=== PATIENT | male | born 1960 | race Caucasian/White ===

== ENCOUNTER 2019-08-02 20:45 | Emergency (ER) | payer MEDICARE, SELFPAY ==
[2019-08-02] VITALS (7 sets, daily range): BP systolic 127–133; BP diastolic 88–105; PULSE 128–147; RESP 20–40; O2SAT 94–99; BMI 21.1
--- NOTE | 2019-08-02 20:56 | ED_ITS ---
Entered by Daysi Ballard, acting as scribe for Sandeep Sanderson MD HPI - SOB/Dyspnea General: Chief Complaint: Shortness of Breath/Dyspnea Stated Complaint: SOB PFSH ED PFSH: Statuses (acute, chronic, etc) shown below reflect problem list status as previously entered and may not be historically accurate Medical History (Updated 07/15/19 @ 14:12 by Yaritza Pizarro DO) Cervical postlaminectomy syndrome (Acute) Chronic GERD (Acute) Colovesical fistula (Acute) COPD, moderate (Chronic) Coronary artery disease (Acute) Hyperlipidemia, unspecified (Acute) Hypertension (Acute) Indeterminate pulmonary nodules (Acute) Ischemic cardiomyopathy (Acute) Lumbar spondylosis (Acute) Major depressive disorder (Chronic) Other spondylosis, cervical region (Acute) Vesicocutaneous fistula (Acute) Surgical History (Updated 07/15/19 @ 14:11 by Yaritza Pizarro DO) H/O neck surgery (Acute) History of open heart surgery (Acute) S/P appendectomy (Acute) S/P colon resection (Acute) Social History Smoking and tobacco status: current every day smoker cigarettes Packs smoked per day: 0.5 Alcohol intake: never Course Vital Signs: Vital signs: Vital Signs Pulse Rate 147 H 08/02/19 20:46 Respiratory Rate 40 H 08/02/19 20:46 Blood Pressure 127/105 08/02/19 20:46 Pulse Oximetry 99 08/02/19 20:46 Discharge Plan Discharge Prescriptions: No Action paroxetine HCl [Paxil] 40 mg tablet 40 mg PO ONCE Qty: 30 RF: 2 albuterol sulfate 2.5 mg /3 mL (0.083 %) solution for nebulization 2.5 mg INHALATION Q4H PRN (Reason: shortness of breath or wheezing) Qty: 3 RF: 0 montelukast [Singulair] 10 mg tablet 10 mg PO ONCE RF: 0 omeprazole 20 mg capsule,delayed release(DR/EC) 20 mg PO ONCE RF: 0 lisinopril 5 mg tablet 5 mg PO ONCE RF: 0 metoprolol tartrate 25 mg tablet 25 mg PO BID RF: 0 simvastatin 40 mg tablet 40 mg PO ONCE RF: 0 nitroglycerin [Nitrostat] 0.4 mg tablet, sublingual 0.4 mg SUBLINGUAL Q5M PRNRF: 0 [id number] Tablet 1 tab PO ONCE RF: 0 gabapentin 100 mg capsule 100 mg PO TID Qty: 90 RF: 0 Zyrtec 10 mg capsule 10 mg PO ONCE Qty: 7 RF: 0 meloxicam 15 mg tablet 15 mg PO ONCE Qty: 30 RF: 0 metformin 500 mg tablet extended release 24hr 500 mg PO ONCE Qty: 30 RF: 0 Coding Level of Care Code ED Control Director for Sowmyag Nisha
--- NOTE | 2019-08-02 20:59 | ED_ITS ---
Entered by Daysi Ballard, acting as scribe for Sandeep Sanderson MD HPI - SOB/Dyspnea General: Chief Complaint: Shortness of Breath/Dyspnea Stated Complaint: SOB Time Seen by Provider: 08/02/19 20:57 Source: patient and RN notes reviewed Mode of arrival: ambulatory Limitations: no limitations History of Present Illness: HPI Narrative: 59 yo male presents to ED with complaints of shortness of breath. The patient states he can't walk 5 feet nor take a shower without feeling like he is going to pass out. The patient states he was diagnosed last week with diabetes. The patient states his shortness of breath scares him. MD elicited complaint: shortness of breath and anxiety Pertinent past history: COPD and diabetes Onset (ago): day(s) (today) Context: anxiety Timing: constant Severity: severe Exacerbating factors: exertion, movement and smoke Relieving factors: oxygen and rest Known history of: COPD Associated symptoms: Reports no associated symptoms; Deny abdominal pain, chest pain, fever(s), nausea, polyuria or vomiting Treatment prior to arrival: none Review of Systems Const: Denies: fever or chills Eyes: Denies: change in vision ENMT: Denies: throat pain or mouth pain Card: Denies: chest pain GI: Denies: abdominal pain, nausea, vomiting or diarrhea Musc: Denies: back pain or joint pain Skin/Breast: Denies: rash Neuro: Denies: headache or behavioral changes Psych: Denies: depression Endo: Denies: excessive urination Chase/Lymph: Denies: easy bruising All/Imm: Denies: hives PFSH ED PFSH: Statuses (acute, chronic, etc) shown below reflect problem list status as previously entered and may not be historically accurate Medical History (Updated 08/02/19 @ 22:07 by Sandeep Sanderson MD) Cervical postlaminectomy syndrome (Acute) Chronic GERD (Acute) Colovesical fistula (Acute) COPD, moderate (Chronic) Coronary artery disease (Acute) Hyperlipidemia, unspecified (Acute) Hypertension (Acute) Indeterminate pulmonary nodules (Acute) Ischemic cardiomyopathy (Acute) Lumbar spondylosis (Acute) Major depressive disorder (Chronic) Other spondylosis, cervical region (Acute) Vesicocutaneous fistula (Acute) Surgical History (Updated 07/15/19 @ 14:11 by Yaritza Pizarro DO) H/O neck surgery (Acute) History of open heart surgery (Acute) S/P appendectomy (Acute) S/P colon resection (Acute) Social History Smoking and tobacco status: current every day smoker cigarettes Packs smoked per day: 0.5 Alcohol intake: never Physical Exam Const: COMMON NORMALS: no apparent distress, average body habitus and oriented x3 HENMT: COMMON NORMALS: normocephalic and head/scalp atraumatic HEAD & SCALP: normocephalic and atraumatic Eye: COMMON NORMALS: PERRL and conjunctivae normal CONJUNCTIVA: Yes conjunctivae normal PUPIL: Yes PERRL Neck/C-Spine: COMMON NORMALS: full ROM and no lymphadenopathy Chest: COMMONS NORMALS: inspection of chest normal and palpation of chest normal Resp: EFFORT & INSPECTION: Yes respiratory distress and Yes audible wheezes Cardio: COMMON NORMALS: regular rate and regular rhythm RATE: regular rate RHYTHM: regular rhythm GI: COMMON NORMALS: normal to inspection, nondistended, normoactive bowel sounds and soft to palpation PALPATION: Yes soft Neuro: COMMON NORMALS: oriented x3 Psych: COMMON NORMALS: mental status grossly normal Skin: COMMON NORMALS: no rashes or lesions noted GENERAL SKIN EXAM: no rashes or lesions noted Course Vital Signs: Vital signs: Vital Signs Pulse Rate 140 H 08/02/19 22:29 Respiratory Rate 24 H 08/02/19 22:29 Blood Pressure 133/88 08/02/19 22:29 Pulse Oximetry 94 08/02/19 22:29 MDM - SOB/Dyspnea MDM Narrative: Medical decision making narrative: Patient presents here with cough congestion and likely COPD exacerbation. Patient has no signs of cardiac cause or pulmonary embolism. Patient feels improved here after breathing treatment. I offered him admission but he refused. We will give him 1 more treatment and then prescribe Keflex and prednisone for home. Patient is to return if worsening is to follow-up with primary care doctor in 3 to 5 days. Lab Data: Labs: Lab Results 08/02/19 08/02/19 Range/Units 21:08 21:08 WBC 13.1 H (4.0-10.0) 10^3/ uL RBC 4.93 (4.1-5.3) 10^6/u L Hgb 15.0 (11.7-16.6) g/dL Hct 46.1 (42.0-52.0) % MCV 93.5 (80-94) fL MCH 30.4 (28.0-34.0) pg MCHC 32.5 (30.0-36.0) g/dL RDW 12.7 (12.1-15.1) % Plt Count 353 (130-400) 10^3/c mm MPV 10.7 H (7.4-10.4) fL Neut % (Auto) 80.8 % Lymph % (Auto) 10.7 % [place] % (Auto) 6.7 % Eos % (Auto) 1.0 % Baso % (Auto) 0.5 % Neut # (Auto) 10.5 H (1.8-7.7) 10^3/u L Lymph # (Auto) 1.4 (0.8-4.8) 10^3/u L [place] # (Auto) 0.9 (0.2-0.9) 10^3/u L Eos # (Auto) 0.1 (0.0-0.8) 10^3/u L Baso # (Auto) 0.1 (0.0-0.1) 10^3/u L Nucleated RBC % (a uto) 0 % Nucleated RBCs # 0.0 /100WBC Sodium 136 (136-145) mmol/L Potassium 3.9 (3.5-5.1) mmol/L Chloride 97 L (98-107) mmol/L Carbon Dioxide 23 (22-29) mmol/L Anion Gap 19.9 H (5-19) BUN 11 (6-20) mg/dL Creatinine 1.1 (0.7-1.2) mg/dL GFR Calculation 68.5 L (90-130) mL/min Glucose 321 H (74-109) mg/dL Calcium 10.1 (8.5-10.5) mg/dL Total Bilirubin 0.3 (0.15-1.2) mg/dL AST 59 H (0-40) U/L ALT 125 H (0-41) U/L Alkaline Phosphata se 206 H (40-130) IU/L Total Protein 7.6 (6.6-8.7) g/dL Albumin 3.7 (3.5-5.2) g/dL Globulin 3.9 (1.3-4.6) g/dL Imaging Data^: CXR: Attestation: I personally reviewed and interpreted this imaging study as follows: My impression: no acute abnormality Discharge Plan Discharge Patient Disposition: Home, Self-Care Clinical Impression: COPD, moderate Condition: Stable Prescriptions: New Keflex 500 mg capsule 500 mg PO Q6H 7 Days Qty: 28 RF: 0 prednisone 50 mg tablet 50 mg PO DAILY Qty: 5 RF: 0 No Action paroxetine HCl [Paxil] 40 mg tablet 40 mg PO ONCE Qty: 30 RF: 2 albuterol sulfate 2.5 mg /3 mL (0.083 %) solution for nebulization 2.5 mg INHALATION Q4H PRN (Reason: shortness of breath or wheezing) Qty: 3 RF: 0 montelukast [Singulair] 10 mg tablet 10 mg PO ONCE RF: 0 omeprazole 20 mg capsule,delayed release(DR/EC) 20 mg PO ONCE RF: 0 lisinopril 5 mg tablet 5 mg PO ONCE RF: 0 metoprolol tartrate 25 mg tablet 25 mg PO BID RF: 0 simvastatin 40 mg tablet 40 mg PO ONCE RF: 0 nitroglycerin [Nitrostat] 0.4 mg tablet, sublingual 0.4 mg SUBLINGUAL Q5M PRNRF: 0 [id number] Tablet 1 tab PO ONCE RF: 0 gabapentin 100 mg capsule 100 mg PO TID Qty: 90 RF: 0 Zyrtec 10 mg capsule 10 mg PO ONCE Qty: 7 RF: 0 meloxicam 15 mg tablet 15 mg PO ONCE Qty: 30 RF: 0 metformin 500 mg tablet extended release 24hr 500 mg PO ONCE Qty: 30 RF: 0 Discharge Orders: Discharge Order (Routine); Ordered 08/02/19 Ordered By: Sandeep Sanderson Referrals: Mora Mortensen FNP [Primary Care Provider] - 4-7 days Discharge Diet: Advance as tolerated Discharge Activity: Resume usual activity Patient Instructions: Chronic Obstructive Pulmonary Disease (ED) Discharge Date/Time: 08/02/19 22:13 Coding Level of Care Code ED Cad Programmer for Chg Fwd Exam Problem Focused The documentation recorded by the Nellie deleon Valerie R, accurately reflects the service I personally performed and the decisions made by me, Sandeep Sanderson MD Aug 02, 2019 20:45
--- NOTE | 2019-08-02 21:00 | XR_ITS ---
WS: [id number] CHEST XRAY TECHNIQUE: Portable chest. CLINICAL INFORMATION: sob COMPARISON: None. FINDINGS: Sternotomy. Heart: Normal cardiac silhouette. Lungs: Chronic emphysematous changes. No acute pulmonary infiltrates. No focal pneumonia. Bones: Postoperative changes lower cervical spine. IMPRESSION: 1. Chronic emphysematous changes. No acute pulmonary infiltrates. 2. No acute chest findings.
[2019-08-02 21:11] LABS: Basophils # 0.1 10^3/uL (0.0-0.1); Basophils % 0.5 %; Eosinophils # 0.1 10^3/uL (0.0-0.8); Hematocrit 46.1 % (42.0-52.0); Lymphocytes # 1.4 10^3/uL (0.8-4.8); Lymphocytes % 10.7 %; Mean Corpuscular HGB Conc 32.5 g/dL (30.0-36.0); Mean Corpuscular Hemoglobin 30.4 pg (28.0-34.0); Mean Corpuscular Volume 93.5 fL (80-94); Mean Platelet Volume 10.7 fL (7.4-10.4); Monocytes # 0.9 10^3/uL (0.2-0.9); Monocytes % 6.7 %; Neutrophils # 10.5 10^3/uL (1.8-7.7); Neutrophils % 80.8 %; Nucleated Red Blood Cells % 0 %; Platelet Count 353 10^3/cmm (130-400); Red Blood Count 4.93 10^6/uL (4.1-5.3); Red Cell Distribution Width 12.7 % (12.1-15.1); White Blood Count 13.1 10^3/uL (4.0-10.0)
[2019-08-02] MEDS: ipratropium-albuterol 3 mL Neb INHALATION (21:19)
[2019-08-02 21:25] LABS: Alanine Aminotransferase 125 U/L (0-41); Albumin Level 3.7 g/dL (3.5-5.2); Alkaline Phosphatase 206 IU/L (40-130); Anion Gap 19.9 (5-19); Aspartate Amino Transferase 59 U/L (0-40); Blood Urea Nitrogen 11 mg/dL (6-20); Calcium 10.1 mg/dL (8.5-10.5); Carbon Dioxide 23 mmol/L (22-29); Chloride 97 mmol/L (98-107); Globulin 3.9 g/dL (1.3-4.6); Glomerular Filtration Rate 68.5 mL/min (90-130); Glucose 321 mg/dL (74-109); Potassium 3.9 mmol/L (3.5-5.1); Sodium 136 mmol/L (136-145); Total Bilirubin 0.3 mg/dL (0.15-1.2); Total Protein 7.6 g/dL (6.6-8.7)
[2019-08-02] MEDS: LORazepam 2 mg/mL INJ 1 mL 1 MG IVP (21:32)
[2019-08-02] MEDS: sodium chloride 0.9% 1,000 ML 999 ML IV (21:36)
== END 2019-08-02 22:13 | disposition home or self-care (01) ==
PROVIDERS: Emergency Provider Emergency Medicine; Family Provider Nurse Practitioner; PCP Nurse Practitioner
DX: J44.9 Chronic obstructive pulmonary disease, unspecified (principal); Z79.84 Long term (current) use of oral hypoglycemic drugs; I25.10 Atherosclerotic heart disease of native coronary artery without angina pectoris; E78.5 Hyperlipidemia, unspecified; I10 Essential (primary) hypertension; F17.210 Nicotine dependence, cigarettes, uncomplicated; K21.9 Gastro-esophageal reflux disease without esophagitis
CPT/HCPCS: 36415; 71045; 80053; 85025; 94640; 96374; 96375; 99281; 99284; J2060; J2930; J7030; J7611

== ENCOUNTER 2019-08-03 01:20 | Emergency (ER) | payer MEDICARE, SELFPAY ==
[2019-08-03 01:31] VITALS: BP 149/100; PULSE 132; RESP 24; TEMP 36.5; O2SAT 96; BMI 21.1
[2019-08-03 01:41] VITALS: BP 149/100; PULSE 127; RESP 30; O2SAT 96
--- NOTE | 2019-08-03 01:47 | W.ED.GENADLT ---
HPI - General Adult General: Chief complaint: Shortness of Breath/Dyspnea Stated complaint: SOB Time Seen by Provider: 08/03/19 01:30 History of Present Illness: HPI narrative: Patient states he left here feeling pretty good and the breathing treatments here made a difference for him and now once he got home he started have some breathing problems again. Says he feels short of breath feels anxious. Patient states he had recent medication changes he continues to smoke. Patient received breathing treatments Ativan Solu-Medrol at 2100 last night. Denies any chest pain or other problems besides his chronic pain. MD complaint: sob Onset (ago): day(s) Associated symptoms: Reports dyspnea; Deny chest pain, headache(s), nausea, rash or vomiting Review of Systems Const: Denies: fever, chills or body aches Eyes: Denies: change in vision or blurry vision ENMT: Denies: throat pain or nasal congestion Card: Denies: chest pain or shortness of breath on exertion Resp: Reports: shortness of breath and productive cough; Denies: non-productive cough GI: Denies: abdominal pain, nausea or vomiting : Denies: difficulty urinating Musc: Reports: extremity pain (Chronic back neck joint pain) Skin/Breast: Denies: rash Neuro: Denies: headache Psych: Reports: anxiety; Denies: depression Chase/Lymph: Denies: easy bruising PFSH ED PFSH: Statuses (acute, chronic, etc) shown below reflect problem list status as previously entered and may not be historically accurate Medical History (Updated 08/03/19 @ 02:21 by TREMAINE Morrow) Cervical postlaminectomy syndrome (Acute) Chronic GERD (Acute) Colovesical fistula (Acute) COPD, moderate (Chronic) Coronary artery disease (Acute) Hyperlipidemia, unspecified (Acute) Hypertension (Acute) Indeterminate pulmonary nodules (Acute) Ischemic cardiomyopathy (Acute) Lumbar spondylosis (Acute) Major depressive disorder (Chronic) Other spondylosis, cervical region (Acute) Vesicocutaneous fistula (Acute) Surgical History (Updated 07/15/19 @ 14:11 by Yaritza Pizarro DO) H/O neck surgery (Acute) History of open heart surgery (Acute) S/P appendectomy (Acute) S/P colon resection (Acute) Social History (Reviewed 07/16/19 @ 07:37 by BYRON Jordan Smoking and tobacco status: current every day smoker cigarettes Packs smoked per day: 0.5 Alcohol intake: never Physical Exam Const: COMMON NORMALS: no apparent distress, average body habitus and oriented x3 HENMT: COMMON NORMALS: normocephalic HEAD & SCALP: normal to inspection and normocephalic FACE & SINUS: normal facial exam Eye: COMMON NORMALS: conjunctivae normal GENERAL EYE: normal appearance of both eyes CONJUNCTIVA: Yes conjunctivae normal Neck/C-Spine: COMMON NORMALS: no JVD Chest: COMMONS NORMALS: inspection of chest normal Resp: EFFORT & INSPECTION: Yes able to speak in complete sentences and Yes tachypneic AUSCULTATION: diminished lung sounds Cardio: COMMON NORMALS: no JVD, regular rate and regular rhythm RATE: regular rate RHYTHM: regular rhythm GI: COMMON NORMALS: normal to inspection, nondistended, normoactive bowel sounds Extremity: COMMON NORMALS: normal to inspection and full ROM Neuro: COMMON NORMALS: oriented x3 Course Vital Signs: Vital signs: Vital Signs Temperature 97.7 F 08/03/19 01:31 Pulse Rate 122 H 08/03/19 02:02 Respiratory Rate 32 H 08/03/19 01:58 Blood Pressure 149/100 08/03/19 01:41 Pulse Oximetry 93 08/03/19 01:58 MDM - General Adult MDM Narrative: Medical decision making narrative: Patient talking full sentences when he wants to patient is asking for pain medicine asking for muscle relaxers because of his chronic pain. Patient many times did not seem like he short of breath at all the other times he does. I ask him to slow his breathing down and he does. Discharge Plan Discharge Patient Disposition: Home, Self-Care Clinical Impression: Acute exacerbation of chronic obstructive airways disease Condition: Stable Prescriptions: New prednisone 5 mg tablet 5 mg PO DAILY Qty: 20 RF: 0 No Action paroxetine HCl [Paxil] 40 mg tablet 40 mg PO ONCE Qty: 30 RF: 2 albuterol sulfate 2.5 mg /3 mL (0.083 %) solution for nebulization 2.5 mg INHALATION Q4H PRN (Reason: shortness of breath or wheezing) Qty: 3 RF: 0 montelukast [Singulair] 10 mg tablet 10 mg PO ONCE RF: 0 omeprazole 20 mg capsule,delayed release(DR/EC) 20 mg PO ONCE RF: 0 lisinopril 5 mg tablet 5 mg PO ONCE RF: 0 metoprolol tartrate 25 mg tablet 25 mg PO BID RF: 0 simvastatin 40 mg tablet 40 mg PO ONCE RF: 0 nitroglycerin [Nitrostat] 0.4 mg tablet, sublingual 0.4 mg SUBLINGUAL Q5M PRNRF: 0 [id number] Tablet 1 tab PO ONCE RF: 0 gabapentin 100 mg capsule 100 mg PO TID Qty: 90 RF: 0 Zyrtec 10 mg capsule 10 mg PO ONCE Qty: 7 RF: 0 meloxicam 15 mg tablet 15 mg PO ONCE Qty: 30 RF: 0 metformin 500 mg tablet extended release 24hr 500 mg PO ONCE Qty: 30 RF: 0 Keflex 500 mg capsule 500 mg PO Q6H 7 Days Qty: 28 RF: 0 prednisone 50 mg tablet 50 mg PO DAILY Qty: 5 RF: 0 Discharge Orders: Discharge Order (Routine); Ordered 08/03/19 Ordered By: Tarun Butler Referrals: Mora Mortensen FNP [Primary Care Provider] - Discharge Diet: Usual diet Discharge Activity: Increase activity as tolerated Patient Instructions: Chronic Obstructive Pulmonary Disease (ED) Activity Restrictions/Additional Instructions: Follow-up with medical provider as directed. Take medications as prescribed. Return to the ER or your medical provider if condition worsens. Please read and understand discharge instructions. If any questions ask please. Finish your [address] Sanderson gave in the ER last night Coding Level of Care Code ED Technical Training Manager for Cony Fwcathy Exam Problem Focused
[2019-08-03] MEDS: LORazepam 0.5 mg Tablet PO (01:48)
[2019-08-03] MEDS: ipratropium-albuterol 3 mL Neb INHALATION (01:57)
[2019-08-03 01:58] VITALS: PULSE 120; RESP 32; O2SAT 93
[2019-08-03 02:02] VITALS: PULSE 122
[2019-08-03 02:41] VITALS: BP 118/83; PULSE 126; RESP 20; O2SAT 94
== END 2019-08-03 02:43 | disposition home or self-care (01) ==
PROVIDERS: Emergency Provider Nurse Practitioner Family; Family Provider Nurse Practitioner; PCP Nurse Practitioner
DX: J44.1 Chronic obstructive pulmonary disease with (acute) exacerbation (principal); F17.210 Nicotine dependence, cigarettes, uncomplicated; J44.9 Chronic obstructive pulmonary disease, unspecified; I25.10 Atherosclerotic heart disease of native coronary artery without angina pectoris; E78.5 Hyperlipidemia, unspecified; I10 Essential (primary) hypertension; K21.9 Gastro-esophageal reflux disease without esophagitis
CPT/HCPCS: 94640; 99281

== ENCOUNTER 2019-09-19 14:38 | Inpatient (IN) | payer MEDICARE, SELFPAY ==
[2019-09-19] VITALS (12 sets, daily range): BP systolic 101–120; BP diastolic 49–73; PULSE 47–115; RESP 18–35; TEMP 37–37.6; O2SAT 88–99; BMI 19.8
--- NOTE | 2019-09-19 14:58 | ED_ITS ---
Entered by Lani Reed, acting as scribe for Homer Nguyen DO HPI - SOB/Dyspnea General: Chief Complaint: Shortness of Breath/Dyspnea Stated Complaint: sob Time Seen by Provider: 09/19/19 14:57 PFS ED PFSH: Medical History (Updated 08/16/19 @ 14:44 by Yaritza Pizarro DO) Allergic rhinitis Cervical postlaminectomy syndrome Chronic GERD Colovesical fistula COPD, moderate Coronary artery disease Hyperlipidemia, unspecified Hypertension Indeterminate pulmonary nodules Ischemic cardiomyopathy Lumbar spondylosis Major depressive disorder Other spondylosis, cervical region Vesicocutaneous fistula Surgical History H/O neck surgery History of open heart surgery S/P appendectomy S/P colon resection Social History Smoking and tobacco status: current every day smoker cigarettes Packs smoked per day: 0.5 Alcohol intake: never Course Vital Signs: Vital signs: Vital Signs Temperature 98.6 F 09/19/19 14:44 Pulse Rate 47 L 09/19/19 14:44 Respiratory Rate 24 H 09/19/19 14:44 Blood Pressure 118/68 09/19/19 14:44 Pulse Oximetry 90 09/19/19 14:44 Discharge Plan Discharge Condition: Stable Prescriptions: No Action omeprazole 20 mg capsule,delayed release(DR/EC) 20 mg PO ONCE Qty: 30 RF: 3 meloxicam 15 mg tablet 15 mg PO DAILY Qty: 30 RF: 3 montelukast [Singulair] 10 mg tablet 10 mg PO ONCE Qty: 30 RF: 2 gabapentin 100 mg capsule 100 mg PO TID Qty: 90 RF: 3 paroxetine HCl [Paxil] 40 mg tablet 40 mg PO ONCE Qty: 30 RF: 2 albuterol sulfate 2.5 mg /3 mL (0.083 %) solution for nebulization 2.5 mg INHALATION Q4H PRN (Reason: shortness of breath or wheezing) Qty: 3 RF: 0 metoprolol tartrate 25 mg tablet 25 mg PO BID RF: 0 nitroglycerin [Nitrostat] 0.4 mg tablet, sublingual 0.4 mg SUBLINGUAL Q5M PRNRF: 0 [id number] Tablet 1 tab PO ONCE RF: 0 Zyrtec 10 mg capsule 10 mg PO ONCE Qty: 7 RF: 0 metformin 500 mg tablet extended release 24hr 500 mg PO ONCE Qty: 30 RF: 0 simvastatin 40 mg tablet 40 mg PO ONCE Qty: 90 RF: 0 lisinopril 5 mg tablet 5 mg PO ONCE Qty: 90 RF: 0 albuterol sulfate [Ventolin HFA] 90 mcg/actuation HFA aerosol inhaler 2 puff INHALATION Q6H PRN (Reason: shortness of breath or wheezing) Qty: 18 RF: 0 prednisone 5 mg tablet 5 mg PO DAILY Qty: 20 RF: 0 Atrovent HFA 17 mcg/actuation HFA aerosol inhaler 2 inh INHALATION Q8H PRN (Reason: shortness of breath or wheezing) Qty: 12.9 RF: 0 prednisone 50 mg tablet 50 mg PO DAILY Qty: 5 RF: 0 Coding Level of Care Code ED Milk Receiver Tank Truck for Cony Cameron
--- NOTE | 2019-09-19 14:59 | ED_ITS ---
Entered by Lani Reed, acting as scribe for HPI - Abdominal Pain General: Chief Complaint: Abdominal Pain Stated Complaint: sob Time Seen by Provider: 09/19/19 14:57 Source: patient Mode of arrival: ambulatory Limitations: no limitations History of Present Illness: HPI narrative: 59 yo Male presents to ED with complaint of right upper quadrant abdominal pain and shortness of breath. Pt states that he has had pains for a couple of days. Pt states that he has COPD and has a history of diverticulitis which ruptured. Pt states that he has had to have surgery on his abdomen to put a mesh in when he had the rupture. Pt states that his pain is making him short of breath. Pt states that if he is holding his abdomen in, his pain is better, but if he relaxes the pain becomes much worse. Pt states that he coughs all the time because of his COPD. MD elicited complaint: abdominal pain Pertinent past history: diverticulitis Onset (ago): day(s) Pain Consistency: constant Location: RUQ and R flank Pain scale (0-10): 9 Quality: aching and dull Radiation: R flank Migration to: no migration Exacerbating factors: other (deep breaths/relaxing abdomen muscles) Relieving factors: other (holding abdomen muscles in) Associated Symptoms: Reports other (shortness of breath) Review of Systems General: Reports: 10 or more systems reviewed and unremarkable except in HPI and below Resp: Reports: shortness of breath and pain on inspiration GI: Reports: abdominal pain and other (shortness of breath) : Reports: flank pain [facility] ED PFSH: Medical History Allergic rhinitis Cervical postlaminectomy syndrome Chronic GERD Colovesical fistula COPD, moderate Coronary artery disease Hyperlipidemia, unspecified Hypertension Indeterminate pulmonary nodules Ischemic cardiomyopathy Lumbar spondylosis Major depressive disorder Other spondylosis, cervical region Vesicocutaneous fistula Surgical History H/O neck surgery History of open heart surgery S/P appendectomy S/P colon resection Family History Other CAD (coronary artery disease) Cancer Diabetes Social History Smoking and tobacco status: current every day smoker cigarettes Packs smoked per day: 0.5 Alcohol intake: never Physical Exam Const: COMMON NORMALS: no apparent distress, average body habitus, oriented x3, no limitations, healthy appearing, alert and well nourished HENMT: COMMON NORMALS: normocephalic, head/scalp atraumatic, hearing grossly normal bilaterally, external ears normal, EAC's normal, TM's normal bilaterally, external nose normal, nasal mucous membranes and turbinates normal, moist oral mucous membranes, oropharynx normal, dentition normal and gingiva normal HEAD & SCALP: normocephalic and atraumatic NOSE: external nose normal and nasal mucous membranes and turbinates normal EXTERNAL EAR: Yes external ears normal EXTERNAL AUDITORY CANAL: EAC's normal TYMPANIC MEMBRANE: TM's normal bilaterally Eye: COMMON NORMALS: PERRL, EOMs intact bilaterally, conjunctivae normal, no scleral icterus, no papilledema, normal visual romano by confrontation and fundi normal bilaterally CONJUNCTIVA: Yes conjunctivae normal PUPIL: Yes PERRL DIRECT OPHTHALMOSCOPY: Yes no papilledema and Yes fundi normal bilaterally Neck/C-Spine: COMMON NORMALS: full ROM, no lymphadenopathy, supple, no meningeal signs, no JVD, thyroid normal and no carotid bruits THYROID: thyroid normal Chest: COMMONS NORMALS: inspection of chest normal and palpation of chest normal CHEST: Yes tenderness rib right Resp: COMMON NORMALS: normal respiratory effort, no retractions, no use of accessory muscles, clear to auscultation bilaterally and percussion normal AUSCULTATION: clear to auscultation bilaterally PERCUSSION: percussion normal Cardio: COMMON NORMALS: no JVD, regular rate, regular rhythm, S1 normal heart sound, S2 normal heart sound, no gallops, no clicks, no murmurs, no rub and peripheral pulses 2+ throughout RATE: regular rate RHYTHM: regular rhythm HEART SOUNDS: S1 normal and S2 normal PERIPHERAL PULSES: pulses 2+ throughout GI: COMMON NORMALS: normal to inspection, nondistended, normoactive bowel sounds, soft to palpation, non-tender, no hepatosplenomegaly, no masses and no bruits PALPATION: Yes soft and Yes no hepatosplenomegaly : COMMON NORMALS: Yes no CVA tenderness BLADDER/KIDNEY EXAM: Yes no CVA tenderness Back/Pelvis: COMMON NORMALS: no CVA tenderness, thoracic and lumbar spine normal to inspection, no thoracic nor lumbar tenderness, thoraco-lumbar ROM normal and straight leg raise negative bilaterally Extremity: COMMON NORMALS: normal to inspection, full ROM, normal capillary refill, no joint enlargement, no clubbing, cyanosis or edema, no calf tenderness and no pedal edema Neuro: COMMON NORMALS: oriented x3 SENSORIUM/ORIENTATION: Yes alert MENINGEAL SIGNS: Yes no meningeal signs Skin: COMMON NORMALS: no rashes or lesions noted, no wounds, skin turgor normal, no jaundice, no petechiae and no mottling GENERAL SKIN EXAM: no rashes or lesions noted and turgor normal Course Vital Signs: Vital signs: Vital Signs Temperature 98.6 F 09/19/19 14:44 Pulse Rate 108 H 09/19/19 16:10 Respiratory Rate 28 H 09/19/19 16:10 Blood Pressure 120/71 09/19/19 16:10 Pulse Oximetry 90 09/19/19 16:10 MDM - Abdominal Pain Lab Data: Labs: Lab Results 09/19/19 09/19/19 09/19/19 Range/Units 15:18 15:20 15:58 WBC 17.8 H (4.0-10.0) 10^3/ uL RBC 5.12 (4.1-5.3) 10^6/u L Hgb 15.8 (11.7-16.6) g/dL Hct 50.1 (42.0-52.0) % MCV 97.9 H (80-94) fL MCH 30.9 (28.0-34.0) pg MCHC 31.5 (30.0-36.0) g/dL RDW 12.4 (12.1-15.1) % Plt Count 261 (130-400) 10^3/c mm MPV 11.0 H (7.4-10.4) fL Neut % (Auto) 86.6 % Lymph % (Auto) 6.1 % [place] % (Auto) 6.2 % Eos % (Auto) 0.1 % Baso % (Auto) 0.4 % Neut # (Auto) 15.4 H (1.8-7.7) 10^3/u L Lymph # (Auto) 1.1 (0.8-4.8) 10^3/u L [place] # (Auto) 1.1 H (0.2-0.9) 10^3/u L Eos # (Auto) 0.0 (0.0-0.8) 10^3/u L Baso # (Auto) 0.1 (0.0-0.1) 10^3/u L Nucleated RBC % (a uto) 0 % Nucleated RBCs # 0.0 /100WBC Sodium 128 L (136-145) mmol/L Potassium 6.1 H (3.5-5.1) mmol/L Chloride 89 L (98-107) mmol/L Carbon Dioxide 27 (22-29) mmol/L Anion Gap 18.1 (5-19) BUN 16 (6-20) mg/dL Creatinine 1.0 (0.7-1.2) mg/dL GFR Calculation 76.5 L (90-130) mL/min Glucose 191 H (65-115) mg/dL Calculated Osmolal ity 267 L (285-295) mOsm/k g Calcium 9.1 (8.5-10.5) mg/dL Total Bilirubin 0.4 (0.15-1.2) mg/dL ALT 124 H (0-41) U/L Alkaline Phosphata se 207 H (40-130) IU/L Total Protein 6.8 (6.6-8.7) g/dL Albumin 3.4 L (3.5-5.2) g/dL Globulin 3.4 (1.3-4.6) g/dL Influenza Type A A g Negative (Negative) POC Influenza B Ag Negative (Negative) Imaging Data ^: XR Ribs: Radiologist's impression: [address] [address] XRay Report Signed Patient: Albert Hernandez #: [id number] : 1960Acct#:[id number] Age/Sex: 59 / MADM Date: 09/19/19 Loc: ERRoom/Bed: Attending Dr: Ordering Provider/Ordering MD: Homer Nguyen DO Date of Service: 09/19/19 Procedure(s): XR ribs RT mn 3V w CXR1V [id number] Accession Number(s): [id number] Report Number: [id number] PROCEDURE INFORMATION: Exam: XR Right Ribs with PA Chest, 3 Views Exam date and time: 09/19/2019 3:04 PM Age: 59 years old Clinical indication: Other: Lateral RT rib pain; Prior surgery; Surgery date: 6+ months; Surgery type: Cabg; Patient HX: No known injury TECHNIQUE: Imaging protocol: XR Right ribs 3 views with PA chest. COMPARISON: CR XR chest 1V portable [id number] 08/02/2019 9:16 PM FINDINGS: Lungs: There is a new left pleural base opacity with a small air-fluid level concerning for pneumonic infiltrate with small cavitation new since the recent prior exam. The right lung is clear. Pleural space: No right pleural effusion or pneumothorax. No left pleural effusion or left pneumothorax. Heart/Mediastinum: Sternotomy wires and mediastinal surgical clips are present, consistent with previous coronary arterial bypass grafting. The heart size is normal. Bones/joints: Postoperative changes are noted in the cervical spine. No acute or healing rib fracture. XR/XR ribs RT mn 3V w CXR1V [id number] IMPRESSION: 1. There is a new left pleural base opacity with a small air-fluid level concerning for left pleural base pneumonic infiltrate with small cavitation new since the recent prior exam. 2. The right lung is clear. No acute rib fracture. Dictated By:Antoinette No Signed By:Angel No Date/Time:09/19/19 1559 DD/ 1557 CT Abd/Pel: Radiologist's impression: [address] [address] [address] Scan Report Signed Patient: Albert Hernandez #: [id number] : 1960Acct#:[id number] Age/Sex: 59 / MADM Date: 09/19/19 Loc: ERRoom/Bed: Attending Dr: Ordering Provider/Ordering MD: Homer Nguyen DO Date of Service: 09/19/19 Procedure(s): CT abdomen pelvis w con* [id number] Accession Number(s): [id number] Report Number: [id number] PROCEDURE INFORMATION: Exam: CT Abdomen And Pelvis With Contrast Exam date and time: 09/19/2019 3:15 PM Age: 59 years old Clinical indication: Abdominal pain; Localized; Right; Additional info: Flank pain TECHNIQUE: Imaging protocol: Computed tomography of the abdomen and pelvis with intravenous contrast. Total DLP: 480.07 mGy-cm Radiation optimization: All CT scans at this facility use at least one of these dose optimization techniques: automated exposure control; mA and/or kV adjustment per patient size (includes targeted exams where dose is matched to clinical indication); or iterative reconstruction. Contrast material: OMNIPAQUE; Contrast volume: 95 ml; Contrast route: IV; COMPARISON: CT abdomen pelvis w con* [id number] 03/06/2019 9:33 PM FINDINGS: Lungs: There is subpleural atelectasis of the dependent portions of the lungs. Mediastinum: Postoperative changes at the gastroesophageal junction are noted. The distal esophageal wall appears slightly thickened but this may reflect lack of distention, postoperative change or mild esophagitis. Liver: Unremarkable.No mass. Gallbladder and bile ducts: Normal. No calcified stones. No ductal dilation. Pancreas: Normal. No ductal dilation. Spleen: Normal. No splenomegaly. Adrenals: Normal. No mass. Kidneys and ureters: There is no evidence of hydronephrosis. There is no evidence of renal calcifications. There are multiple renal hypodensities that cannot be further characterized on the current examination. Stomach and bowel: Postoperative changes within anastomotic suture line is noted in the distal colon. There is a small bowel feces sign with some fluid mildly distending distal loops of small bowel. This is greatest in the right lower quadrant compatible with mild small bowel enteritis. There is also fluid density stool in the colon especially the right colon which may reflect diarrhea. No definite wall thickening or colitis. Appendix: A normal appendix is identified. Intraperitoneal space: Unremarkable. No free air. No significant fluid collection. Vasculature: Unremarkable.No abdominal aortic aneurysm. Lymph nodes: Unremarkable.No enlarged lymph nodes. Bladder: There is nonspecific bladder wall thickening. This may be related to incomplete distention. Reproductive: Unremarkable as visualized. Bones/joints: There is mild disc space narrowing in the lower lumbar spine. There are small disc bulges at L4-L5 and L5-S1. No acute bony abnormality. Soft tissues: Postoperative changes in the lower abdominal wall are noted. Other findings: There are moderate to severe emphysematous changes. No ileus or obstruction. CT/CT abdomen pelvis w con* [id number] IMPRESSION: 1. Mild distal small bowel enteritis. This is most prominent in the right lower quadrant. 2. No obstructing calculi or hydronephrosis. Radiation Dose CTDIVOL = (mGy): DLP = 480.07 (mGy-cm) Dictated By:Antoinette No Signed By:Parisa Noigned Date/Time:09/19/19 160 DD/ 01 Discharge Plan Discharge Patient Disposition: Admitted As Inpatient Clinical Impression: Acute hyponatremia, Acute hyperkalemia, Pleuritic chest pain, Acute hyperglycemia Condition: Fair Referrals: Mora Mortensen FNP [Primary Care Provider] - Coding Level of Care Code ED Heel Sewer for Chg Fwd Exam Comprehensive The documentation recorded by the Derek deleon Carmen, accurately reflects the service I personally performed and the decisions made by Patrick boroks Donald P, Sep 19, 2019 14:38
--- NOTE | 2019-09-19 15:02 | CTR_ITS ---
PROCEDURE INFORMATION: Exam: CT Abdomen And Pelvis With Contrast Exam date and time: 09/19/2019 3:15 PM Age: 59 years old Clinical indication: Abdominal pain; Localized; Right; Additional info: Flank pain TECHNIQUE: Imaging protocol: Computed tomography of the abdomen and pelvis with intravenous contrast. Total DLP: 480.07 mGy-cm Radiation optimization: All CT scans at this facility use at least one of these dose optimization techniques: automated exposure control; mA and/or kV adjustment per patient size (includes targeted exams where dose is matched to clinical indication); or iterative reconstruction. Contrast material: OMNIPAQUE; Contrast volume: 95 ml; Contrast route: IV; COMPARISON: CT abdomen pelvis w con* [id number] 03/06/2019 9:33 PM FINDINGS: Lungs: There is subpleural atelectasis of the dependent portions of the lungs. Mediastinum: Postoperative changes at the gastroesophageal junction are noted. The distal esophageal wall appears slightly thickened but this may reflect lack of distention, postoperative change or mild esophagitis. Liver: Unremarkable.No mass. Gallbladder and bile ducts: Normal. No calcified stones. No ductal dilation. Pancreas: Normal. No ductal dilation. Spleen: Normal. No splenomegaly. Adrenals: Normal. No mass. Kidneys and ureters: There is no evidence of hydronephrosis. There is no evidence of renal calcifications. There are multiple renal hypodensities that cannot be further characterized on the current examination. Stomach and bowel: Postoperative changes within anastomotic suture line is noted in the distal colon. There is a small bowel feces sign with some fluid mildly distending distal loops of small bowel. This is greatest in the right lower quadrant compatible with mild small bowel enteritis. There is also fluid density stool in the colon especially the right colon which may reflect diarrhea. No definite wall thickening or colitis. Appendix: A normal appendix is identified. Intraperitoneal space: Unremarkable. No free air. No significant fluid collection. Vasculature: Unremarkable.No abdominal aortic aneurysm. Lymph nodes: Unremarkable.No enlarged lymph nodes. Bladder: There is nonspecific bladder wall thickening. This may be related to incomplete distention. Reproductive: Unremarkable as visualized. Bones/joints: There is mild disc space narrowing in the lower lumbar spine. There are small disc bulges at L4-L5 and L5-S1. No acute bony abnormality. Soft tissues: Postoperative changes in the lower abdominal wall are noted. Other findings: There are moderate to severe emphysematous changes. No ileus or obstruction. CT/CT abdomen pelvis w con* [id number] IMPRESSION: 1. Mild distal small bowel enteritis. This is most prominent in the right lower quadrant. 2. No obstructing calculi or hydronephrosis. Radiation Dose CTDIVOL = (mGy): DLP = 480.07 (mGy-cm)
--- NOTE | 2019-09-19 15:03 | XRR_ITS ---
PROCEDURE INFORMATION: Exam: XR Right Ribs with PA Chest, 3 Views Exam date and time: 09/19/2019 3:04 PM Age: 59 years old Clinical indication: Other: Lateral RT rib pain; Prior surgery; Surgery date: 6+ months; Surgery type: Cabg; Patient HX: No known injury TECHNIQUE: Imaging protocol: XR Right ribs 3 views with PA chest. COMPARISON: CR XR chest 1V portable [id number] 08/02/2019 9:16 PM FINDINGS: Lungs: There is a new left pleural base opacity with a small air-fluid level concerning for pneumonic infiltrate with small cavitation new since the recent prior exam. The right lung is clear. Pleural space: No right pleural effusion or pneumothorax. No left pleural effusion or left pneumothorax. Heart/Mediastinum: Sternotomy wires and mediastinal surgical clips are present, consistent with previous coronary arterial bypass grafting. The heart size is normal. Bones/joints: Postoperative changes are noted in the cervical spine. No acute or healing rib fracture. XR/XR ribs RT mn 3V w CXR1V [id number] IMPRESSION: 1. There is a new left pleural base opacity with a small air-fluid level concerning for left pleural base pneumonic infiltrate with small cavitation new since the recent prior exam. 2. The right lung is clear. No acute rib fracture.
--- NOTE | 2019-09-19 15:20 | PC.NURSE ---
pt transported to CT/radiology with tech by stretcher
[2019-09-19 15:25] LABS: Basophils # 0.1 10^3/uL (0.0-0.1); Basophils % 0.4 %; Eosinophils % 0.1 %; Hematocrit 50.1 % (42.0-52.0); Hemoglobin 15.8 g/dL (11.7-16.6); Lymphocytes # 1.1 10^3/uL (0.8-4.8); Lymphocytes % 6.1 %; Mean Corpuscular HGB Conc 31.5 g/dL (30.0-36.0); Mean Corpuscular Hemoglobin 30.9 pg (28.0-34.0); Mean Corpuscular Volume 97.9 fL (80-94); Monocytes # 1.1 10^3/uL (0.2-0.9); Monocytes % 6.2 %; Neutrophils # 15.4 10^3/uL (1.8-7.7); Neutrophils % 86.6 %; Nucleated Red Blood Cells % 0 %; Platelet Count 261 10^3/cmm (130-400); Red Blood Count 5.12 10^6/uL (4.1-5.3); Red Cell Distribution Width 12.4 % (12.1-15.1); White Blood Count 17.8 10^3/uL (4.0-10.0)
[2019-09-19] MEDS: iohexol 300 mg/mL 100 mL Btl IV (15:38)
[2019-09-19] MEDS: sodium chloride 0.9% 500 ML 999 ML IV (15:51)
[2019-09-19] MEDS: ondansetron 2 mg/ML SDV 2 mL 4 MG IVP ×2 (15:51→19:45)
[2019-09-19] MEDS: fentaNYL 50 mcg/mL INJ 2mL IVP ×2 (15:51→17:27)
[2019-09-19] MEDS: ipratropium-albuterol 3 mL Neb INHALATION ×2 (16:01→21:17)
[2019-09-19 16:24] LABS: Influenza A by IFA Negative (Negative); Influenza B by IFA Negative (Negative)
[2019-09-19 16:25] LABS: Alanine Aminotransferase 124 U/L (0-41); Albumin Level 3.4 g/dL (3.5-5.2); Alkaline Phosphatase 207 IU/L (40-130); Anion Gap 18.1 (5-19); Blood Urea Nitrogen 16 mg/dL (6-20); Calcium 9.1 mg/dL (8.5-10.5); Carbon Dioxide 27 mmol/L (22-29); Chloride 89 mmol/L (98-107); Globulin 3.4 g/dL (1.3-4.6); Glomerular Filtration Rate 76.5 mL/min (90-130); Glucose 191 mg/dL (65-115); Osmolality Calculated 267 mOsm/kg (285-295); Potassium 6.1 mmol/L (3.5-5.1); Sodium 128 mmol/L (136-145); Total Bilirubin 0.4 mg/dL (0.15-1.2); Total Protein 6.8 g/dL (6.6-8.7)
--- NOTE | 2019-09-19 16:41 | PC.PHAR ---
PT STATES THIS IS ALL THE MEDICATIONS HE TAKES-[facility] IS NOT OPEN TO VERIFY MEDS
[2019-09-19 16:59] LABS: Aspartate Amino Transferase 78 U/L (0-40)
[2019-09-19] MEDS: sodium chloride 0.9% 1,000 ML 100 ML IV (17:28)
--- NOTE | 2019-09-19 18:49 | P.HP_ITS ---
Providers/Chief Complaint Admitting Physician: Khoi Grace MD Primary Care Provider: TREMAINE Costa Chief Complaint: sob History of Present Illness Albert Hernandez is a 59 year old male with past medical history of COPD not on home oxygen, CAD status post CABG to LAD, diverticulitis leading to complex pelvic abscess related to colovesical fistula requiring sigmoid colon resection followed by colorectal anastomosis and bladder repair in 2017 presented to the ER today complaining of acute pain in the right lower chest, right upper and middle quadrant which is cramping type intermittent 8/10 getting aggravated by slight movement that started yesterday in the afternoon and has been getting worse progressively. Patient denies of having any trauma, fall does not rememb er if the pain started after an aggressive bout of cough. He states pain started all of a sudden and has been getting worse. He complains of having subjective feel a fever but has not checked though in the ER patient was afebrile. He states he has been having cough with expectoration which is chr onic for him given his COPD and has not changed in character. He denies of having any constipation, diarrhea, burning or painful micturition, hematuria, nausea, vomiting. He states his shortness of breath is at his baseline. He denies of lifting any heavy weights. He denies of any changes in his medications. He denies of having sick contacts, recent travels. Patient does give history of kidney stones in the past around 10 to 15 years ago which had passed on its own. He denies of having any chest pain, flu, upper respiratory symptoms. In the ER blood work showed that he was hyponatremic with sodium down to 129 and potassium up to 6.1 so hospital service was asked for admission. Review of Systems Const: Reports: fever; Denies: chills, body aches, change in appetite, malaise, night sweats, diaphoresis, change in sleep pattern, daytime sleepiness or snoring Eyes: Denies: change in vision, blurry vision, photophobia, eye discomfort or eye discharge ENMT: Denies: throat pain, enlarged tonsils, hoarseness, mouth pain, oral sores/lesions, dry mouth, tinnitus, nasal congestion or post nasal drip Card: Denies: chest pain, palpitations, irregular heart rhythm, edema, swelling of feet/ankles, lightheadedness, syncope, pre-syncope, shortness of breath on exertion, shortness of breath when lying down, leg pain with exertion or bluish discoloration of hands/feet Resp: Reports: shortness of breath, productive cough and wheezing; Denies: non-productive cough, stridor, pain on inspiration, change in phlegm color, coughing up blood or chest congestion GI: Reports: abdominal pain; Denies: nausea, vomiting, vomiting blood, coffee grounds in vomit, difficulty swallowing, heartburn/indigestion, diarrhea, constipation, bloating, cramping, change in bowel habits, painful bowel movements, blood in stool or black tarry stool : Reports: flank pain; Denies: difficulty urinating, painful urination, urinary frequency, urinary urgency, urinary hesitancy, urinary dribbling, difficulty starting urination, change in urine stream, nighttime urination or blood in urine Musc: Denies: neck pain, back pain, extremity pain, joint pain, joint swelling, redness, joint stiffness or limited range of motion Neuro: Denies: headache, numbness in extremities, weakness in extremities, changes in sensation, lack of coordination, difficulty walking, frequent falls, dizziness, vertigo, confusion, slurred speech, difficulty communicating thoughts or seizure-like activity Psych: Denies: anxiety, depression, mood swings, panic attacks, hopelessness or irritability Endo: Denies: excessive urination, excessive thirst, tired all the time, cold intolerance, excessive sweating, flushing or heat intolerance Chase/Lymph: Denies: easy bruising or easy bleeding All/Imm: Denies: tongue swelling, facial swelling or acute wheezing Medications/Allergies Home Medications Medication Instructions Recorded Confirmed Last Taken Type Paxil 40 mg PO DAILY 09/19/19 09/19/19 Unknown History Singulair 10 mg PO DAILY 09/19/19 09/19/19 Unknown History aspirin [Aspir-81] 81 mg PO DAILY 09/19/19 09/19/19 Unknown History cetirizine [Zyrtec] 10 mg PO DAILY PRN 09/19/19 09/19/19 Unknown History lisinopril 5 mg PO DAILY 09/19/19 09/19/19 Unknown History metformin 500 mg PO DAILY 09/19/19 09/19/19 Unknown History omeprazole 20 mg PO DAILY 09/19/19 09/19/19 Unknown History simvastatin 40 mg PO DAILY 09/19/19 09/19/19 Unknown History Allergies Allergy/AdvReac Type Severity Reaction Status Date / Time Penicillins Allergy Unknown Verified 09/19/19 14:51 PFSH Acute PFSH: Medical History Allergic rhinitis Cervical postlaminectomy syndrome Chronic GERD Colovesical fistula COPD, moderate Coronary artery disease Hyperlipidemia, unspecified Hypertension Indeterminate pulmonary nodules Ischemic cardiomyopathy Lumbar spondylosis Major depressive disorder Other spondylosis, cervical region Vesicocutaneous fistula Surgical History H/O neck surgery History of open heart surgery S/P appendectomy S/P colon resection Family History Other CAD (coronary artery disease) Cancer Diabetes Social History Smoking and tobacco status: current every day smoker cigarettes Packs smoked per day: 0.5 Alcohol intake: never Vitals/I&O/Wt Last Vital Signs Temp 98.6 F 09/19/19 14:44 Pulse 115 H 09/19/19 18:06 Resp 35 H 09/19/19 18:06 BP 101/49 09/19/19 18:06 Pulse Ox 90 09/19/19 18:06 09/19/19 09/19/19 09/19/19 06:59 14:59 22:59 Intake Total 500 / 500 Balance 500 / 500 Weight last 48 hrs Weight 58.967 kg Physical Exam Narrative: EXAM NARRATIVE: General: Acute distress because of pain, AO x3 HEENT: PERRLA, pupils bilaterally equal and reactive Chest: Bilateral bronchial breath sounds, good air entry, decreased breath sounds in right lower zone. CVS: S1-S2 regular, no murmurs, tachycardia, no gallops, no rubs Abdomen: Guarding present, no rebound tenderness, tenderness in right upper and middle quadrant, renal angle tenderness present. Neuro: No focal deficits, no facial deformity, AO x3, power 5/5 in all limbs Data : 09/19/19 15:18 09/19/19 15:58 Micro: Microbiology 09/19/19 15:18 Blood Culture - Preliminary Blood SPECIMEN COLLECTED A&P Assessment and plan (1) Abdominal pain, acute: Status: Acute Code(s): R10.9 - Unspecified abdominal pain (2) Acute hyponatremia: Status: Acute Code(s): E87.1 - Hypo-osmolality and hyponatremia (3) Acute hyperkalemia: Status: Acute Code(s): E87.5 - Hyperkalemia (4) COPD, moderate: Status: Chronic Code(s): J44.9 - Chronic obstructive pulmonary disease, unspecified (5) Coronary artery disease: Status: Acute Code(s): I25.10 - Atherosclerotic heart disease of [place] coronary artery without angina pectoris Additional A&P Information Abdominal pain: More concerning right upper and middle quadrant with renal angle tenderness. Differential diagnosis is pretty broad at this point. We will also start urinalysis, urine culture, procalcitonin, CT chest abdomen pelvis without contrast, proBNP, lactate with reflex. Will have to rule out pyelonephritis given the renal angle tenderness along with extensive history of multiple abdominal surgeries in the past along with abscesses will have to rule out abdominal abscess as well. Will get liver ultrasound start to rule out gallbladder pathology as liver functions deranged though looking at historical results they are always been mildly deranged. CT abdomen done in the ER suggestive of multiple renal hypodensities which could not rule out pyelonephritis. We will start patient on ceftriaxone and vancomycin as per the culture history which showed blood culture positive for micrococcus in late 2019 and a urine cu lture in the past which was positive for ceftriaxone sensitive E. coli. Patient has a history of penicillin allergy but is not really sure what kind of allergy he has. We will continue to monitor. We will de-escalate or change antibiotics as per the culture results. Hyponatremia/hyperkalemia: Most likely secondary to dehydration. No treatment in the ER has been given except IV fluids. Give start D50 along with insulin 10 units and repeat BMP at 9 PM. We will ask for urine studies including urine lites, urine osmolality. Calculated plasma osmolality is 270. Normal saline at 75 cc/h. COPD: Seems to be at baseline. Oxygen supplementation keeping saturation 88-90% Budesonide twice daily, DuoNebs every 6 hours. CAD: History of single-vessel CABG: Continue with home dose of aspirin, statin. Type 2 diabetes mellitus: Insulin sliding scale at moderate dose before meals and at bedtime. Continue other chronic medications. We will change medications as per the results. 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
[2019-09-19 18:54] LABS: D Dimer 2.41 ug/mIFEU (0-0.59)
[2019-09-19 18:56] LABS: Lipase 26 U/L (13-60)
--- NOTE | 2019-09-19 19:10 | CTR_ITS ---
PROCEDURE INFORMATION: Exam: CT Chest Without Contrast Exam date and time: 09/19/2019 7:21 PM Age: 59 years old Clinical indication: Abdominal pain; Flank; Right; Other: Copd; Prior surgery; Surgery date: 6+ months; Surgery type: Cabg, hernia; Patient HX: Pneumonia, R pleural effusion, renal hypodensities; Additional info: R/O pyelonephritis, new right effusion TECHNIQUE: Imaging protocol: Computed tomography of the chest without contrast. Total DLP: 1009.34 mGy-cm Radiation optimization: All CT scans at this facility use at least one of these dose optimization techniques: automated exposure control; mA and/or kV adjustment per patient size (includes targeted exams where dose is matched to clinical indication); or iterative reconstruction. COMPARISON: CT chest wo con [id number] 09/12/2015 3:34 PM FINDINGS: Lungs: There is severe emphysematous changes. There is a cavitary pleural base masslike opacity in the left lung that measures 5.0 by 2.6 by 4.5 cm in size. There is a 5 mm subpleural nodule left lung image 27. There is some ground-glass pneumonitis and volume loss in the lower lobes right greater than left. There is mild peribronchial thickening and mild mucous plugging in the lower lobes. There is some branching mucus plugging in the left lung apex. Pleural space: Trace right pleural effusion versus pleural thickening is noted. Heart: Unremarkable. No cardiomegaly. No pericardial effusion. Aorta: Unremarkable. No aortic aneurysm. Lymph nodes: Unremarkable. No enlarged lymph nodes. Bones/joints: Unremarkable. No acute fracture. Soft tissues: Unremarkable. Other findings: There is adjacent pneumonitis. IMPRESSION: 1. There is a 5 mm subpleural nodule left lung image 27. For patients at low risk (minimal or absent history of smoking and of other known risk factors), no routine follow-up is indicated. For patients at high risk (history of smoking or of other known risk factors), consider optional CT at 12 months. (shorty Casarez al., Fleischner Society, 2017) 2. There is some ground-glass pneumonitis and volume loss in the lower lobes right greater than left. 3. Left pleural base masslike opacity with central cavitation concerning for cavitary pneumonia or less likely cavitary neoplasm given its rapid development compared to the prior chest x-ray of August 02, 2019. PROCEDURE INFORMATION: Exam: CT Abdomen And Pelvis Without Contrast Exam date and time: 09/19/2019 7:21 PM Age: 59 years old Clinical indication: Abdominal pain; Flank; Right; Other: Copd; Prior surgery; Surgery date: 6+ months; Surgery type: Cabg, hernia; Patient HX: Pneumonia, R pleural effusion, renal hypodensities; Additional info: R/O pyelonephritis, new right effusion TECHNIQUE: Imaging protocol: Computed tomography of the abdomen and pelvis without contrast. Total DLP: 1009.34 mGy-cm Radiation optimization: All CT scans at this facility use at least one of these dose optimization techniques: automated exposure control; mA and/or kV adjustment per patient size (includes targeted exams where dose is matched to clinical indication); or iterative reconstruction. COMPARISON: CT chest wo con [id number] 09/12/2015 3:34 PM FINDINGS: Liver: Unremarkable.No mass. Gallbladder and bile ducts: Normal. No calcified stones. No ductal dilation. Pancreas: Normal. No ductal dilation. Spleen: Normal. No splenomegaly. Adrenals: Normal. No mass. Kidneys and ureters: There is a small amount of contrast in the kidneys ureters and bladder. This is from the CT scan earlier today. No hydronephrosis. The bladder is partially collapsed but unremarkable. Stomach and bowel: The findings of mild enteritis of the distal small bowel are again identified but are less prominent on this noncontrast study. No new bowel thickening or inflammatory changes. Postoperative changes in the distal colon are noted. No definite colitis. No ileus or obstruction. Appendix: No evidence of appendicitis. Intraperitoneal space: Unremarkable. No free air. No significant fluid collection. Vasculature: Unremarkable.No abdominal aortic aneurysm. Lymph nodes: Unremarkable.No enlarged lymph nodes. Bladder: See Kidneys And Ureters Finding. Reproductive: Unremarkable as visualized. Bones/joints: Unremarkable. No acute fracture. Soft tissues: Postoperative changes in the lower anterior abdominal wall are noted. CT/CT chest abd pel wo con IMPRESSION: 1. No hydronephrosis. The nearly collapsed bladder is unremarkable. 2. Mild distal small bowel enteritis is less prominent on this noncontrast study but overall unchanged. Radiation Dose CTDIVOL = (mGy): DLP = 1009.34~1009.34 (mGy-cm)
[2019-09-19 19:22] LABS: NT Pro B Type Natriuretic Pept 231 pg/mL (0-125)
[2019-09-19 19:32] LABS: Lactic Sepsis W/Reflex 2.4 mmol/L (0.5-2.2)
[2019-09-19] MEDS: morphine 4 mg/mL SDV 1 mL 2 MG IVP (19:45)
[2019-09-19] MEDS: insulin regular-human 10 UNIT in SYRINGE 1 EACH IVP (19:46)
[2019-09-19] MEDS: cefTRIAXone 1,000 MG in sodium chloride 0.9% (plus) 50 ML 100 MG IV (19:46)
[2019-09-19] MEDS: dextrose 50% syringe 50 mL IVP (19:47)
[2019-09-19 20:17] LABS: Glucose Point of Care 165 mg/dL (70-110)
[2019-09-19] MEDS: HYDROcodone-acetaminophen 5-325 mg Tablet 1 TAB PO (20:26)
[2019-09-19] MEDS: metroNIDAZOLE 500 MG Tablet PO (20:54)
[2019-09-19] MEDS: vancomycin 1,000 MG in sodium chloride 0.9% 250 ML 250 MG IV (20:54)
[2019-09-19 21:02] LABS: Reflex Lactate Order REFLEX LACTIC ORDERD
[2019-09-19] MEDS: gabapentin 100 mg Capsule PO (21:21)
[2019-09-19] MEDS: enoxaparin 40 mg/0.4 mL Syringe SUBCUT (21:21)
[2019-09-19 21:23] LABS: Anion Gap 14.3 (5-19); Blood Urea Nitrogen 15 mg/dL (6-20); Calcium 8.9 mg/dL (8.5-10.5); Carbon Dioxide 27 mmol/L (22-29); Chloride 91 mmol/L (98-107); Glomerular Filtration Rate 76.5 mL/min (90-130); Glucose 287 mg/dL (65-115); Osmolality Calculated 273 mOsm/kg (285-295); Potassium 4.3 mmol/L (3.5-5.1); Sodium 128 mmol/L (136-145)
[2019-09-19 21:36] LABS: Lactic Acid level (Lactate) 1.8 mmol/L (0.5-2.2)
[2019-09-19 21:44] LABS: Glucose Point of Care 250 mg/dL (70-110)
[2019-09-20] VITALS (23 sets, daily range): BP systolic 95–137; BP diastolic 54–77; PULSE 71–105; RESP 18–32; TEMP 36.3–37.4; O2SAT 86–99
[2019-09-20] MEDS: morphine 4 mg/mL SDV 1 mL 2 MG IVP (00:52)
[2019-09-20] MEDS: HYDROcodone-acetaminophen 5-325 mg Tablet 1 TAB PO ×2 (00:52→10:15)
[2019-09-20] MEDS: lidocaine 5% Patch 1 PATCH TOPICAL ×3 (02:44→20:22)
[2019-09-20 03:29] LABS: Blood Urine Neg (Negative); Glucose Urine UA 2+ (Normal); Ketones Urine Negative (Negative); Nitrate Urine Negative (Negative); Protein Urine Neg (Negative); Urine Appearance Clear (CLEAR); Urine Color Yellow (Yellow); pH Urine 6 (5-7)
[2019-09-20] MEDS: ketorolac 30 mg/mL INJ IVP (03:29)
[2019-09-20] MEDS: lactated ringers 1,000 ML 999 ML IV (03:29)
[2019-09-20 03:30] LABS: Bacteria Urine TRACE; Bilirubin Urine 1+ (NEGATIVE); Leukocyte Esterase Urine Negative (Negative); RBC Urine 0-4 /hpf (0-2); Squamous Epithelial Cell Urine RARE (0-5); Urobilinogen Urine Norm (Negative); WBC Urine 0-4 /hpf (0-5)
[2019-09-20 03:39] LABS: Potassium, Radom Urine 70 mmol/L; Urine Random Chloride 33 mmol/L; Urine Random Sodium 20 mmol/L
[2019-09-20] MEDS: aztreonam 1,000 MG in sodium chloride 0.9% (plus) 50 ML 100 MG IV ×2 (04:08→16:56)
[2019-09-20] MEDS: sodium chloride 0.9% 1,000 ML 100 ML IV (04:39)
[2019-09-20] MEDS: HYDROmorphone 1 mg/mL INJ 1 mL IVP ×2 (04:46→08:05)
--- NOTE | 2019-09-20 05:57 | PC.NURSE ---
Pt woke for CXray - HR increased from 110's to 140's, still Afib - physician notified.
[2019-09-20 08:04] LABS: Alanine Aminotransferase 92 U/L (0-41); Albumin Level 2.5 g/dL (3.5-5.2); Alkaline Phosphatase 188 IU/L (40-130); Anion Gap 10.7 (5-19); Aspartate Amino Transferase 56 U/L (0-40); Blood Urea Nitrogen 15 mg/dL (6-20); Calcium 8.5 mg/dL (8.5-10.5); Carbon Dioxide 31 mmol/L (22-29); Chloride 99 mmol/L (98-107); Glomerular Filtration Rate 76.5 mL/min (90-130); Glucose 189 mg/dL (65-115); Osmolality Calculated 283 mOsm/kg (285-295); Potassium 4.7 mmol/L (3.5-5.1); Sodium 136 mmol/L (136-145); Total Bilirubin 0.3 mg/dL (0.15-1.2); Total Protein 6.5 g/dL (6.6-8.7)
[2019-09-20 08:31] LABS: Glucose Point of Care 175 mg/dL (70-110)
[2019-09-20] MEDS: budesonide 0.5 mg/2 mL Neb INHALATION ×2 (08:36→20:41)
[2019-09-20] MEDS: ipratropium-albuterol 3 mL Neb INHALATION ×3 (08:36→20:41)
[2019-09-20] MEDS: PARoxetine 20 mg Tablet 40 MG PO (10:13)
[2019-09-20] MEDS: atorvastatin 40 mg Tablet 20 MG PO (10:14)
[2019-09-20] MEDS: gabapentin 100 mg Capsule PO ×3 (10:14→20:22)
[2019-09-20] MEDS: montelukast sodium 10 mg Tablet PO (10:15)
[2019-09-20] MEDS: aspirin 81 mg EC Tablet PO (10:16)
[2019-09-20 10:52] LABS: Basophils # 0.1 10^3/uL (0.0-0.1); Basophils % 0.4 %; Eosinophils % 0.2 %; Hematocrit 42.1 % (42.0-52.0); Hemoglobin 12.9 g/dL (11.7-16.6); Lymphocytes # 0.7 10^3/uL (0.8-4.8); Lymphocytes % 5.2 %; Mean Corpuscular HGB Conc 30.6 g/dL (30.0-36.0); Mean Corpuscular Hemoglobin 30.2 pg (28.0-34.0); Mean Corpuscular Volume 98.6 fL (80-94); Monocytes # 0.8 10^3/uL (0.2-0.9); Monocytes % 6.6 %; Neutrophils # 10.9 10^3/uL (1.8-7.7); Neutrophils % 87.2 %; Nucleated Red Blood Cells % 0 %; Platelet Count 184 10^3/cmm (130-400); Red Blood Count 4.27 10^6/uL (4.1-5.3); Red Cell Distribution Width 12.7 % (12.1-15.1); White Blood Count 12.5 10^3/uL (4.0-10.0)
[2019-09-20 11:31] LABS: Amphetamines Screen Urine Negative (Negative); Barbiturates Screen Urine Negative (Negative); Benzodiazepines Screen Urine Negative (Negative); Cocaine Screen Urine Negative (Negative); Opiate Screen Urine Positive (Negative); PCP Screen Urine Negative (Negative); THC Screen Urine Negative (Negative)
--- NOTE | 2019-09-20 12:01 | P.PN_ITS ---
Subjective Subjective: Interval history: Patient has been complaining of increased pain since admission. So was transferred to ICU in fear of possible respiratory fatigue as patient has been receiving high doses of medications. Though he has remained hemodynamically stable, saturating more than 94% since admission. Labs noted. Patient has a urine study from February 2019 with urine positive for methadone. On further interviewing the patient patient states he does take Suboxone at home 0.25 every 8 hours which as per him is prescribed from [facility] last prescription in the system is from May of last year. As per patient he stopped taking his Suboxone for last 5 days. On further review of patient's chart he follows up with Dr. Pizarro and as per her note patient has been taking Suboxone on and off and going to her office with heightened pain which has been thought because of Suboxone withdrawal. Vitals/I&O/Wt Last Vital Signs Temp 99 F 09/20/19 08:00 Pulse 95 09/20/19 10:00 Resp 25 H 09/20/19 10:00 BP 108/66 09/20/19 10:00 Pulse Ox 98 09/20/19 10:00 09/19/19 09/20/19 09/20/19 22:59 06:59 14:59 Intake Total 550 / 550 1300 / 1850 300 / 300 Output Total 200 / 200 Balance 550 / 550 1100 / 1650 300 / 300 Weight last 48 hrs Weight 58.241 kg Weight 58.967 kg Physical Exam Narrative: EXAM NARRATIVE: General: Acute distress because of pain, AO x3 HEENT: PERRLA, pupils bilaterally equal and reactive Chest: Bilateral bronchial breath sounds, good air entry, decreased breath sounds in right lower zone. CVS: S1-S2 regular, no murmurs, tachycardia, no gallops, no rubs Abdomen: Guarding present, no rebound tenderness, tenderness in right upper and middle quadrant, renal angle tenderness present. Neuro: No focal deficits, no facial deformity, AO x3, power 5/5 in all limbs Data : 09/20/19 07:23 09/20/19 07:23 Micro: Microbiology 09/19/19 21:37 MRSA Culture - Final Nose 09/19/19 15:18 Blood Culture - Preliminary Blood SPECIMEN COLLECTED A&P Assessment and plan (1) Abdominal pain, acute: Status: Acute Code(s): R10.9 - Unspecified abdominal pain (2) Acute hyponatremia: Status: Acute Code(s): E87.1 - Hypo-osmolality and hyponatremia (3) Acute hyperkalemia: Status: Acute Code(s): E87.5 - Hyperkalemia (4) COPD, moderate: Status: Chronic Code(s): J44.9 - Chronic obstructive pulmonary disease, unspecified (5) Coronary artery disease: Status: Acute Code(s): I25.10 - Atherosclerotic heart disease of [place] coronary artery without angina pectoris (6) History of drug dependence/abuse: Status: Acute Code(s): F19.21 - Other psychoactive substance dependence, in remission Additional A&P Information Abdominal pain: Concerning and right upper, middle quadrant and possible renal angle tenderness. From admission procalcitonin negative, urinalysis normal, proBNP normal, lactate was elevated on admission which resolved with IV fluids, CT abdomen done negative for any kind of abscess, pyelonephritis but suggestive of mild enteritis, CT chest negative for any kind of empyema but does have a small cavitary lesion in subpleural space on the left side which is not where the pain is concentrated. Overnight antibiotics were broadened from ceftriaxone to aztreonam. For now we will continue vancomycin and aztreonam as per the culture history of micrococcus and blood and E. coli in urine culture on past admissions. If patient continues to remain afebrile and blood culture and urine culture continues to remain negative in next 24 hours we will plan to stop the antibiotics. As discussed above patient's pain is heightened most likely because of withdrawal from Suboxone which he stopped taking on his own 5 days ago. Patient has had multiple episodes similar to this as per the note from his PCP earlier this year as well. Continue with Dilaudid as needed for pain along with ketorolac will add tramadol and Tylenol as well. Hyponatremia/hyperkalemia: Resolved. Most likely secondary to dehydration. As patient is tolerating diet well will hold off on fluids for now. COPD: Seems to be at baseline. Oxygen supplementation keeping saturation 88-90% Budesonide twice daily, DuoNebs every 6 hours. Home O2 evaluation on discharge. CAD: History of single-vessel CABG: Continue with home dose of aspirin, statin. Type 2 diabetes mellitus: Insulin sliding scale at moderate dose before meals and at bedtime. Continue other chronic medications. We will change medications as per the results. Full code: Lovenox 40 mg subcu daily Cardiac diet Can transfer patient out of the ICU to regular floor. Attestations Medical Necessity Statement*: Abdominal pain under evaluation Time Spent in Patient Care: Greater than 35 minutes Coding Level of Care Code Acute Metallurgical Specialist for Cony Cameron Diagnoses Abdominal pain, acute R10.9 Acute hyponatremia E87.1 Acute hyperkalemia E87.5 COPD, moderate J44.9 Coronary artery disease I25.10 History of drug dependence/abuse F19.21
[2019-09-20 12:18] LABS: Glucose Point of Care 312 mg/dL (70-110)
[2019-09-20] MEDS: acetaminophen 325 mg Tablet 650 MG PO ×3 (12:21→20:21)
--- NOTE | 2019-09-20 14:47 | PC.NURSE ---
Home med clarification: Spoke to pt about Subutex, home med pt told Dr Baker he was on. Pt stated he had stopped on his own, but couldn't stop so I bought it on the street When asked about [facility] [employer] , attempting to verify it was [employer] he had mentioned to physician, pt refused to say whom may have prescribed it before: Ma'am, I'd rather not get into that. This discussion is over. He did say he has not had it for more than 5 days.
[2019-09-20] MEDS: vancomycin 1,000 MG in sodium chloride 0.9% 250 ML 250 MG IV (15:24)
[2019-09-20 17:56] LABS: Glucose Point of Care 362 mg/dL (70-110)
--- NOTE | 2019-09-20 18:39 | USR_ITS ---
PROCEDURE INFORMATION: Exam: US Abdomen Limited, Right Upper Quadrant Exam date and time: 09/20/2019 7:39 AM Age: 59 years old Clinical indication: Abdominal pain; Additional info: Sharma sign positive TECHNIQUE: Imaging protocol: Real-time ultrasound of the abdomen with image documentation. Examination was focused on the right upper quadrant. COMPARISON: CT September 19, 2019. US gall bladder [id number] 06/09/2016 8:56 PM FINDINGS: Liver: Liver is normal in size and homogeneous in echotexture. No visualized lesions. Gallbladder: Gallbladder is partially filled with no visualized stones or sludge. Gallbladder wall measures 2 mm in thickness which is within normal limits. No pericholecystic fluid. Common bile duct: The visualized extrahepatic bile duct measures a maximum of 3 mm in caliber which is normal. Distal common bile duct obscured by bowel gas. Pancreas: Visualized pancreas unremarkable. Tail obscured by bowel gas. Right kidney: The right kidney measures 11.4 x 5.2 x 5.1 cm with normal cortical thickness. Cortical echogenicity is slightly increased, similar to liver. No hydronephrosis or shadowing stones. Subcentimeter hypoechoic upper/mid pole cyst. No evidence solid renal mass. Grossly normal Doppler of the renal hilum. Aorta: Proximal abdominal aorta measures a maximum of 2.1 cm in caliber. Distal aorta obscured by bowel gas. Inferior vena cava: Visualized IVC normal caliber. Intraperitoneal space: No free fluid. US/US liver [id number] IMPRESSION: 1. Essentially normal right upper quadrant ultrasound with no evidence of biliary disease. 2. Incidental subcentimeter right renal cyst which requires no follow-up. Apparent mildly increased right renal cortical echogenicity, consider medical renal disease.
[2019-09-20] MEDS: ketorolac 30 mg/mL INJ 15 MG IVP (18:53)
[2019-09-20] MEDS: HYDROmorphone 1 mg/mL INJ 1 mL 0.5 MG IVP (19:57)
[2019-09-20] MEDS: enoxaparin 40 mg/0.4 mL Syringe SUBCUT (19:58)
--- NOTE | 2019-09-20 20:15 | PC.NURSE ---
pt co pain 02/14 pt medicated c 0.5 mg dilaudid prior to transfer. vss per cm. pt transported to room 277-1. jasper petty.
[2019-09-20 20:30] LABS: Glucose Point of Care 193 mg/dL (70-110)
[2019-09-21] VITALS (13 sets, daily range): BP systolic 119–161; BP diastolic 65–89; PULSE 76–105; RESP 18–22; TEMP 36.3–37.1; O2SAT 94–100
[2019-09-21] MEDS: HYDROmorphone 1 mg/mL INJ 1 mL 0.5 MG IVP ×2 (02:25→23:57)
[2019-09-21] MEDS: aztreonam 1,000 MG in sodium chloride 0.9% (plus) 50 ML 100 MG IV ×2 (04:29→15:24)
[2019-09-21] MEDS: acetaminophen 325 mg Tablet 650 MG PO ×3 (04:29→19:26)
[2019-09-21 05:31] LABS: Basophils % 0.4 %; Eosinophils # 0.2 10^3/uL (0.0-0.8); Eosinophils % 2.3 %; Hematocrit 37.5 % (42.0-52.0); Lymphocytes # 0.7 10^3/uL (0.8-4.8); Lymphocytes % 8.9 %; Mean Corpuscular Hemoglobin 31.3 pg (28.0-34.0); Mean Corpuscular Volume 97.7 fL (80-94); Mean Platelet Volume 10.6 fL (7.4-10.4); Monocytes # 0.8 10^3/uL (0.2-0.9); Monocytes % 9.9 %; Neutrophils # 6.3 10^3/uL (1.8-7.7); Neutrophils % 78.1 %; Nucleated Red Blood Cells % 0 %; Platelet Count 185 10^3/cmm (130-400); Red Blood Count 3.84 10^6/uL (4.1-5.3); Red Cell Distribution Width 12.4 % (12.1-15.1)
[2019-09-21 06:00] LABS: Alanine Aminotransferase 80 U/L (0-41); Albumin Level 2.2 g/dL (3.5-5.2); Alkaline Phosphatase 181 IU/L (40-130); Anion Gap 6.5 (5-19); Aspartate Amino Transferase 57 U/L (0-40); Blood Urea Nitrogen 13 mg/dL (6-20); Calcium 8.7 mg/dL (8.5-10.5); Carbon Dioxide 33 mmol/L (22-29); Chloride 105 mmol/L (98-107); Globulin 3.6 g/dL (1.3-4.6); Glomerular Filtration Rate 115.4 mL/min (90-130); Glucose 139 mg/dL (65-115); Osmolality Calculated 288 mOsm/kg (285-295); Potassium 4.5 mmol/L (3.5-5.1); Sodium 140 mmol/L (136-145); Total Bilirubin 0.3 mg/dL (0.15-1.2); Total Protein 5.8 g/dL (6.6-8.7)
[2019-09-21 06:41] LABS: Glucose Point of Care 195 mg/dL (70-110)
[2019-09-21] MEDS: budesonide 0.5 mg/2 mL Neb INHALATION ×2 (08:06→20:51)
[2019-09-21] MEDS: ipratropium-albuterol 3 mL Neb INHALATION ×3 (08:06→20:51)
[2019-09-21 08:27] LABS: Vancomycin Trough 7.6 ug/mL (10-15)
[2019-09-21] MEDS: HYDROcodone-acetaminophen 5-325 mg Tablet 1 TAB PO ×2 (09:12→19:27)
[2019-09-21] MEDS: montelukast sodium 10 mg Tablet PO (09:13)
[2019-09-21] MEDS: aspirin 81 mg EC Tablet PO (09:13)
[2019-09-21] MEDS: PARoxetine 20 mg Tablet 40 MG PO (09:13)
[2019-09-21] MEDS: gabapentin 100 mg Capsule PO ×3 (09:13→21:18)
[2019-09-21] MEDS: lidocaine 5% Patch 1 PATCH TOPICAL (09:13)
[2019-09-21] MEDS: atorvastatin 40 mg Tablet 20 MG PO (09:13)
[2019-09-21 11:04] LABS: Glucose Point of Care 241 mg/dL (70-110)
[2019-09-21] MEDS: vancomycin 1,000 MG in sodium chloride 0.9% 250 ML 250 MG IV (14:13)
[2019-09-21] MEDS: TRAMadol 50 mg Tablet PO ×2 (14:14→21:18)
[2019-09-21 16:56] LABS: Glucose Point of Care 187 mg/dL (70-110)
--- NOTE | 2019-09-21 17:43 | PM.PN ---
Subjective Subjective: Interval history: No acute events overnight. Patient states pain is mildly better than before and the frequency have decreased as well. He denies of having any shortness of breath, cough, diarrhea, nausea, vomiting, dysuria at present. This morning his blood cultures from admission came back positive for staph aureus. Patient remains hemodynamically stable and afebrile. Vitals/I&O/Wt Last Vital Signs Temp 98.4 F 09/21/19 15:11 Pulse 93 09/21/19 15:11 Resp 18 09/21/19 15:11 BP 150/89 09/21/19 15:11 Pulse Ox 97 09/21/19 15:11 09/21/19 09/21/19 09/21/19 06:59 14:59 22:59 Intake Total 50 / 1000 695 / 695 300 / 995 Output Total 150 / 150 220 / 370 Balance 50 / 275 545 / 545 80 / 625 Weight last 48 hrs Weight 59.931 kg Weight 58.241 kg Physical Exam Narrative: EXAM NARRATIVE: General: Acute distress because of pain, AO x3 HEENT: PERRLA, pupils bilaterally equal and reactive Chest: Bilateral bronchial breath sounds, good air entry, decreased breath sounds in right lower zone. CVS: S1-S2 regular, no murmurs, tachycardia, no gallops, no rubs Abdomen: Bowel sounds present, tenderness in right upper and middle quadrant, no organomegaly. Neuro: No focal deficits, no facial deformity, AO x3, power 5/5 in all limbs Data : 09/21/19 05:05 09/21/19 05:05 Micro: Microbiology 09/21/19 14:41 Blood Culture - Preliminary Blood SPECIMEN COLLECTED 09/21/19 14:36 Blood Culture - Preliminary Blood SPECIMEN COLLECTED 09/19/19 15:18 Blood Culture - Preliminary Blood Staphylococcus aureus A&P Assessment and plan (1) Staphylococcus aureus bacteremia without sepsis: Status: Acute Code(s): R78.81 - Bacteremia (2) Abdominal pain, acute: Status: Acute Code(s): R10.9 - Unspecified abdominal pain (3) Acute hyponatremia: Status: Acute Code(s): E87.1 - Hypo-osmolality and hyponatremia (4) Acute hyperkalemia: Status: Acute Code(s): E87.5 - Hyperkalemia (5) COPD, moderate: Status: Chronic Code(s): J44.9 - Chronic obstructive pulmonary disease, unspecified (6) Coronary artery disease: Status: Acute Code(s): I25.10 - Atherosclerotic heart disease of [place] coronary artery without angina pectoris (7) History of drug dependence/abuse: Status: Acute Code(s): F19.21 - Other psychoactive substance dependence, in remission Additional A&P Information GPC bacteremia: Unknown source: Is difficult to say that abscess at the left lung base is either be primary versus a possible septic emboli. Start blood culture repeat. Continue vancomycin at current dose keeping Vanco trough between 15-20. Echocardiogram to rule out infective endocarditis. As blood cultures only growing gram-positive and urine cultures were clear along with a normal urine will discontinue aztreonam. Abdominal pain: Any infectious cause of abdominal pain has been ruled out with a normal ultrasound of liver, CT abdomen negative for any abscess, hydronephrosis, obstructive uropathy, kidney stones, pyelonephritis along with CT chest being negative for any infective source in right pleural space. As discussed above patient's pain is heightened most likely because of withdrawal from Suboxone which he stopped taking on his own 5 days ago. Patient has had multiple episodes similar to this as per the note from his PCP earlier this year as well. Continue with Dilaudid as needed for pain along with ketorolac will add tramadol and Tylenol as well. Patient does have drug-seeking behavior. Hyponatremia/hyperkalemia: Resolved. Most likely secondary to dehydration. As patient is tolerating diet well will hold off on fluids for now. COPD: Seems to be at baseline. Oxygen supplementation keeping saturation 88-90% Budesonide twice daily, DuoNebs every 6 hours. Home O2 evaluation on discharge. CAD: History of single-vessel CABG: Continue with home dose of aspirin, statin. Type 2 diabetes mellitus: Insulin sliding scale at moderate dose before meals and at bedtime. Continue other chronic medications. We will change medications as per the results. 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
--- NOTE | 2019-09-21 18:05 | USCV_ITS ---
Albert Hernandez Age: 59 Gender: M : 1960 Exam Date: 09/21/2019 18:38 Ordering Phys: Khoi Grace MD Technologist: Ioana Mansfield Exam Location: [facility] [place] Indication: IE BP: / HR: 89 Rhythm: Sinus Technical Quality: Adequate MEASUREMENTS (Male / Female) Normal Values 2D ECHO LV Diastolic Diameter PLAX 4.0 cm 4.2 - 5.9 / 3.9 - 5.3 cm LV Systolic Diameter PLAX 3.6 cm LV Chamber Size 2.4 cm IVS Diastolic Thickness 1.1 cm 0.6 - 1.0 / 0.6 - 0.9 cm IVS Systolic Thickness 1.1 cm LVPW Diastolic Thickness 1.6 cm 0.6 - 1.0 / 0.6 - 0.9 cm LVPW Systolic Thickness 2.0 cm RV Chamber Size 2.9 cm LVOT Diameter 2.1 cm LV Ejection Fraction 2D Teich 23.9 % LV Ejection Fraction MOD 2C 51.7 % LV Ejection Fraction 2C AL 49.4 % LA Diameter 3.4 cm LA Width 2.5 cm LA Height 4.1 cm RA Width 3.8 cm RA Height 4.7 cm Aorta at Sinotubular Diameter 2.8 cm M-MODE LV Diastolic Diameter MM 5.9 cm 4.2 - 5.9 / 3.9 - 5.3 cm LV Systolic Diameter MM 4.6 cm LV Ejection Fraction MM Teich 43.3 % IVS Diastolic Thickness MM 0.7 cm 0.6 - 1.0 / 0.6 - 0.9 cm IVS Systolic Thickness MM 0.9 cm LVPW Diastolic Thickness MM 0.8 cm 0.6 - 1.0 / 0.6 - 0.9 cm LVPW Systolic Thickness MM 1.0 cm Aortic Annulus Diameter 2.9 cm LA Ao Ratio MM 1.1 MV E Point Septal Separation 0.9 cm DOPPLER AV Peak Velocity 141.0 cm/s LVOT Peak Velocity 102.0 cm/s AV Area Cont Eq vti 2.0 cm squared AV Area Cont Eq pk 2.5 cm squared MV Area PHT 5.6 cm squared Mitral E to A Ratio 0.9 MV E' Velocity 13.0 cm/s Mitral E to MV E' Ratio 5.0 Mitral E to LV E' Lateral Ratio 5.0 Mitral E to LV E' Septal Ratio 5.2 TR Peak Velocity 177.0 cm/s TR Peak Gradient 12.5 mmHg TV Peak E Velocity 45.0 cm/s Right Atrial Pressure 3.0 mmHg Pulmonary Artery Systolic Pressu 15.5 mmHg PV Peak Velocity 53.0 cm/s RV Acceleration Time 0.1 s RV Ejection Time 0.3 s RV AcT/ET 0.4 FINDINGS Left Ventricle Normal left ventricular cavity size and normal left ventricular wall thickness. Normal left ventricular systolic function. Left ventricular ejection fraction is estimated at 55 %. No regional wall motion abnormalities. Abnormal septal motion consistent with postoperative state. Normal diastolic function. Right Ventricle Right ventricle not well visualized. Probably normal right ventricular size and systolic function. Right ventricular systolic pressure 15.5 mmHg. Right ventricular systolic pressure 15.5 mmHg. Right Atrium Normal right atrial size. Right atrial pressure estimated at 3 mmHg. Left Atrium Upper normal left atrial size. Mitral Valve Structurally normal mitral valve. No mitral valve stenosis. No significant mitral valve regurgitation. Aortic Valve Aortic valve not well visualized. No aortic valve stenosis. No aortic valve stenosis. No aortic valve regurgitation. Tricuspid Valve Structurally normal tricuspid valve. Trace to mild tricuspid valve regurgitation. Pulmonic Valve Pulmonic valve not well visualized. Pericardium No pericardial effusion. Aorta CONCLUSIONS 1. Normal left ventricular cavity size, left ventricular wall thickness and left ventricular systolic function. Left ventricular ejection fraction is estimated at 55 %. No regional wall motion abnormalities. Normal diastolic function. 2. Probably normal right ventricular size and systolic function. 3. No significant valvular abnormality. 4. Normal pulmonary artery pressure. 5. No prior similar studies to compare. Roxana Allen MD (Electronically Signed) Final Date: 22 September 2019 12:58 S
[2019-09-21] MEDS: enoxaparin 40 mg/0.4 mL Syringe SUBCUT (19:28)
[2019-09-21 21:02] LABS: Glucose Point of Care 179 mg/dL (70-110)
[2019-09-22] VITALS (13 sets, daily range): BP systolic 122–159; BP diastolic 73–94; PULSE 75–98; RESP 18–22; TEMP 36.4–36.8; O2SAT 94–99
[2019-09-22] MEDS: ketorolac 30 mg/mL INJ 15 MG IVP ×2 (01:51→21:03)
[2019-09-22] MEDS: HYDROcodone-acetaminophen 5-325 mg Tablet 1 TAB PO (03:55)
[2019-09-22] MEDS: acetaminophen 325 mg Tablet 650 MG PO ×4 (03:56→21:01)
[2019-09-22] MEDS: vancomycin 1,000 MG in sodium chloride 0.9% 250 ML 250 MG IV ×2 (03:56→15:32)
[2019-09-22 05:57] LABS: Basophils % 0.4 %; Eosinophils # 0.1 10^3/uL (0.0-0.8); Eosinophils % 1.4 %; Hematocrit 42.1 % (42.0-52.0); Hemoglobin 13.5 g/dL (11.7-16.6); Lymphocytes # 1.1 10^3/uL (0.8-4.8); Lymphocytes % 10.3 %; Mean Corpuscular HGB Conc 32.1 g/dL (30.0-36.0); Mean Corpuscular Hemoglobin 30.9 pg (28.0-34.0); Mean Corpuscular Volume 96.3 fL (80-94); Mean Platelet Volume 10.5 fL (7.4-10.4); Monocytes # 0.8 10^3/uL (0.2-0.9); Monocytes % 7.4 %; Neutrophils # 8.3 10^3/uL (1.8-7.7); Neutrophils % 80.1 %; Nucleated Red Blood Cells % 0 %; Platelet Count 268 10^3/cmm (130-400); Red Blood Count 4.37 10^6/uL (4.1-5.3); Red Cell Distribution Width 12.2 % (12.1-15.1); White Blood Count 10.3 10^3/uL (4.0-10.0)
[2019-09-22 06:04] LABS: Alanine Aminotransferase 87 U/L (0-41); Albumin Level 2.7 g/dL (3.5-5.2); Alkaline Phosphatase 272 IU/L (40-130); Anion Gap 12.1 (5-19); Aspartate Amino Transferase 66 U/L (0-40); Blood Urea Nitrogen 9 mg/dL (6-20); Calcium 9.1 mg/dL (8.5-10.5); Carbon Dioxide 30 mmol/L (22-29); Chloride 98 mmol/L (98-107); Globulin 3.6 g/dL (1.3-4.6); Glomerular Filtration Rate 115.4 mL/min (90-130); Glucose 108 mg/dL (65-115); Osmolality Calculated 279 mOsm/kg (285-295); Potassium 4.1 mmol/L (3.5-5.1); Sodium 136 mmol/L (136-145); Total Bilirubin 0.5 mg/dL (0.15-1.2); Total Protein 6.3 g/dL (6.6-8.7)
[2019-09-22 06:56] LABS: Glucose Point of Care 106 mg/dL (70-110)
[2019-09-22] MEDS: HYDROmorphone 1 mg/mL INJ 1 mL 0.5 MG IVP ×2 (08:16→14:42)
[2019-09-22] MEDS: montelukast sodium 10 mg Tablet PO (10:11)
[2019-09-22] MEDS: aspirin 81 mg EC Tablet PO (10:11)
[2019-09-22] MEDS: gabapentin 100 mg Capsule PO ×3 (10:11→21:01)
[2019-09-22] MEDS: atorvastatin 40 mg Tablet 20 MG PO (10:11)
[2019-09-22] MEDS: lidocaine 5% Patch 1 PATCH TOPICAL (10:12)
[2019-09-22] MEDS: PARoxetine 20 mg Tablet 40 MG PO (10:12)
[2019-09-22 11:24] LABS: Glucose Point of Care 200 mg/dL (70-110)
--- NOTE | 2019-09-22 12:12 | P.PN_ITS ---
Subjective Subjective: Interval history: No acute events overnight. Patient states he is feeling a bit better now and states his pain has improved quite a lot right now. He denies of having any shortness of breath, dysuria, headache, nausea vomiting, dizziness, palpitations. Remains hemodynamically stable and afebrile. Vitals/I&O/Wt Last Vital Signs Temp 98.1 F 09/22/19 11:46 Pulse 82 09/22/19 11:46 Resp 19 H 09/22/19 11:46 BP 159/73 09/22/19 11:46 Pulse Ox 95 09/22/19 11:46 09/21/19 09/22/19 09/22/19 22:59 06:59 14:59 Intake Total 595 / 1290 125 / 125 Output Total 220 / 370 Balance 375 / 920 125 / 125 Weight last 48 hrs Weight 59.562 kg Weight 59.931 kg Physical Exam Narrative: EXAM NARRATIVE: General: Acute distress because of pain, AO x3 HEENT: PERRLA, pupils bilaterally equal and reactive Chest: Bilateral bronchial breath sounds, good air entry, decreased breath sounds in right lower zone. CVS: S1-S2 regular, no murmurs, tachycardia, no gallops, no rubs Abdomen: Bowel sounds present, tenderness in right upper and middle quadrant, no organomegaly. Neuro: No focal deficits, no facial deformity, AO x3, power 5/5 in all limbs Data : 09/22/19 04:59 09/22/19 04:59 Micro: Microbiology 09/19/19 15:18 Blood Culture - Preliminary Blood Staphylococcus aureus 09/21/19 14:41 Blood Culture - Preliminary Blood SPECIMEN COLLECTED 09/21/19 14:36 Blood Culture - Preliminary Blood SPECIMEN COLLECTED A&P Assessment and plan (1) Staphylococcus aureus bacteremia without sepsis: Status: Acute Code(s): R78.81 - Bacteremia (2) Abdominal pain, acute: Status: Acute Code(s): R10.9 - Unspecified abdominal pain (3) Acute hyponatremia: Status: Acute Code(s): E87.1 - Hypo-osmolality and hyponatremia (4) Acute hyperkalemia: Status: Acute Code(s): E87.5 - Hyperkalemia (5) COPD, moderate: Status: Chronic Code(s): J44.9 - Chronic obstructive pulmonary disease, unspecified (6) Coronary artery disease: Status: Acute Code(s): I25.10 - Atherosclerotic heart disease of [place] coronary artery without angina pectoris (7) History of drug dependence/abuse: Status: Acute Code(s): F19.21 - Other psychoactive substance dependence, in remission Additional A&P Information GPC bacteremia: Unknown source: Is difficult to say that abscess at the left lung base is either be primary versus a possible septic emboli. Start blood culture repeat. Continue vancomycin at current dose keeping Vanco trough between 15-20. Echocardiogram results appreciated. Repeat blood cultures have been negative till now. If they continue to remain negative can plan to change IV antibiotics to oral to finish a whole 14 days. If they barrel turner to be positive will have to go for a ALISSA to rule out infective endocarditis. Abdominal pain: History of extensive abdominal surgery with sigmoid colon resection, colorectal anastomosis, bladder reconstruction. Any infectious cause of abdominal pain has been ruled out with a normal ultraso und of liver, CT abdomen negative for any abscess, hydronephrosis, obstructive uropathy, kidney stones, pyelonephritis along with CT chest being negative for any infective source in right pleural space, benign UA. As discussed above patient's pain is heightened most likely because of withdrawal from Suboxone which he stopped taking on his own 5 days ago. Patient has had multiple episodes similar to this as per the note from his PCP earlier this year as well. Continue with Dilaudid as needed for pain along with ketorolac will add tramadol and Tylenol as well. Patient does have drug-seeking behavior. Hyponatremia/hyperkalemia: Resolved. Most likely secondary to dehydration. As patient is tolerating diet well will hold off on fluids for now. COPD: Seems to be at baseline. Oxygen supplementation keeping saturation 88-90% Budesonide twice daily, DuoNebs every 6 hours. Home O2 evaluation on discharge. CAD: History of single-vessel CABG: Continue with home dose of aspirin, statin. Type 2 diabetes mellitus: Insulin sliding scale at moderate dose before meals and at bedtime. Continue other chronic medications. We will change medications as per the results. Full code. Lovenox 40 mg subcu daily Cardiac diet Given the history of drug-seeking behavior in the past and patient needs IV antibiotics it would be difficult to discharge him with a PICC line. Depending on the culture results with sensitivities from the repeat blood culture will discuss the patient about SNF versus oral antibiotics. 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
[2019-09-22] MEDS: ipratropium-albuterol 3 mL Neb INHALATION ×2 (14:49→20:56)
[2019-09-22] MEDS: TRAMadol 50 mg Tablet PO ×2 (15:47→21:01)
[2019-09-22 17:02] LABS: Glucose Point of Care 148 mg/dL (70-110)
[2019-09-22 20:55] LABS: Glucose Point of Care 182 mg/dL (70-110)
[2019-09-22] MEDS: budesonide 0.5 mg/2 mL Neb INHALATION (20:57)
[2019-09-22] MEDS: enoxaparin 40 mg/0.4 mL Syringe SUBCUT (21:01)
[2019-09-23] VITALS (10 sets, daily range): BP systolic 131–156; BP diastolic 77–92; PULSE 82–107; RESP 16–20; TEMP 36.5–36.9; O2SAT 95–99
[2019-09-23] MEDS: HYDROcodone-acetaminophen 5-325 mg Tablet 1 TAB PO ×3 (00:35→15:20)
[2019-09-23] MEDS: vancomycin 1,000 MG in sodium chloride 0.9% 250 ML 250 MG IV ×2 (03:43→15:21)
[2019-09-23] MEDS: acetaminophen 325 mg Tablet 650 MG PO ×3 (03:43→17:42)
[2019-09-23] MEDS: ketorolac 30 mg/mL INJ 15 MG IVP ×3 (04:56→17:41)
[2019-09-23] MEDS: TRAMadol 50 mg Tablet PO ×2 (06:34→14:32)
[2019-09-23 06:46] LABS: Glucose Point of Care 130 mg/dL (70-110)
[2019-09-23 06:53] LABS: Basophils # 0.1 10^3/uL (0.0-0.1); Basophils % 0.6 %; Eosinophils # 0.1 10^3/uL (0.0-0.8); Eosinophils % 1.8 %; Hematocrit 41.4 % (42.0-52.0); Lymphocytes # 0.9 10^3/uL (0.8-4.8); Lymphocytes % 11.9 %; Mean Corpuscular HGB Conc 31.4 g/dL (30.0-36.0); Mean Corpuscular Hemoglobin 30.4 pg (28.0-34.0); Mean Corpuscular Volume 96.7 fL (80-94); Mean Platelet Volume 10.4 fL (7.4-10.4); Monocytes # 0.8 10^3/uL (0.2-0.9); Monocytes % 9.7 %; Neutrophils # 5.8 10^3/uL (1.8-7.7); Neutrophils % 75.5 %; Nucleated Red Blood Cells % 0 %; Platelet Count 236 10^3/cmm (130-400); Red Blood Count 4.28 10^6/uL (4.1-5.3); Red Cell Distribution Width 12.1 % (12.1-15.1); White Blood Count 7.7 10^3/uL (4.0-10.0)
[2019-09-23] MEDS: ipratropium-albuterol 3 mL Neb INHALATION ×2 (08:10→15:41)
[2019-09-23] MEDS: budesonide 0.5 mg/2 mL Neb INHALATION (08:10)
--- NOTE | 2019-09-23 09:28 | DCPLANNER ---
Pg 2 of IM updated and reviewed with pt. No questions, copy provided.
[2019-09-23] MEDS: lidocaine 5% Patch 1 PATCH TOPICAL (09:42)
[2019-09-23] MEDS: montelukast sodium 10 mg Tablet PO (09:43)
[2019-09-23] MEDS: PARoxetine 20 mg Tablet 40 MG PO (09:43)
[2019-09-23] MEDS: aspirin 81 mg EC Tablet PO (09:44)
[2019-09-23] MEDS: gabapentin 100 mg Capsule PO ×2 (09:44→14:31)
[2019-09-23] MEDS: atorvastatin 40 mg Tablet 20 MG PO (09:44)
[2019-09-23 12:05] LABS: Glucose Point of Care 199 mg/dL (70-110)
--- NOTE | 2019-09-23 12:23 | P.DS_ITS ---
Discharge Providers Date of Admission: 09/19/19 16:39 Date of Discharge: September 23, 2019 Attending Provider at Admission: Imelda Cr MD Attending Provider at Discharge: Khoi Grace MD Primary Care Provider: Yaritza Pizarro MD Diagnoses at Discharge Discharge Diagnosis (1) Staphylococcus aureus bacteremia without sepsis: Status: Acute (2) Abdominal pain, acute: Status: Acute (3) Acute hyponatremia: Status: Acute (4) Acute hyperkalemia: Status: Acute (5) COPD, moderate: Status: Chronic (6) Coronary artery disease: Status: Acute (7) History of drug dependence/abuse: Status: Acute Reason for Visit Reason for Visit: Reason For Visit: sob Hospital Course Discharge Summary: Albert Hernandez is a 59 year old male with past medical history of COPD not on home oxygen, CAD status post CABG to LAD, diverticulitis leading to 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 Patient denies of having any trauma, fall does not remember if the pain started after an aggressive bout of cough. He states pain started all of a sudden and has been getting worse. He complains of having subjective feel a fever but has not checked though in the ER patient was afebrile. He states he has been having cough with expectoration which is chronic for him given his COPD and has not changed in character. He denies of having any constipation, diarrhea, burning or painful micturition, hematuria, nausea, vomiting. He states his shortness of breath is at his baseline. He denies of lifting any heavy weights. He denies of any changes in his medications. He denies of having sick contacts, recent travels. Patient does give history of kidney stones in the past around 10 to 15 years ago which had passed on its own. He denies of having any chest pain, flu, upper respiratory symptoms. In the ER blood work showed that he was hyponatremic with sodium down to 129 and potassium up to 6.1 so hospital service was asked for admission. Due to patient's extensive history of multiple surgeries in the past his symptoms are concerning for underlying infection for which CT chest abdomen pelvis was done which showed some groundglass pneumonitis in the left and right lower lobes along with left pleural-based masslike opacity with central cavitation concerning for a cavitary pneumonia versus cavitating neoplasm ultrasound liver was done which was benign. Given his patient history patient was started on broad-spectrum antibiotics with vancomycin and ceftriaxone on the basis of his past culture history of blood growing micrococcus and urine growing pansensitive E. coli. CT abdomen pelvis was negative for any kind of abscess, collection, pyelonephritis, kidney stones, cystitis along with a benign urinalysis. Patient's blood culture came back positive for staph aureus for which possible sources most likely be cavitary [place] pneumonia on the left lung base. Given the history of patient's drug abuse and drug-seeking behavior infective endocarditis is ruled out with TTE along with past clearing blood cultures while being on vancomycin. Even thoughPatient's pathology seem to be on the left side of his chest he continued to have excruciating pain on the right side for which no pathological lesion could be found. Pain was treated by narcotic. Patient required more and more pain medications which is attributed to his drug-seeking behavior. On review of his chart it was seen patient had been on Suboxone through very recently as per his PCPs note which patient stated he stopped on his own 1 week ago though the story could not be confirmed. Patient stated he gets Suboxone from street. Given the drug-seeking behavior patient was in a not a good candidate of discharge with a PICC line for prolonged IV antibiotic course. Patient was given an option of discharge to SNF to finish IV antibiotic course which he refused. Given all patient was finally discharged home on oral linezolid to finish a course of 4-week of antibiotic course for a possible cavitary pneumonia on the left pleural-based. Patient is asked to follow-up with Dr. Paz as an outpatient in 6 weeks after finishing IV antibiotic course to evaluation decapitated pneumonia. An appointment is also been made for patient to [facility]up with [facility] Patient is been discharged in hemodynamically stable condition.Given the fact that patient will be on linezolid now his Paxil dose was decreased to avoid serotonergic syndrome. Physical Exam Narrative: EXAM NARRATIVE: General: Acute distress because of pain, AO x3 HEENT: PERRLA, pupils bilaterally equal and reactive Chest: Bilateral bronchial breath sounds, good air entry, decreased breath sounds in right lower zone. CVS: S1-S2 regular, no murmurs, tachycardia, no gallops, no rubs Abdomen: Bowel sounds present, tenderness in right upper and middle quadrant, no organomegaly. Neuro: No focal deficits, no facial deformity, AO x3, power 5/5 in all limbs Discharge Data Data Completed and Pending: Completed Studies During Hospitalization Category Date Time Status CT abdomen pelvis w con* [id number] Urge nt Cat Scan 09/19/19 15:[address] chest abd pel wo con Routine Cat Scan 09/19/19 19:10 Completed XR ribs RT mn 3V w CXR1V [id number] Stat Exams 09/19/19 15:03 Completed CV echo complete* [id number] Routine Ultrasound 09/21/19 18:05 [place] [id number] [place] at Ultrasound 09/20/19 18:39 Completed Pending at discharge Category Date Time Status Arterial Blood Ga s W/O Coox Routine Lab 09/20/19 04:31 Ordered Blood Culture Sta t Lab 09/19/19 14:58 Results Blood Culture Sta t Lab 09/21/19 14:41 Results Complete Blood Co unt w/Auto AM LABS Lab 09/24/19 04:00 Ordered Osmolality Urine Stat Lab 09/20/19 02:45 Received Vancomycin Trough Timed Lab 09/23/19 14:00 Ordered Labs from last 24 hours 09/23/19 09/23/19 09/23/19 11:36 06:30 06:12 WBC 7.7 RBC 4.28 Hgb 13.0 Hct 41.4 L MCV 96.7 H MCH 30.4 MCHC 31.4 RDW 12.1 Plt Count 236 MPV 10.4 Neut % (Auto) 75.5 Lymph % (Auto) 11.9 [place] % (Auto) 9.7 Eos % (Auto) 1.8 Baso % (Auto) 0.6 Neut # (Auto) 5.8 Lymph # (Auto) 0.9 [place] # (Auto) 0.8 Eos # (Auto) 0.1 Baso # (Auto) 0.1 Nucleated RBC % (a uto) 0 Nucleated RBCs # 0.0 POC Glucose 199 130 09/22/19 09/22/19 20:45 16:55 WBC RBC Hgb Hct MCV MCH MCHC RDW Plt Count MPV Neut % (Auto) Lymph % (Auto) [place] % (Auto) Eos % (Auto) Baso % (Auto) Neut # (Auto) Lymph # (Auto) [place] # (Auto) Eos # (Auto) Baso # (Auto) Nucleated RBC % (a uto) Nucleated RBCs # POC Glucose 182 148 Vitals: Last Vital Signs Temp 98.4 F 09/23/19 11:42 Pulse 84 09/23/19 11:42 Resp 18 09/23/19 11:42 BP 131/77 09/23/19 11:42 Pulse Ox 95 09/23/19 11:42 Discharge Plan Discharge Patient Disposition: Home, Self-Care Condition: Fair Prescriptions: New tramadol 50 mg Tablet 50 mg PO Q4H PRN (Reason: Moderate Pain) Qty: 10 RF: 0 linezolid 600 mg tablet 600 mg PO BID 28 Days Qty: 56 RF: 0 Continued meloxicam 15 mg tablet 15 mg PO DAILY Qty: 30 RF: 3 gabapentin 100 mg capsule 100 mg PO TID Qty: 90 RF: 3 albuterol sulfate 2.5 mg /3 mL (0.083 %) solution for nebulization 2.5 mg INHALATION Q4H PRN (Reason: shortness of breath or wheezing) Qty: 3 RF: 0 nitroglycerin [Nitrostat] 0.4 mg tablet, sublingual 0.4 mg SUBLINGUAL Q5M PRN (Reason: Chest Pain) RF: 0 [id number]-cezuizft-lvishn Tablet 1 tab PO DAILY RF: 0 albuterol sulfate [Ventolin HFA] 90 mcg/actuation HFA aerosol inhaler 2 puff INHALATION Q6H PRN (Reason: shortness of breath or wheezing) Qty: 18 RF: 0 Aspir-81 81 mg Tablet,Delayed Release (Dr/Ec) 81 mg PO DAILY RF: 0 simvastatin 40 mg tablet 40 mg PO DAILY RF: 0 omeprazole 20 mg capsule,delayed release(DR/EC) 20 mg PO DAILY RF: 0 Singulair 10 mg tablet 10 mg PO DAILY RF: 0 lisinopril 5 mg tablet 5 mg PO DAILY RF: 0 metformin 500 mg tablet extended release 24hr 500 mg PO DAILY RF: 0 Zyrtec 10 mg capsule 10 mg PO DAILY PRN (Reason: UNKNOWN) RF: 0 Changed Paxil 40 mg tablet 20 mg PO DAILY Qty: 30 RF: 0 Other Ambulatory Orders: Complete Blood Count w/Auto (Routine) Timeframe: 2 Weeks Location: Determined by Patient Ordered By: Khoi Grace Referrals: Mora Mortensen FNP [Primary Care Provider] - Yaritza Pizarro DO [Physician] - 2 weeks Jaquan Kinney MD [Physician] - 7-10 days Ashleigh Paz MD [Physician] - 6 Weeks Discharge Diet: Cardiac Discharge Activity: Resume usual activity Activity Restrictions/Additional Instructions: Please take your antibiotics twice a day for next 4 weeks. Please check CBC in 2 weeks as you will be on antibiotics. Please avoid any recreational drug abuse. Follow-up with primary care physician and pain management and set appointments. Follow-up with Dr. Paz in 6 weeks for possible abscess in the left pleural space. Discharge Attestations Time Spent in Discharge Care*: greater than 30 min Specific Discharge Activities: Specific discharge activities: educating patient, discussing with manager of case/social workers/dc planners, documenting/other paperwork and evaluating patient/reviewing data Status at Discharge: Cognitive status at discharge: cognitively intact , Behavioral status at discharge: cooperative , Functional status at discharge: independent ambulation Overall status at discharge: patient is back to baseline Quality Metrics Clinical Quality Measures During this hospital stay, did patient experience: None Coding Level 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
[2019-09-23 14:46] LABS: Vancomycin Trough 12.3 ug/mL (10-15)
[2019-09-23 16:37] LABS: Glucose Point of Care 147 mg/dL (70-110)
--- NOTE | 2019-09-23 18:14 | PC.NURSE ---
discharge patient given discharge instructions, meds to bed, iv removed. Patient ambulated to ED doors accompanied by me to POV.
== END 2019-09-23 18:15 | disposition home or self-care (01) | DRG 194 ==
LOC: ER 16:33 → MEDSURG 09-20 06:55 → ICU 09-20 06:55 → MEDSURG 09-20 20:04
PROVIDERS: Internal Medicine; Admitting Provider Student in an Organized Health Care Education/Training Program; Emergency Provider Family Medicine; Family Provider Nurse Practitioner; PCP Nurse Practitioner; Visit Provider Student in an Organized Health Care Education/Training Program
DX: J18.9 Pneumonia, unspecified organism (principal); E87.1 Hypo-osmolality and hyponatremia; J44.9 Chronic obstructive pulmonary disease, unspecified; B95.61 Methicillin susceptible Staphylococcus aureus infection as the cause of diseases classified elsewhere; E87.5 Hyperkalemia; I25.10 Atherosclerotic heart disease of native coronary artery without angina pectoris; F19.21 Other psychoactive substance dependence, in remission; E86.0 Dehydration; E11.9 Type 2 diabetes mellitus without complications; F17.210 Nicotine dependence, cigarettes, uncomplicated; Z79.811 Long term (current) use of aromatase inhibitors; Z95.1 Presence of aortocoronary bypass graft; Z79.82 Long term (current) use of aspirin; Z79.52 Long term (current) use of systemic steroids; Z79.84 Long term (current) use of oral hypoglycemic drugs; Z79.899 Other long term (current) drug therapy; Z99.81 Dependence on supplemental oxygen
CPT/HCPCS: 12345; 36415; 36416; 71101; 71250; 74176; 74177; 76705; 80048; 80053; 80202; 80306; 81001; 82436; 82962; 83605; 83690; 83880; 83935; 84133; 84145; 84300; 84443; 85025; 85378; 87040; 87077; 87186; 87205; 87641; 87804; 93306; 94640; 96372; 96375; 99283; A9270; J0696; J1170; J1650; J1815; J1885; J2270; J2405; J3010; J3370; J3490; J7030; J7040; J7050; J7626; Q9967

== ENCOUNTER → 2019-10-14 11:06 | Outpatient (BNVA) | payer MEDICARE, SELFPAY | PROVIDERS: Family Provider Nurse Practitioner; PCP Nurse Practitioner; Visit Provider Family Medicine | DX: R78.81 Bacteremia (principal) | CPT/HCPCS: 85025 ==

== ENCOUNTER 2019-10-20 07:38 | Inpatient (IN) | payer MEDICARE, SELFPAY ==
[2019-10-20] VITALS (51 sets, daily range): BP systolic 85–163; BP diastolic 54–96; PULSE 78–122; RESP 0–21; TEMP 36.1–36.8; O2SAT 94–100; BMI 20.3
[2019-10-20] MEDS: succinylcholine 20 mg/mL SDV 10mL 200 MG IVP (07:45)
[2019-10-20] MEDS: naloxone 0.4 mg/ml SDV IVP (07:50)
[2019-10-20] MEDS: propofol 1,000 MG/100 ML INJ 2.1 MG (07:55)
--- NOTE | 2019-10-20 07:58 | PC.NURSE ---
Pt intubated. 23 @ the lip
--- NOTE | 2019-10-20 08:00 | XR_ITS ---
WS: [id number] PORTABLE CHEST HISTORY: ams COMPARISON: None available. Prior CABG. Endotracheal tube ends at the clavicular head level and should be advanced another 2-3 ce ntimeters. Nasogastric tube is present. The distal extent is below the diaphragm. Soft tissue nodule central LEFT lung. Slightly spiculated nodule measures 3.0 x 4.3 cm. The lateral f ourth rib is incompletely visualized. No pleural effusion or pneumothorax. Cardiac size: Normal. Mediastinum/Aorta: Mild atherosclerosis aorta. Prior cervical fusion. XR/XR chest 1V portable [id number] IMPRESSION: 1. Endotracheal tube has been placed. Recommend advancing 2-3 cm for more opti mal positioning. 2. Nasogastric tube extends below the diaphragm. 3. Pleural-based nodule measures 4.3 x 3.0 cm in the LEFT thorax. Possible und erlying rib destruction. Recommend chest CT with contrast evaluation as patient 's condition improves. 4. Prior CABG.
--- NOTE | 2019-10-20 08:00 | CT_ITS ---
WS: [id number] CT HEAD NONCONTRAST HISTORY: ams TECHNIQUE: Contiguous axial imaging performed through the brain in 2.5 mm imaging. Bone and soft tiss ue windows. Sagittal and coronal reformats reviewed. All CT scans at [facility] use at ast one of these dose optimization techniques: automated exposure control; mA and/or kV adjustment pe r patient size (includes targeted exams where dose is matched to clinical indication); or iterative r econstruction. DLP: 672.64 mGy.cm COMPARISON: None available. No acute intracranial hemorrhage, midline shift or mass effect. Mild atrophy and minimal chronic microvascular ischemic disease. Perivascular spaces versus prior lac unar infarct RIGHT basal ganglia. Posterior fossa is negative. Ventricles: Normal size with no hydrocephalus. Paranasal sinuses: Mucoperiosteal thickening in the ethmoid and RIGHT sphenoid sinus. Mastoid air cells: Well pneumatized. Calvarium and scalp: Skull is intact with no soft tissue edema or swelling. Atherosclerosis intracranial carotid arteries. Notified Homer Nguyen DO at 10/20/2019 8:[address]/CT head wo con* [id number] IMPRESSION: 1. No acute intracranial hemorrhage or edema. 2. Mild atrophy and mild chronic microvascular ischemic disease.
--- NOTE | 2019-10-20 08:03 | W.ED.OVERDOS ---
HPI - Overdose General: Chief Complaint: Shortness of Breath/Dyspnea Stated Complaint: OVERDOSE, RESP ARREST Time Seen by Provider: 10/20/19 08:00 History of Present Illness: HPI Narrative: Patient was reportedly found down, unresponsive and apneic. EMS also reports they were told the patient has been popping pain pills . Patient has numerous track brito on both arms indicative of drug abuse. Upon arrival in the emergency room the patient remains apneic. There is no evidence of significant trauma. The patient's pupils are pinpoint and nonreactive. MD complaint: accidental overdose Onset (ago): unknown Review of Systems General: Reports: ROS unobtainable due to endotracheal tube, ROS unobtainable due to medical condition and ROS unobtainable due to mental status PFSH ED PFSH: Social History Smoking and tobacco status: unknown if ever smoked Physical Exam Narrative: EXAM NARRATIVE: On arrival patient has a Amado airway in place. He is apneic. He does have pulses. HENMT: COMMON NORMALS: normocephalic and head/scalp atraumatic HEAD & SCALP: normocephalic and atraumatic Neck/C-Spine: COMMON NORMALS: no lymphadenopathy and no meningeal signs Chest: COMMONS NORMALS: inspection of chest normal Resp: EFFORT & INSPECTION: Yes decreased respiratory effort (essentially apneic) AUSCULTATION: rhonchi and wheezes Cardio: COMMON NORMALS: regular rhythm RATE: tachycardic RHYTHM: regular rhythm GI: COMMON NORMALS: normal to inspection, nondistended, normoactive bowel sounds Extremity: COMMON NORMALS: normal to inspection Neuro: MATT COMA SCALE: document GCS findings [place] coma scale eye opening: None [place] coma scale verbal response: None [place] coma scale motor response: None [place] coma scale total score: 3 SENSORIUM/ORIENTATION: Yes other (unresponsive) MENINGEAL SIGNS: Yes no meningeal signs Skin: WOUNDS: Yes wounds noted (large number of needle track brito from iv drug abuse) Procedures Intubation Time out performed: No sedative: Etomidate Mg Given: 20 paralytic: Succinylcholine Mg Given: 200 Laryngoscope: Vivien ET Tube Size: 8 ET Tube Uncuffed: Yes Tube Secured Depth (cm): 23 Tube Secured Location: lips Tube Placement Confirmation: visualized tube passing through cords, equal breath sounds bilaterally, no breath sounds over epigastrium and confirmation by capnometry Patient Tolerated Procedure: no complications Intubation Complications: none Course Vital Signs: Vital signs: Vital Signs Temperature 97.6 F 10/20/19 09:00 Pulse Rate 101 H 10/20/19 09:20 Respiratory Rate 16 10/20/19 09:20 Blood Pressure 119/80 10/20/19 09:20 Pulse Oximetry 94 10/20/19 09:20 MDM - Overdose Lab Data: Labs: Lab Results 10/20/19 10/20/19 10/20/19 Range/Units 08:00 08:00 08:00 WBC 10.0 (4.0-10.0) 10^3/ uL RBC 3.91 L (4.1-5.3) 10^6/u L Hgb 12.1 (11.7-16.6) g/dL Hct 39.9 L (42.0-52.0) % MCV 102.0 H (80-94) fL MCH 30.9 (28.0-34.0) pg MCHC 30.3 (30.0-36.0) g/dL RDW 15.4 H (12.1-15.1) % Plt Count 245 (130-400) 10^3/c mm MPV 10.3 (7.4-10.4) fL Neut % (Auto) 55.3 % Lymph % (Auto) 25.0 % [place] % (Auto) 15.2 % Eos % (Auto) 3.2 % Baso % (Auto) 0.7 % Neut # (Auto) 5.5 (1.8-7.7) 10^3/u L Lymph # (Auto) 2.5 (0.8-4.8) 10^3/u L [place] # (Auto) 1.5 H (0.2-0.9) 10^3/u L Eos # (Auto) 0.3 (0.0-0.8) 10^3/u L Baso # (Auto) 0.1 (0.0-0.1) 10^3/u L Nucleated RBC % (a uto) 0.2 % Nucleated RBCs # 0.0 /100WBC Specimen Type Arterial Sample Site Radial, left ABG pH 7.18 L* (7.35-7.45) ABG pCO2 68.5 H* (35-45) mmHg ABG pO2 588.0 H* (80.0-100.0) mmH g ABG HCO3 25.6 (22-26) mmol/L ABG Base Excess -4.1 L (-2.0-2.0) mmol/ L Miguel Test Pos Hematocrit 40.3 L (42-52) % Respiration Rate 16.0 % O2 Delivery Device Vent FiO2 100.0 % Tidal Volume 0.45 PEEP 8.0 cmH20 Entertainment Agent ID broma Sodium 136 (136-145) mmol/L Potassium 4.2 (3.5-5.1) mmol/L Chloride 98 (98-107) mmol/L Carbon Dioxide 25 (22-29) mmol/L Anion Gap 17.2 (5-19) BUN 12 (6-20) mg/dL Creatinine 1.2 (0.7-1.2) mg/dL GFR Calculation 62.0 L (90-130) mL/min Glucose 334 H (65-115) mg/dL Calculated Osmolal ity 291 (285-295) mOsm/k g Lactate (0.5-2.2) mmol/L Calcium 9.3 (8.5-10.5) mg/dL Total Bilirubin 0.2 (0.15-1.2) mg/dL AST 85 H (0-40) U/L ALT 101 H (0-41) U/L Alkaline Phosphata se 173 H (40-130) IU/L NT-Pro-B Natriuret Pep 426 H (0-125) pg/mL Total Protein 7.6 (6.6-8.7) g/dL Albumin 3.8 (3.5-5.2) g/dL Globulin 3.8 (1.3-4.6) g/dL Lipase 24 (13-60) U/L TSH 3.91 (0.27-4.20) uIU/ mL Urine Color (Yellow) Urine Appearance (CLEAR) Urine pH (5-7) Ur Specific Gravit y (1.005-1.030) Urine Protein (Negative) Urine Glucose (UA) (Normal) Urine Ketones (Negative) Urine Blood (Negative) Urine Nitrate (Negative) Urine Bilirubin (NEGATIVE) Urine Urobilinogen (Negative) mg/dL Ur Leukocyte Jazmine ase (Negative) Urine RBC (0-2) /hpf Urine WBC (0-5) /hpf Ur Squamous Epith Cells (0-5) Urine Bacteria (NONE) Urine Mucus Urine Opiates Scre en (Negative) ng/mL Ur Barbiturates Sc reen (Negative) ng/mL Ur Phencyclidine S crn (Negative) ng/mL Ur Amphetamines Sc reen (Negative) ng/mL U Benzodiazepines Scrn (Negative) ng/mL Urine Cocaine Scre en (Negative) ng/mL U Marijuana (THC) Screen (Negative) ng/mL Ethyl Alcohol < 10 (0-10) mg/dL 10/20/19 10/20/19 10/20/19 Range/Units 08:00 08:49 08:49 WBC (4.0-10.0) 10^3/ uL RBC (4.1-5.3) 10^6/u L Hgb (11.7-16.6) g/dL Hct (42.0-52.0) % MCV (80-94) fL MCH (28.0-34.0) pg MCHC (30.0-36.0) g/dL RDW (12.1-15.1) % Plt Count (130-400) 10^3/c mm MPV (7.4-10.4) fL Neut % (Auto) % Lymph % (Auto) % [place] % (Auto) % Eos % (Auto) % Baso % (Auto) % Neut # (Auto) (1.8-7.7) 10^3/u L Lymph # (Auto) (0.8-4.8) 10^3/u L [place] # (Auto) (0.2-0.9) 10^3/u L Eos # (Auto) (0.0-0.8) 10^3/u L Baso # (Auto) (0.0-0.1) 10^3/u L Nucleated RBC % (a uto) % Nucleated RBCs # /100WBC Specimen Type Sample Site ABG pH (7.35-7.45) ABG pCO2 (35-45) mmHg ABG pO2 (80.0-100.0) mmH g ABG HCO3 (22-26) mmol/L ABG Base Excess (-2.0-2.0) mmol/ L Miguel Test Hematocrit (42-52) % Respiration Rate % O2 Delivery Device FiO2 % Tidal Volume PEEP cmH20 Entertainment Agent ID Sodium (136-145) mmol/L Potassium (3.5-5.1) mmol/L Chloride (98-107) mmol/L Carbon Dioxide (22-29) mmol/L Anion Gap (5-19) BUN (6-20) mg/dL Creatinine (0.7-1.2) mg/dL GFR Calculation (90-130) mL/min Glucose (65-115) mg/dL Calculated Osmolal ity (285-295) mOsm/k g Lactate 3.9 H (0.5-2.2) mmol/L Calcium (8.5-10.5) mg/dL Total Bilirubin (0.15-1.2) mg/dL AST (0-40) U/L ALT (0-41) U/L Alkaline Phosphata se (40-130) IU/L NT-Pro-B Natriuret Pep (0-125) pg/mL Total Protein (6.6-8.7) g/dL Albumin (3.5-5.2) g/dL Globulin (1.3-4.6) g/dL Lipase (13-60) U/L TSH (0.27-4.20) uIU/ mL Urine Color Yellow (Yellow) Urine Appearance Sl hazy (CLEAR) Urine pH 5.0 (5-7) Ur Specific Gravit y 1.020 (1.005-1.030) Urine Protein 2+ H (Negative) Urine Glucose (UA) Trace H (Normal) Urine Ketones Negative (Negative) Urine Blood 2+ H (Negative) Urine Nitrate Negative (Negative) Urine Bilirubin 1+ H (NEGATIVE) Urine Urobilinogen 1 H (Negative) mg/dL Ur Leukocyte Jazmine ase Negative (Negative) Urine RBC 25-40 H (0-2) /hpf Urine WBC 15-25 H (0-5) /hpf Ur Squamous Epith Cells 5-10 H (0-5) Urine Bacteria 2+ H (NONE) Urine Mucus 1+ Urine Opiates Scre en Positive H (Negative) ng/mL Ur Barbiturates Sc reen Negative (Negative) ng/mL Ur Phencyclidine S crn Negative (Negative) ng/mL Ur Amphetamines Sc reen Positive H (Negative) ng/mL U Benzodiazepines Scrn Negative (Negative) ng/mL Urine Cocaine Scre en Negative (Negative) ng/mL U Marijuana (THC) Screen Negative (Negative) ng/mL Ethyl Alcohol (0-10) mg/dL Discharge Plan Discharge Patient Disposition: Admitted As Inpatient Clinical Impression: Polysubstance abuse, Respiratory arrest, Tumor of lung Opiate overdose Qualifiers: Encounter type: initial encounter Injury intent: undetermined intent Qualified Code(s): T40.604A - Poisoning by unspecified narcotics, undetermined, initial encounter Condition: Fair Coding Level of Care Code ED Applications Programmer Analyst for Cony Fwd Exam Comprehensive
[2019-10-20] MEDS: sodium chloride 0.9% 1,000 ML 999 ML IV ×2 (08:10→10:34)
[2019-10-20 08:17] LABS: Arterial Blood Gas Hematocrit 40.3 % (42-52); Base Excess ABG -4.1 mmol/L (-2.0-2.0); Blood Gas Allen Test Pos; Blood Gas Sample Site Radial, left; Blood Gas Sample Type Arterial; Blood Gas Tidal Volume 0.45; HCO3 ABG 25.6 mmol/L (22-26); Oxygen Device VENT
[2019-10-20 08:26] LABS: Lactate (Lactic Acid level) 3.9 mmol/L (0.5-2.2)
[2019-10-20] MEDS: vecuronium 10 mg SDV IVP (08:30)
[2019-10-20] MEDS: LORazepam 2 mg/mL INJ 1 mL IVP (08:32)
[2019-10-20 08:36] LABS: Alanine Aminotransferase 101 U/L (0-41); Albumin Level 3.8 g/dL (3.5-5.2); Alkaline Phosphatase 173 IU/L (40-130); Anion Gap 17.2 (5-19); Aspartate Amino Transferase 85 U/L (0-40); Blood Urea Nitrogen 12 mg/dL (6-20); Calcium 9.3 mg/dL (8.5-10.5); Carbon Dioxide 25 mmol/L (22-29); Chloride 98 mmol/L (98-107); Creatinine Clr Calc Pharmacy 59.2939; Globulin 3.8 g/dL (1.3-4.6); Glucose 334 mg/dL (65-115); Lipase 24 U/L (13-60); NT Pro B Type Natriuretic Pept 426 pg/mL (0-125); Osmolality Calculated 291 mOsm/kg (285-295); Potassium 4.2 mmol/L (3.5-5.1); Sodium 136 mmol/L (136-145); Thyroid Stimulating Hormone 3.91 uIU/mL (0.27-4.20); Total Bilirubin 0.2 mg/dL (0.15-1.2); Total Protein 7.6 g/dL (6.6-8.7)
[2019-10-20 09:15] LABS: Alcohol Level < 10 mg/dL (0-10)
[2019-10-20 09:16] LABS: Basophils # 0.1 10^3/uL (0.0-0.1); Basophils % 0.7 %; Eosinophils # 0.3 10^3/uL (0.0-0.8); Eosinophils % 3.2 %; Hematocrit 39.9 % (42.0-52.0); Hemoglobin 12.1 g/dL (11.7-16.6); Lymphocytes # 2.5 10^3/uL (0.8-4.8); Mean Corpuscular HGB Conc 30.3 g/dL (30.0-36.0); Mean Corpuscular Hemoglobin 30.9 pg (28.0-34.0); Mean Platelet Volume 10.3 fL (7.4-10.4); Monocytes # 1.5 10^3/uL (0.2-0.9); Monocytes % 15.2 %; Neutrophils # 5.5 10^3/uL (1.8-7.7); Neutrophils % 55.3 %; Nucleated Red Blood Cells % 0.2 %; Platelet Count 245 10^3/cmm (130-400); Red Blood Count 3.91 10^6/uL (4.1-5.3); Red Cell Distribution Width 15.4 % (12.1-15.1)
[2019-10-20] MEDS: piperacillin-tazobactam 4.5 GM in sodium chloride 0.9% (plus) 50 ML IV (09:40)
[2019-10-20 09:51] LABS: Add Urine Microscopic? YES; Bilirubin Urine 1+ (NEGATIVE); Blood Urine 2+ (Negative); Glucose Urine UA Trace (Normal); Ketones Urine Negative (Negative); Leukocyte Esterase Urine Negative (Negative); Nitrate Urine Negative (Negative); Protein Urine 2+ (Negative); Urine Appearance SL Hazy (CLEAR); Urine Color Yellow (Yellow); Urobilinogen Urine 1 mg/dL (Negative)
[2019-10-20 10:00] LABS: Amphetamines Screen Urine Positive (Negative); Barbiturates Screen Urine Negative (Negative); Benzodiazepines Screen Urine Negative (Negative); Cocaine Screen Urine Negative (Negative); Opiate Screen Urine Positive (Negative); PCP Screen Urine Negative (Negative); THC Screen Urine Negative (Negative)
[2019-10-20 10:15] LABS: Add Urine Culture? Yes; Bacteria Urine 2+; Mucus Urine 1+; RBC Urine 25-40 /hpf (0-2); WBC Urine 15-25 /hpf (0-5)
--- NOTE | 2019-10-20 11:19 | PC.NURSE ---
Patient brought in by EMS for possible overdose. Patient in severe respiratory distress. Pupils are fixed at this time. Patient resp rate or 4-6 bpm unassisted. Unable to obtain much history at this time. Diminished bilat. lung sounds. Patient is afebrile upon arrival.
[2019-10-20 11:20] LABS: ABG PCO2 54.5 mmHg (35-45); ABG PH Result 7.31 (7.35-7.45); Arterial Blood Gas Hematocrit 33.2 % (42-52); Base Excess ABG 0.2 mmol/L (-2.0-2.0); Blood Gas Allen Test Pos; Blood Gas Sample Site Radial, right; Blood Gas Sample Type Arterial; Blood Gas Tidal Volume 0.45; HCO3 ABG 27.2 mmol/L (22-26); Oxygen Device VENT
[2019-10-20 11:21] LABS: ABG PCO2 68.5 mmHg (35-45); ABG PH Result 7.18 (7.35-7.45)
--- NOTE | 2019-10-20 12:02 | XR_ITS ---
WS: [id number] PORTABLE CHEST HISTORY: recheck tube placements COMPARISON: 10/20/2019 Nasogastric tube is within the stomach. Endotracheal tube is been advanced and now is just above the clementina. Prior CABG. Hyperexpanded lungs. No pneumonia. Again noted is a soft tissue nodule measuring 2.9 x 3.0 cm over th e LEFT upper lung. No pleural effusion or pneumothorax. Cardiac size: Normal. Mediastinum/Aorta: Mild atherosclerosis aorta. No osseous abnormality seen. XR/XR chest 1V portable [id number] IMPRESSION: 1. Endotracheal tube ends just above the clementina now. 2. Nasogastric tube in good position. 3. No pneumonia.
--- NOTE | 2019-10-20 13:21 | ECG_ITS ---
Measurements Intervals Bly Rate: 85 P: 93 MT: 136 QRS: 89 QRSD: 97 T: 82 QT: 387 QTc: [address] DEPRESSION [0.025+ mV ST DEPRESSION] No previous ECG available for comparison Electronically Signed On 10-20-2019 19:52:33 CDT by Roxana Allen M.D. [id number]
--- NOTE | 2019-10-20 13:22 | PM.HP ---
Providers/Chief Complaint Admitting Physician: Michele Ridley Chief Complaint: RESP ARREST, POLYSUBSTANCE ABUSE History of Present Illness CASS VELÁSQUEZ is a 59 year old male with past medical history of IV drug abuse who was brought by EMS to emergency room. The patient was found unresponsive and apneic. On initial evaluation in the emergency room he had pinpoint pupils. Overdose with opiates was suspected. According to EMS reports the patient was hoping pain pills all last night he was given Narcan which did not help with apnea. The patient was intubated in ER and started on mechanical ventilation. His ABGs showed hypercapnic respiratory failure with respiratory acidosis. There is no other information about patient's history. He has multiple track brito on his upper extremities. Urine was positive for amphetamine and opiates. Currently he is sedated with propofol. There is no evidence of acute respiratory distress. NG tube is placed. There is no evidence of blood. Review of Systems General: Reports: ROS unobtainable due to mental status Medications/Allergies Home Medications Medication Instructions Recorded Confirmed Last Taken Type Unable to Assess 10/20/19 10/20/19 Unknown History Allergies Allergy/AdvReac Type Severity Reaction Status Date / Time Unable to Assess Allergy Unverified 10/20/19 07:48 PFSH Acute PFSH: Social History Smoking and tobacco status: unknown if ever smoked Vitals/I&O/Wt Last Vital Signs Temp 97.6 F 10/20/19 09:00 Pulse 97 10/20/19 11:52 Resp 16 10/20/19 11:52 BP 99/67 10/20/19 11:52 Pulse Ox 100 10/20/19 11:52 10/19/19 10/20/19 10/20/19 22:59 06:59 14:59 Intake Total 1050.768 / 1050.768 Balance 1050.768 / 1050.768 Weight last 48 hrs Weight 58.967 kg Data : 10/20/19 08:00 10/20/19 08:00 Micro: Microbiology 10/20/19 08:00 Blood Culture - Preliminary Blood SPECIMEN COLLECTED CXR: Radiologist's impression: Pleural-based tumor is described. CT Head: Radiologist's impression: CT head showed no evidence of acute intracranial abnormalities. A&P Additional A&P Information Acute metabolic encephalopathy most likely secondary to opiate/amphetamine overdose and possible (less likely) hypoxic brain injury. It is very hard to assess his neurologic status at this time due to sedation. For now we will continue supportive therapy and do frequent neurologic checks. We will try to minimize the sedation if his condition allows. Acute hypercapnic respiratory failure secondary to apnea secondary to opiate and amphetamine overdose. Continue mechanical ventilation. I asked the nurses to advanced endotracheal tube by an inch according to the radiology reports. We will repeat x-ray to confirm the position. I discussed with the respiratory therapy patient's vent settings. We will do repeat ABGs now and in a.m. We will adjust the settings as needed. UTI with associated lactic acid level elevation. Possible severe sepsis. Initially patient's blood pressure was soft. However it improved with IV fluids in the emergency room. We will continue IV fluids. We will recheck lactic acid level. Will consider additional boluses. Blood cultures and urine cultures are taken. Zosyn for now. Hyperglycemia. Might have diabetes. I will order insulin sliding scale and Accu-Cheks every 6 hours. I will check A1c level. 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 We will inform the patient about this finding when he is responsive and stable. He might require CT chest either inpatient or outpatient. Will need a referral to see a moisture conditioner operator prior to discharge. DVT prophylaxis. Lovenox. GI prophylaxis. PPI. Elevated LFTs. Will monitor this. Will consider additional testing. Definitely he is high risk for viral hepatitis. Attestations Medical Necessity Statement*: The patient is admitted in critical condition to ICU due to above listed problems. He will require greater than 2 midnights in the hospital. Critical care time spent on this encounter is 60 minutes Coding Level of Care Code Acute Government Sales Manager for [employer]y Cameron
[2019-10-20 13:30] LABS: ABG PCO2 57.3 mmHg (35-45); ABG PH Result 7.29 (7.35-7.45); Base Excess ABG 0.2 mmol/L (-2.0-2.0); Blood Gas Sample Site Brachial, right; Blood Gas Sample Type Arterial; HCO3 ABG 27.6 mmol/L (22-26); Oxygen Device VENT; PO2 ABG 77.9 mmHg (80.0-100.0)
[2019-10-20] MEDS: piperacillin-tazobactam 3.375 GM in sodium chloride 0.9% (plus) 50 ML IV ×2 (14:20→22:49)
[2019-10-20] MEDS: lactated ringers 1,000 ML 125 ML IV ×2 (14:21→22:47)
[2019-10-20] MEDS: enoxaparin 40 mg/0.4 mL Syringe SUBCUT (14:21)
[2019-10-20 14:56] LABS: Glucose Point of Care 161 mg/dL (70-110)
[2019-10-20 16:59] LABS: Lactate (Lactic Acid level) 1.7 mmol/L (0.5-2.2)
[2019-10-20 18:11] LABS: Glucose Point of Care 96 mg/dL (70-110)
[2019-10-20] MEDS: propofol 1,000 MG/100 ML INJ 7.1 MG IV (18:22)
[2019-10-20 19:53] LABS: Anion Gap 14.8 (5-19); Blood Urea Nitrogen 12 mg/dL (6-20); Calcium 8.4 mg/dL (8.5-10.5); Carbon Dioxide 24 mmol/L (22-29); Chloride 104 mmol/L (98-107); Glomerular Filtration Rate 76.5 mL/min (90-130); Glucose 102 mg/dL (65-115); Osmolality Calculated 284 mOsm/kg (285-295); Potassium 3.8 mmol/L (3.5-5.1); Sodium 139 mmol/L (136-145)
[2019-10-20] MEDS: sodium chloride 0.9% 1,000 ML 100 ML IV (20:01)
[2019-10-20] MEDS: LORazepam 2 mg/mL INJ 1 mL 1 MG IVP (20:06)
[2019-10-20] MEDS: morphine 4 mg/mL SDV 1 mL 2 MG IVP (20:07)
[2019-10-20] MEDS: ondansetron 2 mg/ML SDV 2 mL 4 MG IVP (20:08)
[2019-10-20 23:07] LABS: Glucose Point of Care 126 mg/dL (70-110)
[2019-10-21] VITALS (17 sets, daily range): BP systolic 112–171; BP diastolic 64–89; PULSE 79–107; RESP 7–18; TEMP 36.6–38; O2SAT 94–100
--- NOTE | 2019-10-21 | XR_ITS ---
WS: [id number] CHEST, 1 view. HISTORY: ETT COMPARISON: 10/20/2019 Endotracheal tube ends several centimeters above the clementina in good position. Nasogastric tube remain s in good position. Prior CABG. Lungs are well aerated with unchanged soft tissue nodule in the central LEFT lung. No pleural effusio n or pneumothorax. Cardiac size: Normal. Mediastinum/Aorta: Mild atherosclerosis aorta. No osseous abnormality seen. XR/XR chest 1V [id number] IMPRESSION: 1. Endotracheal nasogastric tubes in good position. 2. Pleural-based soft tissue mass in the mid LEFT thorax. This mass was previo usly described on chest CT of 09/19/2019 and decreased in size. May be a cavitar y pneumonia or neoplasm. Anticipate follow-up as previously recommended.
[2019-10-21] MEDS: morphine 4 mg/mL SDV 1 mL 2 MG IVP (01:05)
[2019-10-21 04:33] LABS: Basophils % 0.6 %; Eosinophils # 0.3 10^3/uL (0.0-0.8); Eosinophils % 4.2 %; Hematocrit 32.9 % (42.0-52.0); Hemoglobin 10.2 g/dL (11.7-16.6); Lymphocytes # 1.1 10^3/uL (0.8-4.8); Lymphocytes % 15.4 %; Mean Corpuscular Hemoglobin 30.5 pg (28.0-34.0); Mean Corpuscular Volume 98.5 fL (80-94); Mean Platelet Volume 9.7 fL (7.4-10.4); Monocytes # 0.7 10^3/uL (0.2-0.9); Monocytes % 10.3 %; Neutrophils # 4.9 10^3/uL (1.8-7.7); Neutrophils % 69.2 %; Nucleated Red Blood Cells % 0 %; Platelet Count 165 10^3/cmm (130-400); Red Blood Count 3.34 10^6/uL (4.1-5.3); Red Cell Distribution Width 15.7 % (12.1-15.1); White Blood Count 7.1 10^3/uL (4.0-10.0)
[2019-10-21 04:55] LABS: Anion Gap 13.9 (5-19); Blood Urea Nitrogen 11 mg/dL (6-20); Calcium 8.8 mg/dL (8.5-10.5); Carbon Dioxide 26 mmol/L (22-29); Chloride 105 mmol/L (98-107); Glomerular Filtration Rate 68.5 mL/min (90-130); Glucose 129 mg/dL (65-115); Magnesium 1.9 mg/dL (1.7-2.3); Osmolality Calculated 290 mOsm/kg (285-295); Potassium 3.9 mmol/L (3.5-5.1); Sodium 141 mmol/L (136-145)
[2019-10-21] MEDS: lactated ringers 1,000 ML 125 ML IV (05:11)
[2019-10-21] MEDS: piperacillin-tazobactam 3.375 GM in sodium chloride 0.9% (plus) 50 ML IV (05:12)
[2019-10-21] MEDS: propofol 1,000 MG/100 ML INJ 5.7 MG IV (05:22)
[2019-10-21 05:30] LABS: Glucose Point of Care 131 mg/dL (70-110)
[2019-10-21 06:19] LABS: ABG PCO2 36.9 mmHg (35-45); ABG PH Result 7.48 (7.35-7.45); Arterial Blood Gas Hematocrit 34.3 % (42-52); Base Excess ABG 3.6 mmol/L (-2.0-2.0); Blood Gas Allen Test Pos; Blood Gas Sample Site Radial, right; Blood Gas Sample Type Arterial; HCO3 ABG 27.3 mmol/L (22-26); Oxygen Device VENT; PO2 ABG 99.8 mmHg (80.0-100.0)
[2019-10-21] MEDS: pantoprazole 40 mg SDV IVP (08:50)
[2019-10-21 09:01] LABS: Estmated Average Glucose 203; Hemoglobin A1C 8.7 % (4.0-6.0)
[2019-10-21 11:36] LABS: ABG PCO2 40.7 mmHg (35-45); ABG PH Result 7.45 (7.35-7.45); Arterial Blood Gas Hematocrit 35.6 % (42-52); Base Excess ABG 3.8 mmol/L (-2.0-2.0); Blood Gas Sample Site Brachial, right; Blood Gas Sample Type Arterial; HCO3 ABG 28.1 mmol/L (22-26); Oxygen Device VENT; PO2 ABG 89.3 mmHg (80.0-100.0)
--- NOTE | 2019-10-21 11:57 | PC.RESP ---
PT EXTUBATED TO ROOMAIR. SAT 94%. HR 104 RR 18
[2019-10-21 12:31] LABS: Glucose Point of Care 147 mg/dL (70-110)
--- NOTE | 2019-10-21 12:40 | PC.NURSE ---
EXTUBATION 1050 PT EXTUBATED BY RT. ON ROOM AIR, TOLERATED WELL
--- NOTE | 2019-10-21 13:09 | PC.NURSE ---
Addendum entered by Lilli Siegel, JOAQUIN 10/21/19 13:25: PT REFUSED TO WAIT FOR D/C PAPERWORK. WHEELED TO ER WAITING ROOM. STAFF NOTIFIED THAT PT WAITING FOR RIDE. WISHED WELL. ENCOURAGED TO FOLLOW UP WITH DR WELLINGTON Original Note: [id number] PULLED ALL LINES OFF/OUT. STATES THAT HE IS GOING HOME. DR DAWKINS NOTIFIED & TO PT BEDSIDE. PT ALLOWED TO SIGN OUT AMA. ENCOURAGED TO FOLLOW UP WITH DR WELLINGTON D/T TUMOR IN LEFT LUNG. BELONGINGS, HOME MEDS, FALSE TEETH RETURNED TO PT.
--- NOTE | 2019-10-21 13:39 | P.DS_ITS ---
Discharge Providers Date of Admission: 10/20/19 10:33 Date of Discharge: October 21, 2019 Attending Provider at Admission: Michele Ridley Attending Provider at Discharge: Michele Ridley Reason for Visit Reason for Visit: Reason For Visit: Resp Arrest, Polysubstance Abuse Hospital Course Discharge Summary: The patient was extubated today. Stable after extubation. No problems with breathing. ABGs prior to extubation very very reassuring. Unfortunately the patient decided to leave AMA immediately after extubation. I had a very long discussion with him and try to convince him to stay. However he was adamant to leave. He understands all the risks of leaving without completion of treatments. He admits that he uses drugs and probably is going to continue using them. However he is going to try to quit in the future. I had a very long discussion with him regarding x-ray report all of thoracic mass. It is very concerning of possible tumor. I printed a copy of the report for him and gave it to him. He will need outpatient evaluation of the finding. He verbalized understanding and agreement. I asked the nurse to give him Dr. Paz's information for outpatient follow-up. Additional testing will be necessary. Acute metabolic encephalopathy most likely secondary to opiate/amphetamine overdose. Resolved. The patient does not have any neurologic deficits. Does not have any weakness. Acute hypercapnic respiratory failure secondary to apnea secondary to opiate and amphetamine overdose. Resolved. Breathing on his own without difficulties. Vital signs are stable. Oxygenation is adequate without oxygen. UTI with associated lactic acid level elevation. Culture of the urine is negative. I told him that I cannot make any decision about antibiotics. He wi ll need to see his doctor. He was also instructed to come back to emergency room if he develops any new problems. He verbalized understanding and agreement. Hyperglycemia. Resolved. 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 As above. DVT prophylaxis. Received Lovenox. GI prophylaxis. Received PPI. Elevated LFTs. Will need outpatient follow-up and testing. Physical Exam Narrative: EXAM NARRATIVE: The patient is awake alert and oriented after extubation and discontinuation of sedation. Responses are adequate. Mood and affect are appropriate. Skin is warm and dry. Moist mucous membranes. Eyes PERRLA, extraocular muscle intact. Lungs clear. No respiratory distress. Heart S1, S2, regular Abdomen soft, nontender, bowel sounds are present extremities bilateral edema present. No peripheral cyanosis. No calf tenderness bilaterally. No focal neurologic deficits. Urinary Catheter Management^: Thompson: Cath Placed During This Visit: yes Reason for Continuing Indwelling Catheter: Accurate Measurement of Urinary Output in Critically Ill Patients Urinary Catheter Date of Insertion: 10/20/19 Discharge Data Data Completed and Pending: Completed Studies During Hospitalization Category Date Time Status CT head wo con* [id number] Urgent Cat Scan 10/20/19 08:00 Completed XR chest 1V [id number] Routine Exams 10/21/19 Completed XR chest 1V [place] ble [id number] Routine Exams 10/20/19 12:02 Completed XR chest 1V [place] ble [id number] Urgent Exams 10/20/19 08:00 Completed Pending at discharge Category Date Time Status ABG ONLY [Arteria l Blood Gas W/O Co ox] Routine Lab 10/20/19 15:55 Received Blood Culture Rou kitty Lab 10/20/19 16:23 Results Blood Culture Sta t Lab 10/20/19 08:01 Results Urine Culture Sta t Lab 10/20/19 08:49 Results Labs from last 24 hours 10/21/19 10/21/19 10/21/19 12:20 11:22 06:05 WBC RBC Hgb Hct MCV MCH MCHC RDW Plt Count MPV Neut % (Auto) Lymph % (Auto) [place] % (Auto) Eos % (Auto) Baso % (Auto) Neut # (Auto) Lymph # (Auto) [place] # (Auto) Eos # (Auto) Baso # (Auto) Nucleated RBC % (a uto) Nucleated RBCs # Specimen Type Arterial Arterial Sample Site Brachial, right Radial, right ABG pH 7.45 7.48 H ABG pCO2 40.7 36.9 ABG pO2 89.3 99.8 ABG HCO3 28.1 H 27.3 H ABG Base Excess 3.8 H 3.6 H Miguel Test N/a Pos Hematocrit 35.6 L 34.3 L Respiration Rate 18.0 O2 Delivery Device Vent Vent Mechanical Rate 18.0 FiO2 30.0 30.0 PEEP 5.0 8.0 Pressure Support 10.0 Employee Adviser ID gd vossa Sodium Potassium Chloride Carbon Dioxide Anion Gap BUN Creatinine GFR Calculation Glucose POC Glucose 147 Estimat Average Gl ucose Hemoglobin A1c Calculated Osmolal ity Lactate Calcium Magnesium 10/21/19 10/21/19 10/21/19 05:08 04:20 04:20 WBC RBC Hgb Hct MCV MCH MCHC RDW Plt Count MPV Neut % (Auto) Lymph % (Auto) [place] % (Auto) Eos % (Auto) Baso % (Auto) Neut # (Auto) Lymph # (Auto) [place] # (Auto) Eos # (Auto) Baso # (Auto) Nucleated RBC % (a uto) Nucleated RBCs # Specimen Type Sample Site ABG pH ABG pCO2 ABG pO2 ABG HCO3 ABG Base Excess Miguel Test Hematocrit Respiration Rate O2 Delivery Device Mechanical Rate FiO2 PEEP Pressure Support Employee Adviser ID Sodium 141 Potassium 3.9 Chloride 105 Carbon Dioxide 26 Anion Gap 13.9 BUN 11 Creatinine 1.1 GFR Calculation 68.5 L Glucose 129 H POC Glucose 131 Estimat Average Gl ucose 203 Hemoglobin A1c 8.7 H Calculated Osmolal ity 290 Lactate Calcium 8.8 Magnesium 1.9 10/21/19 10/20/19 10/20/19 04:20 22:58 18:08 WBC 7.1 RBC 3.34 L Hgb 10.2 L Hct 32.9 L MCV 98.5 H MCH 30.5 MCHC 31.0 RDW 15.7 H Plt Count 165 MPV 9.7 Neut % (Auto) 69.2 Lymph % (Auto) 15.4 [place] % (Auto) 10.3 Eos % (Auto) 4.2 Baso % (Auto) 0.6 Neut # (Auto) 4.9 Lymph # (Auto) 1.1 [place] # (Auto) 0.7 Eos # (Auto) 0.3 Baso # (Auto) 0.0 Nucleated RBC % (a uto) 0 Nucleated RBCs # 0.0 Specimen Type Sample Site ABG pH ABG pCO2 ABG pO2 ABG HCO3 ABG Base Excess Miguel Test Hematocrit Respiration Rate O2 Delivery Device Mechanical Rate FiO2 PEEP Pressure Support Employee Adviser ID Sodium Potassium Chloride Carbon Dioxide Anion Gap BUN Creatinine GFR Calculation Glucose POC Glucose 126 96 Estimat Average Gl ucose Hemoglobin A1c Calculated Osmolal ity Lactate Calcium Magnesium 10/20/19 10/20/19 10/20/19 16:23 16:23 14:24 WBC RBC Hgb Hct MCV MCH MCHC RDW Plt Count MPV Neut % (Auto) Lymph % (Auto) [place] % (Auto) Eos % (Auto) Baso % (Auto) Neut # (Auto) Lymph # (Auto) [place] # (Auto) Eos # (Auto) Baso # (Auto) Nucleated RBC % (a uto) Nucleated RBCs # Specimen Type Sample Site ABG pH ABG pCO2 ABG pO2 ABG HCO3 ABG Base Excess Miguel Test Hematocrit Respiration Rate O2 Delivery Device Mechanical Rate FiO2 PEEP Pressure Support Employee Adviser ID Sodium 139 Potassium 3.8 Chloride 104 Carbon Dioxide 24 Anion Gap 14.8 BUN 12 Creatinine 1.0 GFR Calculation 76.5 L Glucose 102 POC Glucose 161 Estimat Average Gl ucose Hemoglobin A1c Calculated Osmolal ity 284 L Lactate 1.7 Calcium 8.4 L Magnesium Vitals: Last Vital Signs Temp 100.4 F H 10/21/19 08:00 Pulse 107 H 10/21/19 13:34 Resp 14 10/21/19 11:07 BP 171/89 10/21/19 13:34 Pulse Ox 94 10/21/19 13:34 Discharge Plan Discharge Patient Disposition: Left Against Medical Advice Condition: Fair Prescriptions: No Action Unable to Assess RF: 0 Referrals: Ashleigh Paz MD [Physician] - 7-10 days Charlene Cortes RN [Emergency Nurse] - 4-7 days Discharge Date/Time: 10/21/19 13:00 Discharge Attestations Time Spent in Discharge Care*: critical care time Quality Metrics Clinical Quality Measures During this hospital stay, did patient experience: None Coding Level of Care Code Acute Manufacturing Engineer Chief for Cony Cameron
[2019-10-25 15:43] LABS: ABG PCO2 41.4 mmHg (35-45); ABG PH Result 7.41 (7.35-7.45); Arterial Blood Gas Hematocrit 32.3 % (42-52); Base Excess ABG 1.7 mmol/L (-2.0-2.0); Blood Gas Sample Site Brachial, right; Blood Gas Sample Type Arterial; Blood Gas Tidal Volume 0.5; HCO3 ABG 26.5 mmol/L (22-26); Oxygen Device VENT
== END 2019-10-21 13:00 | disposition left against medical advice (07) | DRG 917 ==
LOC: ER 11:05 → ICU 11:07
PROVIDERS: Admitting Provider Internal Medicine; Emergency Provider Family Medicine; Visit Provider Internal Medicine
DX: T40.601A Poisoning by unspecified narcotics, accidental (unintentional), initial encounter (principal); J96.02 Acute respiratory failure with hypercapnia; G93.41 Metabolic encephalopathy; E87.2 Acidosis; N39.0 Urinary tract infection, site not specified; T43.621A Poisoning by amphetamines, accidental (unintentional), initial encounter; F19.10 Other psychoactive substance abuse, uncomplicated; Z53.29 Procedure and treatment not carried out because of patient's decision for other reasons; R73.9 Hyperglycemia, unspecified; R91.8 Other nonspecific abnormal finding of lung field
CPT/HCPCS: 12345; 31500; 36415; 36416; 36600; 70450; 71045; 80048; 80053; 80306; 80307; 81001; 82803; 82962; 83036; 83605; 83690; 83735; 83880; 84443; 85025; 87040; 87086; 93005; 94002; 94003; 94640; 94799; 96372; 96375; 99284; C9113; J0330; J1650; J1815; J2060; J2270; J2310; J2405; J2543; J2704; J3490; J7030; J7611

== ENCOUNTER → 2020-01-25 10:48 | Outpatient (BNVA) | payer MEDICARE, SELFPAY | PROVIDERS: Family Provider Nurse Practitioner; PCP Family Medicine; Visit Provider Family Medicine | DX: I10 Essential (primary) hypertension (principal); Z13.6 Encounter for screening for cardiovascular disorders; E11.9 Type 2 diabetes mellitus without complications; F33.2 Major depressive disorder, recurrent severe without psychotic features | CPT/HCPCS: 80053; 80061 ==

== ENCOUNTER 2020-02-06 18:05 | Emergency (ER) | payer MEDICARE, SELFPAY ==
[2020-02-06 18:17] LABS: ABG PCO2 47.7 mmHg (35-45); ABG PH Result 7.29 (7.35-7.45); Arterial Blood Gas Hematocrit 42.6 % (42-52); Base Excess ABG -3.8 mmol/L (-2.0-2.0); Blood Gas Allen Test Pos; Blood Gas Operator Identificat MONRO; Blood Gas Sample Site Radial, left; Blood Gas Sample Type Arterial; Carboxyhemoglobin 4.5 %THgb (0.4-20.1); HCO3 ABG 23.1 mmol/L (22-26); HGB O2 Sat 94.9 % (95-100); Ionized Calcium Level - ABG 1.2 mmol/L (1.1-1.4); Methemoglobin 0.8 % (0.4-1.5); Oxygen Device VENT; Oxygen Saturation ABG > 100.0; Potassium Level - ABG 3.7 mmol/L (3.5-5.0); Total Hemoglobin 13.9 g/dL (14-18)
== END 2020-02-06 18:06 | disposition left against medical advice (07) ==
LOC: ER 18:26
PROVIDERS: Emergency Medicine; Emergency Provider Emergency Medicine; PCP Family Medicine
DX: Z53.21 Procedure and treatment not carried out due to patient leaving prior to being seen by health care provider (principal)
CPT/HCPCS: 36600; 80051; 82810; 83986

== ENCOUNTER 2020-02-06 18:06 | Emergency (ER) | payer MEDICARE, SELFPAY ==
[2020-02-06] VITALS (8 sets, daily range): BP systolic 105–193; BP diastolic 80–113; PULSE 104–121; RESP 16–18; TEMP 36.6; O2SAT 93–100; BMI 20.5
--- NOTE | 2020-02-06 18:21 | XRR_ITS ---
PROCEDURE INFORMATION: Exam: XR Chest, 1 View Exam date and time: 02/06/2020 6:22 PM Age: 60 years old Clinical indication: Device placement; Ett placement (vent status); Additional info: Intubated TECHNIQUE: Imaging protocol: XR of the chest Views: 1 view. COMPARISON: CR XR chest 1V [id number] 10/21/2019 5:07 AM FINDINGS: Tubes, catheters and devices: Intubation with tip approximately 5.5 cm above the clementina. NG tube tip in the mid stomach. Pacemaker pads in place. Lungs: Emphysema. Mild atelectasis or scarring in the right lung base. The left lung is clear. Pleural space: Unremarkable. No pleural effusion. No pneumothorax. Heart/Mediastinum: Unremarkable. No cardiomegaly. Bones/joints: Median sternotomy changes. XR/XR chest 1V portable [id number] IMPRESSION: No acute findings, post intubation.
--- NOTE | 2020-02-06 18:21 | ECG_ITS ---
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 Measurements Intervals [place] Rate: 126 P: 88 RI: 134 QRS: 83 QRSD: 109 T: 72 QT: 329 QTc: 477 Interpretive Statements SINUS TACHYCARDIA LEFT VENTRICULAR HYPERTROPHY AND ST-T CHANGE [VOLTAGE CRITERIA PLUS ST/T ABNORMALITY] Compared to ECG 05/31/2019 16:04:50 ST (T wave) deviation now present Myocardial infarct finding no longer present Electronically Signed On 02-06-2020 20:44:08 CDT by Tavo Martin M.D. [email or web address]
[2020-02-06 18:32] LABS: Basophils # 0.1 10^3/uL (0.0-0.1); Basophils % 1.1 %; Eosinophils # 0.1 10^3/uL (0.0-0.8); Eosinophils % 1.6 %; Hematocrit 41.8 % (42.0-52.0); Hemoglobin 12.9 g/dL (11.7-16.6); Lymphocytes # 1.7 10^3/uL (0.8-4.8); Lymphocytes % 30.3 %; Mean Corpuscular HGB Conc 30.9 g/dL (30.0-36.0); Mean Corpuscular Hemoglobin 28.1 pg (28.0-34.0); Mean Corpuscular Volume 91.1 fL (80-94); Mean Platelet Volume 10.7 fL (7.4-10.4); Monocytes # 0.7 10^3/uL (0.2-0.9); Monocytes % 12.5 %; Neutrophils # 2.97 10^3/uL (1.8-7.7); Neutrophils % 53.8 %; Nucleated Red Blood Cells % 0 %; Platelet Count 265 10^3/cmm (130-400); Red Blood Count 4.59 10^6/uL (4.1-5.3); Red Cell Distribution Width 13.3 % (12.1-15.1); White Blood Count 5.5 10^3/uL (4.0-10.0)
--- NOTE | 2020-02-06 18:37 | PC.NURSE ---
OG tube placed. 16french NG tube used. positive placement confirmed with auscultation and return of gastric contents
[2020-02-06 18:51] LABS: Alanine Aminotransferase 31 U/L (0-41); Albumin Level 3.6 g/dL (3.5-5.2); Alkaline Phosphatase 137 IU/L (40-130); Anion Gap 14.8 (5-19); Aspartate Amino Transferase 32 U/L (0-40); Blood Urea Nitrogen 18 mg/dL (8-23); Carbon Dioxide 26 mmol/L (22-29); Chloride 100 mmol/L (98-107); Creatine Phosphokinase 44 U/L (39-308); Globulin 3.2 g/dL (1.3-4.6); Glomerular Filtration Rate 56.3 mL/min (90-130); Glucose 227 mg/dL (65-115); Osmolality Calculated 288 mOsm/kg (285-295); Potassium 3.8 mmol/L (3.5-5.1); Sodium 137 mmol/L (136-145); Total Bilirubin 0.2 mg/dL (0.15-1.2); Total Protein 6.8 g/dL (6.6-8.7)
[2020-02-06 18:52] LABS: Lactate (Lactic Acid level) 2.9 mmol/L (0.5-2.2)
[2020-02-06 18:53] LABS: Troponin(5th) Baseline 22 ng/L (0-15)
[2020-02-06 18:55] LABS: Alcohol Level < 10 mg/dL (0-10)
[2020-02-06 19:03] LABS: ABG PCO2 44.7 mmHg (35-45); ABG PH Result 7.29 (7.35-7.45); Base Excess ABG -3.8 mmol/L (-2.0-2.0); HCO3 ABG 23.1 mmol/L (22-26)
--- NOTE | 2020-02-06 19:03 | CTR_ITS ---
PROCEDURE INFORMATION: Exam: CT Head Without Contrast Exam date and time: 02/06/2020 7:09 PM Age: 60 years old Clinical indication: Alteration of consciousness; Patient HX: PT was found unresponsive; Additional info: AMS, hypertensive TECHNIQUE: Imaging protocol: Computed tomography of the head without contrast. Radiation optimization: All CT scans at this facility use at least one of these dose optimization techniques: automated exposure control; mA and/or kV adjustment per patient size (includes targeted exams where dose is matched to clinical indication); or iterative reconstruction. COMPARISON: CT head wo con* [id number] 10/20/2019 8:35 AM RADIATION DOSE METRICS: Total DLP (mGy-cm): 737.12 FINDINGS: Brain: Mild cortical volume loss. Mild hypodensities in supratentorial periventricular and subcortical white matter. Ventricles: Normal. No ventriculomegaly. Bones/joints: Unremarkable. No acute fracture. Sinuses: Inflammatory changes in the ethmoid and sphenoid sinuses. Mastoid air cells: Visualized mastoid air cells are well aerated. Nasal cavity: Fluid in the nasal cavity and nasopharynx, consistent with intubation. Soft tissues: Unremarkable. CT/CT head wo con* [id number] IMPRESSION: 1. No acute intracranial abnormality. 2. Mild microangiopathy. Radiation Dose CTDIVOL = (mGy): DLP = 737.12 (mGy-cm)
[2020-02-06 19:04] LABS: Blood Gas Operator Identificat MONRO; Oxygen Device VENT
[2020-02-06 19:07] LABS: Bilirubin Urine Neg (NEGATIVE); Blood Urine 3+ (Negative); Glucose Urine UA 2+ (Normal); Ketones Urine Negative (Negative); Nitrate Urine Negative (Negative); Protein Urine 1+ (Negative); Specific Gravity, Urine 1.015 (1.005-1.030); Urine Appearance Hazy (CLEAR); Urine Color Amber (Yellow); Urobilinogen Urine Norm (Negative); pH Urine 6 (5-7)
[2020-02-06 19:08] LABS: Add Urine Microscopic? YES; Leukocyte Esterase Urine Negative (Negative)
[2020-02-06 19:14] LABS: Bacteria Urine TRACE; Mucus Urine 1+; RBC Urine 25-40 /hpf (0-2); Squamous Epithelial Cell Urine RARE (0-5); WBC Urine RARE /hpf (0-5)
[2020-02-06 19:15] LABS: Add Urine Culture? Yes
[2020-02-06 19:16] LABS: Amphetamines Screen Urine Positive (Negative); Barbiturates Screen Urine Negative (Negative); Benzodiazepines Screen Urine Negative (Negative); Cocaine Screen Urine Negative (Negative); Opiate Screen Urine Positive (Negative); PCP Screen Urine Negative (Negative); THC Screen Urine Positive (Negative)
--- NOTE | 2020-02-06 19:31 | W.ED.AMS ---
HPI - Altered Mental Status General: Chief Complaint: Altered Mental Status Stated Complaint: Unresponsive Time Seen by Provider: 02/06/20 18:21 History of Present Illness: HPI narrative: This patient is a 60-year-old male presenting today by EMS. They were called for unresponsive and arrived at a house where there was the patient and 2 other adult males. They were unable to obtain any history as the other people in the house were yelling and arguing with the fire crews that were on the scene. They noted the patient to be agonal with sats in the 60s. They performed RSI in the ambulance and brought him to the ED. Sats on arrival were in the 90s on the ventilator. The patient does have clear track brito on his arms. He also has a scar down the middle of his chest consistent with sternotomy. He has a abdominal vertical incision as well which is well-healed and remote. MD complaint: altered mental status Onset (ago): unknown Context: drug abuse (Based on track brito) Review of Systems General: Reports: ROS unobtainable due to mental status [facility] ED PFSH: Medical History Allergic rhinitis Cervical postlaminectomy syndrome Chronic GERD Colovesical fistula COPD, moderate Coronary artery disease History of drug dependence/abuse Hyperlipidemia, unspecified Hypertension Indeterminate pulmonary nodules Ischemic cardiomyopathy Lumbar spondylosis Major depressive disorder Other spondylosis, cervical region Vesicocutaneous fistula Surgical History H/O neck surgery History of open heart surgery S/P appendectomy S/P colon resection Family History Other CAD (coronary artery disease) Cancer Diabetes Social History Smoking and tobacco status: current every day smoker cigarettes Packs smoked per day: 0.25 Years cigarettes smoked: 25 Alcohol intake: never Lives independently: Yes Household members: friend(s) Current occupational status: disabled History of recent travel: No Current gender identity: Male Physical Exam Const: GENERAL APPEARANCE: patient mechanically ventilated NUTRITIONAL APPEARANCE: thin ORIENTATION/CONSCIOUSNESS: Yes patient obtunded OTHER: No sedation HENMT: HEAD & SCALP: normal to inspection FACE & SINUS: normal facial exam Eye: GENERAL EYE: appearance normal, both eyes and all related structures PUPIL: Yes pupil size - right Right pupil size (mm): 3 and Yes pupil size - left Left pupil size (mm): 3 Neck/C-Spine: COMMON NORMALS: supple, no meningeal signs and no JVD Chest: COMMONS NORMALS: normal inspection of the chest Resp: AUSCULTATION: diminished lung sounds (Diffuse) OTHER: Intubated, no spontaneous respiratory effort Cardio: COMMON NORMALS: no JVD, regular rhythm and No murmurs present (Cardio) RATE: tachycardic RHYTHM: regular rhythm GI: COMMON NORMALS: Normal to inspection, nondistended, normoactive bowel sounds present, Soft to palpation and non-tender INSPECTION: Yes normal to inspection AUSCULTATION: Yes normoactive bowel sounds PALPATION: Yes Soft to palpation Back/Pelvis: COMMON NORMALS: thoracic and lumbar spine normal to inspection Extremity: COMMON NORMALS: normal to inspection Neuro: BATOOL COMA SCALE: document GCS findings [place] coma scale eye opening: None [place] coma scale verbal response: None [place] coma scale motor response: None [place] coma scale total score: 3 MENINGEAL SIGNS: Yes no meningeal signs Skin: COMMON NORMALS: no rashes or lesions noted and turgor normal GENERAL SKIN EXAM: no rashes or lesions noted and turgor normal Urinary Catheter Management^: Thompson: Cath Placed During This Visit: yes Reason for Continuing Indwelling Catheter: Accurate Measurement of Urinary Output in Critically Ill Patients Urinary Catheter Date of Insertion: 02/06/20 Urinary Catheter Time of Insertion: 18:20 Course ED course: Patient was intubated on arrival - no response to narcan. He gradually became more alert, but tolerated the ETT without sedation. he was able to answer questions with nodding and shaking his head and thumbs up signs - and we decided to extubate. he tolerated extubation well. He was put on 4 liter NC and says that he uses 2 L at home (or actually is supposed to but doesn't). he admits to drug use, but no intention to harm himself. He wants to go home to his dog. Vital Signs: Vital signs: Vital Signs Temperature 97.9 F 02/06/20 18:06 Pulse Rate 116 H 02/06/20 21:41 Respiratory Rate 18 02/06/20 20:09 Blood Pressure 137/83 02/06/20 21:41 Pulse Oximetry 93 02/06/20 21:41 MDM - Altered Mental Status MDM Narrative: Medical decision making narrative: Altered mental status, no fever here. No further history obtainable. Track brito, opiate overdose is high on the differential however he did not respond at all to Narcan. He has received no sedation since arrival. Blood pressure is elevated in the 170s over 110s. CT head is pending to rule out stroke or hemorrhage. Medical Records: Attestation: I reviewed the patient's medical records. Medical records narrative: Patient's medical records review history of hypertension, history of IV drug use confirmed through his PCPs note indicating opiates several times a week. Also history of a cavitary lung lesion felt to be related to septic emboli in the past. Lab Data: Labs: Lab Results 02/06/20 02/06/20 02/06/20 Range/Units 18:21 18:21 18:21 WBC 5.5 (4.0-10.0) 10^3/ uL RBC 4.59 (4.1-5.3) 10^6/u L Hgb 12.9 (11.7-16.6) g/dL Hct 41.8 L (42.0-52.0) % MCV 91.1 (80-94) fL MCH 28.1 (28.0-34.0) pg MCHC 30.9 (30.0-36.0) g/dL RDW 13.3 (12.1-15.1) % Plt Count 265 (130-400) 10^3/c mm MPV 10.7 H (7.4-10.4) fL Neut % (Auto) 53.8 % Lymph % (Auto) 30.3 % [place] % (Auto) 12.5 % Eos % (Auto) 1.6 % Baso % (Auto) 1.1 % Neut # (Auto) 2.97 (1.8-7.7) 10^3/u L Lymph # (Auto) 1.7 (0.8-4.8) 10^3/u L [place] # (Auto) 0.7 (0.2-0.9) 10^3/u L Eos # (Auto) 0.1 (0.0-0.8) 10^3/u L Baso # (Auto) 0.1 (0.0-0.1) 10^3/u L Nucleated RBC % (a uto) 0 % Nucleated RBCs # 0.0 /100WBC ABG pH 7.29 L (7.35-7.45) ABG pCO2 44.7 (35-45) mmHg ABG pO2 482.0 H (80.0-100.0) mmH g ABG HCO3 23.1 (22-26) mmol/L ABG Base Excess -3.8 L (-2.0-2.0) mmol/ L Miguel Test Na O2 Delivery Device Vent FiO2 100.0 % Stripper And Taper ID [place] Sodium 137 (136-145) mmol/L Potassium 3.8 (3.5-5.1) mmol/L Chloride 100 (98-107) mmol/L Carbon Dioxide 26 (22-29) mmol/L Anion Gap 14.8 (5-19) BUN 18 (8-23) mg/dL Creatinine 1.3 H (0.7-1.2) mg/dL GFR Calculation 56.3 L (90-130) mL/min Glucose 227 H (65-115) mg/dL Calculated Osmolal ity 288 (285-295) mOsm/k g Lactate (0.5-2.2) mmol/L Calcium 9.0 (8.5-10.5) mg/dL Total Bilirubin 0.2 (0.15-1.2) mg/dL AST 32 (0-40) U/L ALT 31 (0-41) U/L Alkaline Phosphata se 137 H (40-130) IU/L Creatine Kinase 44 (39-308) U/L Troponin T Baselin e (0-15) ng/L Troponin T 120 Min [place] (0-15) ng/L Delta Troponin T (0-10) ABS# Total Protein 6.8 (6.6-8.7) g/dL Albumin 3.6 (3.5-5.2) g/dL Globulin 3.2 (1.3-4.6) g/dL Urine Color (Yellow) Urine Appearance (CLEAR) Urine pH (5-7) Ur Specific Gravit y (1.005-1.030) Urine Protein (Negative) Urine Glucose (UA) (Normal) Urine Ketones (Negative) Urine Blood (Negative) Urine Nitrate (Negative) Urine Bilirubin (NEGATIVE) Urine Urobilinogen (Negative) mg/dL Ur Leukocyte Jazmine ase (Negative) Urine RBC (0-2) /hpf Urine WBC (0-5) /hpf Ur Squamous Epith Cells (0-5) Amorphous Sediment Urine Bacteria (NONE) Urine Mucus Urine Opiates Scre en (Negative) ng/mL Ur Barbiturates Sc reen (Negative) ng/mL Ur Phencyclidine S crn (Negative) ng/mL Ur Amphetamines Sc reen (Negative) ng/mL U Benzodiazepines Scrn (Negative) ng/mL Urine Cocaine Scre en (Negative) ng/mL U Marijuana (THC) Screen (Negative) ng/mL Ethyl Alcohol < 10 (0-10) mg/dL 02/06/20 02/06/20 02/06/20 Range/Units 18:21 18:21 18:42 WBC (4.0-10.0) 10^3/ uL RBC (4.1-5.3) 10^6/u L Hgb (11.7-16.6) g/dL Hct (42.0-52.0) % MCV (80-94) fL MCH (28.0-34.0) pg MCHC (30.0-36.0) g/dL RDW (12.1-15.1) % Plt Count (130-400) 10^3/c mm MPV (7.4-10.4) fL Neut % (Auto) % Lymph % (Auto) % [place] % (Auto) % Eos % (Auto) % Baso % (Auto) % Neut # (Auto) (1.8-7.7) 10^3/u L Lymph # (Auto) (0.8-4.8) 10^3/u L [place] # (Auto) (0.2-0.9) 10^3/u L Eos # (Auto) (0.0-0.8) 10^3/u L Baso # (Auto) (0.0-0.1) 10^3/u L Nucleated RBC % (a uto) % Nucleated RBCs # /100WBC ABG pH (7.35-7.45) ABG pCO2 (35-45) mmHg ABG pO2 (80.0-100.0) mmH g ABG HCO3 (22-26) mmol/L ABG Base Excess (-2.0-2.0) mmol/ L Miguel Test O2 Delivery Device FiO2 % Stripper And Taper ID Sodium (136-145) mmol/L Potassium (3.5-5.1) mmol/L Chloride (98-107) mmol/L Carbon Dioxide (22-29) mmol/L Anion Gap (5-19) BUN (8-23) mg/dL Creatinine (0.7-1.2) mg/dL GFR Calculation (90-130) mL/min Glucose (65-115) mg/dL Calculated Osmolal ity (285-295) mOsm/k g Lactate 2.9 H (0.5-2.2) mmol/L Calcium (8.5-10.5) mg/dL Total Bilirubin (0.15-1.2) mg/dL AST (0-40) U/L ALT (0-41) U/L Alkaline Phosphata se (40-130) IU/L Creatine Kinase (39-308) U/L Troponin T Baselin e 22 H (0-15) ng/L Troponin T 120 Min [place] (0-15) ng/L Delta Troponin T (0-10) ABS# Total Protein (6.6-8.7) g/dL Albumin (3.5-5.2) g/dL Globulin (1.3-4.6) g/dL Urine Color Juanis (Yellow) Urine Appearance Hazy A (CLEAR) Urine pH 6 (5-7) Ur Specific Gravit y 1.015 (1.005-1.030) Urine Protein 1+ H (Negative) Urine Glucose (UA) 2+ (Normal) Urine Ketones Negative (Negative) Urine Blood 3+ H (Negative) Urine Nitrate Negative (Negative) Urine Bilirubin Neg (NEGATIVE) Urine Urobilinogen Norm (Negative) mg/dL Ur Leukocyte Jazmine ase Negative (Negative) Urine RBC 25-40 H (0-2) /hpf Urine WBC Rare (0-5) /hpf Ur Squamous Epith Cells Rare (0-5) Amorphous Sediment Not Reportable Urine Bacteria Trace (NONE) Urine Mucus 1+ Urine Opiates Scre en (Negative) ng/mL Ur Barbiturates Sc reen (Negative) ng/mL Ur Phencyclidine S crn (Negative) ng/mL Ur Amphetamines Sc reen (Negative) ng/mL U Benzodiazepines Scrn (Negative) ng/mL Urine Cocaine Scre en (Negative) ng/mL U Marijuana (THC) Screen (Negative) ng/mL Ethyl Alcohol (0-10) mg/dL 02/06/20 02/06/20 Range/Units 18:42 20:35 WBC (4.0-10.0) 10^3/ uL RBC (4.1-5.3) 10^6/u L Hgb (11.7-16.6) g/dL Hct (42.0-52.0) % MCV (80-94) fL MCH (28.0-34.0) pg MCHC (30.0-36.0) g/dL RDW (12.1-15.1) % Plt Count (130-400) 10^3/c mm MPV (7.4-10.4) fL Neut % (Auto) % Lymph % (Auto) % [place] % (Auto) % Eos % (Auto) % Baso % (Auto) % Neut # (Auto) (1.8-7.7) 10^3/u L Lymph # (Auto) (0.8-4.8) 10^3/u L [place] # (Auto) (0.2-0.9) 10^3/u L Eos # (Auto) (0.0-0.8) 10^3/u L Baso # (Auto) (0.0-0.1) 10^3/u L Nucleated RBC % (a uto) % Nucleated RBCs # /100WBC ABG pH (7.35-7.45) ABG pCO2 (35-45) mmHg ABG pO2 (80.0-100.0) mmH g ABG HCO3 (22-26) mmol/L ABG Base Excess (-2.0-2.0) mmol/ L Miguel Test O2 Delivery Device FiO2 % Stripper And Taper ID Sodium (136-145) mmol/L Potassium (3.5-5.1) mmol/L Chloride (98-107) mmol/L Carbon Dioxide (22-29) mmol/L Anion Gap (5-19) BUN (8-23) mg/dL Creatinine (0.7-1.2) mg/dL GFR Calculation (90-130) mL/min Glucose (65-115) mg/dL Calculated Osmolal ity (285-295) mOsm/k g Lactate (0.5-2.2) mmol/L Calcium (8.5-10.5) mg/dL Total Bilirubin (0.15-1.2) mg/dL AST (0-40) U/L ALT (0-41) U/L Alkaline Phosphata se (40-130) IU/L Creatine Kinase (39-308) U/L Troponin T Baselin e (0-15) ng/L Troponin T 120 Min [place] 22.46 H (0-15) ng/L Delta Troponin T 0.46 (0-10) ABS# Total Protein (6.6-8.7) g/dL Albumin (3.5-5.2) g/dL Globulin (1.3-4.6) g/dL Urine Color (Yellow) Urine Appearance (CLEAR) Urine pH (5-7) Ur Specific Gravit y (1.005-1.030) Urine Protein (Negative) Urine Glucose (UA) (Normal) Urine Ketones (Negative) Urine Blood (Negative) Urine Nitrate (Negative) Urine Bilirubin (NEGATIVE) Urine Urobilinogen (Negative) mg/dL Ur Leukocyte Jazmine ase (Negative) Urine RBC (0-2) /hpf Urine WBC (0-5) /hpf Ur Squamous Epith Cells (0-5) Amorphous Sediment Urine Bacteria (NONE) Urine Mucus Urine Opiates Scre en Positive H (Negative) ng/mL Ur Barbiturates Sc reen Negative (Negative) ng/mL Ur Phencyclidine S crn Negative (Negative) ng/mL Ur Amphetamines Sc reen Positive H (Negative) ng/mL U Benzodiazepines Scrn Negative (Negative) ng/mL Urine Cocaine Scre en Negative (Negative) ng/mL U Marijuana (THC) Screen Positive H (Negative) ng/mL Ethyl Alcohol (0-10) mg/dL EKG Data^: EKG 1: EKG interpretation date: 02/06/20 EKG interpretation time: 18:12 Interpretation: Sinus tachycardia with a rate of 126. LVH with ST-T wave changes likely rate related. EKG 2: EKG interpretation time: 20:08 Interpretation: Sinus tachycardia with a rate of 101. LVH with nonspecific ST changes. Discharge Plan Discharge Patient Disposition: Home Clinical Impression: Respiratory arrest, Polysubstance abuse Opiate overdose Qualifiers: Encounter type: initial encounter Injury intent: accidental or unintentional Qualified Code(s): T40.601A - Poisoning by unspecified narcotics, accidental (unintentional), initial encounter Condition: Stable Prescriptions: No Action metformin 500 mg tablet extended release 24 hr 500 mg PO DAILY Qty: 30 RF: 0 Paxil 20 mg tablet 20 mg PO DAILY Qty: 30 RF: 2 nitroglycerin [Nitrostat] 0.4 mg tablet, sublingual 0.4 mg SUBLINGUAL Q5M PRN (Reason: Chest Pain) RF: 0 rurriljrpqxx-xlducdzc-ladxzh Tablet 1 tab PO DAILY RF: 0 Singulair 10 mg tablet 10 mg PO DAILY Qty: 30 RF: 2 gabapentin 100 mg capsule 200 mg PO TID Qty: 180 RF: 0 aspirin 325 mg tablet 325 mg PO DAILY RF: 0 omeprazole 20 mg capsule,delayed release(DR/EC) 20 mg PO DAILY Qty: 30 RF: 1 lisinopril 5 mg tablet 5 mg PO DAILY Qty: 30 RF: 1 meloxicam 15 mg tablet 15 mg PO DAILY Qty: 30 RF: 1 albuterol sulfate 2.5 mg /3 mL (0.083 %) solution for nebulization 2.5 mg INHALATION Q4H PRN (Reason: shortness of breath or wheezing) Qty: 3 RF: 0 albuterol sulfate [ProAir HFA] 90 mcg/actuation HFA aerosol inhaler 1 inh INHALATION QID PRN (Reason: shortness of breath or wheezing) Qty: 18 RF: 3 Anoro Ellipta 62.5-25 mcg/actuation blister with device 1 inh INHALATION DAILY Qty: 60 RF: 3 Discharge Orders: Discharge Order (Routine); Ordered 02/06/20 Ordered By: Madison Villanueva Referrals: Yaritza Pizarro DO [Physician] - Discharge Diet: Usual diet Discharge Activity: Resume usual activity Patient Instructions: Narcotic Abuse (ED), Hypertension (ED) Activity Restrictions/Additional Instructions: Stop using drugs, especially IV drugs. Take your blood pressure medications as directed. Return to the ED if trouble breathing, fever or any other new or concerning symptoms. Discharge Date/Time: 02/06/20 23:32 Coding Level of Care Code ED Scale Attendant for g Fwd Exam Comprehensive
[2020-02-06] MEDS: nicardipine 20 MG/200 ML PREMIX 50 MG IV (20:05)
--- NOTE | 2020-02-06 20:07 | PC.NURSE ---
EKG done at 2006 and shown to ER doctor
--- NOTE | 2020-02-06 20:21 | ECG_ITS ---
[facility] Test Date: 2020-02-06 Pat Name: Albert Hernandez Department: Room: Gender: Male Deaf Teacher: : 1960 Requested By: Madison Quintero Order Number: [id number] Nahun MD: Tavo Martin M.D. Measurements Intervals [place] Rate: 101 P: 86 CT: 148 QRS: 82 QRSD: 108 T: 74 QT: 336 QTc: 436 Interpretive Statements SINUS TACHYCARDIA POSSIBLE RIGHT ATRIAL ENLARGEMENT [0.25mV P WAVE] LEFT ATRIAL ENLARGEMENT [-0.15mV P WAVE IN V1/V2] POSSIBLE LEFT VENTRICULAR HYPERTROPHY [VOLTAGE CRITERIA PLUS LAE OR QRS WIDENING] NONSPECIFIC ST & T-WAVE ABNORMALITY Compared to ECG 02/06/2020 18:12:59 Atrial abnormality now present T-wave abnormality now present ST (T wave) deviation no longer present Electronically Signed On 02-06-2020 20:48:45 CDT by Tavo Martin M.D. [id number]
[2020-02-06 21:18] LABS: Troponin 5 2HR 22.46 ng/L (0-15); Troponin 5 2HR Delta 0.46 ABS# (0-10)
[2020-02-06] MEDS: sodium chloride 0.9% 1,000 ML 999 ML IV (22:07)
[2020-02-06] MEDS: artificial tears Op Oint 3.5 gm 1 APPLIC EYE-BOTH (22:56)
--- NOTE | 2020-02-06 23:18 | PC.NURSE ---
pt c/o eye discomfort. administered eye lubricant with no relief. pt was demanding to speak to the doctor. stating there had to be something else to be done. he couldnt be expected to leave in this condition. explained to pt that it was just going to take a couple days for his eyes to regain hydration. gave d/c instructions to roommateGt. encouraged to schedule an appt with eye doctor for FU. and continue to apply ointment and rest eye
== END 2020-02-06 23:32 | disposition home or self-care (01) ==
PROVIDERS: Emergency Provider Emergency Medicine
DX: T40.601A Poisoning by unspecified narcotics, accidental (unintentional), initial encounter (principal); R09.2 Respiratory arrest; F19.10 Other psychoactive substance abuse, uncomplicated; Z79.82 Long term (current) use of aspirin; J44.9 Chronic obstructive pulmonary disease, unspecified; I25.10 Atherosclerotic heart disease of native coronary artery without angina pectoris; E78.5 Hyperlipidemia, unspecified; I10 Essential (primary) hypertension; F17.210 Nicotine dependence, cigarettes, uncomplicated
CPT/HCPCS: 12345; 51702; 70450; 71045; 80053; 80306; 80307; 81001; 81003; 82550; 82803; 83605; 84484; 85025; 87070; 87086; 87205; 93005; 94002; 94799; 96365; 99284; 99285; J7030

== ENCOUNTER 2020-02-24 08:58 | Outpatient (CLI) | payer MEDICARE, SELFPAY | END 2020-02-24 08:59 | disposition home or self-care (01) | LOC: RT 09:01 | PROVIDERS: PCP Family Medicine; Visit Provider Internal Medicine Critical Care Medicine | DX: J44.9 Chronic obstructive pulmonary disease, unspecified (principal) | CPT/HCPCS: 94060; 94726; 94729; J7611 ==

== ENCOUNTER 2020-03-08 18:45 | Inpatient (IN) | payer MEDICARE, SELFPAY ==
[2020-03-08] VITALS (13 sets, daily range): BP systolic 105–128; BP diastolic 68–84; PULSE 80–118; RESP 20–40; TEMP 36.5; O2SAT 94–99; BMI 19.8
--- NOTE | 2020-03-08 18:47 | ECG_ITS ---
[facility] Test Date: 2020-03-08 Pat Name: Albert Hernandez Department: Room: Gender: Male [employer] Technician: : 1960 Requested By: Sandeep Sanderson Order Number: [id number] Nahun MD: Roxana Allen M.D. Measurements Intervals [place] Rate: 113 P: 89 WA: 131 QRS: 84 QRSD: 105 T: 221 QT: 323 QTc: 444 Interpretive Statements SINUS TACHYCARDIA RIGHT ATRIAL ENLARGEMENT [0.3mV P WAVE] LEFT ATRIAL ENLARGEMENT [-0.15mV P WAVE IN V1/V2] LEFT VENTRICULAR HYPERTROPHY AND ST-T CHANGE [VOLTAGE CRITERIA PLUS ST/T ABNORMALITY] Compared to ECG 02/06/2020 20:06:19 ST (T wave) deviation now present T-wave abnormality no longer present Electronically Signed On 03-08-2020 20:29:22 CDT by Roxana Allen M.D. [id number]
--- NOTE | 2020-03-08 18:47 | XRR_ITS ---
PROCEDURE INFORMATION: Exam: XR Chest, 1 View Exam date and time: 03/08/2020 7:08 PM Age: 60 years old Clinical indication: Shortness of breath; Prior surgery; Surgery date: 6+ months; Surgery type: Cabg; Patient HX: Very short of breath; Wheezing and productive cough; Additional info: SOB TECHNIQUE: Imaging protocol: XR of the chest Views: 1 view. COMPARISON: CR (CHEST, ) 02/06/2020 6:41 PM FINDINGS: Lungs: Hyperinflation. Mild accentuation of main central pulmonary vasculature suggesting pulmonary arterial hypertension. Minimal focal scarring lateral left upper lobe. Pleural space: Unremarkable. No pleural effusion. No pneumothorax. Heart/Mediastinum: Stable heart size. Bones/joints: Postoperative sternotomy. Plate fixation lower cervical spine. XR/XR chest 1V portable [id number] IMPRESSION: 1. Hyperinflation. No consolidation. 2. Possibly scarring lateral left upper lobe with parenchymal opacity overall diminished in conspicuity compared to previous. Compared to prior CT chest this most likely reflects minor residual parenchymal changes from previously demonstrated and treated cavitary lesion.
--- NOTE | 2020-03-08 19:05 | ED_ITS ---
HPI - General Adult General: Chief complaint: General Medical Stated complaint: sob/urgent care ref Time Seen by Provider: 03/08/20 19:01 Source: patient Mode of arrival: ambulatory Limitations: no limitations History of Present Illness: HPI narrative: 60-year-old male who has a long history of COPD states he has been short of breath for weeks and has had wheezing and along with a productive cough. States he gets like this when he gets bronchitis or pneumonia. He denies any fevers. He denies any sick exposure. He denies any worsening improving factors. He denies any chest pain. Associated symptoms: Reports dyspnea; Deny chest pain, headache(s), nausea, rash or vomiting Review of Systems Const: Denies: fever(s), chills, body aches or change in appetite Eyes: Denies: blurry vision or eye discomfort ENMT: Denies: throat pain or dental pain Card: Denies: chest pain Resp: Reports: dyspnea, productive cough and wheezing GI: Denies: abdominal pain, nausea, vomiting or diarrhea : Denies: dysuria Musc: Denies: neck pain or back pain Skin/Breast: Denies: rash Neuro: Denies: headache(s) Psych: Denies: depression Chase/Lymph: Denies: easy bruising All/Imm: Denies: urticaria PFSH ED PFSH: Medical History Allergic rhinitis Cervical postlaminectomy syndrome Chronic GERD Colovesical fistula COPD, moderate Coronary artery disease History of drug dependence/abuse Hyperlipidemia, unspecified Hypertension Indeterminate pulmonary nodules Ischemic cardiomyopathy Lumbar spondylosis Major depressive disorder Other spondylosis, cervical region Vesicocutaneous fistula Surgical History H/O neck surgery History of open heart surgery S/P appendectomy S/P colon resection Family History Other CAD (coronary artery disease) Cancer Diabetes Social History Smoking and tobacco status: current every day smoker cigarettes Packs smoked per day: 0.25 Years cigarettes smoked: 25 Alcohol intake: never Substance/Drug Use: current Substance/Drug use frequency: few times a week Substance/Drug use type: Marijuana and Opiates Lives independently: Yes Household members: friend(s) Current occupational status: disabled History of recent travel: No Current gender identity: Male Physical Exam Const: COMMON NORMALS: no acute distress, patient oriented x3 and healthy appearing HENMT: COMMON NORMALS: normocephalic and atraumatic HEAD & SCALP: normocephalic and atraumatic Eye: COMMON NORMALS: Equal, round and reactive pupils present and EOMs intact bilaterally PUPIL: Yes Equal, round and reactive pupils present Neck/C-Spine: COMMON NORMALS: full ROM and supple Chest: COMMONS NORMALS: normal inspection of the chest and normal palpation of entire chest wall Resp: COMMON NORMALS: normal respiratory effort, No retractions and No use of accessory muscles AUSCULTATION: wheezes Cardio: COMMON NORMALS: regular rate, regular rhythm and No murmurs present (Cardio) RATE: regular rate RHYTHM: regular rhythm GI: COMMON NORMALS: Normal to inspection, nondistended, normoactive bowel sounds present, Soft to palpation, non-tender and no masses PALPATION: Yes Soft to palpation Extremity: COMMON NORMALS: normal to inspection and full ROM Neuro: COMMON NORMALS: patient oriented x3, moves all extremities and no focal motor deficits Psych: COMMON NORMALS: mental status grossly normal, Normal thought process present and cooperative THOUGHT PROCESS: Normal thought process present Skin: COMMON NORMALS: no rashes or lesions noted and no wounds GENERAL SKIN EXAM: no rashes or lesions noted Course Vital Signs: Vital signs: Vital Signs Temperature 97.7 F 03/08/20 18:54 Pulse Rate 117 H 03/08/20 22:08 Respiratory Rate 28 H 03/08/20 22:08 Blood Pressure 117/76 03/08/20 22:08 Pulse Oximetry 96 03/08/20 22:08 MDM - General Adult MDM Narrative: Medical decision making narrative: Patient presents here with shortness of breath likely from COPD exacerbation. Patient is also acidotic here with acute kidney injury. He has a history of drug abuse. Patient given IV fluids here and was given multiple breathing treatments. Patient's oxygenation saturations here are normal and he has no signs of pneumonia. Spoke to Dr. Fernando who is seen patient in the ER and will admit to the ICU for his acute kidney injury along with COPD. Lab Data: Labs: Lab Results 03/08/20 03/08/20 03/08/20 Range/Units 19:35 19:35 19:35 WBC 15.7 H (4.0-10.0) 10^3/ uL RBC 5.83 H (4.1-5.3) 10^6/u L Hgb 16.5 (11.7-16.6) g/dL Hct 52.4 H (42.0-52.0) % MCV 89.9 (80-94) fL MCH 28.3 (28.0-34.0) pg MCHC 31.5 (30.0-36.0) g/dL RDW 15.4 H (12.1-15.1) % Plt Count 289 (130-400) 10^3/c mm MPV 11.6 H (7.4-10.4) fL Neut % (Auto) 78.4 % Lymph % (Auto) 10.2 % [place] % (Auto) 8.2 % Eos % (Auto) 2.2 % Baso % (Auto) 0.6 % Neut # (Auto) 12.33 H (1.8-7.7) 10^3/u L Lymph # (Auto) 1.6 (0.8-4.8) 10^3/u L [place] # (Auto) 1.3 H (0.2-0.9) 10^3/u L Eos # (Auto) 0.3 (0.0-0.8) 10^3/u L Baso # (Auto) 0.1 (0.0-0.1) 10^3/u L Nucleated RBC % (a uto) 0 % Nucleated RBCs # 0.0 /100WBC PT 12.60 (12.1-14.9) SECO NDS INR 0.92 (0.8-1.2) Specimen Type Sample Site ABG pH (7.35-7.45) ABG pCO2 (35-45) mmHg ABG pO2 (80.0-100.0) mmH g ABG HCO3 (22-26) mmol/L ABG Base Excess (-2.0-2.0) mmol/ L Miguel Test Hematocrit (42-52) % O2 Delivery Device Imaging Center Manager ID Sodium Cancelled Potassium Cancelled Chloride Cancelled Carbon Dioxide Cancelled Anion Gap Cancelled BUN Cancelled Creatinine Cancelled GFR Calculation Cancelled Glucose Cancelled Calculated Osmolal ity Cancelled Calcium Cancelled Total Bilirubin Cancelled AST Cancelled ALT Cancelled Alkaline Phosphata se Cancelled NT-Pro-B Natriuret Pep Cancelled Total Protein Cancelled Albumin Cancelled Globulin Cancelled 03/08/20 03/08/20 Range/Units 20:15 20:23 WBC (4.0-10.0) 10^3/ uL RBC (4.1-5.3) 10^6/u L Hgb (11.7-16.6) g/dL Hct (42.0-52.0) % MCV (80-94) fL MCH (28.0-34.0) pg MCHC (30.0-36.0) g/dL RDW (12.1-15.1) % Plt Count (130-400) 10^3/c mm MPV (7.4-10.4) fL Neut % (Auto) % Lymph % (Auto) % [place] % (Auto) % Eos % (Auto) % Baso % (Auto) % Neut # (Auto) (1.8-7.7) 10^3/u L Lymph # (Auto) (0.8-4.8) 10^3/u L [place] # (Auto) (0.2-0.9) 10^3/u L Eos # (Auto) (0.0-0.8) 10^3/u L Baso # (Auto) (0.0-0.1) 10^3/u L Nucleated RBC % (a uto) % Nucleated RBCs # /100WBC PT (12.1-14.9) SECO NDS INR (0.8-1.2) Specimen Type Arterial Sample Site Brachial, right ABG pH 7.29 L (7.35-7.45) ABG pCO2 38.9 (35-45) mmHg ABG pO2 73.6 L (80.0-100.0) mmH g ABG HCO3 18.8 L (22-26) mmol/L ABG Base Excess -7.2 L (-2.0-2.0) mmol/ L Miguel Test N/a Hematocrit 48.5 (42-52) % O2 Delivery Device Room air Imaging Center Manager ID Harkr Sodium 129 L Potassium 4.4 Chloride 94 L Carbon Dioxide 19 L Anion Gap 20.4 H BUN 43 H Creatinine 5.1 H GFR Calculation 11.6 L Glucose 192 H Calculated Osmolal ity 271 L Calcium 9.0 Total Bilirubin 0.2 AST 115 H ALT 166 H Alkaline Phosphata se 176 H NT-Pro-B Natriuret Pep 781 H Total Protein 7.7 Albumin 3.3 L Globulin 4.4 Imaging Data^: CXR: Attestation: I personally reviewed and interpreted this imaging study as follows: My impression: No acute abnormality EKG Data^: EKG 1: Attestation: I personally reviewed and interpreted this EKG as follows: EKG interpretation date: 03/08/20 EKG interpretation time: 19:30 Interpretation: sinus tach hr [address] elevation lvh qrs 105 qtc 390 Critical Care Time Critical Care Time: Critical Care Time: Yes Total Critical Care Time: 36 Attestation: This case had a high probability of a clinically significant, sudden, or life threatening deterioration of this patient's condition which required my full and direct attention, intervention and personal management. Discharge Plan Discharge Patient Disposition: Admitted As Inpatient Clinical Impression: Acute kidney injury COPD (chronic obstructive pulmonary disease) Qualifiers: COPD type: COPD with acute exacerbation Qualified Code(s): J44.1 - Chronic obstructive pulmonary disease with (acute) exacerbation Condition: Stable Referrals: Yaritza Pizarro DO [Primary Care Provider] - Coding Level of Care Code ED Smoke Control Supervisor for Chg Fwd Exam Comprehensive
[2020-03-08 19:41] LABS: Basophils # 0.1 10^3/uL (0.0-0.1); Basophils % 0.6 %; Eosinophils # 0.3 10^3/uL (0.0-0.8); Eosinophils % 2.2 %; Hematocrit 52.4 % (42.0-52.0); Hemoglobin 16.5 g/dL (11.7-16.6); Lymphocytes # 1.6 10^3/uL (0.8-4.8); Lymphocytes % 10.2 %; Mean Corpuscular HGB Conc 31.5 g/dL (30.0-36.0); Mean Corpuscular Hemoglobin 28.3 pg (28.0-34.0); Mean Corpuscular Volume 89.9 fL (80-94); Mean Platelet Volume 11.6 fL (7.4-10.4); Monocytes # 1.3 10^3/uL (0.2-0.9); Monocytes % 8.2 %; Neutrophils # 12.33 10^3/uL (1.8-7.7); Neutrophils % 78.4 %; Nucleated Red Blood Cells % 0 %; Platelet Count 289 10^3/cmm (130-400); Red Blood Count 5.83 10^6/uL (4.1-5.3); Red Cell Distribution Width 15.4 % (12.1-15.1); White Blood Count 15.7 10^3/uL (4.0-10.0)
[2020-03-08 20:00] LABS: INR 0.92 (0.8-1.2)
[2020-03-08] MEDS: LORazepam 2 mg/mL INJ 1 mL 0.5 MG IVP (20:04)
[2020-03-08] MEDS: ipratropium-albuterol 3 mL Neb INHALATION (20:10)
[2020-03-08 20:34] LABS: ABG PCO2 38.9 mmHg (35-45); ABG PH Result 7.29 (7.35-7.45); Arterial Blood Gas Hematocrit 48.5 % (42-52); Base Excess ABG -7.2 mmol/L (-2.0-2.0); Blood Gas Operator Identificat HARKR; Blood Gas Sample Site Brachial, right; Blood Gas Sample Type Arterial; HCO3 ABG 18.8 mmol/L (22-26); Oxygen Device ROOM AIR; PO2 ABG 73.6 mmHg (80.0-100.0)
[2020-03-08 21:01] LABS: Alanine Aminotransferase 166 U/L (0-41); Albumin Level 3.3 g/dL (3.5-5.2); Alkaline Phosphatase 176 IU/L (40-130); Anion Gap 20.4 (5-19); Aspartate Amino Transferase 115 U/L (0-40); Blood Urea Nitrogen 43 mg/dL (8-23); Carbon Dioxide 19 mmol/L (22-29); Chloride 94 mmol/L (98-107); Creatinine Clr Calc Pharmacy 14.0799; Globulin 4.4 g/dL (1.3-4.6); Glomerular Filtration Rate 11.6 mL/min (90-130); Glucose 192 mg/dL (65-115); NT Pro B Type Natriuretic Pept 781 pg/mL (0-125); Osmolality Calculated 271 mOsm/kg (285-295); Potassium 4.4 mmol/L (3.5-5.1); Sodium 129 mmol/L (136-145); Total Bilirubin 0.2 mg/dL (0.15-1.2); Total Protein 7.7 g/dL (6.6-8.7)
[2020-03-08] MEDS: sodium chloride 0.9% 1,000 ML 999 ML IV (21:27)
--- NOTE | 2020-03-08 23:33 | PM.HP ---
Providers/Chief Complaint Primary Care Provider: Yaritza Pizarro DO Chief Complaint: sob/urgent care ref History of Present Illness Albert Hernandez is a 60 year old male who presented to the emergency department with history of diarrhea for the last several days, with some small amounts of blood in it. He reports he has been dizzy, and weak. He denies any significant cough. He reports no history of COVID, or COVID exposure. He reports when he feels dizzy and weak he sits down and feels a little bit better. He has been short of breath. He has had no vomiting. However, he has had decreased p.o. intake in the last several days. He was recently in the ER on February 05 with an overdose. He reports he injects narcotic when he can with his last use being about 5 days ago. He does have a visit with the nurse practitioner documented earlier today, where he did admit to cough and some shortness of breath. Review of Systems General: Reports: 10 or more systems reviewed and unremarkable except in HPI and below Const: Reports: fatigue and malaise; Denies: fever(s) or chills Eyes: Denies: change in vision ENMT: Denies: throat pain Card: Reports: lightheadedness; Denies: chest pain Resp: Reports: dyspnea; Denies: productive cough GI: Reports: diarrhea; Denies: abdominal pain : Denies: flank pain Musc: Denies: neck pain Skin/Breast: Denies: rash Neuro: Denies: headache(s) Psych: Reports: anxiety Endo: Denies: polyuria Chase/Lymph: Denies: easy bruising All/Imm: Denies: urticaria Medications/Allergies Home Medications Medication Instructions Recorded Confirmed Last Taken Type rgehyehlwwzs-[id number]-yxtuak 1 tab PO DAILY 07/15/19 03/08/20 Unknown History nitroglycerin 0.4 mg sublingual 0.4 mg SUBLINGUAL Q5M PRN 07/15/19 03/08/20 Unknown History tablet aspirin 325 mg tablet 325 mg PO DAILY 10/07/19 03/08/20 03/07/20 History meloxicam 15 mg tablet 15 mg PO DAILY #30 tab 10/07/19 03/08/20 03/08/20 Rx albuterol sulfate 2.5 mg INHALATION Q4H PRN #3 ml 05/02/2403/08/20 03/07/20 Rx montelukast 10 mg tablet 10 mg PO DAILY #30 tab 12/10/19 03/08/20 03/08/20 Rx umeclidinium 62.5 mcg-vilanterol 1 inh INHALATION DAILY #60 each 12/29/19 03/08/20 03/08/20 Rx 25 mcg/actuation powdr for inhalation metformin 500 mg tablet,extended 500 mg PO DAILY #30 tab 01/25/20 03/08/20 03/08/20 Rx release 24 hr albuterol sulfate 90 mcg/actuation 1 inh INHALATION QID PRN #18 gm 02/17/20 03/08/20 03/08/20 Rx aerosol inhaler gabapentin 100 mg capsule 200 mg PO TID #126 cap 02/17/20 03/08/20 03/08/20 Rx lisinopril 5 mg tablet 5 mg PO DAILY #14 tab 02/17/20 03/08/20 03/08/20 Rx omeprazole 20 mg capsule,delayed 20 mg PO DAILY #14 cap 02/17/20 03/08/20 03/08/20 Rx release paroxetine HCl 20 mg tablet 20 mg PO DAILY #14 tab 02/17/20 03/08/20 03/08/20 Rx Allergies Allergy/AdvReac Type Severity Reaction Status Date / Time Penicillins Allergy Unknown Verified 03/08/20 19:56 PFSH Acute PFSH: Medical History Allergic rhinitis Cervical postlaminectomy syndrome Chronic GERD Colovesical fistula COPD, moderate Coronary artery disease History of drug dependence/abuse Hyperlipidemia, unspecified Hypertension Indeterminate pulmonary nodules Ischemic cardiomyopathy Lumbar spondylosis Major depressive disorder Other spondylosis, cervical region Vesicocutaneous fistula Surgical History H/O neck surgery History of open heart surgery S/P appendectomy S/P colon resection Family History Other CAD (coronary artery disease) Cancer Diabetes Social History Smoking and tobacco status: current every day smoker cigarettes Packs smoked per day: 0.25 Years cigarettes smoked: 25 Alcohol intake: never Substance/Drug Use: current Substance/Drug use frequency: few times a week Substance/Drug use type: Marijuana and Opiates Lives independently: Yes Household members: friend(s) Current occupational status: disabled History of recent travel: No Current gender identity: Male Vitals/I&O/Wt Last Vital Signs Temp 97.7 F 03/08/20 18:54 Pulse 113 H 03/08/20 23:00 Resp 30 H 03/08/20 23:00 BP 114/76 03/08/20 23:00 Pulse Ox 96 03/08/20 22:08 Weight last 48 hrs Weight 58.967 kg Physical Exam Narrative: EXAM NARRATIVE: General exam is a thin appearing white male, with obvious tachypnea HEENT: Pupils equally round. Oropharynx with dry mucous membranes Neck is supple no lymphadenopathy or thyromegaly Cardiovascular tachycardic, no murmur Lungs clear but with diminished breath sounds bilaterally Abdomen is soft nontender with positive bowel sounds. No obvious organomegaly was deferred Extremities no cyanosis clubbing or edema. Track brito are noted over his upper extremities. Cap refill brisk. Skin no rash Neuro no focal deficits Urinary Catheter Management^: Thompson: Cath Placed During This Visit: yes Reason for Continuing Indwelling Catheter: Other Urinary Catheter Date of Insertion: 03/08/20 Data : 03/08/20 19:35 03/08/20 20:15 Micro: Microbiology 03/08/20 22:37 Blood Culture - Preliminary Blood SPECIMEN COLLECTED 03/08/20 19:35 Blood Culture - Preliminary Blood SPECIMEN COLLECTED Other data: Urinalysis demonstrates rare whites and rare reds. COVID test negative, rapid AST, ALT and alk phos all slightly elevated. BNP 781 Lactic acid not obtained pH 7.29, PCO2 39, PO2 74 Chest x-ray per my read demonstrates previous cardiac surgery, COPD EKG demonstrates sinus tachycardia, normal axis, nonspecific ST-T wave changes with flattening and/or flipped T's laterally A&P Assessment and plan (1) Acute kidney injury: Etiology uncertain Check CK to rule out rhabdomyolysis Cannot rule out obstruction. CT abdomen and pelvis without contrast will show anatomy and any evidence of hydronephrosis or bladder distention Thompson to check I's and O's Cannot rule out stimulant-induced/injection drug-induced renal failure Hold NSAIDs metformin anti-inflammatories Status: Acute (2) Hyponatremia: In part secondary to hyperglycemia Recheck daily Status: Acute (3) Metabolic acidosis: Doubt secondary to DKA Appears to be secondary to renal failure Hydration Close follow-up Status: Acute (4) Polysubstance abuse: Encouraged abstinence Ativan if needed for withdrawal Secondary to polysubstance abuse cannot rule out bacteremia at this time. Also check blood culture, lactic acid. As sepsis is a possibility in this active IV drug user initiate vancomycin, and ceftriaxone until culture results are known. Status: Acute (5) Transaminitis: Check hepatitis panel Check HIV Status: Acute (6) Diarrhea: Check C. difficile, fecal occult, culture CT abdomen and pelvis noncontrast Status: Acute Additional A&P Information Tobacco dependency. Counseled 3 to 5 minutes type 2 diabetes. Sliding scale insulin history of coronary artery disease Hypertension. Hold meds currently History of hyperlipidemia GERD. Protonix COPD DuoNeb as needed SCDs for DVT prophylaxis secondary to history of blood in stool Full code Attestations Medical Necessity Statement*: Will need greater than 2 midnight stay for treatment of acute renal failure Time Spent in Patient Care: Greater than 35 minutes Critical Care Time: 46 minutes spent in critical care time at bedside evaluating patient with renal failure, possible sepsis, drug use with possible withdrawal and multiple organ abnormalities including transaminitis with high risk for decompensation and/or . Coding Level of Care Code Acute Equipment Maintenance Superintendent for Cony Cameron Diagnoses Acute kidney injury N17.9 Hyponatremia E87.1 Metabolic acidosis E87.2 Polysubstance abuse F19.10 Transaminitis R74.0 Diarrhea R19.7
[2020-03-08 23:43] LABS: SARS Covid-2 Antigen Negative (Negative)
[2020-03-08 23:50] LABS: Amorphous Sediment Urine 2+; Bacteria Urine 1+; Bilirubin Urine Neg (NEGATIVE); Blood Urine 3+ (Negative); Glucose Urine UA Norm (Normal); Ketones Urine Negative (Negative); Leukocyte Esterase Urine Negative (Negative); Nitrate Urine Negative (Negative); Protein Urine 1+ (Negative); RBC Urine RARE /hpf (0-2); Specific Gravity, Urine 1.025 (1.005-1.030); Squamous Epithelial Cell Urine RARE (0-5); Urine Appearance Cloudy (CLEAR); Urine Color Yellow (Yellow); Urobilinogen Urine Norm (Negative); WBC Urine RARE /hpf (0-5); pH Urine 5 (5-7)
[2020-03-09] VITALS (92 sets, daily range): BP systolic 113–180; BP diastolic 64–106; PULSE 92–126; RESP 12–41; TEMP 36.5–37.3; O2SAT 86–100
--- NOTE | 2020-03-09 01:18 | CTR_ITS ---
PROCEDURE INFORMATION: Exam: CT Abdomen And Pelvis Without Contrast Exam date and time: 03/09/2020 2:01 AM Age: 60 years old Clinical indication: Abdominal pain; Generalized; Prior surgery; Surgery type: Hernia, cabg; Additional info: Abdominal pain , diarrhea TECHNIQUE: Imaging protocol: Computed tomography of the abdomen and pelvis without contrast. Radiation optimization: All CT scans at this facility use at least one of these dose optimization techniques: automated exposure control; mA and/or kV adjustment per patient size (includes targeted exams where dose is matched to clinical indication); or iterative reconstruction. COMPARISON: CT abdomen pelvis w con* [id number] 09/19/2019 3:36 PM RADIATION DOSE METRICS: Total DLP (mGy-cm): 215.01 FINDINGS: Lungs: The lungs are hyperinflated with areas of pleuroparenchymal scarring. Liver: Normal. No mass. Gallbladder and bile ducts: Increased density differential within the gallbladder posteriorly suggestive of sludge. Pancreas: Normal. No ductal dilation. Spleen: Normal. No splenomegaly. Adrenals: Normal. No mass. Kidneys and ureters: Normal. No hydronephrosis. Stomach and bowel: Accentuation of the wall of the stomach which could be on the basis of edema or inflammation versus secondary to nondistention. Surgical anastomotic material or is related to bowel in the left pelvis. Partial fluid-filled colon and questionable wall thickening of the left colon versus incomplete distention. Few punctate collections of air near the margin of bowel in the right abdomen near the lower margin of the liver probably reside within the lumen of bowel difficult confirmation and a single punctate collection of gas within the bowel wall series 2, image 44 not entirely excluded. Appendix: The appendix is not visualized. Intraperitoneal space: Unremarkable. No free air. No significant fluid collection. Vasculature: Trace calcification abdominal aorta. Lymph nodes: Fluid-filled small bowel diffusely confluent. Bladder: Thompson catheter positioned urinary bladder. Reproductive: Unremarkable as visualized. Bones/joints: Unremarkable. No acute fracture. Soft tissues: Surgical change of the pelvic abdominal wall with radiopaque densities. Other findings: Limited exam secondary to the lack of contrast media. CT/CT abdomen pelvis wo con [id number] IMPRESSION: 1. Few punctate collections of gas in the right abdomen near the lower margin of liver probably resides within the bowel lumen. Further follow-up CT with oral and IV contrast media if patient's condition allows may all a higher level of diagnostic sensitivity. 2. Rather diffuse fluid-filled small bowel and partial fluid-filled colon with questionable wall thickening of portions of the left colon which may reflect underlying condition of enteritis/colitis. 3. Accentuation of the gastric wall which could be due to inflammation edema or incomplete distension. 4. Hyperinflation of the lungs with areas of pleuroparenchymal scarring. Radiation Dose CTDIVOL = (mGy): DLP = 215.01 (mGy-cm)
[2020-03-09] MEDS: sodium chloride 0.9% 1,000 ML 150 ML IV ×2 (01:29→10:55)
[2020-03-09] MEDS: cefTRIAXone 1,000 MG in sodium chloride 0.9% (plus) 50 ML 100 MG IV (01:31)
[2020-03-09] MEDS: acetaminophen 325 mg Tablet 650 MG PO ×3 (01:44→22:13)
[2020-03-09] MEDS: vancomycin 1,000 MG in sodium chloride 0.9% 250 ML 250 MG IV (01:45)
[2020-03-09 02:04] LABS: Basophils # 0.1 10^3/uL (0.0-0.1); Basophils % 0.5 %; Eosinophils # 0.1 10^3/uL (0.0-0.8); Eosinophils % 0.8 %; Hematocrit 46.1 % (42.0-52.0); Hemoglobin 14.5 g/dL (11.7-16.6); Lymphocytes # 0.6 10^3/uL (0.8-4.8); Lymphocytes % 4.5 %; Mean Corpuscular HGB Conc 31.5 g/dL (30.0-36.0); Mean Corpuscular Hemoglobin 27.9 pg (28.0-34.0); Mean Corpuscular Volume 88.7 fL (80-94); Mean Platelet Volume 11.3 fL (7.4-10.4); Monocytes # 0.1 10^3/uL (0.2-0.9); Monocytes % 0.8 %; Neutrophils # 12.41 10^3/uL (1.8-7.7); Neutrophils % 93.1 %; Nucleated Red Blood Cells % 0 %; Platelet Count 219 10^3/cmm (130-400); Red Cell Distribution Width 15.1 % (12.1-15.1); White Blood Count 13.3 10^3/uL (4.0-10.0)
[2020-03-09] MEDS: ipratropium-albuterol 3 mL Neb INHALATION ×4 (02:24→21:31)
[2020-03-09 02:26] LABS: Alanine Aminotransferase 178 U/L (0-41); Albumin Level 3.3 g/dL (3.5-5.2); Alkaline Phosphatase 160 IU/L (40-130); Anion Gap 24.9 (5-19); Aspartate Amino Transferase 102 U/L (0-40); Blood Urea Nitrogen 52 mg/dL (8-23); Calcium 8.3 mg/dL (8.5-10.5); Carbon Dioxide 16 mmol/L (22-29); Chloride 96 mmol/L (98-107); Creatine Phosphokinase 315 U/L (39-308); Globulin 4.4 g/dL (1.3-4.6); Glucose 310 mg/dL (65-115); Osmolality Calculated 284 mOsm/kg (285-295); Potassium 4.9 mmol/L (3.5-5.1); Sodium 132 mmol/L (136-145); Total Bilirubin 0.2 mg/dL (0.15-1.2); Total Protein 7.7 g/dL (6.6-8.7)
[2020-03-09 02:27] LABS: Lactate (Lactic Acid level) 1.7 mmol/L (0.5-2.2)
[2020-03-09 02:29] LABS: Troponin T (5th) Once 37 ng/L (0-15)
[2020-03-09 02:53] LABS: Glucose Point of Care 291 mg/dL (70-110)
[2020-03-09] MEDS: LORazepam 2 mg/mL INJ 1 mL 1 MG IVP (03:03)
[2020-03-09 03:12] LABS: HIV 1 & 2 Antigen Non-Reactive (Non-Reactiv)
[2020-03-09 03:13] LABS: HIV 1 & 2 Antibody Non-Reactive (Non-Reactiv)
[2020-03-09 03:21] LABS: Hepatitis A Antibody IgM Non-Reactive (Nonreactive)
[2020-03-09] MEDS: metroNIDAZOLE IV 500 MG/100 ML PREMIX 100 MG IV ×4 (05:58→22:14)
[2020-03-09 07:11] LABS: Glucose Point of Care 318 mg/dL (70-110)
[2020-03-09] MEDS: thiamine 100 mg Tablet PO (08:28)
[2020-03-09] MEDS: pantoprazole DR 40 mg Tablet PO (08:28)
[2020-03-09] MEDS: PARoxetine 20 mg Tablet PO (08:28)
[2020-03-09 08:29] LABS: Hepatitis B Core IgM Reactive (Nonreactive); Hepatitis C Virus Antibody Reactive (Nonreactive)
--- NOTE | 2020-03-09 08:40 | P.PN_ITS ---
Subjective Subjective: Interval history: Chart reviewed, noted to be tachycardic, tachypneic, afebrile, normotensive. Decreasing leukocytosis, stable Hg, improving renal function, elevated LFTs. Had 500 mL urine output overnight. Has spent much of the day sleeping off and on. Noted to be short of breath in the late afternoon, will hold IVF, give dose of IV steroids and a nebulizer treatment. Medications: Reviewed: Yes Medication Review Details: Active Medications Generic Name Dose Route Start Last Admin Trade Name Freq PRN Reason Stop Dose Admin Acetaminophen 650 mg 03/09/20 01:18 03/09/20 01:44 Tylenol PO 650 mg Q6H PRN Administration Mild/Mod Pain Or Temp >/= 101 Albuterol/Ipratrop ium 3 ml 03/08/20 23:32 03/09/20 08:07 Duoneb INHALATION 3 ml Q6H.RESPIRATORY P RN Administration SHORTNESS OF JAXON TH Dextrose 25 ml 03/09/20 01:18 D50w IVP ONCE PRN hypoglycemia prot ocol Protocol Dextrose 50 ml 03/09/20 01:18 D50w IVP PRN PRN hypoglycemia prot ocol Protocol Glucagon 1 mg 03/09/20 01:18 Glucagen IM ONCE PRN Adult Acute Hypog lycemia Prot. Protocol Vancomycin HCl 1,0 00 mg/ 250 mls @ 250 mls /hr 03/09/20 02:00 03/09/20 02:48 Sodium Chloride IV Infused Q48H [facility] Infusion Protocol As Directed Ceftriaxone Sodium 1,000 mg/ 50 mls @ 100 mls/ hr 03/09/20 02:00 03/09/20 02:01 Sodium Chloride IV Infused Q24H [facility] Infusion Protocol Dextrose 500 mls @ 100 mls /hr 03/09/20 01:18 D5w IV ONCE PRN Adult Acute Hypog lycemia Prot Protocol Sodium Chloride 1,000 mls @ 150 m ls/hr 03/09/20 01:18 03/09/20 01:29 Sodium Chloride 0.9% IV 150 mls/hr .Q6H40M [facility] Administration Metronidazole 500 mg in 100 mls @ 100 mls/hr 03/09/20 05:00 03/09/20 05:58 Flagyl Iv IV 100 mls/hr Q6H [facility] Administration Protocol Insulin Aspart 0 unit 03/09/20 08:00 03/09/20 07:16 Novolog SUBCUT 12 unit WM&BEDTIME [facility] Administration Protocol Lorazepam 1 mg 03/09/20 01:18 03/09/20 03:03 Ativan IVP 1 mg Q4H PRN Administration ANXIETY Non-Formulary Medi cation 1 inh 03/09/20 09:00 Umeclidinium-Berry anterol [Anoro Ell ipta] INHALATION DAILY [facility] Ondansetron HCl 4 mg 03/09/20 01:18 Zofran IVP Q6H PRN vomiting, or N/V if npo Pantoprazole Sodiu m 40 mg 03/09/20 09:00 03/09/20 08:28 Protonix PO 40 mg DAILY [facility] Administration Paroxetine HCl 20 mg 03/09/20 09:00 03/09/20 08:28 Paxil PO 20 mg DAILY [facility] Administration Thiamine Mononitra te 100 mg 03/09/20 09:00 03/09/20 08:28 Vitamin B-1 PO 100 mg DAILY [facility] Administration Penicillins Allergy (Verified 03/08/20 19:56) Unknown Vitals/I&O/Wt Last Vital Signs Temp 98.3 F 03/09/20 04:00 Pulse 112 H 03/09/20 08:07 Resp 30 H 03/09/20 08:07 BP 116/71 03/09/20 06:55 Pulse Ox 94 03/09/20 08:07 03/08/20 03/09/20 03/09/20 22:59 06:59 14:59 Intake Total 300 / 300 Output Total 500 / 500 Balance -200 / -200 Weight last 48 hrs Weight 58.967 kg Physical Exam Const: COMMON NORMALS: no acute distress and patient oriented x3 GENERAL APPEARANCE: cooperative and comfortable NUTRITIONAL APPEARANCE: thin ORIENTATION/CONSCIOUSNESS: Yes awake HENMT: COMMON NORMALS: normocephalic, atraumatic, hearing grossly normal bilaterally and moist oral mucous membranes HEAD & SCALP: normocephalic and atraumatic Eye: COMMON NORMALS: Equal, round and reactive pupils present, EOMs intact bilaterally and conjunctivae normal CONJUNCTIVA: Yes conjunctivae normal PUPIL: Yes Equal, round and reactive pupils present Neck/C-Spine: COMMON NORMALS: full ROM GENERAL: Yes normal visual inspection and Yes trachea midline Resp: COMMON NORMALS: normal respiratory effort, No retractions and No use of accessory muscles EFFORT & INSPECTION: Yes able to speak in complete sentences, Yes symmetric chest movement and Yes tachypneic AUSCULTATION: rhonchi and diminished lung sounds diffuse Cardio: COMMON NORMALS: regular rate, regular rhythm, S1 normal heart sound present, S2 normal heart sound present and No murmurs present (Cardio) RATE: regular rate RHYTHM: regular rhythm HEART SOUNDS: S1 normal heart sound present and S2 normal heart sound present OTHER: -hypertensive GI: COMMON NORMALS: Normal to inspection, nondistended, normoactive bowel sounds present, Soft to palpation and non-tender PALPATION: Yes Soft to palpation : BLADDER/KIDNEY EXAM: Yes catheter in place Catheter type (Male): urethral Extremity: COMMON NORMALS: normal to inspection, full ROM and no clubbing, cyanosis or edema; negative for no pedal edema Neuro: COMMON NORMALS: patient oriented x3, moves all extremities, no focal mo tor deficits and no sensory deficits noted Psych: COMMON NORMALS: mental status grossly normal, Normal thought process present, cooperative, normal affect and speech normal SPEECH: Yes normal spe ech THOUGHT PROCESS: Normal thought process present Skin: COMMON NORMALS: no rashes or lesions noted, no jaundice, no petechiae and no mottling GENERAL SKIN EXAM: no rashes or lesions noted Urinary Catheter Management^: Thompson: Cath Placed During This Visit: yes Reason for Continuing Indwelling Catheter: Other Urinary Catheter Date of Insertion: 03/08/20 Data : 03/09/20 01:50 03/09/20 01:50 Micro: Microbiology 03/08/20 22:37 Blood Culture - Preliminary Blood SPECIMEN COLLECTED 03/08/20 19:35 Blood Culture - Preliminary Blood SPECIMEN COLLECTED A&P Assessment and plan (1) Acute kidney injury: -likely multifactorial given dehydration with recent diarrhea and decreased oral intake, noted medications (NSAIDs, ACEi, metformin), substance abuse hx, mild rhabdomyolysis -Has underlying CKD stage 2 with a baseline creatinine < 1 -Renal function improving with hydration, continue to monitor -Continue to hold BARTOLO inhibitor, metformin, NSAIDs, avoid nephrotoxins; renally dose meds -Imaging reviewed -Has Thompson catheter in place for accurate ins and outs, continue to monitor urine output -Continue IV fluid hydration -Urinalysis was noted bacteria, blood, protein Status: Acute (2) Diarrhea: -Noted evidence of enteritis/colitis on CT of the abdomen and pelvis. With current renal function unable to further evaluate noted gas collections in the right abdomen with contrast study -C.difficile negative, enteric bacterial panel pending. FOBT positive -On IV fluid hydration -Continue antibiotic treatment with vancomycin, ceftriaxone, Flagyl -Follow-up blood cx -rapid COVID-19 negative Status: Acute Qualifiers: Diarrhea type: unspecified type Qualified Code(s): R19.7 - Diarrhea, unspecified (3) Transaminitis: -Noted prior intermittent transaminitis; continue to trend LFTs -Noted hepatitis panel, positive for hepatitis C antibody, check viral load. HIV negative Status: Acute (4) Metabolic acidosis: -Noted elevated anion gap metabolic acidosis likely secondary to acute kidney injury Status: Acute (5) Hyponatremia: -Likely secondary to dehydration -Improving with IV fluid hydration, continue to trend Status: Acute (6) Type 2 diabetes mellitus, without long-term current use of insulin: -A1c-8.7 (10/2019) -Noted hyperglycemia, continue Accu-Cheks, ISS, hypoglycemia precautions -Consistent carb diet as tolerated Status: Chronic Qualifiers: Chronic kidney disease stage: stage 2 (mild) Diabetes mellitus co mplication detail: with chronic kidney disease Diabetes mellitus complication status: with kidney complications Qualified Code(s): E11.22 - Type 2 diabetes mellitus with diabetic chronic kidney disease; N18.2 - Chronic kidney disease, s tage 2 (mild) (7) Hypertension: -Normotensive currently, continue to monitor vital signs -BARTOLO inhibitor on hold due to renal impairment -hydralazine PRN Status: Chronic Qualifiers: Hypertension type: essential hypertension Qualified Code(s): I10 - Essential (primary) hypertension (8) COPD (chronic obstructive pulmonary disease): -No acute exacerbation currently -Follows up with Dr. Paz -Neb treatments as needed -Chest x-ray report pending, noted hyperinflation Status: Chronic Qualifiers: COPD type: emphysema Emphysema type: centrilobular Qualified Code(s): J43.2 - Centrilobular emphysema (9) Lung mass: -Known to have lung mass which was evaluated with PET scan in 11/2019 with noted pleural-based opacity at lateral left lower lobe that appears benign Status: Chronic (10) Polysubstance abuse: -Known history of methamphetamine, opiate, THC use -noted ED visit on 8/1 for opiate overdose -last use about 5 days ago Status: Chronic Additional A&P Information -Chronic smoker -mild rhabdomyolysis; continue to trend CPK, on IVF -hx of CAD; on ASA -GI ppx with PPI -DVT ppx with SCDs, no AC due to bleeding risk -Dispo: home -Code status: FULL code Attestations Medical Necessity Statement*: Patient requires hospitalization for continued IV fluid hydration due to noted acute kidney injury, IV antibiotic therapy due to colitis. Time Spent in Patient Care: Greater than 35 minutes (>than 50% of time spent in counselling and/or direct pt care on unit) . Coding Level of Care Code Acute Aircraft Magneto Mechanic for Chg Fwd Exam Comprehensive Diagnoses Acute kidney injury N17.9 Diarrhea R19.7 Diarrhea type: unspecified type Transaminitis R74.0 Metabolic acidosis E87.2 Hyponatremia E87.1 Type 2 diabetes mellitus, without long-term current use of insulin E11.22; N18.2 Chronic kidney disease stage: stage 2 (mild) Diabetes mellitus complication detail: with chronic kidney disease Diabetes mellitus complication status: with kidney complications Hypertension I10 Hypertension type: essential hypertension COPD (chronic obstructive pulmonary disease) J43.2 COPD type: emphysema Emphysema type: centrilobular Lung mass R91.8 Polysubstance abuse F19.10
[2020-03-09 11:07] LABS: Glucose Point of Care 212 mg/dL (70-110)
--- NOTE | 2020-03-09 13:05 | PC.RESP ---
SMOKING CESSATION AND PULMONARY REHAB INFORMATION SENT TO PATIENT.
[2020-03-09] MEDS: HYDROcodone-acetaminophen 5-325 mg Tablet 1 TAB PO (16:56)
[2020-03-09 17:18] LABS: Glucose Point of Care 163 mg/dL (70-110)
[2020-03-09 20:23] LABS: Glucose Point of Care 155 mg/dL (70-110)
[2020-03-09] MEDS: sodium chloride 0.9% 1,000 ML 100 ML IV (21:11)
--- NOTE | 2020-03-09 22:18 | PC.NURSE ---
Patient given APAP-PO, based on increased pain levels reported at a 7 after repositioning, distraction, and rest/inactivity unsuccessful. Education on meditation techniques, and importance of turn schedule given. Verbal understanding given by patient.
[2020-03-10] VITALS (26 sets, daily range): BP systolic 121–188; BP diastolic 69–105; PULSE 59–125; RESP 17–40; TEMP 36.2–36.9; O2SAT 92–99
[2020-03-10] MEDS: cefTRIAXone 1,000 MG in sodium chloride 0.9% (plus) 50 ML 100 MG IV (02:44)
[2020-03-10] MEDS: ipratropium-albuterol 3 mL Neb INHALATION ×4 (02:58→20:10)
[2020-03-10] MEDS: metroNIDAZOLE IV 500 MG/100 ML PREMIX 100 MG IV ×4 (04:09→22:38)
[2020-03-10] MEDS: LORazepam 2 mg/mL INJ 1 mL 1 MG IVP ×3 (04:09→19:00)
[2020-03-10 04:13] LABS: Basophils % 0.2 %; Hematocrit 43.3 % (42.0-52.0); Lymphocytes # 0.7 10^3/uL (0.8-4.8); Lymphocytes % 4.9 %; Mean Corpuscular Volume 93.1 fL (80-94); Mean Platelet Volume 10.6 fL (7.4-10.4); Monocytes # 0.4 10^3/uL (0.2-0.9); Monocytes % 3.3 %; Neutrophils # 12.12 10^3/uL (1.8-7.7); Neutrophils % 90.9 %; Nucleated Red Blood Cells % 0 %; Platelet Count 183 10^3/cmm (130-400); Red Blood Count 4.65 10^6/uL (4.1-5.3); Red Cell Distribution Width 15.6 % (12.1-15.1); White Blood Count 13.3 10^3/uL (4.0-10.0)
[2020-03-10 04:45] LABS: Alanine Aminotransferase 138 U/L (0-41); Alkaline Phosphatase 171 IU/L (40-130); Anion Gap 14.8 (5-19); Aspartate Amino Transferase 52 U/L (0-40); Blood Urea Nitrogen 48 mg/dL (8-23); Calcium 8.3 mg/dL (8.5-10.5); Carbon Dioxide 19 mmol/L (22-29); Chloride 103 mmol/L (98-107); Globulin 4.1 g/dL (1.3-4.6); Glomerular Filtration Rate 38.7 mL/min (90-130); Glucose 299 mg/dL (65-115); Osmolality Calculated 283 mOsm/kg (285-295); Potassium 4.8 mmol/L (3.5-5.1); Sodium 132 mmol/L (136-145); Total Bilirubin 0.2 mg/dL (0.15-1.2); Total Protein 7.1 g/dL (6.6-8.7)
--- NOTE | 2020-03-10 05:05 | PC.NURSE ---
Patient given 1mg IVP Ativan for generalized anxiety. RR increased as anxiety levels increased. After admin, patient calm and sleeping. Room visible from nurses station with vital signs being watched closely.
[2020-03-10 05:09] LABS: Creatine Phosphokinase 119 U/L (39-308)
--- NOTE | 2020-03-10 06:56 | PC.NURSE ---
Patient refused personal hygiene interventions, and linen change multiple times throughout shift. New gown placed on patient at shift shift change. Education division order technician light given and reinforced with patient needs, after a new IV started from being pulled accidentally.
[2020-03-10 07:43] LABS: Glucose Point of Care 352 mg/dL (70-110)
[2020-03-10] MEDS: PARoxetine 20 mg Tablet PO (08:57)
[2020-03-10] MEDS: thiamine 100 mg Tablet PO (08:57)
[2020-03-10] MEDS: pantoprazole DR 40 mg Tablet PO (08:57)
[2020-03-10] MEDS: sodium chloride 0.9% 1,000 ML 100 ML IV (08:59)
--- NOTE | 2020-03-10 09:09 | P.PN_ITS ---
Subjective Subjective: Interval history: Blood pressure improved this morning, afebrile, remains on room air, stable leukocytosis, significant improvement in creatinine. Improved LFTs as well. Had a bowel movement earlier today. Seems less short of breath today, appetite has been quite diminished with minimal oral intake. Encouraged to hydrate orally and try to eat if able to. He states that he is quite overwhelmed, stressed by multiple things going on in his personal life and would like to see a psychiatrist. Reports that he is chronically short of breath particularly with exertion, not oxygen dependent at baseline. Medications: Reviewed: Yes Medication Review Details: Active Medications Generic Name Dose Route Start Last Admin Trade Name Freq PRN Reason Stop Dose Admin Acetaminophen 650 mg 03/09/20 01:18 03/09/20 22:13 Tylenol PO 650 mg Q6H PRN Administration Mild/Mod Pain Or Temp >/= 101 Albuterol/Ipratrop ium 3 ml 03/08/20 23:32 03/10/20 08:35 Duoneb INHALATION 3 ml Q6H.RESPIRATORY P RN Administration SHORTNESS OF JAXON TH Dextrose 25 ml 03/09/20 01:18 D50w IVP ONCE PRN hypoglycemia prot ocol Protocol Dextrose 50 ml 03/09/20 01:18 D50w IVP PRN PRN hypoglycemia prot ocol Protocol Glucagon 1 mg 03/09/20 01:18 Glucagen IM ONCE PRN Adult Acute Hypog lycemia Prot. Protocol Hydralazine HCl 10 mg 03/09/20 19:18 Apresoline IVP Q4H PRN elevated blood pr essure Vancomycin HCl 1,0 00 mg/ 250 mls @ 250 mls /hr 03/09/20 02:00 03/09/20 02:48 Sodium Chloride IV Infused Q48H [facility] Infusion Protocol As Directed Ceftriaxone Sodium 1,000 mg/ 50 mls @ 100 mls/ hr 03/09/20 02:00 03/10/20 03:49 Sodium Chloride IV Infused Q24H [facility] Infusion Protocol Dextrose 500 mls @ 100 mls /hr 03/09/20 01:18 D5w IV ONCE PRN Adult Acute Hypog lycemia Prot Protocol Sodium Chloride 1,000 mls @ 100 m ls/hr 03/09/20 01:18 03/10/20 08:59 Sodium Chloride 0.9% IV 100 mls/hr .Q10H [facility] Administration Metronidazole 500 mg in 100 mls @ 100 mls/hr 03/09/20 05:00 03/10/20 05:20 Flagyl Iv IV Infused Q6H [facility] Infusion Protocol Insulin Aspart 0 unit 03/09/20 08:00 03/10/20 07:44 Novolog SUBCUT 14 unit WM&BEDTIME [facility] Administration Protocol Lorazepam 1 mg 03/09/20 01:18 03/10/20 04:09 Ativan IVP 1 mg Q4H PRN Administration ANXIETY Non-Formulary Medi cation 1 inh 03/09/20 09:00 03/10/20 09:04 Umeclidinium-Berry anterol [Anoro Ell ipta] INHALATION Not Given DAILY [facility] Ondansetron HCl 4 mg 03/09/20 01:18 Zofran IVP Q6H PRN vomiting, or N/V if npo Pantoprazole Sodiu m 40 mg 03/09/20 09:00 03/10/20 08:57 Protonix PO 40 mg DAILY [facility] Administration Paroxetine HCl 20 mg 03/09/20 09:00 03/10/20 08:57 Paxil PO 20 mg DAILY [facility] Administration Thiamine Mononitra te 100 mg 03/09/20 09:00 03/10/20 08:57 Vitamin B-1 PO 100 mg DAILY [facility] Administration Penicillins Allergy (Verified 03/08/20 19:56) Unknown Vitals/I&O/Wt Last Vital Signs Temp 98.5 F 03/10/20 07:58 Pulse 101 H 03/10/20 08:38 Resp 22 H 03/10/20 08:36 BP 147/90 03/10/20 07:58 Pulse Ox 95 03/10/20 08:36 03/09/20 03/10/20 03/10/20 22:59 06:59 14:59 Intake Total 2390 / 3730 470 / 4200 1000 / 1000 Output Total 400 / 1175 1450 / 2625 Balance 1989 / 2554 -980 / 1575 1000 / 1000 Weight last 48 hrs Weight 58.967 kg Physical Exam 2 Const: COMMON NORMALS: no acute distress and patient oriented x3 GENERAL APPEARANCE: cooperative, comfortable and anxious NUTRITIONAL APPEARANCE: thin ORIENTATION/CONSCIOUSNESS: Yes awake OTHER: -Gaunt appearance HENMT: COMMON NORMALS: normocephalic, atraumatic, hearing grossly normal bilaterally and moist oral mucous membranes HEAD & SCALP: normocephalic and atraumatic Eye: COMMON NORMALS: Equal, round and reactive pupils present, EOMs intact bilaterally and conjunctivae normal CONJUNCTIVA: Yes conjunctivae normal PUPIL: Yes Equal, round and reactive pupils present Neck/C-Spine: COMMON NORMALS: full ROM GENERAL: Yes normal visual inspection and Yes trachea midline Resp: COMMON NORMALS: No retractions EFFORT & INSPECTION: Yes able to speak in complete sentences, Yes symmetric chest movement and Yes tachypneic AUSCULTATION: rhonchi and diminished lung sounds diffuse OTHER: -On room air Cardio: COMMON NORMALS: regular rate, regular rhythm, S1 normal heart sound present, S2 normal heart sound present and No murmurs present (Cardio) RATE: regular rate RHYTHM: regular rhythm HEART SOUNDS: S1 normal heart sound present and S2 normal heart sound present OTHER: -BP improved GI: COMMON NORMALS: Normal to inspection, nondistended, normoactive bowel s ounds present and Soft to palpation PALPATION: Yes Soft to palpation, Yes Tenderness to palpation present (GI) (generalized), No Guarding due to palpation present (GI) and No Rigid due to palpation : BLADDER/KIDNEY EXAM: Yes catheter in place Extremity: COMMON NORMALS: normal to inspection, full ROM and no clubbing, cyanosis or edema; negative for no pedal edema Neuro: COMMON NORMALS: patient oriented x3, moves all extremities, no focal motor deficits and no sensory deficits noted Psych: COMMON NORMALS: mental status grossly normal, Normal thought process present, cooperative, normal affect and speech normal SPEECH: Yes normal speech THOUGHT PROCESS: Normal thought process present Skin: COMMON NORMALS: no rashes or lesions noted, no jaundice, no petechiae and no mottling GENERAL SKIN EXAM: no rashes or lesions noted Urinary Catheter Management^: Thompson: Cath Placed During This Visit: yes Reason for Continuing Indwelling Catheter: Accurate Measurement of Urinary Output in Critically Ill Patients Urinary Catheter Date of Insertion: 03/08/20 Data : 03/10/20 03:40 03/10/20 03:40 Micro: Microbiology 03/08/20 22:37 Blood Culture - Preliminary Blood NEGATIVE TO DATE 03/08/20 19:35 Blood Culture - Preliminary Blood NEGATIVE TO DATE 03/09/20 15:48 C.difficile Toxin B Gene (PCR) - Final Stool Routine Collection Occult Blood (FIT) - Final A&P Assessment and plan (1) Acute kidney injury: -likely multifactorial given dehydration with recent diarrhea and de creased oral intake, noted medications (NSAIDs, ACEi, metformin), substance abuse hx, mild rhabdomyolysis -Has underlying CKD stage 2 with a baseline creatinine < 1 -Renal function improving with hydration, continue to monitor -Continue to hold BARTOLO inhibitor, metformin, NSAIDs, avoid nephrotoxins; renally dose meds -Imaging reviewed -Has Thompson catheter in place for accurate ins and outs, continue to monitor urine output -Continue IV fluid hydration -Urinalysis was noted bacteria, blood, protein Status: Acute (2) Diarrhea: -Noted evidence of enteritis/colitis on CT of the abdomen and pelvis. With current renal function unable to further evaluate noted gas collections in the right abdomen with contrast study -C.difficile negative, enteric bacterial panel pending. FOBT positive -On IV fluid hydration -Continue antibiotic treatment with vancomycin, ceftriaxone, Flagyl -blood cx: prelim negative -rapid COVID-19 negative Status: Acute Qualifiers: Diarrhea type: unspecified type Qualified Code(s): R19.7 - Diarrhea, unspecified (3) Transaminitis: -Noted prior intermittent transaminitis; LFTs trending down -Noted hepatitis panel, positive for hepatitis C antibody, viral load pending. HIV negative Status: Acute (4) Metabolic acidosis: -Noted elevated anion gap metabolic acidosis likely secondary to acute kidney injury, now closed Status: Acute (5) Hyponatremia: -Likely secondary to dehydration -Improving with IV fluid hydration, continue to trend Status: Acute (6) Type 2 diabetes mellitus, without long-term current use of insulin: -A1c-8.7 (10/2019) -Noted hyperglycemia, continue Accu-Cheks, ISS, hypoglycemia precautions -Consistent carb diet as tolerated Status: Chronic Qualifiers: Chronic kidney disease stage: stage 2 (mild) Diabetes mellitus complication detail: with chronic kidney disease Diabetes mellitus complication status: with kidney complications Qualified Code(s): E11.22 - Type 2 diabetes mellitus with diabetic chronic kidney disease; N18.2 - Chronic kidney disease, stage 2 (mild) (7) Hypertension: -Normotensive currently, continue to monitor vital signs -BARTOLO inhibitor on hold due to renal impairment -hydralazine PRN Status: Chronic Qualifiers: Hypertension type: essential hypertension Qualified Code(s): I10 - Essential (primary) hypertension (8) COPD (chronic obstructive pulmonary disease): -No acute exacerbation currently -Follows up with Dr. Paz -Neb treatments as needed -Chest x-ray with noted hyperinflation Status: Chronic Qualifiers: COPD type: emphysema Emphysema type: centrilobular Qualified Code(s): J43.2 - Centrilobular emphysema (9) Lung mass: -Known to have lung mass which was evaluated with PET scan in 11/2019 with noted pleural-based opacity at lateral left lower lobe that appears benign Status: Chronic (10) Polysubstance abuse: -Known history of methamphetamine, opiate, THC use -noted ED visit on 02/05 for opiate overdose -last use about 5 days ago Status: Chronic Additional A&P Information -Chronic smoker -mild rhabdomyolysis; CPK normalized, on IVF -hx of CAD; on ASA -depression, stress; Psych evaluation requested; denies SI -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 Time Spent in Patient Care: 16 - 35 minutes (>than 50% of time spent in counselling and/or direct pt care on unit) . Coding Level of Care Code Acute Telecommunications Linesworker for Chg Fwd Exam Comprehensive Diagnoses Acute kidney injury N17.9 Diarrhea R19.7 Diarrhea type: unspecified type Transaminitis R74.0 Metabolic acidosis E87.2 Hyponatremia E87.1 Type 2 diabetes mellitus, without long-term current use of insulin E11.22; N18.2 Chronic kidney disease stage: stage 2 (mild) Diabetes mellitus complication detail: with chronic kidney disease Diabetes mellitus complication status: with kidney complications Hypertension I10 Hypertension type: essential hypertension COPD (chronic obstructive pulmonary disease) J43.2 COPD type: emphysema Emphysema type: centrilobular Lung mass R91.8 Polysubstance abuse F19.10
--- NOTE | 2020-03-10 11:24 | PC.NURSE ---
Daughter, Cierra, called and wanted update. Pt gives permission. Cierra given update. Number [phone]
[2020-03-10 11:39] LABS: Glucose Point of Care 148 mg/dL (70-110)
[2020-03-10] MEDS: vancomycin 1,000 MG in sodium chloride 0.9% 250 ML 250 MG IV (12:43)
[2020-03-10] MEDS: lisinopril 5 mg Tablet PO (13:06)
--- NOTE | 2020-03-10 13:27 | PC.NURSE ---
Dr. Jack in room
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
[2020-03-10] MEDS: hyDRALAzine 20 mg/mL INJ 1 mL 10 MG IVP (14:38)
--- NOTE | 2020-03-10 14:42 | PC.NURSE ---
Hydralazine 10 mg IVP given for BP 195/84
--- NOTE | 2020-03-10 16:39 | PC.NURSE ---
Report called to [facility], patient to room 256-2.
[2020-03-10] MEDS: acetaminophen 325 mg Tablet 650 MG PO (17:37)
[2020-03-10] MEDS: sodium chloride 0.9% 1,000 ML 75 ML IV (18:02)
--- NOTE | 2020-03-10 19:13 | PC.NURSE ---
ARRIVAL TO FLOOR , SOB, PANICED, SATS 94, CO PAIN AND WANTING HIS PUFFER, RT AWARE AND NOT ABLE TO GIVE AT THIS TIME TOO EARLY. PATIENT PUT HIMSELF ON BSC AND STOOLED ACROSS BED. THEN ASKED FOR DINNER AND ATE 15%. TELE AND CONTINUOUS PULSE OX PLACED . ATIVAN AND TYLENOL GIVEN. ICU NURSE SAID HE HAD EATEN HIS DINNER ALREADY SO I ASSUMED HE HAD BEEN TREATED FOR BLOOD SUGAR.
--- NOTE | 2020-03-10 20:34 | PM.EVENT ---
Event Note Event Note: Called with significant dyspnea. Respiratory rate elevated, bilateral expiratory wheezings. Diminished breath sounds bilaterally. No crackles. Patient denies any chest discomfort. Fluids discontinued for now. Solu-Medrol 60 mg IV every 6 hours for probable COPD exacerbation. Chest x-ray, ABG ordered. BiPAP initiated secondary to respiratory distress.
--- NOTE | 2020-03-10 20:43 | PC.NURSE ---
DURING SHIFT ASSESSMENT, THE PATIENT WAS FOUND TO BE STRUGGLING TO BREATH AND HAD NOTEABLE INTERCOSTAL RETRACTING. LUNG SOUNDS WERE CRACKLES BILATERAL THROUGHOUT. OXYGEN SATURATION ON ROOM AIR WAS 93%. RESPIRATORY RATE WAS 26 WHILE TALKING WITH THE PATIENT. WHEN SPEAKING THE PATIENT WOULD BREAK HIS WORDS TO TAKE BREATHS. RT CONSULTED AND THEY WENT TO PATIENT'S ROOM. WHILE IN ROOM RT CONSULTED DR. CONLEY. HE CAME TO THE FLOOR TO EXAMINE THE PATIENT. HE GAVE RT ORDERS FOR BI-PAP, ABG'S, AND CHEST X-RAYS. RT PLACED PATIENT ON BI-PAP.
[2020-03-10 20:57] LABS: ABG PCO2 40.7 mmHg (35-45); ABG PH Result 7.33 (7.35-7.45); Arterial Blood Gas Hematocrit 40.6 % (42-52); Base Excess ABG -4.2 mmol/L (-2.0-2.0); Blood Gas Allen Test Pos; Blood Gas Sample Site Radial, left; Blood Gas Sample Type Arterial; HCO3 ABG 21.5 mmol/L (22-26); Oxygen Device ROOM AIR; PO2 ABG 97.1 mmHg (80.0-100.0)
[2020-03-10 21:02] LABS: HEP C RNA Viral Load Quant <1.18 DETECTED Log IU/mL (NOT DETECTED); HEP C RNA Viral Load Quant <15 DETECTED IU/mL (NOT DETECTED)
--- NOTE | 2020-03-10 21:09 | XR_ITS ---
WS: [id number] Portable AP upright chest, 03/10/2020 Clinical Data: dyspnea Comparison: Portable chest, 03/08/2020. Findings: No nodules, masses or effusions are seen. The heart is normal. The pulmonary vascularity is not increased. No pneumonia or pneumothorax is seen. The diaphragms are flattened. Midline sternotom y sutures are present. Monitor leads are on the chest wall. There is an anterior cervical disc fusion . XR/XR chest 1V portable [id number] Impression: Atherosclerosis and hyperinflation.
[2020-03-10 21:39] LABS: Glucose Point of Care 158 mg/dL (70-110)
[2020-03-10 21:59] LABS: Glucose Point of Care 179 mg/dL (70-110)
[2020-03-10] MEDS: PARoxetine 20 mg Tablet 40 MG PO (22:38)
[2020-03-11] VITALS (19 sets, daily range): BP systolic 173–184; BP diastolic 86–102; PULSE 59–132; RESP 18–36; TEMP 36.3–36.9; O2SAT 93–99
[2020-03-11] MEDS: ipratropium-albuterol 3 mL Neb INHALATION ×6 (00:40→23:39)
--- NOTE | 2020-03-11 00:55 | PC.NURSE ---
Patient's blood pressure elevated 174/96. Patient's nurse been notified.
[2020-03-11] MEDS: cefTRIAXone 1,000 MG in sodium chloride 0.9% (plus) 50 ML 100 MG IV (02:17)
[2020-03-11] MEDS: metroNIDAZOLE IV 500 MG/100 ML PREMIX 100 MG IV ×3 (04:37→17:36)
[2020-03-11 06:08] LABS: Alanine Aminotransferase 95 U/L (0-41); Albumin Level 3.2 g/dL (3.5-5.2); Alkaline Phosphatase 157 IU/L (40-130); Blood Urea Nitrogen 36 mg/dL (8-23); Calcium 8.9 mg/dL (8.5-10.5); Carbon Dioxide 18 mmol/L (22-29); Chloride 106 mmol/L (98-107); Globulin 3.2 g/dL (1.3-4.6); Glomerular Filtration Rate 56.3 mL/min (90-130); Glucose 247 mg/dL (65-115); Osmolality Calculated 288 mOsm/kg (285-295); Sodium 136 mmol/L (136-145); Total Bilirubin 0.2 mg/dL (0.15-1.2); Total Protein 6.4 g/dL (6.6-8.7)
[2020-03-11 06:11] LABS: Creatinine Clr Calc Pharmacy 55.2366
[2020-03-11 06:13] LABS: Anion Gap 17.2 (5-19); Aspartate Amino Transferase 35 U/L (0-40); Potassium 5.2 mmol/L (3.5-5.1)
[2020-03-11 06:37] LABS: Glucose Point of Care 350 mg/dL (70-110)
[2020-03-11] MEDS: hyDRALAzine 20 mg/mL INJ 1 mL 10 MG IVP (09:27)
[2020-03-11 09:28] LABS: Basophils % 0.4 %; Hematocrit 44.1 % (42.0-52.0); Hemoglobin 13.6 g/dL (11.7-16.6); Lymphocytes # 0.6 10^3/uL (0.8-4.8); Lymphocytes % 7.1 %; Mean Corpuscular HGB Conc 30.8 g/dL (30.0-36.0); Mean Corpuscular Hemoglobin 28.2 pg (28.0-34.0); Mean Corpuscular Volume 91.3 fL (80-94); Mean Platelet Volume 10.3 fL (7.4-10.4); Monocytes # 0.1 10^3/uL (0.2-0.9); Monocytes % 0.7 %; Neutrophils # 7.56 10^3/uL (1.8-7.7); Nucleated Red Blood Cells % 0 %; Platelet Count 203 10^3/cmm (130-400); Red Blood Count 4.83 10^6/uL (4.1-5.3); Red Cell Distribution Width 15.4 % (12.1-15.1); White Blood Count 8.4 10^3/uL (4.0-10.0)
[2020-03-11] MEDS: pantoprazole DR 40 mg Tablet PO (09:57)
[2020-03-11] MEDS: lisinopril 5 mg Tablet PO (09:57)
[2020-03-11] MEDS: thiamine 100 mg Tablet PO (09:57)
[2020-03-11 10:17] LABS: Slide Review Slide Review Perform
[2020-03-11] MEDS: LORazepam 2 mg/mL INJ 1 mL 1 MG IVP ×3 (10:29→21:25)
--- NOTE | 2020-03-11 10:32 | PC.RESP ---
Nurse called respiratory about patient breathing. Therapist came to room and gave a breathing treatment and tried to talk patient into wearing bipap. Patient wanted something for nerves. Nurse went and got Ativan to give patient. After patient received med, therapist tried to talk patient into wearing the bipap. Patient refused and said he wants to eat first. sats are 96% RA and heart rate is 117.
--- NOTE | 2020-03-11 11:07 | PC.SOCIAL ---
IMM Update Pg. 2 of IMM updated and reviewed with patient who verbalized understanding. Copy provided.
--- NOTE | 2020-03-11 12:03 | PM.PN ---
Subjective Subjective: Interval history: Overnight developed significant dyspnea, required BiPAP use, IV fluid hydration discontinued, started on IV steroids. Noted resolved leukocytosis, stable hemoglobin, continued improvement in renal function. Had 1700 mL urine output overnight. Hypertensive, tachypneic and tachycardic. Currently on room air. Continued improvement in LFTs. Noted hyperinflation on chest x-ray done overnight. ABG appropriate. Quite anxious which makes him more short of breath. Will place him on supplemental oxygen support. Did not seem to tolerate BiPAP very well due to claustophobia. Medications: Reviewed: Yes Medication Review Details: Active Medications Generic Name Dose Route Start Last Admin Trade Name Freq PRN Reason Stop Dose Admin Acetaminophen 650 mg 03/09/20 01:18 03/10/20 17:37 Tylenol PO 650 mg Q6H PRN Administration Mild/Mod Pain Or Temp >/= 101 Albuterol/Ipratrop ium 3 ml 03/10/20 20:30 03/11/20 10:15 Duoneb INHALATION 3 ml Q4H.RESPIRATORY S CH Administration Dextrose 25 ml 03/09/20 01:18 D50w IVP ONCE PRN hypoglycemia prot ocol Protocol Dextrose 50 ml 03/09/20 01:18 D50w IVP PRN PRN hypoglycemia prot ocol Protocol Glucagon 1 mg 03/09/20 01:18 Glucagen IM ONCE PRN Adult Acute Hypog lycemia Prot. Protocol Hydralazine HCl 10 mg 03/09/20 19:18 03/11/20 09:27 Apresoline IVP 10 mg Q4H PRN Administration elevated blood pr essure Ceftriaxone Sodium 1,000 mg/ 50 mls @ 100 mls/ hr 03/09/20 02:00 03/11/20 02:17 Sodium Chloride IV 100 mls/hr Q24H CRISTIANA Administration Protocol Dextrose 500 mls @ 100 mls /hr 03/09/20 01:18 D5w IV ONCE PRN Adult Acute Hypog lycemia Prot Protocol Metronidazole 500 mg in 100 mls @ 100 mls/hr 03/09/20 05:00 03/11/20 04:37 Flagyl Iv IV 100 mls/hr Q6H CRISTIANA Administration Protocol Vancomycin HCl 1,0 00 mg/ 250 mls @ 250 mls /hr 03/10/20 12:00 03/10/20 18:01 Sodium Chloride IV Infused Q24H CRISTIANA Infusion Protocol As Directed Insulin Aspart 0 unit 03/09/20 08:00 03/11/20 09:29 Novolog SUBCUT 12 unit WM&BEDTIME CRISTIANA Administration Protocol Lisinopril 5 mg 03/10/20 12:00 03/11/20 09:57 Prinivil PO 5 mg DAILY CRISTIANA Administration Lorazepam 1 mg 03/09/20 01:18 03/11/20 10:29 Ativan IVP 1 mg Q4H PRN Administration ANXIETY Methylprednisolone Sodium Succinate 60 mg 03/10/20 20:45 03/11/20 10:00 Solu-Medrol IVP 60 mg Q6H CRISTIANA Administration Non-Formulary Medi cation 1 inh 03/09/20 09:00 03/10/20 09:04 Umeclidinium-Berry anterol [Anoro Ell ipta] INHALATION Not Given DAILY CRISTIANA Ondansetron HCl 4 mg 03/09/20 01:18 Zofran IVP Q6H PRN vomiting, or N/V if npo Pantoprazole Sodiu m 40 mg 03/09/20 09:00 03/11/20 09:57 Protonix PO 40 mg DAILY CRISTIANA Administration Paroxetine HCl 40 mg 03/10/20 21:00 03/10/20 22:38 Paxil PO 40 mg BEDTIME CRISTIANA Administration Thiamine Mononitra te 100 mg 03/09/20 09:00 03/11/20 09:57 Vitamin B-1 PO 100 mg DAILY CRISTIANA Administration Penicillins Allergy (Verified 03/08/20 19:56) Unknown Vitals/I&O/Wt Last Vital Signs Temp 97.9 F 03/11/20 10:22 Pulse 132 H 03/11/20 10:25 Resp 28 H 03/11/20 10:22 BP 181/99 03/11/20 10:22 Pulse Ox 95 03/11/20 10:22 03/10/20 03/11/20 03/11/20 22:59 06:59 14:59 Intake Total 1070 / 2595 160 / 2755 Output Total 1700 / 1700 Balance 1070 / 2595 -1540 / 1055 Physical Exam Const: COMMON NORMALS: patient oriented x3 GENERAL APPEARANCE: cooperative, comfortable and anxious NUTRITIONAL APPEARANCE: thin ORIENTATION/CONSCIOUSNESS: Yes awake OTHER: -Gaunt appearance HENMT: COMMON NORMALS: normocephalic, atraumatic, hearing grossly normal bilaterally and moist oral mucous membranes HEAD & SCALP: normocephalic and atraumatic Eye: COMMON NORMALS: Equal, round and reactive pupils present, EOMs intact bilaterally and conjunctivae normal CONJUNCTIVA: Yes conjunctivae normal PUPIL: Yes Equal, round and reactive pupils present Neck/C-Spine: COMMON NORMALS: full ROM GENERAL: Yes normal visual inspection and Yes trachea midline Resp: COMMON NORMALS: No retractions EFFORT & INSPECTION: Yes able to speak in complete sentences, Yes symmetric chest movement and Yes tachypneic AUSCULTATION: rhonchi, wheezes lower bilaterally and diminished lung sounds diffuse OTHER: -On room air Cardio: COMMON NORMALS: regular rate, regular rhythm, S1 normal heart sound present, S2 normal heart sound present and No murmurs present (Cardio) RATE: regular rate RHYTHM: regular rhythm HEART SOUNDS: S1 normal heart sound present and S2 normal heart sound present OTHER: -BP improved GI: COMMON NORMALS: Normal to inspection, nondistended, normoactive bowel sounds present and Soft to palpation PALPATION: Yes Soft to palpation, Yes Tenderness to palpation present (GI) (generalized), No Guarding due to palpation present (GI) and No Rigid due to palpation : BLADDER/KIDNEY EXAM: Yes catheter in place Extremity: COMMON NORMALS: normal to inspection, full ROM and no clubbing, cyanosis or edema; negative for no pedal edema Neuro: COMMON NORMALS: patient oriented x3, moves all extremities, no focal motor deficits and no sensory deficits noted Psych: COMMON NORMALS: mental status grossly normal, Normal thought process present, cooperative, normal affect and speech normal SPEECH: Yes normal speech THOUGHT PROCESS: Normal thought process present Skin: COMMON NORMALS: no rashes or lesions noted, no jaundice, no petechiae and no mottling GENERAL SKIN EXAM: no rashes or lesions noted Urinary Catheter Management^: Thompson: Cath Placed During This Visit: yes Reason for Continuing Indwelling Catheter: Acute Urinary Retention or Obstruction Urinary Catheter Date of Insertion: 03/08/20 Data : 03/11/20 09:12 03/11/20 05:14 Micro: Microbiology 03/08/20 02:26 Urine Culture - Final Urine Catheterized 03/09/20 15:48 Enteric Pathogens (PCR) - Final Stool Routine Collection C.difficile Toxin B Gene (PCR) - Final Occult Blood (FIT) - Final A&P Assessment and plan (1) COPD (chronic obstructive pulmonary disease): -Has developed acute exacerbation as indicated by increased dyspnea, increased work of breathing, need for BiPAP support overnight -Follows up with Dr. Paz as an outpatient -Neb treatments as needed; supplemental oxygen support as needed, continue IV steroids for now -Chest x-ray with noted hyperinflation Status: Acute Qualifiers: COPD type: COPD with acute exacerbation Qualified Code(s): J44.1 - Chronic obstructive pulmonary disease with (acute) exacerbation (2) Acute kidney injury: -likely multifactorial given dehydration with recent diarrhea and decreased oral intake, noted medications (NSAIDs, ACEi, metformin), substance abuse hx, mild rhabdomyolysis -Has underlying CKD stage 2 with a baseline creatinine < 1 -Renal function improved with hydration, continue to monitor -Continue to hold BARTOLO inhibitor, metformin, NSAIDs, avoid nephrotoxins; renally dose meds -Imaging reviewed -Has Thompson catheter in place for accurate ins and outs, continue to monitor urine output -off IVF; encourage oral hydration -Urinalysis was noted bacteria, blood, protein Status: Acute (3) Diarrhea: -Noted evidence of enteritis/colitis on CT of the abdomen and pelvis. With current renal function unable to further evaluate noted gas collections in the right abdomen with contrast study -C.difficile negative, enteric bacterial panel negative. FOBT positive -Off IVF -Continue antibiotic treatment with vancomycin, ceftriaxone, Flagyl -blood cx: prelim negative -rapid COVID-19 negative Status: Acute Qualifiers: Diarrhea type: unspecified type Qualified Code(s): R19.7 - Diarrhea, unspecified (4) Transaminitis: -Noted prior intermittent transaminitis; LFTs trending down -Noted hepatitis panel, positive for hepatitis C antibody, viral load low. HIV negative Status: Acute (5) Metabolic acidosis: -Noted elevated anion gap metabolic acidosis likely secondary to acute kidney injury, now closed Status: Resolved (6) Hyponatremia: -Likely secondary to dehydration -Improved with IV fluid hydration, Na normalized Status: Resolved (7) Type 2 diabetes mellitus, without long-term current use of insulin: -A1c-8.7 (10/2019) -Noted hyperglycemia, continue Accu-Cheks, ISS, hypoglycemia precautions -Consistent carb diet as tolerated Status: Chronic Qualifiers: Chronic kidney disease stage: stage 2 (mild) Diabetes mellitus complication detail: with chronic kidney disease Diabetes mellitus complication status: with kidney complications Qualified Code(s): E11.22 - Type 2 diabetes mellitus with diabetic chronic kidney disease; N18.2 - Chronic kidney disease, stage 2 (mild) (8) Hypertension: -hypertensive currently, continue to monitor vital signs -increase dose of BARTOLO inhibitor; initially on hold due to renal impairment -hydralazine PRN; add metoprolol due to noted tachycardia -Echo (09/2019): EF=55%, no RWMA, trace to mild TR Status: Chronic Qualifiers: Hypertension type: essential hypertension Qualified Code(s): I10 - Essential (primary) hypertension (9) Lung mass: -Known to have lung mass which was evaluated with PET scan in 11/2019 with noted pleural-based opacity at lateral left lower lobe that appears benign Status: Chronic (10) Polysubstance abuse: -Known history of methamphetamine, opiate, THC use -noted ED visit on 02/05 for opiate overdose -last use about 5 days ago Status: Chronic Additional A&P Information -Chronic smoker -mild rhabdomyolysis; CPK normalized, off IVF -hx of CAD; on ASA -depression, stress; Psych evaluation by Dr. 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 Time Spent in Patient Care: 16 - 35 minutes (>than 50% of time spent in counselling and/or direct pt care on unit). Coding Level of Care Code Acute Radiation Therapy Technologist for g Fwd Exam Comprehensive Diagnoses COPD (chronic obstructive pulmonary disease) J44.1 COPD type: COPD with acute exacerbation Acute kidney injury N17.9 Diarrhea R19.7 Diarrhea type: unspecified type Transaminitis R74.0 Metabolic acidosis E87.2 Hyponatremia E87.1 Type 2 diabetes mellitus, without long-term current use of insulin E11.22; N18.2 Chronic kidney disease stage: stage 2 (mild) Diabetes mellitus complication detail: with chronic kidney disease Diabetes mellitus complication status: with kidney complications Hypertension I10 Hypertension type: essential hypertension Lung mass R91.8 Polysubstance abuse F19.10
[2020-03-11 12:08] LABS: Glucose Point of Care 257 mg/dL (70-110)
[2020-03-11] MEDS: metoprolol tartrate 25 mg Tablet PO ×2 (12:32→17:37)
[2020-03-11] MEDS: lisinopril 10 mg Tablet PO (12:32)
[2020-03-11] MEDS: vancomycin 1,000 MG in sodium chloride 0.9% 250 ML 250 MG IV (14:38)
[2020-03-11 16:25] LABS: Glucose Point of Care 146 mg/dL (70-110)
--- NOTE | 2020-03-11 18:48 | PC.NURSE ---
Patient sating 95% on room air. Per Dr. Leon Alexander's verbal order place patient on oxygen. Patient placed on 2 liters of oxygen by DE. Patient sating 100% on 2 liters of oxygen.
--- NOTE | 2020-03-11 19:45 | PC.NURSE ---
Report given to Chiquita NUÑEZ.
[2020-03-11 21:14] LABS: Glucose Point of Care 240 mg/dL (70-110)
[2020-03-11] MEDS: PARoxetine 20 mg Tablet 40 MG PO (21:30)
[2020-03-12] VITALS (15 sets, daily range): BP systolic 134–174; BP diastolic 64–96; PULSE 57–100; RESP 16–28; TEMP 36.3–36.9; O2SAT 91–100
[2020-03-12] MEDS: metroNIDAZOLE IV 500 MG/100 ML PREMIX 100 MG IV ×5 (00:20→23:56)
[2020-03-12] MEDS: cefTRIAXone 1,000 MG in sodium chloride 0.9% (plus) 50 ML 100 MG IV (01:25)
[2020-03-12] MEDS: LORazepam 2 mg/mL INJ 1 mL 1 MG IVP ×3 (02:58→21:22)
[2020-03-12] MEDS: ipratropium-albuterol 3 mL Neb INHALATION ×4 (04:45→19:11)
[2020-03-12 05:38] LABS: Basophils % 0.1 %; Hematocrit 40.9 % (42.0-52.0); Hemoglobin 12.7 g/dL (11.7-16.6); Lymphocytes # 1.2 10^3/uL (0.8-4.8); Lymphocytes % 8.5 %; Mean Corpuscular HGB Conc 31.1 g/dL (30.0-36.0); Mean Corpuscular Hemoglobin 27.7 pg (28.0-34.0); Mean Corpuscular Volume 89.3 fL (80-94); Mean Platelet Volume 10.1 fL (7.4-10.4); Monocytes # 0.5 10^3/uL (0.2-0.9); Monocytes % 3.6 %; Neutrophils # 11.81 10^3/uL (1.8-7.7); Neutrophils % 86.2 %; Nucleated Red Blood Cells % 0 %; Platelet Count 249 10^3/cmm (130-400); Red Blood Count 4.58 10^6/uL (4.1-5.3); Red Cell Distribution Width 15.1 % (12.1-15.1); White Blood Count 13.7 10^3/uL (4.0-10.0)
[2020-03-12 05:58] LABS: Alanine Aminotransferase 65 U/L (0-41); Albumin Level 2.8 g/dL (3.5-5.2); Alkaline Phosphatase 116 IU/L (40-130); Anion Gap 14.3 (5-19); Aspartate Amino Transferase 17 U/L (0-40); Blood Urea Nitrogen 38 mg/dL (8-23); Calcium 8.3 mg/dL (8.5-10.5); Carbon Dioxide 23 mmol/L (22-29); Chloride 103 mmol/L (98-107); Globulin 3.3 g/dL (1.3-4.6); Glomerular Filtration Rate 76.2 mL/min (90-130); Glucose 298 mg/dL (65-115); Osmolality Calculated 291 mOsm/kg (285-295); Potassium 4.3 mmol/L (3.5-5.1); Sodium 136 mmol/L (136-145); Total Bilirubin 0.2 mg/dL (0.15-1.2); Total Protein 6.1 g/dL (6.6-8.7)
[2020-03-12 07:18] LABS: Glucose Point of Care 241 mg/dL (70-110)
[2020-03-12] MEDS: lisinopril 20 mg Tablet PO (10:23)
[2020-03-12] MEDS: thiamine 100 mg Tablet PO (10:24)
[2020-03-12] MEDS: NON-FORMULARY MEDICATION (Umeclidinium-Vilanterol [Anoro Ellipta] 1 inh) 1 EACH INHALATION (10:24)
[2020-03-12] MEDS: metoprolol tartrate 25 mg Tablet PO ×2 (10:24→17:51)
[2020-03-12] MEDS: pantoprazole DR 40 mg Tablet PO (10:24)
[2020-03-12 10:50] LABS: Glucose Point of Care 431 mg/dL (70-110)
[2020-03-12 12:42] LABS: Glucose Point of Care 168 mg/dL (70-110)
--- NOTE | 2020-03-12 14:35 | PC.CHAP ---
Pastoral Care Encounter/Spiritual Assessment Type of Contact [] Declined rail car repairman visit [] Patient/Family/Request visit [] Outpatient visit [] Follow-up visit [] Physician referral [] Code/Alert [] Routine visit [] Staff referral [] Actively dying [xx] Patient sleeping [] Family support [] [] Out of room [] Palliative care [] [] Receiving care in room [] Pre-surgical visit [] Trauma [] Long length of stay [] ICU visit [] Other: Relational/Emotional Strength [] Patient feels connected with others/family/visitors/staff [] Distress [] Loneliness/isolation [] Abandonment Spirituality of Patient [] Person of [place] [] Attends Jainism of their [place] [] Believes in Prayer [] Reads Bible or Presybeterian materials [] There are Spiritual issues to be addressed Scalp Specialist Interventions [] Prayer [] Active listening [] Non-anxious presence [] Spiritual/emotional support [] Crisis/trauma care [] Spiritual counseling [] Bereavement support [] Provided bereavement packet [] Provided Bible/devotional materials [] Provided toy/stuffed animal, coloring book to patient or family member [] Provided Communion [] Anointing/[place] [] Salvation [] Completed spiritual assessment [] Other: Impact on Illness or Injury [] Angry [] Fearful [] Anxious [] Often cries [] Exhaustion [] Unable to work [] Unable to attend methodist [] Unable to walk/stand [] Unable to read [] Unable to drive [] Unable to eat/drink [] Unable to sleep [] Unable to be with family [] Patient intubated [] Other: Summary Time spent with patient
[2020-03-12] MEDS: vancomycin 1,000 MG in sodium chloride 0.9% 250 ML 250 MG IV (15:28)
[2020-03-12 16:51] LABS: Glucose Point of Care 234 mg/dL (70-110)
--- NOTE | 2020-03-12 17:27 | P.PN_ITS ---
Subjective Subjective: Interval history: Hemodynamically stable, afebrile, on room air, noted leukocytosis which is likely steroid-induced, improved creatinine, stable hemoglobin, noted improvement in LFTs. Continues to be quite anxious which makes him even more short of breath. Placed on 2 L NC. Will discontinue Thompson catheter. Medications: Reviewed: Yes Medication Review Details: Active Medications Generic Name Dose Route Start Last Admin Trade Name Freq PRN Reason Stop Dose Admin Acetaminophen 650 mg 03/09/20 01:18 03/10/20 17:37 Tylenol PO 650 mg Q6H PRN Administration Mild/Mod Pain Or Temp >/= 101 Albuterol/Ipratrop ium 3 ml 03/10/20 20:30 03/12/20 13:29 Duoneb INHALATION 3 ml Q4H.RESPIRATORY S CH Administration Dextrose 25 ml 03/09/20 01:18 D50w IVP ONCE PRN hypoglycemia prot ocol Protocol Dextrose 50 ml 03/09/20 01:18 D50w IVP PRN PRN hypoglycemia prot ocol Protocol Glucagon 1 mg 03/09/20 01:18 Glucagen IM ONCE PRN Adult Acute Hypog lycemia Prot. Protocol Hydralazine HCl 10 mg 03/09/20 19:18 03/11/20 09:27 Apresoline IVP 10 mg Q4H PRN Administration elevated blood pr essure Ceftriaxone Sodium 1,000 mg/ 50 mls @ 100 mls/ hr 03/09/20 02:00 03/12/20 02:00 Sodium Chloride IV Infused Q24H CRISTIANA Infusion Protocol Dextrose 500 mls @ 100 mls /hr 03/09/20 01:18 D5w IV ONCE PRN Adult Acute Hypog lycemia Prot Protocol Metronidazole 500 mg in 100 mls @ 100 mls/hr 03/09/20 05:00 03/12/20 12:42 Flagyl Iv IV 100 mls/hr Q6H CRISTIANA Administration Protocol Vancomycin HCl 1,0 00 mg/ 250 mls @ 250 mls /hr 03/10/20 12:00 03/12/20 15:28 Sodium Chloride IV 250 mls/hr Q24H CRISTIANA Administration Protocol As Directed Insulin Aspart 0 unit 03/09/20 08:00 03/12/20 12:42 Novolog SUBCUT 4 unit WM&BEDTIME CRISTIANA Administration Protocol Lisinopril 20 mg 03/12/20 09:00 03/12/20 10:23 Prinivil PO 20 mg DAILY CRISTINAA Administration Lorazepam 1 mg 03/09/20 01:18 03/12/20 13:22 Ativan IVP 1 mg Q4H PRN Administration ANXIETY Methylprednisolone Sodium Succinate 60 mg 03/10/20 20:45 03/12/20 10:22 Solu-Medrol IVP 60 mg Q6H CRISTIANA Administration Metoprolol Tartrat e 25 mg 03/11/20 12:10 03/12/20 10:24 Lopressor PO 25 mg BID CRISTIANA Administration Non-Formulary Medi cation 1 inh 03/09/20 09:00 03/12/20 10:24 Umeclidinium-Berry anterol [Anoro Ell ipta] INHALATION 1 inh DAILY CRISTIANA Administration Ondansetron HCl 4 mg 03/09/20 01:18 Zofran IVP Q6H PRN vomiting, or N/V if npo Pantoprazole Sodiu m 40 mg 03/09/20 09:00 03/12/20 10:24 Protonix PO 40 mg DAILY CRISTIANA Administration Paroxetine HCl 40 mg 03/10/20 21:00 03/11/20 21:30 Paxil PO 40 mg BEDTIME CRISTIANA Administration Thiamine Mononitra te 100 mg 03/09/20 09:00 03/12/20 10:24 Vitamin B-1 PO 100 mg DAILY CRISTIANA Administration Penicillins Allergy (Verified 03/08/20 19:56) Unknown Vitals/I&O/Wt Last Vital Signs Temp 97.9 F 03/12/20 15:00 Pulse 68 03/12/20 15:00 Resp 22 H 03/12/20 15:00 BP 134/66 03/12/20 15:00 Pulse Ox 94 03/12/20 15:00 03/12/20 03/12/20 03/12/20 06:59 14:59 22:59 Intake Total 870 / 2200 580 / 580 100 / 680 Output Total 1200 / 2800 1050 / 1050 Balance -330 / -600 580 / 580 -950 / -370 Physical Exam Const: COMMON NORMALS: patient oriented x3 GENERAL APPEARANCE: cooperative, comfortable and anxious NUTRITIONAL APPEARANCE: thin ORIENTATION/CONSCIOUSNESS: Yes awake OTHER: -Gaunt appearance HENMT: COMMON NORMALS: normocephalic, atraumatic, hearing grossly normal bilaterally and moist oral mucous membranes HEAD & SCALP: normocephalic and atraumatic Eye: COMMON NORMALS: Equal, round and reactive pupils present, EOMs intact bilaterally and conjunctivae normal CONJUNCTIVA: Yes conjunctivae normal PUPIL: Yes Equal, round and reactive pupils present Neck/C-Spine: COMMON NORMALS: full ROM GENERAL: Yes normal visual inspection and Yes trachea midline Resp: COMMON NORMALS: No retractions EFFORT & INSPECTION: Yes able to speak in complete sentences, Yes symmetric chest movement and Yes tachypneic AUSCULTATION: rhonchi, wheezes lower bilaterally and diminished lung sounds diffuse OTHER: -On room air Cardio: COMMON NORMALS: regular rate, regular rhythm, S1 normal heart sound present, S2 normal heart sound present and No murmurs present (Cardio) RATE: regular rate RHYTHM: regular rhythm HEART SOUNDS: S1 normal heart sound present and S2 normal heart sound present OTHER: -BP improved GI: COMMON NORMALS: Normal to inspection, nondistended, normoactive bowel sounds present and Soft to palpation PALPATION: Yes Soft to palpation, Yes Tenderness to palpation present (GI) (generalized), No Guarding due to palpation present (GI) and No Rigid due to palpation : BLADDER/KIDNEY EXAM: Yes catheter in place Extremity: COMMON NORMALS: normal to inspection, full ROM and no clubbing, cyanosis or edema; negative for no pedal edema Neuro: COMMON NORMALS: patient oriented x3, moves all extremities, no focal motor deficits and no sensory deficits noted Psych: COMMON NORMALS: mental status grossly normal, Normal thought process present, cooperative, normal affect and speech normal SPEECH: Yes normal speech THOUGHT PROCESS: Normal thought process present Skin: COMMON NORMALS: no rashes or lesions noted, no jaundice, no petechiae and no mottling GENERAL SKIN EXAM: no rashes or lesions noted Urinary Catheter Management^: Thompson: Cath Placed During This Visit: yes Reason for Continuing Indwelling Catheter: Acute Urinary Retention or Obstruction Urinary Catheter Date of Insertion: 03/08/20 Data : 03/12/20 05:07 03/12/20 05:07 A&P Assessment and plan (1) COPD (chronic obstructive pulmonary disease): -Has developed acute exacerbation as indicated by increased dyspnea, increased work of breathing, need for BiPAP support overnight -Follows up with Dr. Paz as an outpatient -Neb treatments as needed; supplemental oxygen support as needed, continue IV steroids for now -Chest x-ray with noted hyperinflation -anxiety drives increased work of breathing Status: Acute Qualifiers: COPD type: COPD with acute exacerbation Qualified Code(s): J44.1 - Chronic obstructive pulmonary disease with (acute) exacerbation (2) Acute kidney injury: -likely multifactorial given dehydration with recent diarrhea and decreased oral intake, noted medications (NSAIDs, ACEi, metformin), substance abuse hx, mild rhabdomyolysis -Has underlying CKD stage 2 with a baseline creatinine < 1 -Renal function improved with hydration, continue to monitor -Continue to hold BARTOLO inhibitor, metformin, NSAIDs, avoid nephrotoxins; renally dose meds -Imaging reviewed -Has Thompson catheter in place for accurate ins and outs, continue to monitor urine output -off IVF; encourage oral hydration -Urinalysis was noted bacteria, blood, protein Status: Acute (3) Diarrhea: -Noted evidence of enteritis/colitis on CT of the abdomen and pelvis. With current renal function unable to further evaluate noted gas collections in the right abdomen with contrast study -C.difficile negative, enteric bacterial panel negative. FOBT positive -Off IVF -Continue antibiotic treatment with vancomycin, ceftriaxone, Flagyl -blood cx: prelim negative -rapid COVID-19 negative Status: Acute Qualifiers: Diarrhea type: unspecified type Qualified Code(s): R19.7 - Diarrhea, unspecified (4) Transaminitis: -Noted prior intermittent transaminitis; LFTs trending down -Noted hepatitis panel, positive for hepatitis C antibody, viral load low. HIV negative Status: Acute (5) Metabolic acidosis: -Noted elevated anion gap metabolic acidosis likely secondary to acute kidney injury, now closed Status: Resolved (6) Hyponatremia: -Likely secondary to dehydration -Improved with IV fluid hydration, Na normalized Status: Resolved (7) Type 2 diabetes mellitus, without long-term current use of insulin: -A1c-8.7 (10/2019) -Noted hyperglycemia, continue Accu-Cheks, ISS, hypoglycemia precautions -Consistent carb diet as tolerated Status: Chronic Qualifiers: Chronic kidney disease stage: stage 2 (mild) Diabetes mellitus complication detail: with chronic kidney disease Diabetes mellitus complication status: with kidney complications Qualified Code(s): E11.22 - Type 2 diabetes mellitus with diabetic chronic kidney disease; N18.2 - Chronic kidney disease, stage 2 (mild) (8) Hypertension: -hypertensive currently, continue to monitor vital signs -increase dose of BARTOLO inhibitor; initially on hold due to renal impairment -hydralazine PRN; add metoprolol due to noted tachycardia -Echo (09/2019): EF=55%, no RWMA, trace to mild TR Status: Chronic Qualifiers: Hypertension type: essential hypertension Qualified Code(s): I10 - Essential (primary) hypertension (9) Lung mass: -Known to have lung mass which was evaluated with PET scan in 11/2019 with noted pleural-based opacity at lateral left lower lobe that appears benign Status: Chronic (10) Polysubstance abuse: -Known history of methamphetamine, opiate, THC use -noted ED visit on 02/05 for opiate overdose -last use about 5 days ago Status: Chronic Additional A&P Information -Chronic smoker -mild rhabdomyolysis; CPK normalized, off IVF -hx of CAD; on ASA -depression, stress; Psych evaluation by Dr. Jack appreciateed; denies SI -hx of diverticulitis with colovesicular fistula s/p sigmoid colon resection, followed by colorectal anastomosis and bladder repair (2016) -GI ppx with PPI -DVT ppx with SCDs, no AC due to bleeding risk -Dispo: home -Code status: FULL code Attestations Medical Necessity Statement*: Patient requires hospitalization for continued treatment of acute COPD exacerbation, needs continued close monitoring of his respiratory status, continue treatment of colitis on IV antibiotics. Time Spent in Patient Care: 16 - 35 minutes (>than 50% of time spent in counselling and/or direct pt care on unit) . Coding Level of Care Code Acute [employer] Science Healer for [facility] Fwd Exam Comprehensive Diagnoses COPD (chronic obstructive pulmonary disease) J44.1 COPD type: COPD with acute exacerbation Acute kidney injury N17.9 Diarrhea R19.7 Diarrhea type: unspecified type Transaminitis R74.0 Metabolic acidosis E87.2 Hyponatremia E87.1 Type 2 diabetes mellitus, without long-term current use of insulin E11.22; N18.2 Chronic kidney disease stage: stage 2 (mild) Diabetes mellitus complication detail: with chronic kidney disease Diabetes mellitus complication status: with kidney complications Hypertension I10 Hypertension type: essential hypertension Lung mass R91.8 Polysubstance abuse F19.10
--- NOTE | 2020-03-12 18:14 | PC.NURSE ---
Pt gave permission to visit with his son via phone and give him any information that was asked.
[2020-03-12] MEDS: acetaminophen 325 mg Tablet 650 MG PO (19:54)
--- NOTE | 2020-03-12 20:30 | PC.NURSE ---
Patient's blood pressure is elevated 174/96. Patient states want something for pain . Nurse been notified.
[2020-03-12] MEDS: PARoxetine 20 mg Tablet 40 MG PO (21:10)
[2020-03-12 21:39] LABS: Glucose Point of Care 249 mg/dL (70-110)
[2020-03-13] VITALS (13 sets, daily range): BP systolic 110–168; BP diastolic 64–99; PULSE 64–92; RESP 18–24; TEMP 36.5–36.9; O2SAT 93–100
[2020-03-13] MEDS: cefTRIAXone 1,000 MG in sodium chloride 0.9% (plus) 50 ML 100 MG IV (00:50)
[2020-03-13] MEDS: LORazepam 2 mg/mL INJ 1 mL 1 MG IVP ×5 (01:38→21:41)
--- NOTE | 2020-03-13 06:04 | PC.NURSE ---
SHIFT SUMMARY Has rested for intervals. Quite easily SOB and then pt becomes very anxious. Tells me he has panic attacks Has received IV Ativan for this and does help. Received Tylenol for headache X1. Thompson was removed in evening and pt has urinated several times. Says hard for him to use urinal and insists on just going to the bathroom. Not compliant with measuring urine output. Had snacks and sandwich tonight. Says steroids make him hungry. IV accidentally came out and required several attempts to regain access. Veins are very difficult to get in and thread IV catheter.
[2020-03-13] MEDS: metroNIDAZOLE IV 500 MG/100 ML PREMIX 100 MG IV ×2 (06:16→11:04)
[2020-03-13 06:17] LABS: Basophils % 0.2 %; Hematocrit 45.4 % (42.0-52.0); Hemoglobin 13.8 g/dL (11.7-16.6); Lymphocytes # 0.9 10^3/uL (0.8-4.8); Lymphocytes % 7.4 %; Mean Corpuscular HGB Conc 30.4 g/dL (30.0-36.0); Mean Corpuscular Hemoglobin 27.7 pg (28.0-34.0); Mean Corpuscular Volume 91.2 fL (80-94); Mean Platelet Volume 10.3 fL (7.4-10.4); Monocytes # 0.4 10^3/uL (0.2-0.9); Monocytes % 2.9 %; Neutrophils # 10.66 10^3/uL (1.8-7.7); Neutrophils % 87.4 %; Nucleated Red Blood Cells % 0 %; Platelet Count 270 10^3/cmm (130-400); Red Blood Count 4.98 10^6/uL (4.1-5.3); White Blood Count 12.2 10^3/uL (4.0-10.0)
[2020-03-13] MEDS: ipratropium-albuterol 3 mL Neb INHALATION ×6 (06:19→23:59)
[2020-03-13 07:07] LABS: Glucose Point of Care 325 mg/dL (70-110)
[2020-03-13] MEDS: pantoprazole DR 40 mg Tablet PO (09:25)
[2020-03-13] MEDS: metoprolol tartrate 25 mg Tablet PO ×2 (09:25→17:44)
[2020-03-13] MEDS: lisinopril 20 mg Tablet PO ×2 (09:25→17:44)
[2020-03-13] MEDS: thiamine 100 mg Tablet PO (09:25)
[2020-03-13 10:39] LABS: Glucose Point of Care 282 mg/dL (70-110)
--- NOTE | 2020-03-13 11:08 | PC.CHAP ---
Pastoral Care Encounter/Spiritual Assessment Type of Contact [xx] Declined pipe stem aligner visit [] Patient/Family/Request visit [] Outpatient visit [] Follow-up visit [] Physician referral [] Code/Alert xx[] Routine visit [] Staff referral [] Actively dying [] Patient sleeping [] Family support [] [] Out of room [] Palliative care [] [] Receiving care in room [] Pre-surgical visit [] Trauma [] Long length of stay [] ICU visit [] Other: Relational/Emotional Strength [] Patient feels connected with others/family/visitors/staff [] Distress [] Loneliness/isolation [] Abandonment Spirituality of Patient [] Person of [place] [] Attends [place]ism of their [place] [] Believes in Prayer [] Reads Bible or Latter Day materials [] There are Spiritual issues to be addressed Professor Of Criminal Justice Interventions [] Prayer [] Active listening [] Non-anxious presence [] Spiritual/emotional support [] Crisis/trauma care [] Spiritual counseling [] Bereavement support [] Provided bereavement packet [] Provided Bible/devotional materials [] Provided toy/stuffed animal, coloring book to patient or family member [] Provided Communion [] Anointing/[place] [] Salvation [] Completed spiritual assessment [] Other: Impact on Illness or Injury [] Angry [] Fearful [] Anxious [] Often cries [] Exhaustion [] Unable to work [] Unable to attend denominational [] Unable to walk/stand [] Unable to read [] Unable to drive [] Unable to eat/drink [] Unable to sleep [] Unable to be with family [] Patient intubated [] Other: Summary: Pt had rec'd his lunch food tray and wanted to eat rather than visit. He states that he is open to a pipe stem aligner visit. Time spent with patient
--- NOTE | 2020-03-13 13:35 | P.PN_ITS ---
Subjective Subjective: Interval history: Continues to be quite short of breath with anxiety, able to void following Thompson catheter removal, on room air while at rest, hemodynamically stable, decreased leukocytosis, normalized creatinine. Seen during visit with son, had extensive discussion about patient's clinical status, my continued concern that anxiety is driving a lot of patient's shortnes s of breath which son agrees with, trying to work out to disposition, patient repeatedly asking for anxiolytics. Medications: Reviewed: Yes Medication Review Details: Active Medications Generic Name Dose Route Start Last Admin Trade Name Freq PRN Reason Stop Dose Admin Acetaminophen 650 mg 03/09/20 01:18 03/12/20 19:54 Tylenol PO 650 mg Q6H PRN Administration Mild/Mod Pain Or Temp >/= 101 Albuterol/Ipratrop ium 3 ml 03/10/20 20:30 03/13/20 11:35 Duoneb INHALATION 3 ml Q4H.RESPIRATORY S CH Administration Dextrose 25 ml 03/09/20 01:18 D50w IVP ONCE PRN hypoglycemia prot ocol Protocol Dextrose 50 ml 03/09/20 01:18 D50w IVP PRN PRN hypoglycemia prot ocol Protocol Glucagon 1 mg 03/09/20 01:18 Glucagen IM ONCE PRN Adult Acute Hypog lycemia Prot. Protocol Hydralazine HCl 10 mg 03/09/20 19:18 03/11/20 09:27 Apresoline IVP 10 mg Q4H PRN Administration elevated blood pr essure Ceftriaxone Sodium 1,000 mg/ 50 mls @ 100 mls/ hr 03/09/20 02:00 03/13/20 01:33 Sodium Chloride IV Infused Q24H CRISTIANA Infusion Protocol Dextrose 500 mls @ 100 mls /hr 03/09/20 01:18 D5w IV ONCE PRN Adult Acute Hypog lycemia Prot Protocol Metronidazole 500 mg in 100 mls @ 100 mls/hr 03/09/20 05:00 03/13/20 11:04 Flagyl Iv IV 100 mls/hr Q6H CRISTIANA Administration Protocol Vancomycin HCl 1,0 00 mg/ 250 mls @ 250 mls /hr 03/10/20 12:00 03/12/20 15:28 Sodium Chloride IV 250 mls/hr Q24H CRISTIANA Administration Protocol As Directed Insulin Aspart 0 unit 03/09/20 08:00 03/13/20 11:04 Novolog SUBCUT 10 unit WM&BEDTIME CRISTIANA Administration Protocol Lisinopril 20 mg 03/12/20 09:00 03/13/20 09:25 Prinivil PO 20 mg DAILY CRISTIANA Administration Lorazepam 1 mg 03/13/20 01:29 03/13/20 11:16 Ativan IVP 1 mg Q4H PRN Administration ANXIETY Methylprednisolone Sodium Succinate 60 mg 03/10/20 20:45 03/13/20 11:11 Solu-Medrol IVP 60 mg Q6H CRISTIANA Administration Metoprolol Tartrat e 25 mg 03/11/20 12:10 03/13/20 09:25 Lopressor PO 25 mg BID CRISTIANA Administration Non-Formulary Medi cation 1 inh 03/09/20 09:00 03/13/20 09:52 Umeclidinium-Berry anterol [Anoro Ell ipta] INHALATION Not Given DAILY CRISTIANA Ondansetron HCl 4 mg 03/09/20 01:18 Zofran IVP Q6H PRN vomiting, or N/V if npo Pantoprazole Sodiu m 40 mg 03/09/20 09:00 03/13/20 09:25 Protonix PO 40 mg DAILY CRISTIANA Administration Paroxetine HCl 40 mg 03/10/20 21:00 03/12/20 21:10 Paxil PO 40 mg BEDTIME CRISTIANA Administration Thiamine Mononitra te 100 mg 03/09/20 09:00 03/13/20 09:25 Vitamin B-1 PO 100 mg DAILY CRISTIANA Administration Penicillins Allergy (Verified 03/08/20 19:56) Unknown Vitals/I&O/Wt Last Vital Signs Temp 98.2 F 03/13/20 11:32 Pulse 86 03/13/20 11:36 Resp 20 H 03/13/20 11:36 BP 110/64 03/13/20 11:32 Pulse Ox 94 03/13/20 11:36 03/12/20 03/13/20 03/13/20 22:59 06:59 14:59 Intake Total 800 / 1480 390 / 1870 220 / 220 Output Total 1650 / 1650 300 / 1950 200 / 200 Balance -850 / -170 90 / -80 20 / 20 Physical Exam Const: COMMON NORMALS: patient oriented x3 GENERAL APPEARANCE: cooperative, comfortable and anxious NUTRITIONAL APPEARANCE: thin ORIENTATION/CONSCIOUSNESS: Yes awake OTHER: -Gaunt appearance HENMT: COMMON NORMALS: normocephalic, atraumatic, hearing grossly normal bilaterally and moist oral mucous membranes HEAD & SCALP: normocephalic and atraumatic Eye: COMMON NORMALS: Equal, round and reactive pupils present, EOMs intact bilaterally and conjunctivae normal CONJUNCTIVA: Yes conjunctivae normal PUPIL: Yes Equal, round and reactive pupils present Neck/C-Spine: COMMON NORMALS: full ROM GENERAL: Yes normal visual inspection and Yes trachea midline Chest: CHEST: Yes abnormal inspection of the chest barrel chest Resp: COMMON NORMALS: No retractions EFFORT & INSPECTION: Yes able to speak in complete sentences, Yes symmetric chest movement and Yes tachypneic AUSCULTATION: rhonchi, wheezes lower bilaterally and diminished lung sounds diffuse OTHER: -On room air Cardio: COMMON NORMALS: regular rate, regular rhythm, S1 normal heart sound present, S2 normal heart sound present and No murmurs present (Cardio) RATE: regular rate RHYTHM: regular rhythm HEART SOUNDS: S1 normal heart sound present and S2 normal heart sound present OTHER: -BP improved GI: COMMON NORMALS: Normal to inspection, nondistended, normoactive bowel soun ds present and Soft to palpation PALPATION: Yes Soft to palpation, Yes Tenderness to palpation present (GI) (generalized), No Guarding due to palpation present (GI) and No Rigid due to palpation Extremity: COMMON NORMALS: normal to inspection, full ROM and no clubbing, cyanosis or edema; negative for no pedal edema Neuro: COMMON NORMALS: patient oriented x3, moves all extremities, no focal motor deficits and no sensory deficits noted Psych: COMMON NORMALS: mental status grossly normal, Normal thought process present, cooperative, normal affect and speech normal SPEECH: Yes normal speech THOUGHT PROCESS: Normal thought process present Skin: COMMON NORMALS: no rashes or lesions noted, no jaundice, no petechiae and no mottling GENERAL SKIN EXAM: no rashes or lesions noted Urinary Catheter Management^: Thompson: Cath Placed During This Visit: yes, but has since been removed by the nurse Reason for Continuing Indwelling Catheter: Not indwelling catheter Urinary Catheter Date of Insertion: 03/08/20 Date Urinary Catheter Removed: 03/12/20 Time Urinary Catheter Discontinued: 21:20 Data : 03/13/20 05:05 03/12/20 05:07 A&P Assessment and plan (1) COPD (chronic obstructive pulmonary disease): -Has developed acute exacerbation as indicated by increased dyspnea, increased work of breathing, need for BiPAP support overnight -Follows up with Dr. Paz as an outpatient -Neb treatments as needed; supplemental oxygen support as needed, continue IV steroids for now, will wean with improvement -Chest x-ray with noted hyperinflation -anxiety drives increased work of breathing; has a very low threshold for anxiety but responds well to anxiolytics Status: Acute Qualifiers: COPD type: COPD with acute exacerbation Qualified Code(s): J44.1 - Chronic obstructive pulmonary disease with (acute) exacerbation (2) Acute kidney injury: -likely multifactorial given dehydration with recent diarrhea and decreased oral intake, noted medications (NSAIDs, ACEi, metformin), substance abuse hx, mild rhabdomyolysis -Has underlying CKD stage 2 with a baseline creatinine < 1 -Renal function improved with hydration, continue to monitor -Continue to hold BARTOLO inhibitor, metformin, NSAIDs, avoid nephrotoxins; renally dose meds -Imaging reviewed -Thompson catheter discontinued and able to void without difficulty -off IVF; encourage oral hydration -Urinalysis was noted bacteria, blood, protein Status: Resolved (3) Diarrhea: -Noted evidence of enteritis/colitis on CT of the abdomen and pelvis. With current renal function unable to further evaluate noted gas collections in the right abdomen with contrast study -C.difficile negative, enteric bacterial panel negative. FOBT positive -Off IVF -Switch to oral Flagyl and Levaquin; d/c vancomycin, ceftriaxone -blood cx: prelim negative -rapid COVID-19 negative Status: Resolved Qualifiers: Diarrhea type: unspecified type Qualified Code(s): R19.7 - Diarrhea, unspecified (4) Transaminitis: -Noted prior intermittent transaminitis; LFTs trending down -Noted hepatitis panel, positive for hepatitis C antibody, viral load low. HIV negative Status: Resolved (5) Metabolic acidosis: -Noted elevated anion gap metabolic acidosis likely secondary to acute kidney injury, now closed Status: Resolved (6) Hyponatremia: -Likely secondary to dehydration -Improved with IV fluid hydration, Na normalized Status: Resolved (7) Type 2 diabetes mellitus, without long-term current use of insulin: -A1c-8.7 (10/2019) -Noted hyperglycemia, continue Accu-Cheks, ISS, hypoglycemia precautions -Consistent carb diet as tolerated Status: Chronic Qualifiers: Chronic kidney disease stage: stage 2 (mild) Diabetes mellitus complication detail: with chronic kidney disease Diabetes mellitus complication status: with kidney complications Qualified Code(s): E11.22 - Type 2 diabetes mellitus with diabetic chronic kidney disease; N18.2 - Chronic kidney disease, stage 2 (mild) (8) Hypertension: -BP improved though not quite at goal; continue to monitor vital signs -increase dose of BARTOLO inhibitor; initially on hold due to renal impairment -hydralazine PRN; add metoprolol due to noted tachycardia -Echo (09/2019): EF=55%, no RWMA, trace to mild TR Status: Chronic Qualifiers: Hypertension type: essential hypertension Qualified Code(s): I10 - Essential (primary) hypertension (9) Lung mass: -Known to have lung mass which was evaluated with PET scan in 11/2019 with noted pleural-based opacity at lateral left lower lobe that appears benign Status: Chronic (10) Polysubstance abuse: -Known history of methamphetamine, opiate, THC use -noted ED visit on 02/05 for opiate overdose -last use about 5 days prior to admission Status: Chronic Additional A&P Information -Chronic smoker -mild rhabdomyolysis; CPK normalized, off IVF -hx of CAD; on ASA -depression, stress; Psych evaluation by Dr. 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 Time Spent in Patient Care: 16 - 35 minutes (>than 50% of time spent in co unselling and/or direct pt care on unit) . Coding Level of Care Code Acute Supervisor [employer] [facility] Fwd Exam Comprehensive Diagnoses COPD (chronic obstructive pulmonary disease) J44.1 COPD type: COPD with acute exacerbation Acute kidney injury N17.9 Diarrhea R19.7 Diarrhea type: unspecified type Transaminitis R74.0 Metabolic acidosis E87.2 Hyponatremia E87.1 Type 2 diabetes mellitus, without long-term current use of insulin E11.22; N18.2 Chronic kidney disease stage: stage 2 (mild) Diabetes mellitus complication detail: with chronic kidney disease Diabetes mellitus complication status: with kidney complications Hypertension I10 Hypertension type: essential hypertension Lung mass R91.8 Polysubstance abuse F19.10
[2020-03-13 14:29] LABS: Vancomycin Trough 8.5 ug/mL (10-15)
[2020-03-13] MEDS: metroNIDAZOLE 500 MG Tablet PO ×2 (14:32→20:57)
[2020-03-13] MEDS: levoFLOXacin 750 mg Tablet PO (14:32)
--- NOTE | 2020-03-13 16:31 | DCPLANNER ---
Pg 2 of IM updated and reviewed with pt. No questions, copy provided.
[2020-03-13 16:46] LABS: Glucose Point of Care 95 mg/dL (70-110)
[2020-03-13] MEDS: acetaminophen 325 mg Tablet 650 MG PO (19:39)
[2020-03-13 20:31] LABS: Glucose Point of Care 395 mg/dL (70-110)
[2020-03-13] MEDS: PARoxetine 20 mg Tablet 40 MG PO (20:57)
[2020-03-14] VITALS (10 sets, daily range): BP systolic 144–185; BP diastolic 82–110; PULSE 70–89; RESP 15–24; TEMP 36.5–37.5; O2SAT 92–98
[2020-03-14] MEDS: LORazepam 2 mg/mL INJ 1 mL 1 MG IVP ×5 (01:36→21:16)
--- NOTE | 2020-03-14 05:33 | PC.NURSE ---
SHIFT SUMMARY Tells me he feels some better tonight but remains very easily SOB and easily anxious. Requests his Ativan pretty much right at the 4 hour prn freq or a little early. Had some Tylenol X1 for back pain. Has a cough that he says is mostly dry now. Says still hungry with the steroids he is getting and asks for snacks. BS readings remain elevated and receives insulin sliding scale. Used urinal more tonight so better compliance with I&O
[2020-03-14 06:41] LABS: Glucose Point of Care 227 mg/dL (70-110)
[2020-03-14] MEDS: hyDRALAzine 20 mg/mL INJ 1 mL 10 MG IVP (07:48)
--- NOTE | 2020-03-14 07:52 | PC.RESP ---
Patient states he only wants an emergency inhaler, he does not want breathing treatment at this time. No inhaler ordered currently. Explained to patient that it may be a bit before a physician orders inhaler. Patient voiced understanding, refused breathing treatment, wants to wait for inhaler.
[2020-03-14] MEDS: lisinopril 20 mg Tablet PO ×2 (08:54→17:21)
[2020-03-14] MEDS: metroNIDAZOLE 500 MG Tablet PO ×3 (08:54→21:16)
[2020-03-14] MEDS: metoprolol tartrate 25 mg Tablet PO ×2 (08:54→17:21)
[2020-03-14] MEDS: levoFLOXacin 750 mg Tablet PO (08:55)
[2020-03-14] MEDS: pantoprazole DR 40 mg Tablet PO (08:55)
[2020-03-14] MEDS: thiamine 100 mg Tablet PO (08:55)
[2020-03-14 10:46] LABS: Glucose Point of Care 268 mg/dL (70-110)
[2020-03-14] MEDS: ipratropium-albuterol 3 mL Neb INHALATION (16:28)
[2020-03-14 16:56] LABS: Glucose Point of Care 278 mg/dL (70-110)
--- NOTE | 2020-03-14 18:10 | PM.PN ---
Subjective Subjective: Interval history: Continues to be quite short of breath with anxiety, able to void following Thompson catheter removal, on room air while at rest, hemodynamically stable, decreased leukocytosis, normalized creatinine. Medications: Reviewed: Yes Vitals/I&O/Wt Last Vital Signs Temp 99.5 F 03/14/20 15:00 Pulse 80 03/14/20 16:03 Resp 15 03/14/20 16:03 BP 177/106 03/14/20 15:00 Pulse Ox 95 03/14/20 16:03 03/14/20 03/14/20 03/14/20 06:59 14:59 22:59 Intake Total 240 / 1060 840 / 840 Output Total 450 / 825 Balance -210 / 235 840 / 840 Physical Exam Const: COMMON NORMALS: patient oriented x3 HENMT: COMMON NORMALS: normocephalic, atraumatic, hearing grossly normal bilaterally and external ears normal HEAD & SCALP: normocephalic and atraumatic EXTERNAL EAR: Yes external ears normal Eye: COMMON NORMALS: no scleral icterus GENERAL EYE: appearance normal, both eyes and all related structures Chest: COMMONS NORMALS: normal inspection of the chest and normal palpation of entire chest wall CHEST: Yes Symmetrical chest wall rise Resp: COMMON NORMALS: normal respiratory effort, No retractions, No use of accessory muscles and clear to auscultation bilaterally EFFORT & INSPECTION: Yes symmetric chest movement AUSCULTATION: clear to auscultation bilaterally Cardio: COMMON NORMALS: regular rate, regular rhythm, S1 normal heart sound present, S2 normal heart sound present, No gallops present (Cardio), No murmurs present (Cardio), No rub (Cardio) and Peripheral pulses 2+ throughout RATE: regular rate RHYTHM: regular rhythm HEART SOUNDS: S1 normal heart sound present and S2 normal heart sound present PERIPHERAL PULSES: Peripheral pulses 2+ throughout GI: COMMON NORMALS: Normal to inspection, nondistended, normoactive bowel sounds present, Soft to palpation, non-tender, No hepatosplenomegaly present and no masses AUSCULTATION: Yes normoactive bowel sounds PALPATION: Yes Soft to palpation and Yes No hepatosplenomegaly present RECTAL EXAM: Yes deferred : COMMON NORMALS: Yes no CVA tenderness BLADDER/KIDNEY EXAM: Yes no CVA tenderness Back/Pelvis: COMMON NORMALS: no CVA tenderness Extremity: COMMON NORMALS: no clubbing, cyanosis or edema and no pedal edema Neuro: COMMON NORMALS: patient oriented x3 Urinary Catheter Management^: Thompson: Cath Placed During This Visit: yes, but has since been removed by the nurse Reason for Continuing Indwelling Catheter: Not indwelling catheter Urinary Catheter Date of Insertion: 03/08/20 Date Urinary Catheter Removed: 03/12/20 Time Urinary Catheter Discontinued: 21:20 Data : 03/13/20 05:05 03/12/20 05:07 Micro: Microbiology 03/08/20 22:37 Blood Culture - Final Blood NO GROWTH AFTER 5 DAYS 03/08/20 19:35 Blood Culture - Final Blood NO GROWTH AFTER 5 DAYS A&P Assessment and plan (1) COPD (chronic obstructive pulmonary disease): Has developed acute exacerbation as indicated by increased dyspnea, increased work of breathing, need for BiPAP support overnight -Follows up with Dr. Paz as an outpatient -Neb treatments as needed; supplemental oxygen support as needed, continue IV steroids for now, will wean with improvement -Chest x-ray with noted hyperinflation -anxiety drives increased work of breathing; has a very low threshold for anxiety but responds well to anxiolytics Status: Acute Qualifiers: COPD type: COPD with acute exacerbation Qualified Code(s): J44.1 - Chronic obstructive pulmonary disease with (acute) exacerbation (2) Acute kidney injury: Acute kidney injury: -likely multifactorial given dehydration with recent diarrhea and decreased oral intake, noted medications (NSAIDs, ACEi, metformin), substance abuse hx, mild rhabdomyolysis -Has underlying CKD stage 2 with a baseline creatinine < 1 -Renal function improved with hydration, continue to monitor -Continue to hold BARTOLO inhibitor, metformin, NSAIDs, avoid nephrotoxins; renally dose meds -Imaging reviewed -Thompson catheter discontinued and able to void without difficulty -off IVF; encourage oral hydration -Urinalysis was noted bacteria, blood, protein Status: Resolved (3) Diarrhea: Diarrhea: -Noted evidence of enteritis/colitis on CT of the abdomen and pelvis. With current renal function unable to further evaluate noted gas collections in the right abdomen with contrast study -C.difficile negative, enteric bacterial panel negative. FOBT positive -Off IVF -Switch to oral Flagyl and Levaquin; d/c vancomycin, ceftriaxone -blood cx: prelim negative -rapid COVID-19 negative Status: Resolved Qualifiers: Diarrhea type: unspecified type Qualified Code(s): R19.7 - Diarrhea, unspecified (4) Transaminitis: Transaminitis: -Noted prior intermittent transaminitis; LFTs trending down -Noted hepatitis panel, positive for hepatitis C antibody, viral load low. HIV negative Status: Resolved Additional A&P Information Type 2 diabetes mellitus, without long-term current use of insulin: -A1c-8.7 (10/2019) -Noted hyperglycemia, continue Accu-Cheks, ISS, hypoglycemia precautions -Consistent carb diet as tolerated Hypertension: -BP improved though not quite at goal; continue to monitor vital signs -increase dose of BARTOLO inhibitor; initially on hold due to renal impairment -hydralazine PRN; add metoprolol due to noted tachycardia -Echo (09/2019): EF=55%, no RWMA, trace to mild TR Lung mass: -Known to have lung mass which was evaluated with PET scan in 11/2019 with noted pleural-based opacity at lateral left lower lobe that appears benign Polysubstance abuse: -Known history of methamphetamine, opiate, THC use -noted ED visit on 02/05 for opiate overdose -last use about 5 days prior to admission Attestations Medical Necessity Statement*: Need further management of COPD Exacerbation. Coding Level of Care Code Acute Cable Str[employer] for [facility] Diagnoses COPD (chronic obstructive pulmonary disease) J44.1 COPD type: COPD with acute exacerbation Acute kidney injury N17.9 Diarrhea R19.7 Diarrhea type: unspecified type Transaminitis R74.0
[2020-03-14] MEDS: PARoxetine 20 mg Tablet 40 MG PO (21:16)
[2020-03-14 21:18] LABS: Glucose Point of Care 305 mg/dL (70-110)
[2020-03-15] VITALS (14 sets, daily range): BP systolic 111–169; BP diastolic 68–89; PULSE 70–94; RESP 16–22; TEMP 36.6–37.1; O2SAT 94–99
[2020-03-15] MEDS: LORazepam 2 mg/mL INJ 1 mL 1 MG IVP ×5 (02:18→22:32)
[2020-03-15] MEDS: ipratropium-albuterol 3 mL Neb INHALATION ×2 (04:26→15:19)
[2020-03-15 06:36] LABS: Glucose Point of Care 478 mg/dL (70-110)
[2020-03-15] MEDS: pantoprazole DR 40 mg Tablet PO (08:09)
[2020-03-15] MEDS: lisinopril 20 mg Tablet PO ×2 (08:09→17:56)
[2020-03-15] MEDS: thiamine 100 mg Tablet PO (08:09)
[2020-03-15] MEDS: metoprolol tartrate 25 mg Tablet PO ×2 (08:09→17:56)
[2020-03-15] MEDS: levoFLOXacin 750 mg Tablet PO (08:10)
[2020-03-15] MEDS: metroNIDAZOLE 500 MG Tablet PO ×3 (08:10→21:17)
--- NOTE | 2020-03-15 09:20 | PC.SOCIAL ---
IMM Update Pg. 2 of IMM updated. Copy provided to patient.
--- NOTE | 2020-03-15 11:05 | P.PN_ITS ---
Subjective Subjective: Interval history: patient is currently not in acute distress,he is saturating well on room air, hemodynamically stable, decreased leukocytosis, normalized creatinine. Today in the evening when I talked to the patient.He expressed his readiness to go.We have decraesed his solumedrol to 40 mg q12 h daily from q6h. Medications: Reviewed: Yes Medication Review Details: Active Medications Generic Name Dose Route Start Last Admin Trade Name Freq PRN Reason Stop Dose Admin Acetaminophen 650 mg 03/09/20 01:18 03/12/20 19:54 Tylenol PO 650 mg Q6H PRN Administration Mild/Mod Pain Or Temp >/= 101 Albuterol/Ipratrop ium 3 ml 03/10/20 20:30 03/13/20 11:35 Duoneb INHALATION 3 ml Q4H.RESPIRATORY S CH Administration Dextrose 25 ml 03/09/20 01:18 D50w IVP ONCE PRN hypoglycemia prot ocol Protocol Dextrose 50 ml 03/09/20 01:18 D50w IVP PRN PRN hypoglycemia prot ocol Protocol Glucagon 1 mg 03/09/20 01:18 Glucagen IM ONCE PRN Adult Acute Hypog lycemia Prot. Protocol Hydralazine HCl 10 mg 03/09/20 19:18 03/11/20 09:27 Apresoline IVP 10 mg Q4H PRN Administration elevated blood pr essure Ceftriaxone Sodium 1,000 mg/ 50 mls @ 100 mls/ hr 03/09/20 02:00 03/13/20 01:33 Sodium Chloride IV Infused Q24H CRISTIANA Infusion Protocol Dextrose 500 mls @ 100 mls /hr 03/09/20 01:18 D5w IV ONCE PRN Adult Acute Hypog lycemia Prot Protocol Metronidazole 500 mg in 100 mls @ 100 mls/hr 03/09/20 05:00 03/13/20 11:04 Flagyl Iv IV 100 mls/hr Q6H CRISTIANA Administration Protocol Vancomycin HCl 1,0 00 mg/ 250 mls @ 250 mls /hr 03/10/20 12:00 03/12/20 15:28 Sodium Chloride IV 250 mls/hr Q24H CRISTIANA Administration Protocol As Directed Insulin Aspart 0 unit 03/09/20 08:00 03/13/20 11:04 Novolog SUBCUT 10 unit WM&BEDTIME CRISTIANA Administration Protocol Lisinopril 20 mg 03/12/20 09:00 03/13/20 09:25 Prinivil PO 20 mg DAILY CRISTIANA Administration Lorazepam 1 mg 03/13/20 01:29 03/13/20 11:16 Ativan IVP 1 mg Q4H PRN Administration ANXIETY Methylprednisolone Sodium Succinate 60 mg 03/10/20 20:45 03/13/20 11:11 Solu-Medrol IVP 60 mg Q6H CRISTIANA Administration Metoprolol Tartrat e 25 mg 03/11/20 12:10 03/13/20 09:25 Lopressor PO 25 mg BID CRISTIANA Administration Non-Formulary Medi cation 1 inh 03/09/20 09:00 03/13/20 09:52 Umeclidinium-Berry anterol [Anoro Ell ipta] INHALATION Not Given DAILY CRISTIANA Ondansetron HCl 4 mg 03/09/20 01:18 Zofran IVP Q6H PRN vomiting, or N/V if npo Pantoprazole Sodiu m 40 mg 03/09/20 09:00 03/13/20 09:25 Protonix PO 40 mg DAILY CRISTIANA Administration Paroxetine HCl 40 mg 03/10/20 21:00 03/12/20 21:10 Paxil PO 40 mg BEDTIME CRISTIANA Administration Thiamine Mononitra te 100 mg 03/09/20 09:00 03/13/20 09:25 Vitamin B-1 PO 100 mg DAILY CRISTIANA Administration Penicillins Allergy (Verified 03/08/20 19:56) Unknown Vitals/I&O/Wt Last Vital Signs Temp 98.2 F 03/15/20 07:00 Pulse 70 03/15/20 08:41 Resp 16 03/15/20 08:41 BP 169/77 03/15/20 07:00 Pulse Ox 94 03/15/20 08:41 03/14/20 03/15/20 03/15/20 22:59 06:59 14:59 Intake Total 450 / 1290 Output Total 125 / 125 Balance 450 / 1290 -125 / 1165 Physical Exam Const: COMMON NORMALS: patient oriented x3 HENMT: COMMON NORMALS: normocephalic, atraumatic, hearing grossly normal bilaterally and external ears normal HEAD & SCALP: normocephalic and atraumatic EXTERNAL EAR: Yes external ears normal Eye: COMMON NORMALS: no scleral icterus GENERAL EYE: appearance normal, both eyes and all related structures Chest: COMMONS NORMALS: normal inspection of the chest and normal palpation of entire chest wall CHEST: Yes Symmetrical chest wall rise Resp: COMMON NORMALS: normal respiratory effort, No retractions, No use of accessory muscles and clear to auscultation bilaterally EFFORT & INSPECTION: Yes symmetric chest movement AUSCULTATION: clear to auscultation bilaterally Cardio: COMMON NORMALS: regular rate, regular rhythm, S1 normal heart sound present, S2 normal heart sound present, No gallops present (Cardio), No murmurs present (Cardio), No rub (Cardio) and Peripheral pulses 2+ throughout RATE: regular rate RHYTHM: regular rhythm HEART SOUNDS: S1 normal heart sound present and S2 normal heart sound present PERIPHERAL PULSES: Peripheral pulses 2+ throughout GI: COMMON NORMALS: Normal to inspection, nondistended, normoactive bowel sounds present, Soft to palpation, non-tender, No hepatosplenomegaly present and no masses AUSCULTATION: Yes normoactive bowel sounds PALPATION: Yes Soft to palpation and Yes No hepatosplenomegaly present RECTAL EXAM: Yes deferred : COMMON NORMALS: Yes no CVA tenderness BLADDER/KIDNEY EXAM: Yes no CVA tenderness Back/Pelvis: COMMON NORMALS: no CVA tenderness Extremity: COMMON NORMALS: no clubbing, cyanosis or edema and no pedal edema Neuro: COMMON NORMALS: patient oriented x3 Urinary Catheter Management^: Thompson: Cath Placed During This Visit: yes, but has since been removed by the nurse Reason for Continuing Indwelling Catheter: Not indwelling catheter Urinary Catheter Date of Insertion: 03/08/20 Date Urinary Catheter Removed: 03/12/20 Time Urinary Catheter Discontinued: 21:20 Data : 03/13/20 05:05 03/12/20 05:07 A&P Assessment and plan (1) COPD (chronic obstructive pulmonary disease): Has developed acute exacerbation as indicated by increased dyspnea, increased work of breathing, need for BiPAP support overnight -Follows up with Dr. Paz as an outpatient -Neb treatments as needed; supplemental oxygen support as needed, continue IV steroids for now, will wean with improvement -Chest x-ray with noted hyperinflation -anxiety drives increased work of breathing; has a very low threshold for anxiety but responds well to anxiolytics Status: Acute Qualifiers: COPD type: COPD with acute exacerbation Qualified Code(s): J44.1 - Chronic obstructive pulmonary disease with (acute) exacerbation (2) Acute kidney injury: Acute kidney injury: -likely multifactorial given dehydration with recent diarrhea and decreased oral intake, noted medications (NSAIDs, ACEi, metformin), substance abuse hx, mild rhabdomyolysis -Has underlying CKD stage 2 with a baseline creatinine < 1 -Renal function improved with hydration, continue to monitor -Continue to hold BARTOLO inhibitor, metformin, NSAIDs, avoid nephrotoxins; renally dose meds -Imaging reviewed -Thompson catheter discontinued and able to void without difficulty -off IVF; encourage oral hydration -Urinalysis was noted bacteria, blood, protein Status: Resolved (3) Diarrhea: Diarrhea: -Noted evidence of enteritis/colitis on CT of the abdomen and pelvis. With current renal function unable to further evaluate noted gas collections in the right abdomen with contrast study -C.difficile negative, enteric bacterial panel negative. FOBT positive -Off IVF -Switch to oral Flagyl and Levaquin; d/c vancomycin, ceftriaxone -blood cx: prelim negative -rapid COVID-19 negative Status: Resolved Qualifiers: Diarrhea type: unspecified type Qualified Code(s): R19.7 - Diarrhea, unspecified (4) Transaminitis: Transaminitis: -Noted prior intermittent transaminitis; LFTs trending down -Noted hepatitis panel, positive for hepatitis C antibody, viral load low. HIV negative Status: Resolved Additional A&P Information Type 2 diabetes mellitus, without long-term current use of insulin: -A1c-8.7 (10/2019) -Noted hyperglycemia, continue Accu-Cheks, ISS, hypoglycemia precautions -Consistent carb diet as tolerated Hypertension: -BP improved though not quite at goal; continue to monitor vital signs -increase dose of BARTOLO inhibitor; initially on hold due to renal impairment -hydralazine PRN; add metoprolol due to noted tachycardia -Echo (09/2019): EF=55%, no RWMA, trace to mild TR Lung mass: -Known to have lung mass which was evaluated with PET scan in 11/2019 with noted pleural-based opacity at lateral left lower lobe that appears benign Polysubstance abuse: -Known history of methamphetamine, opiate, THC use -noted ED visit on 02/05 for opiate overdose -last use about 5 days prior to admission Attestations Medical Necessity Statement*: Patient is receovering well from COPD Exacerbation and in on track to be discharged tommorow. Coding Level of Care Code Acute Contact Printer Dry Film for Chg Fwd Exam Comprehensive Diagnoses COPD (chronic obstructive pulmonary disease) J44.1 COPD type: COPD with acute exacerbation Acute kidney injury N17.9 Diarrhea R19.7 Diarrhea type: unspecified type Transaminitis R74.0
[2020-03-15 11:53] LABS: Glucose Point of Care 213 mg/dL (70-110)
[2020-03-15] MEDS: albuterol 8 gm MDI 2 PUFF INHALATION ×2 (12:39→20:13)
[2020-03-15] MEDS: hyDRALAzine 25 mg Tablet PO ×2 (12:41→21:15)
[2020-03-15 16:43] LABS: Glucose Point of Care 238 mg/dL (70-110)
[2020-03-15] MEDS: PARoxetine 20 mg Tablet 40 MG PO (21:17)
[2020-03-15 21:28] LABS: Glucose Point of Care 372 mg/dL (70-110)
[2020-03-16] VITALS (8 sets, daily range): BP systolic 129–143; BP diastolic 83–90; PULSE 89–109; RESP 16–19; TEMP 35.5–36.6; O2SAT 80–99
[2020-03-16] MEDS: albuterol 8 gm MDI 2 PUFF INHALATION ×2 (02:53→08:53)
[2020-03-16] MEDS: hyDRALAzine 25 mg Tablet PO ×2 (03:49→12:16)
[2020-03-16] MEDS: LORazepam 2 mg/mL INJ 1 mL 1 MG IVP ×2 (03:50→10:12)
[2020-03-16 05:57] LABS: Basophils % 0.1 %; Hematocrit 45.3 % (42.0-52.0); Hemoglobin 14.2 g/dL (11.7-16.6); Lymphocytes # 1.3 10^3/uL (0.8-4.8); Lymphocytes % 8.3 %; Mean Corpuscular HGB Conc 31.3 g/dL (30.0-36.0); Mean Corpuscular Volume 89.2 fL (80-94); Mean Platelet Volume 10.4 fL (7.4-10.4); Monocytes # 0.9 10^3/uL (0.2-0.9); Monocytes % 5.9 %; Neutrophils # 13.02 10^3/uL (1.8-7.7); Neutrophils % 84.1 %; Nucleated Red Blood Cells % 0 %; Platelet Count 270 10^3/cmm (130-400); Red Blood Count 5.08 10^6/uL (4.1-5.3); Red Cell Distribution Width 14.6 % (12.1-15.1); White Blood Count 15.5 10^3/uL (4.0-10.0)
[2020-03-16 06:13] LABS: Glucose Point of Care 214 mg/dL (70-110)
[2020-03-16 06:31] LABS: Anion Gap 11.1 (5-19); Blood Urea Nitrogen 37 mg/dL (8-23); Calcium 8.7 mg/dL (8.5-10.5); Carbon Dioxide 28 mmol/L (22-29); Chloride 101 mmol/L (98-107); Glomerular Filtration Rate 76.2 mL/min (90-130); Glucose 254 mg/dL (65-115); Osmolality Calculated 286 mOsm/kg (285-295); Potassium 5.1 mmol/L (3.5-5.1); Sodium 135 mmol/L (136-145)
[2020-03-16] MEDS: metroNIDAZOLE 500 MG Tablet PO ×2 (09:28→13:46)
[2020-03-16] MEDS: levoFLOXacin 750 mg Tablet PO (09:28)
[2020-03-16] MEDS: lisinopril 20 mg Tablet PO (09:28)
[2020-03-16] MEDS: pantoprazole DR 40 mg Tablet PO (09:28)
[2020-03-16] MEDS: metoprolol tartrate 25 mg Tablet PO (09:28)
[2020-03-16] MEDS: thiamine 100 mg Tablet PO (09:28)
[2020-03-16 11:38] LABS: Glucose Point of Care 287 mg/dL (70-110)
--- NOTE | 2020-03-16 11:42 | P.DS_ITS ---
Discharge Providers Date of Admission: 03/08/20 23:04 Date of Discharge: March 16, 2020 Attending Provider at Admission: Marco Antonio Fernando MD Attending Provider at Discharge: Marco Antonio Fernando MD Primary Care Provider: Yaritza Pizarro DO Diagnoses at Discharge Discharge Diagnosis (1) COPD (chronic obstructive pulmonary disease): Status: Acute Problem details: Exacerbation resolved. No steroid needed at discharge. Qualifiers: COPD type: COPD with acute exacerbation Qualified Code(s): J44.1 - Chronic obstructive pulmonary disease with (acute) exacerbation (2) Acute kidney injury: Status: Resolved Problem details: Resolved (3) Diarrhea: Status: Resolved Problem details: CT consistent with colitis. C. difficile negative. 7 days of Levaquin and Flagyl on discharge. Qualifiers: Diarrhea type: unspecified type Qualified Code(s): R19.7 - Diarrhea, unspecified (4) Transaminitis: Status: Resolved Reason for Visit Reason for Visit: sob/urgent care ref Hospital Course Hospital Course: Albert is a 60-year-old white male who presented to the hospital on March 08 with renal failure, polysubstance use. CT scan was obtained and colitis was of concern so antibiotics were added. While in the hospital he had worsening wheezing thought to be a COPD exacerbation and steroids were added. He also received psychiatry consult for depression. During the rest of his hospital stay he gradually improved. On March 16 it was thought he could be discharged home. Home oxygen evaluation prior to discharge. He will finish 7 more days of antibiotics. He was counseled not to use alcohol drugs or tobacco. Nystatin prescribed for thrush at discharge. He will also need psychiatry follow-up. He was written a prescription for limited number of Ativan on discharge as per psychiatry recommendations for anxiety. Physical Exam Narrative: EXAM NARRATIVE: General exam no apparent distress. Oropharynx demonstrates thrush Cardiovascular regular rate and rhythm without murmur Lungs clear. Diminished breath sounds are noted bilaterally. No wheezing or crackles Abdomen is soft with positive bowel sounds Extremities no sinus clubbing or edema Urinary Catheter Management^: Thompson: Cath Placed During This Visit: yes, but has since been removed by the nurse Reason for Continuing Indwelling Catheter: Not indwelling catheter Urinary Catheter Date of Insertion: 03/08/20 Date Urinary Catheter Removed: 03/12/20 Time Urinary Catheter Discontinued: 21:20 Discharge Data Data Completed and Pending: Completed Studies During Hospitalization Category Date Time Status CT abdomen pelvis wo con [id number] Urge nt Cat Scan 03/09/20 01:18 Completed XR chest 1V trixie ble [id number] Urgent Exams 03/08/20 18:47 Completed XR chest 1V trixie ble [id number] Urgent Exams 03/10/20 21:09 Completed Labs from last 24 hours 03/16/20 03/16/20 03/16/20 11:29 06:06 05:03 WBC RBC Hgb Hct MCV MCH MCHC RDW Plt Count MPV Neut % (Auto) Lymph % (Auto) [place] % (Auto) Eos % (Auto) Baso % (Auto) Neut # (Auto) Lymph # (Auto) [place] # (Auto) Eos # (Auto) Baso # (Auto) Nucleated RBC % (a uto) Nucleated RBCs # Sodium 135 L Potassium 5.1 Chloride 101 Carbon Dioxide 28 Anion Gap 11.1 BUN 37 H Creatinine 1.0 GFR Calculation 76.2 L Glucose 254 H POC Glucose 287 214 Calculated Osmolal ity 286 Calcium 8.7 Misc Test Referenc e 03/16/20 03/15/20 03/15/20 05:03 21:01 16:37 WBC 15.5 H RBC 5.08 Hgb 14.2 Hct 45.3 MCV 89.2 MCH 28.0 MCHC 31.3 RDW 14.6 Plt Count 270 MPV 10.4 Neut % (Auto) 84.1 Lymph % (Auto) 8.3 [place] % (Auto) 5.9 Eos % (Auto) 0.0 Baso % (Auto) 0.1 Neut # (Auto) 13.02 H Lymph # (Auto) 1.3 [place] # (Auto) 0.9 Eos # (Auto) 0.0 Baso # (Auto) 0.0 Nucleated RBC % (a uto) 0 Nucleated RBCs # 0.0 Sodium Potassium Chloride Carbon Dioxide Anion Gap BUN Creatinine GFR Calculation Glucose POC Glucose 372 238 Calculated Osmolal ity Calcium Misc Test Referenc e 03/15/20 03/09/20 11:22 01:50 WBC RBC Hgb Hct MCV MCH MCHC RDW Plt Count MPV Neut % (Auto) Lymph % (Auto) [place] % (Auto) Eos % (Auto) Baso % (Auto) Neut # (Auto) Lymph # (Auto) [place] # (Auto) Eos # (Auto) Baso # (Auto) Nucleated RBC % (a uto) Nucleated RBCs # Sodium Potassium Chloride Carbon Dioxide Anion Gap BUN Creatinine GFR Calculation Glucose POC Glucose 213 Calculated Osmolal ity Calcium Misc Test Referenc e See comment Vitals: Last Vital Signs Temp 97.5 F L 03/16/20 11:00 Pulse 94 03/16/20 11:00 Resp 18 03/16/20 11:00 BP 129/90 03/16/20 11:00 Pulse Ox 99 03/16/20 11:00 Discharge Plan Discharge Patient Disposition: Home Condition: Stable Prescriptions: New Ativan 1 mg tablet 1 mg PO DAILY PRN (Reason: anxiety) Qty: 10 RF: 0 thiamine mononitrate (vit B1) [Vitamin B-1 (mononitrate)] 100 mg Tablet 100 mg PO DAILY Qty: 30 RF: 0 levofloxacin 750 mg Tablet 750 mg PO DAILY Qty: 7 RF: 0 metronidazole 500 mg Tablet 500 mg PO TID Qty: 21 RF: 0 nystatin 100,000 unit/mL suspension 4 ml BUCCAL QID 14 Days Qty: 224 RF: 0 metoprolol tartrate 25 mg Tablet 25 mg PO BID Qty: 60 RF: 0 lisinopril 20 mg Tablet 20 mg PO BID Qty: 60 RF: 0 hydralazine 25 mg Tablet 25 mg PO Q8H Qty: 90 RF: 0 Continued metformin 500 mg tablet extended release 24 hr 500 mg PO DAILY Qty: 30 RF: 0 nitroglycerin [Nitrostat] 0.4 mg tablet, sublingual 0.4 mg SUBLINGUAL Q5M PRN (Reason: Chest Pain) RF: 0 [id number] Tablet 1 tab PO DAILY RF: 0 Singulair 10 mg tablet 10 mg PO DAILY Qty: 30 RF: 2 aspirin 325 mg tablet 325 mg PO DAILY RF: 0 albuterol sulfate 2.5 mg /3 mL (0.083 %) solution for nebulization 2.5 mg INHALATION Q4H PRN (Reason: shortness of breath or wheezing) Qty: 3 RF: 0 Anoro Ellipta 62.5-25 mcg/actuation blister with device 1 inh INHALATION DAILY Qty: 60 RF: 3 omeprazole 20 mg capsule,delayed release(DR/EC) 20 mg PO DAILY Qty: 14 RF: 0 paroxetine HCl 20 mg tablet 20 mg PO DAILY Qty: 14 RF: 0 gabapentin 100 mg capsule 200 mg PO TID Qty: 126 RF: 0 albuterol sulfate [ProAir HFA] 90 mcg/actuation HFA aerosol inhaler 1 inh INHALATION QID PRN (Reason: shortness of breath or wheezing) Qty: 18 RF: 0 Discontinued meloxicam 15 mg tablet 15 mg PO DAILY Qty: 30 RF: 1 lisinopril 5 mg tablet 5 mg PO DAILY Qty: 14 RF: 0 Discharge Orders: Discharge Order (Routine); Ordered 03/16/20 Ordered By: Marco Antonio Fernando Referrals: Yaritza Pizarro DO [Primary Care Provider] - 4-7 days Discharge Diet: Cardiac Discharge Activity: Increase activity as tolerated Activity Restrictions/Additional Instructions: Home oxygen evaluation prior to discharge. Avoid alcohol, drugs and tobacco. Please give rehabilitation information from discharge planning prior to disc harge. Follow-up 3 to 5 days. Please arrange for outpatient psychiatry follow- up within the next week for depression, refills of Ativan if appropriate. Discharge Attestations Time Spent in Discharge Care*: greater than 30 min Status at Discharge: Cognitive status at discharge: cognitively intact , Behavioral status at discharge: cooperative , Quality Metrics Clinical Quality Measures During this hospital stay, did patient experience: None Coding Level of Care Code Acute Plunger Machine Operator for Cony Cameron Diagnoses COPD (chronic obstructive pulmonary disease) J44.1 COPD type: COPD with acute exacerbation Acute kidney injury N17.9 Diarrhea R19.7 Diarrhea type: unspecified type Transaminitis R74.0
--- NOTE | 2020-03-16 15:03 | PC.NURSE ---
patient refused to wear oxygen pt stated he did not need it, patient does become anxious with sob episodes. patients daughter has arrived before HOME has brought over the oxygen a couple times already. patient and patients family upset that the oxygen has not been brought over yet. Photographic Processor informed them it was a process that took time. patient refused to wait for oxygens arrival and left after signing d/c papers. appeals writer called Mark (case management director) to inform him that pt said if he was going to get oxygen they would have to bring it out to his house because he is leaving without it.
== END 2020-03-16 14:30 | disposition home or self-care (01) | DRG 683 ==
LOC: ER 23:06 → ICU 23:34 → MEDSURG 03-10 16:48
PROVIDERS: Emergency Medicine; Family Medicine; Internal Medicine; Admitting Provider Internal Medicine; PCP Family Medicine; Visit Provider Internal Medicine
DX: N17.9 Acute kidney failure, unspecified (principal); J44.1 Chronic obstructive pulmonary disease with (acute) exacerbation; F32.1 Major depressive disorder, single episode, moderate; M62.82 Rhabdomyolysis; E87.2 Acidosis; E87.1 Hypo-osmolality and hyponatremia; K52.9 Noninfective gastroenteritis and colitis, unspecified; Z98.1 Arthrodesis status; K21.9 Gastro-esophageal reflux disease without esophagitis; I25.10 Atherosclerotic heart disease of native coronary artery without angina pectoris; E78.5 Hyperlipidemia, unspecified; E11.22 Type 2 diabetes mellitus with diabetic chronic kidney disease; E11.65 Type 2 diabetes mellitus with hyperglycemia; I12.9 Hypertensive chronic kidney disease with stage 1 through stage 4 chronic kidney disease, or unspecified chronic kidney disease; N18.2 Chronic kidney disease, stage 2 (mild); R91.8 Other nonspecific abnormal finding of lung field; I25.5 Ischemic cardiomyopathy; Z90.49 Acquired absence of other specified parts of digestive tract; F17.210 Nicotine dependence, cigarettes, uncomplicated; F12.10 Cannabis abuse, uncomplicated; F11.10 Opioid abuse, uncomplicated; Z79.51 Long term (current) use of inhaled steroids; Z79.84 Long term (current) use of oral hypoglycemic drugs; F40.240 Claustrophobia; E86.0 Dehydration
CPT/HCPCS: 12345; 36415; 36416; 36600; 51702; 71045; 74176; 80048; 80053; 80074; 80202; 81001; 82274; 82550; 82803; 82962; 83605; 83880; 84484; 85025; 85610; 87040; 87086; 87340; 87426; 87493; 87506; 87522; 87806; 93005; 94640; 94660; 94762; 96372; 96375; 99283; J0360; J0696; J1815; J2060; J2920; J2930; J3370; J3535; J7030; J7050; J7611; S0030

== ENCOUNTER 2020-06-24 15:07 | Outpatient (CLI) | payer MEDICARE, SELFPAY ==
--- NOTE | 2020-06-24 15:16 | XR_ITS ---
WS: [id number] XR chest 2V* [id number] REASON FOR EXAM: DYSPNEA/COPD/COUGH FINDINGS: The chest is unchanged compared to previous examination of 03/10/2020. Normal heart size. Calcified granulomatous disease both hemithoraces. Previous coronary artery bypass surgery. There is flattening of the hemidiaphragms and increased lucency in the lower lung romano compatible h yperexpansion indicating obstructive lung disease. On the lateral view of the chest there is a band o f density projected over the heart which likely represents a combination of chronic atelectasis in th e lingular and right middle lobe segments. No acute abnormality identified. XR/XR chest 2V* [id number] IMPRESSION: Findings compatible with chronic obstructive lung disease. Probable chronic partial atelectasis right middle lobe and lingular segment of the left upper lobe.
== END 2020-06-24 15:08 | disposition home or self-care (01) ==
PROVIDERS: PCP Nurse Practitioner Family; Visit Provider Nurse Practitioner Family
DX: R06.00 Dyspnea, unspecified (principal); J44.9 Chronic obstructive pulmonary disease, unspecified; R05 Cough
CPT/HCPCS: 71046

== ENCOUNTER 2020-07-19 08:00 | Outpatient (CLI) | payer MEDICARE, SELFPAY ==
--- NOTE | 2020-07-19 08:54 | ECG_ITS ---
[facility] Test Date: 2020-07-19 Pat Name: Albert Hernandez Department: Room: Gender: Male Master Welder: : 1960 Requested By: Francisco J Brady Order Number: [id number] Nahun MD: Tavo Martin M.D. Interpretive Statements NAME OF STUDY: LEXISCAN SESTAMIBI STRESS TEST INDICATION: Chest Pain; Dyspnea, PROCEDURE: At the baseline, the EKG revealed sinus tachycardia with a rate of 115 bpm. Poor R wave progression. Some features of LVH. Diffuse nonspecific ST-T changes. The baseline blood pressure was 151/100 mm Hg with a heart rate of 115 beats/min. Lexiscan was infused over a period of 20 seconds. A total of 0.4 milligrams of Lexiscan was infused. The stress phase was continued for a total of 5 minutes. Heart rate at the end of the stress phase was 128 with a blood pressure 163/102. The EKG at the peak infusion revealed no significant changes. Sestamibi was injected 20 seconds after the Lexiscan infusion. Blood pressure at the end of the recovery phase was 168/100 with a heart rate of 132 per minute. CONCLUSION: 1. No significant EKG changes with the LexiScan infusion 2. No LexiScan induced chest pain or cardiac arrhythmia 3. Normal blood pressure and heart rate response 4. Sestamibi/sestamibi perfusion scan pending; see separate report. Electronically Signed On 07-20-2020 10:17:15 QUILL CLEANING MACHINE OPERATOR by Tavo Martin M.D. [id number]
--- NOTE | 2020-07-19 08:55 | NMCV_ITS ---
NM segundo perf SPECT r/s* [id number] Albert Hernandez Age: 60 Gender: M : 1960 Exam Date: 07/19/2020 09:23 Ordering Phys: Francisco J Brady NP Technologist: KYM Henley Exam Location: [facility] Indications: COUGH, DYSPNEA, COPD STRESS TEST Please see separate stress test report in [facility] for full findings IMAGE PROTOCOL Rest/Stress 1 Lexiscan Day Radiopharmaceutical Dose (mCi) Administration Site Administered by Rest: Tc-99m 10.7 IV KYM Mesa Sestamibi Stress:Tc-99m 32.3 IV KYM Mesa Sestamibi Rest: 19-Jul-2020 60 Discovery 630 Stress: 19-Jul-2020 30 Discovery 630 0.4mg Lexiscan. Images obtained in supine and prone position. SPECT RESULTS Technical Quality: Excellent Raw Data Analysis: Normal Image Corrections: No attenuation or motion correction applied Summed Stress Score: 7 Summed Rest Score: 6 Summed Difference Score: 3 PERFUSION FINDINGS Small to moderate area of decreased tracer uptake in the mid anteroseptal and apical segments including the LV apex. Subtle area of reversibility was noted in the apical septal and apical anterior regions. FUNCTIONAL RESULTS (calculated via Gated SPECT) Stress Image LV EF (%): 51 Stress EDV (mL):85 TID: 0.98 Stress ESV (mL):42 FUNCTIONAL FINDINGS: Segmental wall motion analysis revealed a mild diffuse hypokinesia of the anterior wall and the LV apex. IMPRESSIONS 1. Myocardial perfusion may revealing a small to moderate area of persistent decreased uptake in the apical segments with a subtle area of reversibility in the apical anterior and apical lateral region, suggestive of myocardial scarring in the distribution of the distal left anterior descending and circumflex arteris the very subtle areas of chris-infarction ischemia. 2. Normal LV ejection fraction 51%. 3. Wall motion abnormalities as mentioned above. 4. Near normal LV volume. Compared to the previous study from 02/26/2019, the area of ischemia appears to be much less Dr Tavo Martin MD [facility] (Electronically Signed) Final Date: 20 July 2020 09:56 S
[2020-07-19 08:56] VITALS: BMI 28.2
[2020-07-19] MEDS: regadenoson 0.4 Mg/5 ml Syringe IVP (10:16)
[2020-07-19 10:37] VITALS: BP 168/100; PULSE 126
== END 2020-07-19 08:01 | disposition home or self-care (01) ==
LOC: CDL 08:06
PROVIDERS: PCP Nurse Practitioner Family; Visit Provider Nurse Practitioner Family
DX: R05 Cough (principal); R06.00 Dyspnea, unspecified; J44.9 Chronic obstructive pulmonary disease, unspecified
CPT/HCPCS: 78452; 93017; A9500; J2785

== ENCOUNTER 2020-09-06 10:55 | Outpatient (CLI) | payer MEDICARE, SELFPAY ==
--- NOTE | 2020-09-06 11:08 | CT_ITS ---
WS: [id number] LDCT LUNG CANCER SCREENING HISTORY: NICOTINE DEPENDENCE,CIGARETTES TECHNIQUE: Axial imaging performed from the apices to 1 cm below the costophrenic angles. Coronal and sagittal reformats are submitted with axial MIP series. All CT scans at [facility] use at least one of these dose optimization techniques: automated exposure control; mA and/or kV adjustment per patient size (includes targeted exams where dose is matched to clinical indication); or iterativ e reconstruction. DLP: 55.77 mGy.cm DIvol: 1.58 mGy COMPARISON: 09/19/2019, 09/12/2015 Diagnostic quality: Satisfactory Lung Nodules: There are several spiculated nodules in the LEFT upper lobe. Nodules are slightly spicu lated with the largest measuring 7 mm. These nodules have increased in size since 09/12/2015. The subpl eural cavitary lesion described on the most recent CT of 09/19/2019 and the superior LEFT lower lobe i s nearly resolved. There is a soft tissue nodule with adjacent pleural thickening and tethering measu ring 10 mm near the prior cavity location. There is an additional stable 5 mm nodule on image 87 of s eries 3 in the anterior LEFT upper lobe. Additional 5 mm nodule in the anterior RIGHT upper lobe, familia ge 102 of series 3. Linear 11 mm nodule in the RIGHT lower lobe, image 192 of series 3. Soft tissue t hickening along the posterior wall of the very proximal RIGHT mainstem bronchus, best seen on image 9 1 of series 3. Endobronchial lesion measures 7 mm. Lungs: Chronic emphysema. No bronchiectasis. Heart: Normal size. Prior median sternotomy. Other findings: Small hiatal hernia. CT/CT lung screening [id number] IMPRESSION: LUNG-RADS: 4A-Probably Suspicious FOLLOW UP: 3 Month LDCT OTHER FINDINGS (S MODIFIER): None.
== END 2020-09-06 10:56 | disposition home or self-care (01) ==
LOC: CT 10:56
PROVIDERS: PCP Nurse Practitioner Family; Visit Provider Family Medicine
DX: Z12.2 Encounter for screening for malignant neoplasm of respiratory organs (principal); F17.210 Nicotine dependence, cigarettes, uncomplicated; R91.8 Other nonspecific abnormal finding of lung field; K44.9 Diaphragmatic hernia without obstruction or gangrene; J43.9 Emphysema, unspecified
CPT/HCPCS: 71271

== ENCOUNTER 2020-09-24 18:46 | Emergency (ER) | payer MEDICARE, SELFPAY ==
--- NOTE | 2020-09-24 18:48 | XRR_ITS ---
PROCEDURE INFORMATION: Exam: XR Chest Exam date and time: 09/24/2020 6:49 PM Age: 60 years old Clinical indication: Chest pain; Prior surgery; Surgery date: 6+ months; Surgery type: Cabg; Additional info: Cp TECHNIQUE: Imaging protocol: XR of the chest Views: 1 view. COMPARISON: CR XR chest 2V* [id number] 06/24/2020 3:24 PM FINDINGS: Tubes, catheters and devices: Intact sternal wires. Lungs: The lungs are mildly hyperinflated. Trace scattered scarring. No focal consolidation or signs of pulmonary edema. Pleural spaces: Unremarkable. No pleural effusion. No pneumothorax. Heart/Mediastinum: The cardiac shadow is normal in size. Postsurgical changes of the anterior mediastinum. Bones/joints: No acute abnormality. XR/XR chest 1V portable [id number] IMPRESSION: No acute findings.
--- NOTE | 2020-09-24 18:49 | ECG_ITS ---
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 Measurements Intervals [place] Rate: 113 P: 91 LA: 132 QRS: 76 QRSD: 108 T: 58 QT: 330 QTc: 453 Interpretive Statements SINUS TACHYCARDIA POSSIBLE LEFT ATRIAL ENLARGEMENT [-0.1mV P WAVE IN V1/V2] NONSPECIFIC ST & T-WAVE ABNORMALITY Compared to ECG 03/08/2020 19:30:20 T-wave abnormality now present Left ventricular hypertrophy no longer present ST (T wave) deviation no longer present Electronically Signed On 09-25-2020 20:23:31 CDT by Roxana Allen M.D. [id number]
[2020-09-24 19:01] VITALS: BP 135/85; PULSE 123; RESP 14; TEMP 36.9; O2SAT 98
[2020-09-24] MEDS: HYDROcodone-acetaminophen 10-325 mg Tablet 1 TAB PO (19:16)
--- NOTE | 2020-09-24 19:18 | W.ED.CHESTPA ---
HPI - Chest Pain General: Chief Complaint: Chest Pain Stated Complaint: CP Time Seen by Provider: 09/24/20 19:03 Source: patient Mode of arrival: ambulatory Limitations: no limitations History of Present Illness: HPI narrative: 60-year-old male states been having left-sided chest pain over the last 3 days. He was seen by nurse practitioner 2 days ago and diagnosed with shingles. He does have large rash to the left side of his chest consistent with shingles. States it is a burning sharp pain that is been constant. He states that they placed him on antivirals but did not prescribe him any pain medicine. He states it is much worse with any touch. Denies any new shortness of breath. He does have a long history of COPD. Associated symptoms: Deny abdominal pain, dyspnea, fever(s), nausea or vomiting Review of Systems Const: Denies: fever(s), chills, body aches or change in appetite Eyes: Denies: blurry vision or eye discomfort ENMT: Denies: throat pain or dental pain Card: Reports: chest pain Resp: Denies: dyspnea GI: Denies: abdominal pain, nausea, vomiting or diarrhea : Denies: dysuria Musc: Denies: neck pain or back pain Skin/Breast: Reports: rash Neuro: Denies: headache(s) Psych: Denies: depression Chase/Lymph: Denies: easy bruising All/Imm: Denies: urticaria PFSH ED PFSH: Medical History (Updated 09/24/20 @ 19:14 by Sandeep Sanderson MD) Allergic rhinitis Cervical postlaminectomy syndrome Chronic GERD Colovesical fistula COPD, moderate Coronary artery disease History of drug dependence/abuse Hyperlipidemia, unspecified Hypertension Indeterminate pulmonary nodules Ischemic cardiomyopathy Lumbar spondylosis Major depressive disorder Other spondylosis, cervical region Vesicocutaneous fistula Surgical History H/O neck surgery History of open heart surgery S/P appendectomy S/P colon resection Family History Other CAD (coronary artery disease) Cancer Diabetes Social History Smoking and tobacco status: current every day smoker cigarettes Packs smoked per day: 0.5 Years cigarettes smoked: 25 Quit status (tobacco): has tried quititng Number of times tried to quit tobacco: 5 Second hand smoke exposure: No Smoking risk assessment/counseling performed?: Yes Alcohol intake: never Desire information about substance/drug rehabilitation?: No Counseling given: Yes Lives independently: Yes Household members: none Housing: House Marital status: Single service: No Current occupational status: disabled History of recent travel: No Current gender identity: Male Physical Exam Const: COMMON NORMALS: no acute distress, patient oriented x3 and healthy appearing HENMT: COMMON NORMALS: normocephalic and atraumatic HEAD & SCALP: normocephalic and atraumatic Eye: COMMON NORMALS: Equal, round and reactive pupils present and EOMs intact bilaterally PUPIL: Yes Equal, round and reactive pupils present Neck/C-Spine: COMMON NORMALS: full ROM and supple Chest: COMMONS NORMALS: normal inspection of the chest and normal palpation of entire chest wall Resp: COMMON NORMALS: normal respiratory effort, No retractions, No use of accessory muscles and clear to auscultation bilaterally AUSCULTATION: clear to auscultation bilaterally Cardio: COMMON NORMALS: regular rate, regular rhythm and No murmurs present (Cardio) RATE: regular rate RHYTHM: regular rhythm GI: COMMON NORMALS: Normal to inspection, nondistended, normoactive bowel sounds present, Soft to palpation, non-tender and no masses PALPATION: Yes Soft to palpation Extremity: COMMON NORMALS: normal to inspection and full ROM Neuro: COMMON NORMALS: patient oriented x3, moves all extremities and no focal motor deficits Psych: COMMON NORMALS: mental status grossly normal, Normal thought process present and cooperative THOUGHT PROCESS: Normal thought process present Skin: COMMON NORMALS: no wounds NARRATIVE SKIN EXAM: Shingles noted to the left chest wall. Course Vital Signs: Vital signs: Vital Signs Temperature 98.4 F 09/24/20 19:01 Pulse Rate 123 H 09/24/20 19:01 Respiratory Rate 14 09/24/20 19:01 Blood Pressure 135/85 09/24/20 19:01 Pulse Oximetry 98 09/24/20 19:01 MDM - Chest Pain MDM Narrative: Medical decision making narrative: Patient presents here with shingles to left chest. This is likely causing his chest pain. We will place him on Percocet and he is to continue his antivirals. He is stable for discharge. He has no signs of pneumonia or cardiac cause for his pain. Imaging Data^: CXR: Attestation: I personally reviewed and interpreted this imaging study as follows: My impression: No acute abnormality EKG Data^: EKG 1: Attestation: I personally reviewed and interpreted this EKG as follows: EKG interpretation date: 09/24/20 EKG interpretation time: 18:59 Interpretation: Sinus tachycardia heart rate [address] or T wave normalities QRS 108 QTc 397 Discharge Plan Discharge Patient Disposition: Home Clinical Impression: Shingles Qualifiers: Herpes zoster complications: without complications Qualified Code(s): B02.9 - Zoster without complications Condition: Stable Prescriptions: New Percocet 7.5-325 mg tablet 1 tab PO Q6H PRN (Reason: pain) Qty: 20 RF: 0 No Action fluticasone propion-salmeterol [Advair Diskus] 250-50 mcg/dose blister with device 1 inh INHALATION BID Qty: 60 RF: 3 metformin 500 mg tablet extended release 24 hr 500 mg PO DAILY Qty: 30 RF: 0 nitroglycerin [Nitrostat] 0.4 mg tablet, sublingual 0.4 mg SUBLINGUAL Q5M PRN (Reason: Chest Pain) RF: 0 [id number]-[id number] Tablet 1 tab PO DAILY RF: 0 Singulair 10 mg tablet 10 mg PO DAILY Qty: 30 RF: 2 aspirin 325 mg tablet 325 mg PO DAILY RF: 0 Spiriva Respimat 2.5 mcg/actuation mist 2 puff inhalation QAM 30 Days Qty: 4 RF: 4 albuterol sulfate 2.5 mg /3 mL (0.083 %) solution for nebulization 2.5 mg INHALATION Q4H PRN (Reason: shortness of breath or wheezing) Qty: 3 RF: 0 omeprazole 20 mg capsule,delayed release(DR/EC) 20 mg PO DAILY Qty: 14 RF: 0 paroxetine HCl 20 mg tablet 20 mg PO DAILY Qty: 14 RF: 0 gabapentin 100 mg capsule 200 mg PO TID Qty: 126 RF: 0 albuterol sulfate [ProAir HFA] 90 mcg/actuation HFA aerosol inhaler 1 inh INHALATION QID PRN (Reason: shortness of breath or wheezing) Qty: 18 RF: 0 lisinopril 20 mg Tablet 20 mg PO BID Qty: 60 RF: 0 hydralazine 25 mg Tablet 25 mg PO Q8H Qty: 90 RF: 0 metoprolol tartrate 25 mg Tablet 25 mg PO BID Qty: 60 RF: 0 Vitamin B-1 (mononitrate) 100 mg Tablet 100 mg PO DAILY Qty: 30 RF: 0 Ativan 1 mg tablet 1 mg PO DAILY PRN (Reason: anxiety) Qty: 10 RF: 0 Discharge Orders: Discharge ED (Routine); Ordered 09/24/20 Ordered By: Sandeep Sanderson Referrals: Francisco J Brady NP [Primary Care Provider] - 1-3 days Discharge Diet: Advance as tolerated Discharge Activity: Resume usual activity Patient Instructions: Herpes Zoster (ED), Opioid Safety, Shingles Coding Level of Care Code ED Controller Mechanic for Cony Cameron
== END 2020-09-24 19:26 | disposition home or self-care (01) ==
PROVIDERS: Emergency Provider Emergency Medicine; PCP Nurse Practitioner Family
DX: B02.9 Zoster without complications (principal); Z79.82 Long term (current) use of aspirin; J44.9 Chronic obstructive pulmonary disease, unspecified; I25.10 Atherosclerotic heart disease of native coronary artery without angina pectoris; E78.5 Hyperlipidemia, unspecified; I10 Essential (primary) hypertension; F17.210 Nicotine dependence, cigarettes, uncomplicated
CPT/HCPCS: 71045; 93005; 99283

== ENCOUNTER 2020-12-12 14:16 | Outpatient (CLI) | payer MEDICARE, SELFPAY ==
--- NOTE | 2020-12-12 14:55 | CT_ITS ---
WS: [id number] CT CHEST TECHNIQUE: Contrast enhanced CT of the chest with coronal and sagittal reformatted images. CLINICAL INFORMATION: WEIGHT LOSS, MULTIPLE NODULES OF LUNG COMPARISON: CT 09/06/2020 and 09/19/2019 DLP: 618.[address] scans at [facility] use at least one of these dose optimization techniques: automat ed exposure control; mA and/or kV adjustment per patient size (includes targeted exams where dose is matched to clinical indication); or iterative reconstruction. FINDINGS: Hyperinflation. Advanced chronic emphysematous changes. No acute pulmonary infiltrates. No consolidat ion or pleural fluid. Prior sternotomy. Aortic calcification. Normal caliber thoracic aorta. No mediastinal or hilar lymphadenopathy. No axil nubia lymphadenopathy. Adrenal glands are normal. Stable slightly spiculated 6 mm pulmonary nodule in the left upper lobe. Additional 5 mm lesion left upper lobe lesion may be fibrosis. Pleural thickenin g with spiculated lesion in the left lower lobe measuring 9 mm is unchanged. Stable small subpleural nodule left upper lobe measuring 4 mm. Previously described right lower lobe lesion has resolved. Pre viously described endobronchial lesion has resolved. CT/CT chest w con* [id number] IMPRESSION: 1. No significant interval changes since September 06, 2020. 2. Stable pulmonary nodules in the left upper and left lower lobes as describe d above. Recommend 6 month follow-up. 3. No mediastinal or hilar lymphadenopathy. 4. Moderate chronic emphysematous changes with hyperinflation.
[2020-12-12] MEDS: iohexol 300 mg/mL 100 mL Btl IV (15:12)
== END 2020-12-12 14:17 | disposition home or self-care (01) ==
PROVIDERS: PCP Nurse Practitioner Family; Visit Provider Nurse Practitioner Family
DX: R63.4 Abnormal weight loss (principal); R91.8 Other nonspecific abnormal finding of lung field
CPT/HCPCS: 71260; Q9967

== ENCOUNTER 2020-12-15 07:53 | Outpatient (CLI) | payer MEDICARE, SELFPAY ==
[2020-12-14 16:46] LABS: Basophils # 0.1 10^3/uL (0.0-0.1); Basophils % 0.7 %; Eosinophils # 0.2 10^3/uL (0.0-0.8); Eosinophils % 2.9 %; Hematocrit 38.9 % (42.0-52.0); Hemoglobin 11.9 g/dL (11.7-16.6); Lymphocytes # 1.5 10^3/uL (0.8-4.8); Lymphocytes % 19.9 %; Mean Corpuscular HGB Conc 30.6 g/dL (30.0-36.0); Mean Corpuscular Hemoglobin 29.8 pg (28.0-34.0); Mean Corpuscular Volume 97.5 fL (80-94); Mean Platelet Volume 11.6 fL (7.4-10.4); Monocytes # 0.9 10^3/uL (0.2-0.9); Monocytes % 11.5 %; Neutrophils # 4.94 10^3/uL (1.8-7.7); Neutrophils % 64.6 %; Nucleated Red Blood Cells % 0 %; Platelet Count 220 10^3/cmm (130-400); Red Blood Count 3.99 10^6/uL (4.1-5.3); Red Cell Distribution Width 13.6 % (12.1-15.1); White Blood Count 7.6 10^3/uL (4.0-10.0)
[2020-12-14 16:52] LABS: LAB Peripheral Smear Sent for Review
--- NOTE | 2020-12-15 07:58 | US_ITS ---
WS: [id number] ULTRASOUND SOFT TISSUES RIGHT inner thigh. HISTORY: SPONTANEOUS ECCHYMOSIS COMPARISON: None available. TECHNIQUE: 2-D and color Doppler imaging is submitted. Area of mixed echogenicity along the inner RIGHT thigh at the area of pain. There is enlargement of t he muscle and a focal mixed area of echogenicity centrally in the muscle measuring 3.9 x 2.2 cm. Find ings are suspicious for intramuscular hemorrhage. Underlying neoplasm cannot be excluded. US/US soft tissue/extremity [id number] IMPRESSION: 1. Findings are most consistent with intramuscular hematoma. With no history o f trauma this may be a spontaneous hemorrhage but underlying neoplasm should be considered. Also tendon rupture is a possibility. If this area does not improv e follow-up should be obtained. 2. If this abnormality persists consider follow-up MRI with and without contra st of the RIGHT thigh.
== END 2020-12-15 07:54 | disposition home or self-care (01) ==
LOC: RAD 07:54
PROVIDERS: PCP Nurse Practitioner Family; Visit Provider Family Medicine
DX: R23.3 Spontaneous ecchymoses (principal); D53.9 Nutritional anemia, unspecified
CPT/HCPCS: 36415; 76882; 80500; 85025

== ENCOUNTER 2021-01-11 10:22 | Outpatient (CLI) | payer MEDICARE, SELFPAY ==
--- NOTE | 2021-01-11 10:29 | XR_ITS ---
WS: [id number] CERVICAL SPINE TECHNIQUE: 3 views of the cervical spine CLINICAL INFORMATION: CERVICALGIA COMPARISON: None. FINDINGS: Straightening of the normal cervical lordosis. ACDF C4-C6. Disc space narrowing worse at C6-7. Normal prevertebral soft tissues. Hardware appears unchanged since 2013. Normal C1-C2 articulation. Daniel judge. XR/XR cervical spine 3V* [id number] IMPRESSION: 1. Straightening of the normal cervical lordosis. 2. Stable appearing ACDF C4-C6.. 3. Disc space narrowing worse at C6-7 unchanged since 2013. 4. Normal prevertebral soft tissues.
--- NOTE | 2021-01-11 10:29 | XR_ITS ---
WS: [id number] SKULL TECHNIQUE: 4 views of the skull CLINICAL INFORMATION: UNSPECIFIED INJURY OF HEAD COMPARISON: None. FINDINGS: Calvarium is normal in appearance. No visualized skull fractures. Normal visualized soft tissues. Rj al sinuses and mastoid air cells appear well aerated. Postoperative changes partially visualized in t he cervical spine. XR/XR skull min 4V* [id number] IMPRESSION: No acute calvarial findings.
== END 2021-01-11 10:23 | disposition home or self-care (01) ==
LOC: RADWPI 10:27
PROVIDERS: PCP Nurse Practitioner Family; Visit Provider Nurse Practitioner Family
DX: S09.90XA Unspecified injury of head, initial encounter (principal); X58.XXXA Exposure to other specified factors, initial encounter; M54.2 Cervicalgia
CPT/HCPCS: 70260; 72040

== ENCOUNTER → 2021-06-21 17:21 | Outpatient (BNVA) | payer MEDICARE, SELFPAY | PROVIDERS: PCP Nurse Practitioner Family; Visit Provider Family Medicine | DX: E78.2 Mixed hyperlipidemia (principal); J44.1 Chronic obstructive pulmonary disease with (acute) exacerbation; R91.8 Other nonspecific abnormal finding of lung field; K21.9 Gastro-esophageal reflux disease without esophagitis; F33.2 Major depressive disorder, recurrent severe without psychotic features; J44.9 Chronic obstructive pulmonary disease, unspecified; F17.219 Nicotine dependence, cigarettes, with unspecified nicotine-induced disorders | CPT/HCPCS: 80053; 80061; 83036; 84153; 85025 ==

== ENCOUNTER → 2021-09-05 13:32 | Outpatient (BNVA) | payer MEDICARE, SELFPAY | PROVIDERS: PCP Family Medicine; Visit Provider Urology | DX: R97.20 Elevated prostate specific antigen [PSA] (principal); M54.16 Radiculopathy, lumbar region; N32.1 Vesicointestinal fistula | CPT/HCPCS: 81003 ==

== ENCOUNTER → 2021-09-06 10:31 | Outpatient (BNVA) | payer MEDICARE, SELFPAY | PROVIDERS: PCP Family Medicine; Visit Provider Urology | DX: R97.20 Elevated prostate specific antigen [PSA] (principal); M54.16 Radiculopathy, lumbar region; N32.1 Vesicointestinal fistula | CPT/HCPCS: 84153 ==

== ENCOUNTER → 2022-01-11 14:55 | Outpatient (BNVA) | payer MEDICARE, SELFPAY | PROVIDERS: PCP Family Medicine; Visit Provider Family Medicine | DX: J44.9 Chronic obstructive pulmonary disease, unspecified (principal); M19.90 Unspecified osteoarthritis, unspecified site; M25.519 Pain in unspecified shoulder; G89.29 Other chronic pain; E11.22 Type 2 diabetes mellitus with diabetic chronic kidney disease; I10 Essential (primary) hypertension; N18.2 Chronic kidney disease, stage 2 (mild) | CPT/HCPCS: 80061; 83036; 85025 ==

== ENCOUNTER 2022-03-01 17:13 | Emergency (ER) | payer MEDICARE, SELFPAY ==
[2022-03-01 17:52] VITALS: BP 176/79; PULSE 111; RESP 24; TEMP 36.7; O2SAT 95; BMI 19.8
[2022-03-01 20:24] LABS: Basophils # 0.1 10^3/uL (0.0-0.1); Basophils % 0.8 %; Eosinophils # 0.1 10^3/uL (0.0-0.8); Eosinophils % 1.2 %; Hematocrit 53.4 % (42.0-52.0); Hemoglobin 16.4 g/dL (11.7-16.6); Lymphocytes # 1.6 10^3/uL (0.8-4.8); Lymphocytes % 24.4 %; Mean Corpuscular HGB Conc 30.7 g/dL (30.0-36.0); Mean Corpuscular Hemoglobin 32.5 pg (28.0-34.0); Mean Platelet Volume 12.1 fL (7.4-10.4); Monocytes # 0.6 10^3/uL (0.2-0.9); Monocytes % 9.4 %; Neutrophils # 4.22 10^3/uL (1.8-7.7); Neutrophils % 63.9 %; Nucleated Red Blood Cells % 0 %; Platelet Count 135 10^3/cmm (130-400); Red Blood Count 5.04 10^6/uL (4.1-5.3); Red Cell Distribution Width 13.1 % (12.1-15.1); White Blood Count 6.6 10^3/uL (4.0-10.0)
--- NOTE | 2022-03-01 20:32 | CTR_ITS ---
PROCEDURE INFORMATION: Exam: CT Abdomen And Pelvis Without Contrast Exam date and time: 03/01/2022 8:43 PM Age: 62 years old Clinical indication: Abdominal pain; Acute; Prior surgery; Surgery date: 6+ months; Surgery type: Gastric, colon, cabg, hernia repair; Additional info: Abd pain TECHNIQUE: Imaging protocol: Computed tomography of the abdomen and pelvis without contrast. Radiation optimization: All CT scans at this facility use at least one of these dose optimization techniques: automated exposure control; mA and/or kV adjustment per patient size (includes targeted exams where dose is matched to clinical indication); or iterative reconstruction. COMPARISON: CT abdomen pelvis wo con [id number] 03/09/2020 2:08 AM RADIATION DOSE METRICS: Total DLP (mGy-cm): 325.31 FINDINGS: Lungs: Centrilobular emphysema in the lung bases. Liver: The liver is normal. Gallbladder and bile ducts: The gallbladder is normal. There is no biliary dilation. Pancreas: The pancreas is unremarkable. Spleen: The spleen is unremarkable. Adrenal glands: The adrenal glands are unremarkable. Kidneys and ureters: The kidneys are unremarkable. No hydronephrosis or stones. No ureteral dilation. Stomach and bowel: The stomach is decompressed, preventing meaningful evaluation of wall thickness. The small bowel is nondilated. There is mild descending colonic diverticulosis without evidence of diverticulitis. Unremarkable sigmoid anastomosis. Appendix: The appendix is not visible. Intraperitoneal space: Unremarkable. No free air. No significant fluid collection. Vasculature: There is mild aortic atherosclerotic disease. Lymph nodes: There is no lymphadenopathy in the retroperitoneum, mesentery, pelvis or inguinal regions. Urinary bladder: The urinary bladder is decompressed, preventing meaningful evaluation of wall thickness. Reproductive: The prostate and seminal vesicles are unremarkable. Bones/joints: There is mild degenerative disease in the lower lumbar spine. The pelvis and hips are unremarkable. Soft tissues: Intact lower abdominal ventral hernia repair. CT/CT abdomen pelvis wo con [id number] IMPRESSION: 1. No acute findings. 2. Incidental findings above.
--- NOTE | 2022-03-01 20:33 | ECG_ITS ---
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 Measurements Intervals [place] Rate: 87 P: 88 HI: 144 QRS: 84 QRSD: 101 T: 81 QT: 359 QTc: 432 Interpretive Statements SINUS RHYTHM POSSIBLE RIGHT ATRIAL ENLARGEMENT [0.25mV P-WAVE] POSSIBLE LEFT ATRIAL ENLARGEMENT [-0.1mV P-WAVE IN V1/V2] ST DEVIATION AND MODERATE T-WAVE ABNORMALITY, CONSIDER LATERAL ISCHEMIA [-0.1+ mV T-WAVE IN I/aVL/V5/V6] Compared to ECG 09/24/2020 18:59:24 Possible ischemia now present Sinus tachycardia no longer present T-wave abnormality still present Electronically Signed On 03-03-2022 9:26:43 CDT by Mark Brower M.D. [id number]
--- NOTE | 2022-03-01 20:35 | ED_ITS ---
HPI - Abdominal Pain General: Chief Complaint: Abdominal Pain Stated Complaint: right foot swollen, sent by urgent care Time Seen by Provider: 03/01/22 19:59 Source: patient Mode of arrival: ambulatory Limitations: no limitations History of Present Illness: This patient presents to the emergency department as directed by urgent care. Patient has a couple of distinct problems that he is apparently seeking care regarding. He has been having we did or so abdominal pain. He states he is knows he has abdominal wall hernias and they have swollen up and gone back down. He states he has had increasing pain over the past week or so and felt like he has had inability to eat without getting early satiety and states he also has had decreased volume in his stools for that same period of time. He states he has had a history of bowel resection in the past.He also states he has had his right foot swollen recently and he is not sure what is causing that condition. He denies any trauma. He states he does spend a lot of time in a recliner and does not elevate his feet very much but he has no swellin g of his left foot. He has a history of diabetes and coronary artery disease. He has previously had a coronary artery bypass. He is on 3 L of oxygen continuously and also still smokes on occasion. MD elicited complaint: abdominal pain Pain Consistency: intermittent Quality: aching Exacerbating factors: eating Associated Symptoms: Reports change in stool character and constipation; Denies chills, dysuria, fever(s), hematemesis and melena Review of Systems Const: Denies: fever(s) or chills Eyes: Denies: change in vision ENMT: Denies: throat pain, odynophagia, nasal discharge or nasal congestion Card: Reports: swelling of feet/ankles; Denies: chest pain, palpitations or irregular heart rhythm Resp: Reports: dyspnea (Chronic); Denies: productive cough or non-productive cough GI: Reports: abdominal pain, constipation and change in stool character; Denies: hematemesis or melena : Denies: flank pain, difficulty urinating or dysuria Musc: Denies: neck pain, back pain, extremity pain or extremity swelling Skin/Breast: Denies: rash or pruritus Neuro: Reports: numbness in extremities; Denies: headache(s) or weakness in extremities Chase/Lymph: Denies: easy bruising or easy bleeding PFSH ED PFSH: Medical History Allergic rhinitis Cervical postlaminectomy syndrome Chronic GERD Colovesical fistula Coronary artery disease History of drug dependence/abuse Hyperlipidemia, unspecified Hypertension Indeterminate pulmonary nodules Ischemic cardiomyopathy Lumbar spondylosis Major depressive disorder Other spondylosis, cervical region Vesicocutaneous fistula Surgical History H/O neck surgery History of open heart surgery S/P appendectomy S/P colon resection Family History Mother , at age 65 CHF (congestive heart failure) Father No problems noted. Other CAD (coronary artery disease) Cancer Diabetes Social History Smoking and tobacco status: never smoked Quit status (tobacco): has tried quititng Number of times tried to quit tobacco: 5 Second hand smoke exposure: No Smoking risk assessment/counseling performed?: Yes Alcohol intake: current Alcohol intake frequency: holidays/special occasions only Desire information about substance/drug rehabilitation?: No Counseling given: Yes Lives independently: Yes Household members: none Housing: House Marital status: / service: No Current occupational status: disabled History of recent travel: No Current gender identity: Male Physical Exam Narrative: EXAM NARRATIVE: The patient appears to be comfortable. He makes good eye contact. Speech is fluent. Const: COMMON NORMALS: no acute distress and alert GENERAL APPEARANCE: cooperative and comfortable NUTRITIONAL APPEARANCE: underweight HENMT: COMMON NORMALS: normocephalic, atraumatic, Normal nasal mucous membranes and turbinates present and moist oral mucous membranes HEAD & SCAL P: normocephalic and atraumatic NOSE: Normal nasal mucous membranes and turbinates present Eye: COMMON NORMALS: Equal, round and reactive pupils present, EOMs intact bilaterally, conjunctivae normal and no scleral icterus CONJUNCTIVA: Yes conjunctivae normal PUPIL: Yes Equal, round and reactive pupils present Neck/C-Spine: COMMON NORMALS: full ROM, no JVD and No carotid bruits Chest: COMMONS NORMALS: normal inspection of the chest and normal palpation of entire chest wall Resp: COMMON NORMALS: No retractions and No use of accessory muscles EFFORT & INSPECTION: Yes able to speak in complete sentences AUSCULTATION: no crackles, no rales, no rhonchi, no wheezes and diminished lung sounds Cardio: COMMON NORMALS: no JVD, regular rate, regular rhythm, No murmurs present (Cardio) and Peripheral pulses 2+ throughout RATE: regular rate RH YTHM: regular rhythm PERIPHERAL PULSES: Peripheral pulses 2+ throughout GI: OTHER: Abdomen is soft but there is tenderness in the epigastric and left upper quadrant.. No masses at this time. No rebound or guarding.. : COMMON NORMALS: Yes no CVA tenderness BLADDER/KIDNEY EXAM: Yes no CVA tenderness Back/Pelvis: COMMON NORMALS: no CVA tenderness, no thoracic nor lumbar tenderness and thoraco-lumbar ROM normal Extremity: COMMON NORMALS: normal to inspection, capillary refill normal and no calf tenderness NARRATIVE EXTREMITY EXAM: Extremity examination is remarkable for swelling of the right foot. Left foot is normal in appearance. The edema is easily indented. Pulses are noted and palpable on the right and comparable to that on the left in the dorsalis pedis and posterior tibial. He has no swelling proximal to the ankle on the right foot. There is no calf tenderness on either side. He has normal range of motion. He has diminished sensation bilaterally. Neuro: COMMON NORMALS: moves all extremities and no focal motor deficits SENSORIUM/ORIENTATION: Yes alert SPEECH: speech normal SENSORY EXAM: Yes extremities (He has diminished sensation to touch bilateral lower extremity) Psych: COMMON NORMALS: mental status grossly normal, Normal thought process present, cooperative, speech normal, denies hallucinations, denies homicidal ideation and denies suicidal ideation ATTITUDE: Yes calm and Yes engaged SPEECH: Yes normal speech THOUGHT PROCESS: Normal thought process present THOUGHT CONTENT: Yes Normal thought content present Skin: COMMON NORMALS: no rashes or lesions noted, turgor normal and no petechiae GENERAL SKIN EXAM: no rashes or lesions noted and turgor normal Procedures Time Out Performed: No Consent for Procedure(s): Consent obtained from patient Procedure(s): Using portable bedside ultrasound and the high-frequency linear probe the the deep venous structures of the right lower extremity were evaluated. At the popliteal fossa at the trifurcation all 3 vessels were visualized to be patent and easily compressible. At the anterior thigh the deep femoral vessels to include a deep femoral vein and superficial femoral vein were evaluated and tracked distally. They were easily compressible a long there distal course. No evidence of DVT by bedside ultrasound at this time. Course Reevaluation(s): Reevaluation #1: JEANNE was completed by the RN. Both lower extremities equal 1 making that are extremely low risk for significant peripheral artery disease at this time. I do not feel that his right foot is swollen for any other etiology other than probably some dependent edema as he readily admits he has been keeping his legs dangling while sitting in the recliner and he may in fact have been crossing his legs which resulted in unilateral swelling. Certainly no evidence to suggest arterial or venous contributions to the swelling and there is no suggestion of infection at this time. Time: 21:33 Reevaluation #2: Patient remained stable at this time without any evidence of chest pain ongoing abdominal pain or other concerns. Time: 22:38 Vital Signs: Vital signs: Vital Signs Temperature 98.0 F 03/01/22 17:52 Pulse Rate 111 H 03/01/22 17:52 Respiratory Rate 14 03/01/22 21:14 Blood Pressure 155/93 03/01/22 20:56 Pulse Oximetry 95 03/01/22 17:52 MDM - Abdominal Pain Medical Decision Making This patient presented to our emergency department after going to the urgent care clinic today. He had been having some abdominal pains that he thought he might be having an issue with a hernia that he had previously. He also has some isolated right foot swelling over the last 24 hours that he was concerned about. His evaluation here was unremarkable for any evidence of intra-abdominal proce ss on his CT scan to include bowel obstruction, etc. His JEANNE and venous Doppler were also reassuring and I think that his right foot swelling was likely due to his dependent edema or swelling of the right foot isolated because of him crossing his legs in the recliner. Of concern was that he had a initial troponin that was elevated and EKG that showed some ST depressions in the lateral precordial leads. The patient had no ongoing chest pain but he was advised that its be more prudent for us to continue observation and repeat additional troponins and electrocardiograms to determine if he had ongoing ischemia, etc. After hearing this recommendation the patient stated that under no circumstances would he stay in the hospital any longer. He states he was ready to go home. I discussed the risks of such course to include loss of current lifestyle and/or . He acknowledged the discussion and was able to tell me that he understood that there was some risk but he knew that that would come eventually no matter what. He did not appear or express symptoms of suggest he was under the influence of drugs or alcohol and had intact decision- making capacity. His speech was always logical and flowing and he made good eye contact throughout our entire conversation. Patient was told that he was welcome to return to the emergency department anytime and we welcomed him to return and we further encouraged him to stay at this time. He was appreciative of care but decided to be discharged from the emergency department. Lab Data I reviewed the patient's lab results. : 03/01/22 20:17 03/01/22 20:17 Labs/Radiology: Radiology Impressions Abdomen/Pelvis CT 03/01/22 20:32 IMPRESSION: 1. No acute findings. 2. Incidental findings above. Chest X-Ray 03/01/22 20:40 IMPRESSION: 1. No acute findings. 2. Large lung volumes consistent with known emphysema. Laboratory Results WBC 6.6 10^3/uL (4.0-10.0) 03/01/22 20:17 RBC 5.04 10^6/uL (4.1-5.3) 03/01/22 20:17 Hgb 16.4 g/dL (11.7-16.6) 03/01/22 20:17 Hct 53.4 % (42.0-52.0) H 03/01/22 20:17 MCV 106.0 fl (80-94) H 03/01/22 20:17 MCH 32.5 pg (28.0-34.0) 03/01/22 20:17 MCHC 30.7 g/dL (30.0-36.0) 03/01/22 20:17 RDW 13.1 % (12.1-15.1) 03/01/22 20:17 Plt Count 135 10^3/cmm (130-400) 03/01/22 20:17 MPV 12.1 fL (7.4-10.4) H 03/01/22 20:17 Neut % (Auto) 63.9 % 03/01/22 20:17 Lymph % (Auto) 24.4 % 03/01/22 20:17 Stokes % (Auto) 9.4 % 03/01/22 20:17 Eos % (Auto) 1.2 % 03/01/22 20:17 Baso % (Auto) 0.8 % 03/01/22 20:17 Neut # (Auto) 4.22 10^3/uL (1.8-7.7) 03/01/22 20:17 Lymph # (Auto) 1.6 10^3/uL (0.8-4.8) 03/01/22 20:17 Stokes # (Auto) 0.6 10^3/uL (0.2-0.9) 03/01/22 20:17 Eos # (Auto) 0.1 10^3/uL (0.0-0.8) 03/01/22 20:17 Baso # (Auto) 0.1 10^3/uL (0.0-0.1) 03/01/22 20:17 Nucleated RBC % (auto) 0 % 03/01/22 20:17 Nucleated RBCs # 0.0 /100WBC 03/01/22 20:17 Sodium 141 mmol/L (136-145) 03/01/22 20:17 Potassium 4.3 mmol/L (3.5-5.1) 03/01/22 20:17 Chloride 97 mmol/L (98-107) L 03/01/22 20:17 Carbon Dioxide 35 mmol/L (22-29) H 03/01/22 20:17 Anion Gap 13.3 (5-19) 03/01/22 20:17 BUN 23 mg/dL (8-23) 03/01/22 20:17 Creatinine 0.9 mg/dL (0.7-1.2) 03/01/22 20:17 GFR Calculation 85.5 mL/min (90-130) L 03/01/22 20:17 Glucose 92 mg/dL (65-115) 03/01/22 20:17 Calculated Osmolality 295 mOsm/kg (285-295) 03/01/22 20:17 Calcium 9.8 mg/dL (8.5-10.5) 03/01/22 20:17 Total Bilirubin 0.2 mg/dL (0.15-1.2) 03/01/22 20:17 AST 70 U/L (0-40) H 03/01/22 20:17 ALT 91 U/L (0-41) H 03/01/22 20:17 Alkaline Phosphatase 141 U/L (40-130) H 03/01/22 20:17 Troponin T Gen 5 ng/L 26 ng/L (0-15) H 03/01/22 20:17 Total Protein 7.8 g/dL (6.6-8.7) 03/01/22 20:17 Albumin 4.5 g/dL (3.5-5.2) 03/01/22 20:17 Globulin 3.3 g/dL (1.3-4.6) 03/01/22 20:17 Lipase 103 U/L (13-60) H 03/01/22 20:17 Urine Color Yellow (Yellow) 03/01/22 21:00 Urine Appearance Clear (CLEAR) 03/01/22 21:00 Urine pH 5 (5-7) 03/01/22 21:00 Ur Specific Goldsmith 1.025 (1.005-1.030) 03/01/22 21:00 Urine Protein Neg (Negative) 03/01/22 21:00 Urine Glucose (UA) Norm (Normal) 03/01/22 21:00 Urine Ketones Negative (Negative) 03/01/22 21:00 Urine Blood Neg (Negative) 03/01/22 21:00 Urine Nitrate Negative (Negative) 03/01/22 21:00 Urine Bilirubin 1+ (Negative) H 03/01/22 21:00 Urine Urobilinogen 1 mg/dL (Negative) H 03/01/22 21:00 Ur Leukocyte Esterase Negative (Negative) 03/01/22 21:00 EKG Data EKG 1: I personally reviewed and interpreted this EKG as follows: EKG interpretation time: 22:42 Interpretation: EKG was reviewed. He has ventricular rate of 87 bpm. Has normal sinus rhythm with notable normal intervals and no normal axis. He does have ST depressions noted particularly in the lateral precordial leads V4 5 and 6.This was not present on an EKG dated on 09/24/2020 Discharge Plan Discharge Patient Disposition: Left Against Medical Advice Clinical Impression: Coronary artery disease, Elevated troponin, COPD (chronic obstructive pulmonary disease) with emphysema Condition: Stable Prescriptions: No Action metformin 500 mg tablet extended release 24 hr 500 mg PO DAILY Qty: 30 0RF wjjqagprxbnr-tsqndouu-lnqkyu Tablet 1 tab PO DAILY aspirin 325 mg tablet 325 mg PO DAILY mdyrvrm-vvrmbhowzubfz-ckvnvzzu Tablet 1 tab PO Q6H PRN jet alert PO PRN topzrhwawtzng-UD-uwzhpptpgso 20-20-800 mg tablet extended release 12 hr PO (DME) oxygen-air delivery systems Device See Rx Instructions .Route Rx Instructions: As directed nitroglycerin 0.4 mg tablet, sublingual 0.4 mg sublingual Q5M PRN (Reason: chest pain) Qty: 20 1RF Rx Instructions: do not exceed 3 doses per episode. gabapentin 800 mg tablet 400 mg PO BID Qty: 30 0RF Rx Instructions: Take 1/2 tab 2 times a day for chronic pain. Lantus Solostar U-100 Insulin 100 unit/mL (3 mL) insulin pen 10 unit SUBCUT BID Qty: 15 0RF Rx Instructions: 340B program. duloxetine 60 mg capsule,delayed release(DR/EC) 60 mg PO DAILY Qty: 30 2RF Rx Instructions: 340B program. lisinopril 20 mg tablet 20 mg PO BID Qty: 60 3RF albuterol sulfate 2.5 mg /3 mL (0.083 %) solution for nebulization 2.5 mg INHALATION Q4H PRN (Reason: shortness of breath or wheezing) Qty: 3 0RF albuterol sulfate [ProAir HFA] 90 mcg/actuation HFA aerosol inhaler 2 inh INHALATION QID PRN (Reason: shortness of breath or wheezing) Qty: 18 0RF fluticasone propion-salmeterol [Advair Diskus] 250-50 mcg/dose blister with device 1 inh inhalation BID Qty: 60 0RF fluticasone propionate 50 mcg/actuation spray,suspension 2 spray intranasal DAILY 180 Days Qty: 16 5RF Rx Instructions: administer into each nostril omeprazole 20 mg capsule,delayed release(DR/EC) 20 mg PO DAILY Qty: 14 0RF Referrals: Shukri Collins DO [Primary Care Provider] - Discharge Diet: Usual diet Discharge Activity: Increase activity as tolerated and Oxygen as instructed Patient Instructions: Against Medical Advice (ED) Activity Restrictions/Additional Instructions: As we discussed you have blood work changes and electrocardiogram changes that make us concerned about possible ongoing heart ischemia or decreased blood flow to the areas of your heart. We we advised you that to ensure that you are not in a significant increase of having a heart attack would be best for you to stay in the emergency department and/or hospital to allow additional testing. Should you develop ongoing chest pain or other new or worsening symptoms please call 911 or return to this emergency department immediately. Coding Level of Care Code ED Drying Tumbler Operator for Cony Cameron Exam Comprehensive
--- NOTE | 2022-03-01 20:40 | XRR_ITS ---
PROCEDURE INFORMATION: Exam: XR Chest Exam date and time: 03/01/2022 8:50 PM Age: 62 years old Clinical indication: Shortness of breath; Additional info: SOB TECHNIQUE: Imaging protocol: Radiologic exam of the chest. Views: 1 view. COMPARISON: CT chest w con* [id number] 12/12/2020 3:10 PM FINDINGS: Lungs: Large lung volumes consistent with known emphysema. There is no consolidation. There is subtle opacity in the superolateral left lung, present since 12/12/2020. Pleural spaces: Unremarkable. No pleural effusion. No pneumothorax. Heart/Mediastinum: Cardiomediastinal contours are unremarkable. Bones/joints: Sternal wires are present. There is no displacement to suggest sternal dehiscence. Lower cervical fusion noted. XR/XR chest 1V portable [id number] IMPRESSION: 1. No acute findings. 2. Large lung volumes consistent with known emphysema.
[2022-03-01 20:56] VITALS: BP 155/93
[2022-03-01 20:56] LABS: Alanine Aminotransferase 91 U/L (0-41); Albumin Level 4.5 g/dL (3.5-5.2); Alkaline Phosphatase 141 U/L (40-130); Anion Gap 13.3 (5-19); Aspartate Amino Transferase 70 U/L (0-40); Blood Urea Nitrogen 23 mg/dL (8-23); Calcium 9.8 mg/dL (8.5-10.5); Carbon Dioxide 35 mmol/L (22-29); Chloride 97 mmol/L (98-107); Creatinine Clr Calc Pharmacy 77.7915; Globulin 3.3 g/dL (1.3-4.6); Glomerular Filtration Rate 85.5 mL/min (90-130); Glucose 92 mg/dL (65-115); Lipase 103 U/L (13-60); Osmolality Calculated 295 mOsm/kg (285-295); Potassium 4.3 mmol/L (3.5-5.1); Sodium 141 mmol/L (136-145); Total Bilirubin 0.2 mg/dL (0.15-1.2); Total Protein 7.8 g/dL (6.6-8.7)
[2022-03-01 21:05] LABS: Add Urine Microscopic? NO; Charge for UA Resulting for Rev
[2022-03-01 21:14] VITALS: RESP 14
[2022-03-01] MEDS: morphine 4 mg/mL SDV 1 mL IVP (21:14)
[2022-03-01 21:19] LABS: Urine Color Yellow (Yellow)
[2022-03-01 21:20] LABS: Bilirubin Urine 1+ (Negative); Blood Urine Neg (Negative); Glucose Urine UA Norm (Normal); Ketones Urine Negative (Negative); Leukocyte Esterase Urine Negative (Negative); Nitrate Urine Negative (Negative); Protein Urine Neg (Negative); Specific Gravity, Urine 1.025 (1.005-1.030); Urine Appearance Clear (CLEAR); Urobilinogen Urine 1 mg/dL (Negative); pH Urine 5 (5-7)
[2022-03-01 21:21] LABS: Troponin T (5th) Once 26 ng/L (0-15)
--- NOTE | 2022-03-01 21:51 | PC.NURSE ---
Performed ankle brachial index on patient. Reviewed by Dr. Villegas and calculated. See vital flowsheet for blood pressures.
--- NOTE | 2022-03-01 21:55 | PC.NURSE ---
Right Arm: 155/93 Right le/108 Left arm:173/104 Left le/87 Ankle brachial index calculated by Dr. Villegas
[2022-03-01 23:02] VITALS: BP 172/95; PULSE 22; O2SAT 91
== END 2022-03-01 23:04 | disposition left against medical advice (07) ==
PROVIDERS: Emergency Medicine; Emergency Provider Emergency Medicine; PCP Family Medicine
DX: I25.10 Atherosclerotic heart disease of native coronary artery without angina pectoris (principal); J44.9 Chronic obstructive pulmonary disease, unspecified; R77.8 Other specified abnormalities of plasma proteins; R60.9 Edema, unspecified; I10 Essential (primary) hypertension; E78.5 Hyperlipidemia, unspecified
CPT/HCPCS: 71045; 74176; 80053; 81003; 83690; 84484; 85025; 93005; 96374; 99285; J2270

== ENCOUNTER 2022-03-08 12:36 | Outpatient (CLI) | payer MEDICARE, SELFPAY | END 2022-03-08 12:37 | disposition home or self-care (01) | PROVIDERS: PCP Family Medicine; Visit Provider Urology | DX: R97.20 Elevated prostate specific antigen [PSA] (principal) | CPT/HCPCS: 81003; 84153; 99213 ==

== ENCOUNTER 2022-04-02 15:50 | Inpatient (IN) | payer MEDICARE, SELFPAY ==
[2022-04-02] VITALS (31 sets, daily range): BP systolic 68–127; BP diastolic 45–88; PULSE 113–144; RESP 10–21; TEMP 36.6–36.8; O2SAT 79–100
--- NOTE | 2022-04-02 16:05 | XRR_ITS ---
PROCEDURE INFORMATION: Exam: XR Chest Exam date and time: 04/02/2022 4:07 PM Age: 62 years old Clinical indication: Shortness of breath; Patient HX: Post intubation; Additional info: Resp distress TECHNIQUE: Imaging protocol: Radiologic exam of the chest. Views: 1 view. COMPARISON: CR (CHEST, ) 03/01/2022 8:50 PM FINDINGS: Limitations: The right costophrenic angle and part of the right lung base is cut off on this exam. Tubes, catheters and devices: Endotracheal tube is in place with its tip approximately 5.5 cm above the clementina. NG tube extends into the stomach. Lungs: Lungs are hyperinflated in keeping with COPD. There is some patchy peribronchial infiltrate at the right lung base worrisome for pneumonia. Pleural spaces: Unremarkable. No pleural effusion. No pneumothorax. Heart/Mediastinum: Unremarkable. No cardiomegaly. Bones/joints: Unremarkable. XR/XR chest 1V portable [id number] IMPRESSION: 1. COPD 2. Right basilar infiltrate worrisome for pneumonia 3. Endotracheal tube in satisfactory position.
[2022-04-02 16:25] LABS: ABG PH Result 7.25 (7.35-7.45); Arterial Blood Gas Hematocrit 49.6 % (42-52); Base Excess ABG 8.5 mmol/L (-2.0-2.0); Blood Gas Sample Site Brachial, right; Blood Gas Sample Type Arterial; HCO3 ABG 40.6 mmol/L (22-26); Oxygen Device AMBU
[2022-04-02 16:26] LABS: ABG PCO2 93.7 mmHg (35-45)
--- NOTE | 2022-04-02 16:36 | CTR_ITS ---
PROCEDURE INFORMATION: Exam: CT Head Without Contrast Exam date and time: 04/02/2022 4:50 PM Age: 62 years old Clinical indication: Altered mental status/memory loss and syncope and collapse; Additional info: AMS TECHNIQUE: Imaging protocol: Computed tomography of the head without contrast. Radiation optimization: All CT scans at this facility use at least one of these dose optimization techniques: automated exposure control; mA and/or kV adjustment per patient size (includes targeted exams where dose is matched to clinical indication); or iterative reconstruction. COMPARISON: CT head wo con* [id number] 02/06/2020 7:31 PM RADIATION DOSE METRICS: Total DLP (mGy-cm): 1207.98 FINDINGS: Brain: Normal. No hemorrhage. Unremarkable white matter. No mass effect. Cerebral ventricles: No ventriculomegaly. Paranasal sinuses: There is small mucous retention cysts in the right maxillary antrum. Mastoid air cells: Visualized mastoid air cells are well aerated. Bones/joints: Unremarkable. No acute fracture. Soft tissues: Unremarkable. CT/CT head wo con* [id number] IMPRESSION: No acute intracranial finding.
--- NOTE | 2022-04-02 16:36 | ECG_ITS ---
[facility] Test Date: 2022-04-02 Pat Name: Albert Hernandez Department: Room: Gender: Male [employer] Magistrate: : 1960 Requested By: Charbel Tapia Order Number: [id number] Nahun MD: Tavo Martin M.D. Measurements Intervals [place] Rate: 131 P: 89 OH: 88 QRS: 86 QRSD: 113 T: 58 QT: 331 QTc: 489 Interpretive Statements SINUS TACHYCARDIA WITH SHORT OH INTERVAL Possible right atrial enlargement LEFT VENTRICULAR HYPERTROPHY AND ST-T CHANGE [VOLTAGE CRITERIA PLUS ST/T ABNORMALITY]. ST ELEVATION, CONSIDER ANTERIOR INJURY [MARKED ST ELEVATION W/O NORMALLY INFLECTED T-WAVE IN V2-V5] ACUTE NC Compared to ECG 03/01/2022 22:11:27 Short OH interval now present Left ventricular hypertrophy now present ST (T wave) deviation now present Myocardial infarct finding now present Electronically Signed On 04-03-2022 0:15:04 CDT by Tavo Martin M.D. [email or web address]
--- NOTE | 2022-04-02 16:48 | CTR_ITS ---
PROCEDURE INFORMATION: Exam: CTA Chest With Contrast Exam date and time: 04/02/2022 4:52 PM Age: 62 years old Clinical indication: Shortness of breath and other: Found down at home on wellness check; Prior surgery; Surgery date: 6+ months; Surgery type: Cabg; Additional info: Hypoxemia, AMS TECHNIQUE: Imaging protocol: Computed tomographic angiography of the chest with contrast. 3D rendering (Not supervised by radiologist): MIP and/or 3D reconstructed images were created by the technologist. Radiation optimization: All CT scans at this facility use at least one of these dose optimization techniques: automated exposure control; mA and/or kV adjustment per patient size (includes targeted exams where dose is matched to clinical indication); or iterative reconstruction. Contrast material: OMNIPAQUE 350; Contrast volume: 95 ml; Contrast route: INTRAVENOUS (IV); COMPARISON: CT chest w con* [id number] 12/12/2020 3:10 PM RADIATION DOSE METRICS: Total DLP (mGy-cm): 311 FINDINGS: Tubes, catheters and devices: There is a nasogastric tube in place in the stomach. Endotracheal tube is in place with its tip approximately 3 cm above the clementina. Pulmonary arteries: There is no evidence of filling defects within the pulmonary arterial circulation to suggest pulmonary embolism. Aorta: There is no thoracic aortic aneurysm or dissection. Lungs: There is advanced centrilobular emphysema. There are areas of peripheral peribronchial infiltrate in the anterior left upper lobe, anterior middle lobe in the anterior basal segments of both lower lobes worrisome for bronchopneumonia. There is mild bronchial wall thickening in both lungs, more in the lower lobes in keeping with bronchitis.There is some mucous or debris seen in parts of the bronchial tree. There are some areas of focal nodular scarring in the left upper lobe not significantly changed. There is a 5 x 8 mm nodule in the right lower lobe on image number 39 series 4 new from the previous examinations. For patients at low risk (minimal or absent history of smoking and of other known risk factors), recommend CT Chest at 6-12 months, then consider CT Chest at 18-24 months. For patients at high risk (history of smoking or of other known risk factors), recommend CT Chest at 6-12 months, then CT Chest at 18-24 months. (Reference: Hermelindo) Pleural spaces: Unremarkable. No pneumothorax. No pleural effusion. Heart: Unremarkable. No cardiomegaly. No pericardial effusion. Lymph nodes: Unremarkable. No enlarged lymph nodes. Bones/joints: Unremarkable. No acute fracture. Soft tissues: Unremarkable. CT/CT angio chest PE protcl [id number] IMPRESSION: 1. Bronchitis and bronchopneumonia. 2. Emphysema 3. No evidence of pulmonary embolism. REFERENCES: Hermelindo H, et al. Guidelines for Management of Incidental Pulmonary Nodules Detected on CT Images: From the Fleischner Society 2017. Radiology. 2017;284(1):228-243.
--- NOTE | 2022-04-02 16:49 | ED_ITS ---
HPI - General Adult General: Chief complaint: Shortness of Breath/Dyspnea Stated complaint: SOB Time Seen by Provider: 04/02/22 15:52 History of Present Illness: Patient is a 62-year-old male with history of allergic rhinitis, coronary artery disease, colovesicular fistula who presents the emergency room with concerns of altered mental status and respiratory distress. It is unclear how long patient has been having symptoms for. Medicine was called earlier for significant respiratory distress by family. EMS tells us the patient is full code at this time. On arrival, patient is AAO x0, confused, occasionally answer question. Patient is wheezing tachypneic. Rest of history limited. In route, EMS gave patient a treatment of albuterol, but was unable to obtain a pulse ox. Unclear if patient has a COPD or asthma. Onset:unknown Duration:ogoing Location:home Severity:severe Associated symptoms: Reports dyspnea Review of Systems General: Reports: ROS unobtainable due to medical condition and ROS unobtainable due to mental status Resp: Reports: dyspnea Neuro: Reports: other (+confusion, ams) PFS ED PFSH: Medical History (Updated 04/08/22 @ 20:16 by Rodolfo Ohara MD) Allergic rhinitis Cervical postlaminectomy syndrome Chronic GERD Colovesical fistula Coronary artery disease History of drug dependence/abuse Hyperlipidemia, unspecified Hypertension Indeterminate pulmonary nodules Ischemic cardiomyopathy Lumbar spondylosis Major depressive disorder Other spondylosis, cervical region Right leg claudication Vesicocutaneous fistula Surgical History (Updated 04/07/22 @ 11:38 by Rodolfo Ohara MD) H/O neck surgery History of open heart surgery Hx of hernia repair 5 abdominal S/P appendectomy S/P colon resection Family History Mother , at age 65 CHF (congestive heart failure) Father , at age 84 Heart disease Other CAD (coronary artery disease) Cancer Diabetes Social History Smoking and tobacco status: current every day smoker cigarettes Packs smoked per day: 0.5 Years cigarettes smoked: 40 Quit status (tobacco): has tried quititng Number of times tried to quit tobacco: 5 Second hand smoke exposure: No Smoking risk assessment/counseling performed?: Yes Alcohol intake: current Alcohol intake frequency: holidays/special occasions only Desire information about substance/drug rehabilitation?: No Counseling given: Yes Lives independently: Yes Household members: none Housing: House Marital status: / service: No Current occupational status: disabled History of recent travel: No Current gender identity: Male Physical Exam HENMT: COMMON NORMALS: atraumatic HEAD & SCALP: atraumatic MOUTH: moist mucous membranes abnormal and other (+mouth open) Eye: COMMON NORMALS: EOMs intact bilaterally and conjunctivae normal CONJUNCTIVA: Yes conjunctivae normal Neck/C-Spine: COMMON NORMALS: full ROM and supple Resp: OTHER: +increased respiratory effort, coarse breaht sounds b.l Cardio: COMMON NORMALS: regular rate RATE: regular rate GI: COMMON NORMALS: Soft to palpation and non-tender PALPATION: Yes Soft to palpation OTHER: No focal TTP. NO guarding rebound, guarding, rigidity. No CVA tenderness to percussion. Neg Sharma/Neg McBurney's point tenderness, no suprabupic tenderness to palpation. Extremity: COMMON NORMALS: full ROM Neuro: SENSORIUM/ORIENTATION: Yes fluctuating sensorium MOTOR EXAM: No Abnormal motor strength present and Other motor observations present (no focal motor deficits) OTHER: + Moving all extremities, not answering questions, GCS 8 (E2/V2/M4) Psych: OTHER: +unable to assess given AMS Procedures Central Line Placement Left Femoral: Time Out Performed: Yes Patient Placed on Monitor/Pulse Ox: Yes MD Prep: mask, gown and gloves Central Line Prep: Povidone-Iodine 1% and Chlorhexidine scrub Ultrasound Used for Placement: Yes Central Line Lumen Inserted: triple Post Procedure: sutured in place, good blood return, all ports aspirated, flushed, capped and sterile dressing applied Patient Tolerated Procedure: well and no complications Complications: none Intubation Time out performed: Yes sedative: Etomidate Mg Given: 20 paralytic: Vecuronium Mg Given: 10 Laryngoscope: Vivien ET Tube Size: 8 ET Tube Uncuffed: No Tube Secured Depth (cm): 24 Tube Secured Location: lips Tube Placement Confirmation: visualized tube passing through cords, equal breath sounds bilaterally, no breath sounds over epigastrium and confirmation by capnometry Patient Tolerated Procedure: well and no complications Intubation Complications: none IO Left Tibia: Time Out Performed: Yes IO Instrument Used to Penetrate the Cortex: battery powered IO drill Patient Tolerated Procedure: well and no complications Complications: none Additional Comments: An IO was apparently placed in the left tibia for intubation. The site was cleaned with ChloraPrep prior to the drill. Good aspiration. Patient had no c omplaints of pain and was no in no distress. The IO was removed after the intubation. ChloraPrep was applied to the insertion site. Wound was closed with gauze. Course Vital Signs: Vital signs: Vital Signs Temperature 98.3 F 04/09/22 10:39 Pulse Rate 94 04/09/22 10:39 Respiratory Rate 16 04/09/22 10:39 Blood Pressure 157/81 04/09/22 10:39 Pulse Oximetry 98 04/09/22 10:39 Oxygen Delivery Me thod 04/09/22 08:00 Oxygen Flow Rate 3 04/09/22 08:00 Fraction of Inspir ed Oxygen 40 04/05/22 08:00 MDM - General Adult Medical Decision Making Patient is a 62-year-old male with history of allergic rhinitis, coronary artery disease, colovesicular fistula who presents the emergency room with concerns of altered mental status and respiratory distress. Patient is full code at this moment. On physical exam, patient was noted to be satting at greater than 95% on 15 L of nonrebreather. Patient significantly altered with GCS of 8. Patient is noted have coarse breath sounds with increased work of breathing and accessory muscle use. Initially unable to obtain vascular access. A IO was temporarily placed for giving medication for intubation. Decision was made to intubate given altered mental status and respiratory distress. Please refer to the procedure note. A central line was placed in the left femoral area. Please refer to the procedure note. The IO site was cleaned and removed. Patient is fentanyl and propofol drip. XR chest showed pnemonia. S/p vancomycin, azithromycin, cefepime, and 1L of LR. Will continue on inline duoneb and methylprednisone. Disposition: admission Lab Data : 04/09/22 03:53 04/09/22 03:[address] 04/02/22 16:36 IMPRESSION: No acute intracranial finding. Chest CTA 04/02/22 16:48 IMPRESSION: 1. Bronchitis and bronchopneumonia. 2. Emphysema 3. No evidence of pulmonary embolism. REFERENCES: Hermelindo Shah et al. Guidelines for Management of Incidental Pulmonary Nodules Detected on CT Images: From the Fleischner Society 2017. Radiology. 2017;284(1):228-243. Abdomen/Pelvis CT 04/02/22 18:51 IMPRESSION: 1. Persistent nephrogram which could be part of the hypoperfusion complex 2. Possible malposition of the left femoral venous catheter. 3. Pneumonia is seen on prior CT scan of the chest Foot X-Ray 04/03/22 13:30 IMPRESSION: 1. Findings suspicious for a nondisplaced fracture of the proximal phalanx of the fifth toe. Chest X-Ray 04/06/22 04:00 IMPRESSION: 1. Chronic pulmonary changes. No acute process noted. Laboratory Results WBC 12.7 10^3/uL (4.0-10.0) H 04/02/22 16:05 RBC 5.32 10^6/uL (4.1-5.3) H 04/02/22 16:05 Hgb 17.7 g/dL (11.7-16.6) H 04/02/22 16:05 Hct 56.8 % (42.0-52.0) H 04/02/22 16:05 MCV 106.8 fl (80-94) H 04/02/22 16:05 MCH 33.3 pg (28.0-34.0) 04/02/22 16:05 MCHC 31.2 g/dL (30.0-36.0) 04/02/22 16:05 RDW 13.4 % (12.1-15.1) 04/02/22 16:05 Plt Count 182 10^3/cmm (130-400) 04/02/22 16:05 MPV 13.4 fL (7.4-10.4) H 04/02/22 16:05 Neut % (Auto) 77.2 % 04/02/22 16:05 Lymph % (Auto) 7.3 % 04/02/22 16:05 [place] % (Auto) 11.5 % 04/02/22 16:05 Eos % (Auto) 2.9 % 04/02/22 16:05 Baso % (Auto) 0.6 % 04/02/22 16:05 Neut # (Auto) 9.78 10^3/uL (1.8-7.7) H 04/02/22 16:05 Lymph # (Auto) 0.9 10^3/uL (0.8-4.8) 04/02/22 16:05 [place] # (Auto) 1.5 10^3/uL (0.2-0.9) H 04/02/22 16:05 Eos # (Auto) 0.4 10^3/uL (0.0-0.8) 04/02/22 16:05 Baso # (Auto) 0.1 10^3/uL (0.0-0.1) 04/02/22 16:05 Nucleated RBC % (auto) 0.8 % 04/02/22 16:05 Nucleated RBCs # 0.1 /100WBC 04/02/22 16:05 Specimen Type Arterial 04/02/22 18:10 Sample Site Brachial, left 04/02/22 18:10 ABG pH 7.35 (7.35-7.45) 04/02/22 18:10 ABG pCO2 64.2 mmHg (35-45) H* 04/02/22 18:10 ABG pO2 131.0 mmHg (80.0-100.0) H 04/02/22 18:10 ABG HCO3 35.1 mmol/L (22-26) H 04/02/22 18:10 ABG O2 Saturation 97.4 04/02/22 18:10 ABG Base Excess 6.8 mmol/L (-2.0-2.0) H 04/02/22 18:10 Miguel Test Pos 04/02/22 18:10 A-a O2 Gradient 19.2 mmHg (5-10) H 04/02/22 18:10 Hematocrit 47.3 % (42-52) 04/02/22 18:10 Hgb O2 Saturation 95.5 % (95-100) 04/02/22 18:10 Carboxyhemoglobin 1.2 %THgb (0.4-20.1) 04/02/22 18:10 Methemoglobin 0.6 % (0.4-1.5) 04/02/22 18:10 Total Hemoglobin 15.4 g/dL (14-18) 04/02/22 18:10 Sodium 137.0 mmol/L (131-143) 04/02/22 18:10 Potassium 4.6 mmol/L (3.5-5.0) 04/02/22 18:10 Glucose 169.0 mg/dL (70-115) H 04/02/22 18:10 Ionized Calcium 1.2 mmol/L (1.1-1.4) 04/02/22 18:10 O2 Delivery Device Vent 04/02/22 18:10 O2 Liters/Min 15.0 % 04/02/22 16:20 FiO2 50.0 % 04/02/22 18:10 PEEP 10.0 cmH20 04/02/22 18:10 Delivery And Mail Sorter ID Cak 04/02/22 18:10 Sodium 133 mmol/L (136-145) L 04/02/22 17:16 Potassium 5.0 mmol/L (3.5-5.1) 04/02/22 17:16 Chloride 88 mmol/L (98-107) L 04/02/22 17:16 Carbon Dioxide 36 mmol/L (22-29) H 04/02/22 17:16 Anion Gap 14.0 (5-19) 04/02/22 17:16 BUN 59 mg/dL (8-23) H 04/02/22 17:16 Creatinine 1.3 mg/dL (0.7-1.2) H 04/02/22 17:16 GFR Calculation 55.9 mL/min (90-130) L 04/02/22 17:16 Glucose 173 mg/dL (65-115) H 04/02/22 17:16 Calculated Osmolality 297 mOsm/kg (285-295) H 04/02/22 17:16 Lactate 3.0 mmol/L (0.5-2.2) H 04/02/22 16:05 Calcium 9.1 mg/dL (8.5-10.5) 04/02/22 17:16 Total Bilirubin 0.4 mg/dL (0.15-1.2) 04/02/22 17:16 AST 42 U/L (0-40) H 04/02/22 17:16 ALT 46 U/L (0-41) H 04/02/22 17:16 Alkaline Phosphatase 156 U/L (40-130) H 04/02/22 17:16 Ammonia 25 umol/L (16-60) 04/02/22 17:16 Troponin T Baseline 30 ng/L (0-15) H 04/02/22 17:16 Troponin T 120 Minute 38.81 ng/L (0-15) H 04/02/22 19:00 Delta Troponin T 8.81 ABS# (0-10) 04/02/22 19:00 NT-Pro-B Natriuret Pep 1136 pg/mL (0-125) H 04/02/22 17:16 Total Protein 6.1 g/dL (6.6-8.7) L 04/02/22 17:16 Albumin 2.9 g/dL (3.5-5.2) L 04/02/22 17:16 Globulin 3.2 g/dL (1.3-4.6) 04/02/22 17:16 Lipase 25 U/L (13-60) 04/02/22 17:16 Procalcitonin 0.83 ng/mL (0-0.5) H 04/02/22 17:16 TSH 3.76 uIU/mL (0.27-4.20) 04/02/22 17:16 Free T4 0.84 ng/dL (0.82-1.77) 04/02/22 17:16 Salicylates < 0.3 mg/dL (3-10) L 04/02/22 17:16 Acetaminophen < 5.0 ug/mL (10-30) L 04/02/22 17:16 Ethyl Alcohol < 10 mg/dL (0-10) 04/02/22 19:00 Imaging Data Other Imaging: Radiologist's impression: [address] [address] [address] Scan Report Signed Patient: Albert Hernandez Unit #: [id number] : 1960 Age/Sex: 62 / M ADM Date: 04/02/22 Loc: ER Room/Bed: Attending Dr: Ordering Provider/Ordering MD: Charbel Tapia MD Date of Service: 04/02/22 Procedure(s): CT head wo con* [id number] Accession Number(s): [id number] Report Number: [id number] PROCEDURE INFORMATION: Exam: CT Head Without Contrast Exam date and time: 04/02/2022 4:50 PM Age: 62 years old Clinical indication: Altered mental status/memory loss and syncope and collapse; Additional info: AMS TECHNIQUE: Imaging protocol: Computed tomography of the head without contrast. Radiation optimization: All CT scans at this facility use at least one of these dose optimization techniques: automated exposure control; mA and/or kV adjustment per patient size (includes targeted exams where dose is matched to clinical indication); or iterative reconstruction. COMPARISON: CT head wo con* [id number] 02/06/2020 7:31 PM RADIATION DOSE METRICS: Total DLP (mGy-cm): 1207.98 FINDINGS: Brain: Normal. No hemorrhage. Unremarkable white matter. No mass effect. Cerebral ventricles: No ventriculomegaly. Paranasal sinuses: There is small mucous retention cysts in the right maxillary antrum. Mastoid air cells: Visualized mastoid air cells are well aerated. Bones/joints: Unremarkable. No acute fracture. Soft tissues: Unremarkable. CT/CT head wo con* [id number] IMPRESSION: No acute intracranial finding. ? Dictated By: Corey Chavira Signed By: Corey Chavira Signed Date/Time: 04/02/22 1716 DD/ [address] [address] XRay Report Signed Patient: Albert Hernandez Unit #: [id number] : 1960 Age/Sex: 62 / M ADM Date: 04/02/22 Loc: ER Room/Bed: Attending Dr: Ordering Provider/Ordering MD: Charbel Tpaia MD Date of Service: 04/02/22 Procedure(s): XR chest 1V portable [id number] Accession Number(s): [id number] Report Number: [id number] PROCEDURE INFORMATION: Exam: XR Chest Exam date and time: 04/02/2022 4:07 PM Age: 62 years old Clinical indication: Shortness of breath; Patient HX: Post intubation; Additional info: Resp distress TECHNIQUE: Imaging protocol: Radiologic exam of the chest. Views: 1 view. COMPARISON: CR (CHEST, ) 03/01/2022 8:50 PM FINDINGS: Limitations: The right costophrenic angle and part of the right lung base is cut off on this exam. Tubes, catheters and devices: Endotracheal tube is in place with its tip approximately 5.5 cm above the clementina. NG tube extends into the stomach. Lungs: Lungs are hyperinflated in keeping with COPD. There is some patchy peribronchial infiltrate at the right lung base worrisome for pneumonia. Pleural spaces: Unremarkable. No pleural effusion. No pneumothorax. Heart/Mediastinum: Unremarkable. No cardiomegaly. Bones/joints: Unremarkable. XR/XR chest 1V portable [id number] IMPRESSION: 1. COPD 2. Right basilar infiltrate worrisome for pneumonia 3. Endotracheal tube in satisfactory position. ? Dictated By: Corey Chavira Signed By: Corey Chavira Signed Date/Time: 04/02/22 170 DD/ 160 Critical Care Time Critical Care Time: Critical Care Time: Yes Total Critical Care Time: 35 Attestation: The high probability of a clinically significant, sudden or life threatening deterioration of the patient's respiratory system(s) required my full and direct attention, intervention and personal management. The critical care time is as shown. This time is in addition to time spent performing any reported procedures but includes the following: [x] Data and vital sign review and interpretation [x] Patient assessment, examination and intervention [x] Documentation [x] Medication orders and management Discharge Plan Discharge Patient Disposition: Admitted As Inpatient Admit Provider: Rodolfo Ohara Clinical Impression: Altered mental status, Acute hypercapnic respiratory failure, Pneumonia Condition: Stable Discharge Diet: Cardiac and Diabetic Discharge Activity: Increase activity as tolerated and As per PT/OT instructions Coding Level of Care Code ED Print Developer for Chg Fwd Exam Comprehensive
[2022-04-02 16:51] LABS: Basophils # 0.1 10^3/uL (0.0-0.1); Basophils % 0.6 %; Eosinophils # 0.4 10^3/uL (0.0-0.8); Eosinophils % 2.9 %; Hematocrit 56.8 % (42.0-52.0); Hemoglobin 17.7 g/dL (11.7-16.6); Lymphocytes # 0.9 10^3/uL (0.8-4.8); Lymphocytes % 7.3 %; Mean Corpuscular HGB Conc 31.2 g/dL (30.0-36.0); Mean Corpuscular Hemoglobin 33.3 pg (28.0-34.0); Mean Corpuscular Volume 106.8 fl (80-94); Mean Platelet Volume 13.4 fL (7.4-10.4); Monocytes # 1.5 10^3/uL (0.2-0.9); Monocytes % 11.5 %; Neutrophils # 9.78 10^3/uL (1.8-7.7); Neutrophils % 77.2 %; Nucleated Red Blood Cells # 0.1 /100WBC; Nucleated Red Blood Cells % 0.8 %; Platelet Count 182 10^3/cmm (130-400); Red Blood Count 5.32 10^6/uL (4.1-5.3); Red Cell Distribution Width 13.4 % (12.1-15.1); White Blood Count 12.7 10^3/uL (4.0-10.0)
--- NOTE | 2022-04-02 17:01 | PC.PHAR ---
PT UNABLE TO VERIFY DUE TO INTUBATION - PT FAMILY UNABLE TO VERIFY - VERIFIED BY [facility]
[2022-04-02] MEDS: iohexol 350 mg/mL 100 mL Btl IV (17:16)
[2022-04-02] MEDS: vecuronium 10 mg SDV IVP (17:31)
[2022-04-02] MEDS: ipratropium-albuterol 3 mL Neb INHALATION ×4 (17:37→23:26)
[2022-04-02] MEDS: cefepime 1,000 MG in sodium chloride 0.9% (plus) 50 ML 100 MG IV (17:43)
[2022-04-02] MEDS: propofol 1,000 MG/100 ML INJ 10 MG IV (17:52)
[2022-04-02 17:56] LABS: Ammonia 25 umol/L (16-60)
[2022-04-02 17:59] LABS: Troponin(5th) Baseline 30 ng/L (0-15)
[2022-04-02] MEDS: lactated ringers 1,000 ML 999 ML IV ×2 (18:01→20:44)
[2022-04-02] MEDS: azithromycin 500 MG in sodium chloride 0.9% 250 ML 250 MG IV (18:02)
[2022-04-02 18:09] LABS: Alanine Aminotransferase 46 U/L (0-41); Albumin Level 2.9 g/dL (3.5-5.2); Alkaline Phosphatase 156 U/L (40-130); Aspartate Amino Transferase 42 U/L (0-40); Blood Urea Nitrogen 59 mg/dL (8-23); Calcium 9.1 mg/dL (8.5-10.5); Carbon Dioxide 36 mmol/L (22-29); Chloride 88 mmol/L (98-107); Globulin 3.2 g/dL (1.3-4.6); Glomerular Filtration Rate 55.9 mL/min (90-130); Glucose 173 mg/dL (65-115); Lipase 25 U/L (13-60); NT Pro B Type Natriuretic Pept 1136 pg/mL (0-125); Osmolality Calculated 297 mOsm/kg (285-295); Sodium 133 mmol/L (136-145); Thyroid Stimulating Hormone 3.76 uIU/mL (0.27-4.20); Total Bilirubin 0.4 mg/dL (0.15-1.2); Total Protein 6.1 g/dL (6.6-8.7)
[2022-04-02 18:10] LABS: Acetaminophen < 5.0 ug/mL (10-30); Salicylate < 0.3 mg/dL (3-10)
[2022-04-02 18:22] LABS: ABG PH Result 7.35 (7.35-7.45); Alveolar-Arterial Oxygen Gradi 19.2 mmHg (5-10); Arterial Blood Gas Hematocrit 47.3 % (42-52); Base Excess ABG 6.8 mmol/L (-2.0-2.0); Blood Gas Allen Test Pos; Blood Gas Operator Identificat CAK; Blood Gas Sample Site Brachial, left; Blood Gas Sample Type Arterial; Carboxyhemoglobin 1.2 %THgb (0.4-20.1); HCO3 ABG 35.1 mmol/L (22-26); HGB O2 Sat 95.5 % (95-100); Ionized Calcium Level - ABG 1.2 mmol/L (1.1-1.4); Methemoglobin 0.6 % (0.4-1.5); Oxygen Device VENT; Oxygen Saturation ABG 97.4; Potassium Level - ABG 4.6 mmol/L (3.5-5.0); Total Hemoglobin 15.4 g/dL (14-18)
[2022-04-02 18:23] LABS: ABG PCO2 64.2 mmHg (35-45)
[2022-04-02] MEDS: vancomycin 1,000 MG in sodium chloride 0.9% 250 ML 250 MG IV (18:49)
--- NOTE | 2022-04-02 18:51 | CTR_ITS ---
PROCEDURE INFORMATION: Exam: CT Abdomen And Pelvis Without Contrast Exam date and time: 04/02/2022 7:30 PM Age: 62 years old Clinical indication: Other: Sepsis, shock; Prior surgery; Surgery type: Appendectomy, colon resection TECHNIQUE: Imaging protocol: Computed tomography of the abdomen and pelvis without contrast. Radiation optimization: All CT scans at this facility use at least one of these dose optimization techniques: automated exposure control; mA and/or kV adjustment per patient size (includes targeted exams where dose is matched to clinical indication); or iterative reconstruction. COMPARISON: CT abdomen pelvis con [id number] 03/01/2022 8:43 PM RADIATION DOSE METRICS: Total DLP (mGy-cm): 389.1 FINDINGS: Limitations: Study somewhat limited due to streak artifact created by the patient being scanned with the arms at the sides. The absence of intravenous contrast lessens the sensitivity of this study for solid organ abnormalities. There is contrast on this examination from the preceding CT scan of the chest. Tubes, catheters and devices: There is a nasogastric tube in place with its tip in the stomach. There is a left femoral venous catheter in place with its tip is uncertain location, possibly a branch of the left iliac vein, possibly extraluminal. Please correlate with the functioning of the venous catheter. Lungs: There are infiltrates in the lung bases as described on the preceding CT scan of chest. Liver: There is no focal abnormality within the liver. Gallbladder and bile ducts: Normal. No calcified stones. No ductal dilation. Pancreas: Normal. No ductal dilation. Spleen: The spleen is normal. Adrenal glands: The adrenal glands are normal. Kidneys and ureters: Kidneys demonstrate persistent dense nephrograms and also excretion of contrast material. The appearance of the renal nephrograms could represent acute renal insufficiency such as ATN or could be related to the history of shock and hypotension. There is no focal abnormality in either kidney. There is no evidence of hydronephrosis. Stomach and bowel: There is no evidence of intestinal obstruction. Appendix: Not identified Intraperitoneal space: There is no evidence of free intraperitoneal fluid. Vasculature: The aorta demonstrates mild atherosclerotic calcification. There is no evidence of an abdominal aortic aneurysm. Lymph nodes: Unremarkable. No enlarged lymph nodes. Urinary bladder: There is a Thompson catheter within the urinary bladder. Reproductive: Unremarkable as visualized. Bones/joints: There are degenerative changes in the lower lumbar spine. Soft tissues: Unremarkable. CT/CT abdomen pelvis wo con [id number] IMPRESSION: 1. Persistent nephrogram which could be part of the hypoperfusion complex 2. Possible malposition of the left femoral venous catheter. 3. Pneumonia is seen on prior CT scan of the chest
--- NOTE | 2022-04-02 18:52 | ECG_ITS ---
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 Measurements Intervals [place] Rate: 132 P: 88 CT: 123 QRS: 89 QRSD: 104 T: 71 QT: 308 QTc: 457 Interpretive Statements SINUS TACHYCARDIA LEFT VENTRICULAR HYPERTROPHY AND ST-T CHANGE [VOLTAGE CRITERIA PLUS ST/T ABNORMALITY] Compared to ECG 04/02/2022 17:12:[address] interval no longer present Myocardial infarct finding no longer present ST (T wave) deviation still present Electronically Signed On 04-04-2022 6:11:29 CDT by Roxana Allen M.D. [id number]
--- NOTE | 2022-04-02 18:56 | USCV_ITS ---
Albert Hernandez Age: 62 Gender: M : 1960 Exam Date: 04/02/2022 20:47 Ordering Phys: Rodolfo Ohara MD Technologist: NNAMDI [place] [facility] [place]: shock. Patient appears to be s/p CABG, has chest midline scar. BP: 86 / 61 HR: 115 Rhythm: Sinus tachycardia Technical Quality: adequate MEASUREMENTS (Male / Female) Normal Values 2D ECHO LVOT Diameter 1.6 cm LV Ejection Fraction MOD 2C 61.8 % LV Ejection Fraction 2C AL 73.1 % LA Diameter 3.4 cm LA Width 3.4 cm LA Height 5.0 cm RA Width 2.9 cm RA Height 3.4 cm Aorta at Sinotubular Diameter 3.6 cm IVC Diameter 2.1 cm M-MODE Aortic Annulus Diameter 3.2 cm LA Ao Ratio MM 1.1 MV E Point Septal Separation 0.6 cm DOPPLER AV Peak Velocity 105.0 cm/s LVOT Peak Velocity 99.0 cm/s AV Area Cont Eq vti 1.9 cm squared AV Area Cont Eq pk 2.0 cm squared MV Area PHT 4.6 cm squared Mitral E to A Ratio 0.7 MV E' Velocity 35.0 cm/s Mitral E to MV E' Ratio 2.6 Mitral E to LV E' Lateral Ratio 4.9 Mitral E to LV E' Septal Ratio 1.8 TR Peak Velocity 228.5 cm/s TR Peak Gradient 20.9 mmHg TV Peak E Velocity 35.0 cm/s Right Atrial Pressure 5.0 mmHg Pulmonary Artery Systolic Pressu 25.9 mmHg PV Peak Velocity 73.0 cm/s RV Acceleration Time 0.1 s RV Ejection Time 0.3 s RV AcT/ET 0.5 FINDINGS Left Ventricle Normal left ventricular cavity size. Increased left ventricular wall thickness. Normal left ventricular systolic function. Left ventricular ejection fraction is estimated at 55 %. Although no diagnostic regional wall motion abnormality could be identified, this possibility cannot be completely excluded based on the study. Abnormal septal motion. Right Ventricle Right ventricle not well visualized. Possibly normal right ventricle size and systolic function. Right ventricular systolic pressure 27 mmHg. Right Atrium Right atrium not well visualized. Left Atrium Normal left atrial size. Mitral Valve Moderately thickened mitral valve. Aortic Valve Aortic valve not well visualized. No aortic valve stenosis. Trace aortic valve regurgitation. Tricuspid Valve Structurally normal tricuspid valve. Trace tricuspid valve regurgitation. Pulmonic Valve Structurally normal pulmonic valve. No pulmonary valve stenosis. Trace pulmonary valve regurgitation. Pericardium No pericardial effusion. Aorta Normal-sized aortic root. IVC Mildly dilated inferior vena cava. CONCLUSIONS 1. This was a difficult study with off axis images and tachycardia. 2. Normal left ventricular cavity size and systolic function. Increased left ventricular wall thickness. Left ventricular ejection fraction is estimated at 55 %. Although no diagnostic regional wall motion abnormality could be identified, this possibility cannot be completely excluded based on the study. 3. Possibly normal right ventricle size and systolic function. 4. When compared to previous study dated 09/21/2019, there may not have been any significant change. Roxana Allen MD (Electronically Signed) Final Date: 03 April 2022 11:40 S
--- NOTE | 2022-04-02 19:30 | P.HP_ITS ---
Providers/Chief Complaint Admitting Physician: Rodolfo Ohara Primary Care Provider: Shukri Collins DO Chief Complaint: SOB History of Present Illness 62-year-old gentleman with history of COPD, on chronic 2 L nasal cannula oxygen, CAD, status post CABG about 7 years ago, history of colovesical fistula resection in 2017, subsequently vesicocutaneous fistula after abdominal infection which closed spontaneously with intravenous antibiotics, residual hernia which has recently been bothering him with some abdominal pain for which she presented to ER on 03/[address] abdomen pelvis was unremarkable, at that time was noted to have troponin abnormality, some T wave changes, encouraged to stay in the hospital for further cardiac work-up, but declined wanting to stay in the hospital, additionally following with urology with regards to possible prostate cancer with PSA elevation, following expectantly as found not a good candidate for chemotherapy or radiation, additionally recently has been overall feeling down regarding his unimproving condition, feeling depr essed, although without any thoughts or intention of self-harm, recently for reports from family was experiencing more shortness of breath, cough, similar to COPD exacerbation previously, last known well was probably around Saturday time, after that family attempted to contact him [place] assessable, today family came to check on him, and found him confused/unresponsive, in respiratory distress. In ER found to have ANO x0, confused, occasionally answering question. With sinus tachycardia, afebrile, tachypneic, wheezing, was intubated, given breathing treatment, Solu-Medrol dose, with noted leukocytosis 12.7, possible pneumonia on chest x-ray with right basilar infiltrate, empirically started on vancomycin, cefepime, received also azithromycin. Received IV fluid challenge bolus. Initial ABG pH 7.25, PCO2 93.7. Lactic acid 3. Requested completion of 30 mL/kg fluid bolus. Noted persistently tachycardic, following intubation blood pressure with some decrease, mean fluctuating around [address] head un[address]. CT angiogram of the chest performed as well with bronchitis and bronchopneumonia. Emphysema. No evidence of PE. First troponin with mild elevation at 30. EKG with sinus tachycardia, concern for some ST abnormality, although difficult to interpret, with some LVH like changes with strain pattern, discussed with ER physician, cardiology, not obvious ST elevation at this time but needs additional diagnostic studies with follow-up EKG, troponin. He has continued smoking. Last stress test in July of 2020 with moderate area of persistent decreased uptake in apical segments with subtle area of reversibility in apical anterior and apical lateral region, suggestive of myocardial scarring in the distribution of distal LAD and circumflex arteries with very subtle areas of chris-infarct ischemia. EF appearing normal at 51%. Has not had any additional stress test since then. Noted also acute kidney injury, BUN 59, creatinine 1.3. Noted some chronic elevation of AST, ALT, currently 42, 46 respectively, alk phos on chronic ovation as well, currently 156. History of hepatitis C, RNA not detected in March 2020. COVID-19 PCR was obtained and pending. Lipase 25. UA was requested, pending. Remote history of drug use disorder, although reportedly has not relapsed in the last 2 years. Urine drug screen requested. Family unaware of any stated or suspected self-harm with depression. He did not want to come to the hospital as per reports, although as per prior discussions in case of potential reversible condition would likely want current level of treatment, however, although it is a difficult thought for them state in case of cardiac arrest would likely not have wanted chest compressions/CPR as per discussion with his family members at bedside. Review of Systems General: Reports: ROS unobtainable due to endotracheal tube, ROS unobtainable due to medical condition and ROS unobtainable due to mental status Medications/Allergies Home Medications Medication Instructions Recorded Confirmed Last Taken Type biwobxfzimvd-ouxcqcrs-zsgkmk tablet 1 tab PO DAILY 07/15/19 04/02/22 Unknown History aspirin 325 mg tablet 325 mg PO DAILY 10/07/19 04/02/22 03/07/20 History oamljdd-fpyurapeozjdp-ivkftkxj 1 tab PO Q6H PRN Headache 09/05/21 04/02/22 Unknown History tablet jet alert 1 tab PO DAILY 09/05/21 04/02/22 Unknown History nitroglycerin 0.4 mg sublingual 0.4 mg sublingual Q5M PRN chest 09/05/21 04/02/22 Unknown Rx tablet pain #20 tabs lisinopril 20 mg tablet 20 mg PO BID #60 tabs 01/01/22 04/02/22 Unknown Rx gabapentin 800 mg tablet 400 mg PO BID #30 tabs 01/11/22 04/02/22 Unknown Rx albuterol sulfate 2.5 mg/3 mL 2.5 mg (3 mL) inhalation Q4H PRN 02/12/22 04/02/22 Unknown Rx (0.083 %) solution for nebulization shortness of breath or wheezing #3 mL albuterol sulfate 90 mcg/actuation 2 inh inhalation QID PRN shortness 02/12/22 04/02/22 Unknown Rx aerosol inhaler (ProAir HFA) of breath or wheezing #18 grams fluticasone propionate 50 2 spray intranasal DAILY 6 months 02/12/22 04/02/22 Unknown Rx mcg/actuation nasal #16 grams spray,suspension fluticasone 250 mcg-salmeterol 50 1 inh inhalation BID #60 ea 03/14/22 04/02/22 Unknown Rx mcg/dose blistr powdr for inhalation (Advair Diskus) diazepam 5 mg tablet 5 mg PO BID PRN anxiety 7 days #14 03/19/22 04/02/22 Unknown Rx tabs insulin glargine 100 unit/mL (3 See Rx Instructions .Route 03/20/22 04/02/22 Unknown Rx mL) subcutaneous pen (Lantus .COMPLEX #15 mL Solostar U-100 Insulin) duloxetine 60 mg capsule,delayed 60 mg PO DAILY 04/02/22 04/02/22 Unknown History release metformin 500 mg tablet,extended 500 mg PO BID 04/02/22 04/02/22 Unknown History release 24 hr omeprazole 20 mg capsule,delayed 20 mg PO DAILY 04/02/22 04/02/22 Unknown History release Allergies Allergy/AdvReac Type Severity Reaction Status Date / Time Penicillins Allergy Unknown Verified 03/08/22 13:07 PFSH Acute PFSH: Medical History Allergic rhinitis Cervical postlaminectomy syndrome Chronic GERD Colovesical fistula Coronary artery disease History of drug dependence/abuse Hyperlipidemia, unspecified Hypertension Indeterminate pulmonary nodules Ischemic cardiomyopathy Lumbar spondylosis Major depressive disorder Other spondylosis, cervical region Vesicocutaneous fistula Surgical History H/O neck surgery History of open heart surgery S/P appendectomy S/P colon resection Family History Mother , at age 65 CHF (congestive heart failure) Father , at age 84 Heart disease Other CAD (coronary artery disease) Cancer Diabetes Social History Smoking and tobacco status: current every day smoker cigarettes Packs smoked per day: 0.5 Years cigarettes smoked: 40 Quit status (tobacco): has tried quititng Number of times tried to quit tobacco: 5 Second hand smoke exposure: No Smoking risk assessment/counseling performed?: Yes Alcohol intake: current Alcohol intake frequency: holidays/special occasions only Desire information about substance/drug rehabilitation?: No Counseling given: Yes Lives independently: Yes Household members: none Housing: House Marital status: / service: No Current occupational status: disabled History of recent travel: No Current gender identity: Male Vitals/I&O/Wt Last Vital Signs Temp 97.9 F 04/02/22 16:47 Pulse 132 H 04/02/22 18:45 Resp 20 H 04/02/22 18:45 BP 86/61 04/02/22 18:45 Pulse Ox 79 L 04/02/22 18:40 O2 Del Method 04/02/22 17:38 FiO2 60 04/02/22 17:38 04/02/22 04/02/22 04/02/22 06:59 14:59 22:59 Intake Total 53.250 / 53.250 Balance 53.250 / 53.250 Weight last 48 hrs Weight 70 kg Physical Exam Const: GENERAL APPEARANCE: patient mechanically ventilated HENMT: COMMON NORMALS: oropharynx normal Neck/C-Spine: COMMON NORMALS: no JVD Resp: COMMON NORMALS: normal respiratory effort and clear to auscultation bilaterally AUSCULTATION: rhonchi and diminished lung sounds Cardio: COMMON NORMALS: no JVD, regular rhythm, S1 normal heart sound present, S2 normal heart sound present and No murmurs present (Cardio) RATE: tachycardic RHYTHM: regular rhythm HEART SOUNDS: S1 normal heart sound p resent and S2 normal heart sound present GI: COMMON NORMALS: Normal to inspection, nondistended, normoactive bowel sounds present, Soft to palpation and non-tender PALPATION: Yes Soft to palpation Extremity: COMMON NORMALS: no joint enlargement and no pedal edema OTHER: Mild mottling of extremities. Min swelling L foot and ankle. Neuro: SENSORIUM/ORIENTATION: Yes alert Skin: COMMON NORMALS: no rashes or lesions noted GENERAL SKIN EXAM: no rashes or lesions noted Urinary Catheter Management: Thompson: Cath Placed During This Visit: yes Urinary Catheter Date of Insertion: 04/02/22 Urinary Catheter Time of Insertion: 18:29 Sepsis: Is patient septic: Yes Focused sepsis exam performed: Yes Focused sepsis exam: Mottling, prolonged capillary refill. Data : 04/02/22 16:05 04/02/22 17:16 Micro: Microbiology 04/02/22 17:26 Blood Culture - Preliminary Blood SPECIMEN COLLECTED 04/02/22 17:16 Blood Culture - Preliminary Blood SPECIMEN COLLECTED A&P Assessment and plan (1) Acute hypercapnic respiratory failure: COPD exacerbation, bronchopneumonia, continue Esparza antibiotics with vancom ycin, cefepime. Breathing treatments, continue IV steroids for now. Collect sputum culture, urine bacterial antigens. Blood culture. COVID-19 pending. (2) Pneumonia: As above. Sepsis, septic shock with leukocytosis 12.7, sinus tachycardia 132, lactic acidosis of 3, acute kidney injury of 1.3, acute encephalopathy. Troponin elevation/NSTEMI. (3) COPD exacerbation: Recently with COPD exacerbation, complaining of dyspnea, productive cough, cresencio atment as above. Continue IV steroids with hydrocortisone for now with possible adrenal sufficiency given history of COPD, steroids in the past. Continue Esparza antibiotics as above. Breathing treatments. (4) Altered mental status: Acute metabolic encephalopathy secondary to sepsis, septic shock as above. Discussed concern with his family also regarding it is unknown how long he has been hypoxic. Concern for possibility of anoxic brain injury as well which may become apparent only later when trying to wean off sedation. CT of the head grossly unremarkable. Ammonia unremarkable Addition on duloxetine, unclear whether on diazepam, seems has not been on it recently. Gabapentin. Depression recently, although family not aware of any thoughts or plans of self-harm or suicidal ideation. (5) Shock: Septic shock as above, cannot exclude additionally cardiogenic shock with history of CAD, CABG, abnormal stress test, continued smoking history. Complete troponin EKG series. Stat echocardiogram. 30 mill per KG bolus for septic shock has been ordered. Continue antibiotic coverage. Continue empiric antibiotic coverage with vancomycin, cefepime, additional assessment CT abdomen pelvis, with history of intra-abdominal infection for now also Flagyl. (6) NSTEMI (non-ST elevated myocardial infarction): With history of CABG. Abnormal stress test in July 2020 with fixed defect, mild ischemia in distribution of LAD, LCx. Mild troponin abnormality, 30, initial EKG abnormality, but in setting of sinus tachycardia, appears more like LV strain pattern. Pending reassessment troponin. Follow-up series, stat echocardiogram. For now with possible NSTEMI continue aspirin, Heparin anticoagulation. (7) Coronary artery disease: As above (8) CAMI (acute kidney injury): Creatinine 1.3, BUN 59. Suspect secondary to sepsis, septic shock. Reassess renal function. Monitor I&O. Thompson catheter. Assess CT abdomen pelvis. (9) Transaminitis: Some chronic transaminitis, possibly history of HCV. Reassess. COVID-19 pending. Plan Depression: Son reported worsening recently, will need additional assessment HTN HLD Ischemic cardiomyopathy GERD Smoking addiction Remote drug use disorder Other comorbidities noted Attestations Medical Necessity Statement*: Admission of over 2 midnights is anticipated versus management of sepsis, septic shock, acute encephalopathy, acute kidney injury, NSTEMI, pneumonia, COPD exacerbation, hypercapnic respiratory failure, possible other focus of infection. Critical Care Time: The high probability of a clinically significant, sudden or life threatening deterioration of the patient's hemodynamic, respiratory, cardiac, neurologic, infectious disease system(s) required my full and direct attention, intervention and personal management. The critical care time is as shown. 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
--- NOTE | 2022-04-02 19:35 | P.CONIM_ITS ---
Providers/Reason For Consult Consulting Physician/Specialty*: Amandeep Gomez MD FCCP/Pulmonary Critical Care Reason for Consult*: Altered mental status/respiratory failure requiring intubation/shock requiring pressors Requesting Physician: Rodolfo Ohara Attending Physician: Rodolfo Ohara Primary Care Provider: Shukri Collins DO History of Present Illness History of Present Illness Albert Hernandez is a 62 year old male past medical history CAD s/p CABG (off- pump CABG X 1 utilizing left internal mammary artery to the LAD by Dr. 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 As per ED documentation, upon arrival patient was confused, wheezing and tachypneic-treated with albuterol. He was requiring 15 L nonrebreather and saturating 95% but mentation was altered. ABG on 15 L showed pH 7.25/PCO2 93/PaO2 462/bicarb 40. Patient was in respiratory acidosis. He was intubated for respiratory distress and postintubation ABG on CMV mode improved to 7.3 2/64/131/35/97%. Pulmonary critical care consulted for shock, respiratory distress, altered mental status. Patient seen at bedside Intubated and sedated Reviewed patient chart Labs and imaging reviewed -pertinent lab findings-CBC revealed elevated white count 12 K with left shift 9.7K,Pertinent metabolic profile showed BUN 59/creatinine 1.3 (CAMI on CKD), lactate 3, elevated LFTs (history of hep C). Elevated BNP 1136, troponin 30 and 2-hour troponin 38.8 with delta less than 10, EKG showed no acute ST-T wave changes. Chest x-ray revealed right basilar infiltrate concerning for pneumonia. CTA ruled out pulmonary embolism, area suspicious for multilobar pneumonia. No pneumothorax or pleural or pericardial effusion. There is significant centrilobular emphysema. There is a 5 x 8 mm nodule in right lower lobe which is new from previous CT scans. Blood cultures were sent. Patient was given a dose of vancomycin and cefepime. He was given 2 L of Ringer lactate and blood pressure was still low so started on pressor support for hypotension through a femoral line. Patient was using Advair 1 inhalation twice daily and albuterol for his COPD. His last PFTs were in February 2020 which revealed ?FEV1 FVC ratio of 36% with FEV1 of 1.03 L which is 30% of predicted and forced vital capacity of 2.88 L which is 66% of predicted.? The patient has significant postbronchodilator response.? The patient also has evidence of hyperinflation and air trapping with severe reduction of DLCO. He has grade D and very severe COPD. Patient has been smoking for quite a long time at least half pack. He failed quitting multiple times and continues to smoke. He used to be a substance user and has stopped using drugs couple of years ago. Overall he has poor functional capacity because of advanced COPD. His last CT 12/12/2020 showed stable pulmonary nodules in left upper and left lower lobes. Additionally patient has history of CAD s/p CABG Patient has history of sigmoid colitis which was complicated by development of c olovesical fistula and editions-which was repaired in 2016 and later patient developed vesicocutaneous fistula due to pelvic abscess. All of which was treated with antibiotics and opening was closed as per last urology note. He has chronically elevated PSA-followed by urology-and continues to follow-up PSA. Patient takes duloxetine and diazepam Review of Systems General: Reports: ROS unobtainable due to endotracheal tube, ROS unobtainable due to medical condition and ROS unobtainable due to mental status Medications/Allergies Home Medications Medication Instructions Recorded Confirmed Last Taken Type yymhuhpjxemj-omzxavsg-plxnpx tablet 1 tab PO DAILY 07/15/19 04/02/22 Unknown History aspirin 325 mg tablet 325 mg PO DAILY 10/07/19 04/02/22 03/07/20 History aeczyll-nflsrkjclbfgq-ezgcociv 1 tab PO Q6H PRN Headache 09/05/21 04/02/22 Unk nown History tablet jet alert 1 tab PO DAILY 09/05/21 04/02/22 Unknown History nitroglycerin 0.4 mg sublingual 0.4 mg sublingual Q5M PRN chest 09/05/21 04/02/22 Unknown Rx tablet pain #20 tabs lisinopril 20 mg tablet 20 mg PO BID #60 tabs 01/01/22 04/02/22 Unknown Rx gabapentin 800 mg tablet 400 mg PO BID #30 tabs 01/11/22 04/02/22 Unknown Rx albuterol sulfate 2.5 mg/3 mL 2.5 mg (3 mL) inhalation Q4H PRN 02/12/22 04/02/22 Unknown Rx (0.083 %) solution for nebulization shortness of breath or wheezing #3 mL albuterol sulfate 90 mcg/actuation 2 inh inhalation QID PRN shortness 02/12/22 04/02/22 Unknown Rx aerosol inhaler (ProAir HFA) of breath or wheezing #18 grams fluticasone propionate 50 2 spray intranasal DAILY 6 months 02/12/22 04/02/22 Unknown Rx mcg/actuation nasal #16 grams spray,suspension fluticasone 250 mcg-salmeterol 50 1 inh inhalation BID #60 ea 03/14/22 04/02/22 Unknown Rx mcg/dose blistr powdr for inhalation (Advair Diskus) diazepam 5 mg tablet 5 mg PO BID PRN anxiety 7 days #14 03/19/22 04/02/22 Unknown Rx tabs insulin glargine 100 unit/mL (3 See Rx Instructions .Route 03/20/22 04/02/22 Unknown Rx mL) subcutaneous pen (Lantus .COMPLEX #15 mL Solostar U-100 Insulin) duloxetine 60 mg capsule,delayed 60 mg PO DAILY 04/02/22 04/02/22 Unknown History release metformin 500 mg tablet,extended 500 mg PO BID 04/02/22 04/02/22 Unknown History release 24 hr omeprazole 20 mg capsule,delayed 20 mg PO DAILY 04/02/22 04/02/22 Unknown History release Allergies Allergy/AdvReac Type Severity Reaction Status Date / Time Penicillins Allergy Unknown Verified 03/08/22 13:07 Current Medications Generic Name Dose Route Start Last Admin Trade Name Freq PRN Reason Stop Dose Admin Fentanyl 2,500 mcg/ Sodium 250 mls @ 0 mls/hr 04/02/22 16:30 04/02/22 17:50 Chloride IV 100 mcg/hr .Q0M CRISTIANA 10 mls/hr Titration Protocol Per Protocol Propofol 1,000 mg in 100 mls @ 0 mls/hr 04/02/22 16:45 04/02/22 18:01 Diprivan IV 10 mls/hr .Q0M CRISTIANA 10 mls/hr Titration Protocol As Directed PFSH Acute PFSH: Medical History Allergic rhinitis Cervical postlaminectomy syndrome Chronic GERD Colovesical fistula Coronary artery disease History of drug dependence/abuse Hyperlipidemia, unspecified Hypertension Indeterminate pulmonary nodules Ischemic cardiomyopathy Lumbar spondylosis Major depressive disorder Other spondylosis, cervical region Vesicocutaneous fistula Surgical History H/O neck surgery History of open heart surgery S/P appendectomy S/P colon resection Family History Mother , at age 65 CHF (congestive heart failure) Father , at age 84 Heart disease Other CAD (coronary artery disease) Cancer Diabetes Social History Smoking and tobacco status: current every day smoker cigarettes Packs smoked per day: 0.5 Years cigarettes smoked: 40 Quit status (tobacco): has tried quititng Number of times tried to quit tobacco: 5 Second hand smoke exposure: No Smoking risk assessment/counseling performed?: Yes Alcohol intake: current Alcohol intake frequency: holidays/special occasions only Desire information about substance/drug rehabilitation?: No Counseling given: Yes Lives independently: Yes Household members: none Housing: House Marital status: / service: No Current occupational status: disabled History of recent travel: No Current gender identity: Male Vitals/I&O/Wt Last Vital Signs Temp 97.9 F 04/02/22 16:47 Pulse 132 H 04/02/22 18:45 Resp 20 H 04/02/22 18:45 BP 86/61 04/02/22 18:45 Pulse Ox 79 L 04/02/22 18:40 O2 Del Method 04/02/22 17:38 FiO2 60 04/02/22 17:38 04/02/22 04/02/22 04/02/22 06:59 14:59 22:59 Intake Total 53.250 / 53.250 Balance 53.250 / 53.250 Weight last 48 hrs Weight 154 lb 5.177 oz Physical Exam Narrative: PHYSICAL EXAM: General: lying in bed, sedated and intubated. HEENT:NCAT, PERRLA, EOMI Neck: Supple Lungs: Reduced breath sounds clear, Heart: s1/s2, RRR Abd: soft, NT, ND, BS + Normoactive Extremities: No edema, cold extremities BANKING AND FINANCE INSTRUCTOR: sedated and limited BANKING AND FINANCE INSTRUCTOR exam possible. SKIN: no rash LDA: # CVC: Left femoral line 04/03/2022 Urinary Catheter Management: Thompson: Cath Placed During This Visit: yes Urinary Catheter Date of Insertion: 04/02/22 Urinary Catheter Time of Insertion: 18:29 Data : 04/03/22 04:03 04/03/22 04:03 Other Labs: Radiology Impressions Chest X-Ray 04/02/22 16:05 IMPRESSION: 1. COPD 2. Right basilar infiltrate worrisome for pneumonia 3. Endotracheal tube in satisfactory position. Head CT 04/02/22 16:36 IMPRESSION: No acute intracranial finding. Chest CTA 04/02/22 16:48 IMPRESSION: 1. Bronchitis and bronchopneumonia. 2. Emphysema 3. No evidence of pulmonary embolism. REFERENCES: Hermelindo Shah, et al. Guidelines for Management of Incidental Pulmonary Nodules Detected on CT Images: From the Fleischner Society 2017. Radiology. 2017;284(1):228-243. Laboratory Results WBC 12.7 10^3/uL (4.0-10.0) H 04/02/22 16:05 RBC 5.32 10^6/uL (4.1-5.3) H 04/02/22 16:05 Hgb 17.7 g/dL (11.7-16.6) H 04/02/22 16:05 Hct 56.8 % (42.0-52.0) H 04/02/22 16:05 MCV 106.8 fl (80-94) H 04/02/22 16:05 MCH 33.3 pg (28.0-34.0) 04/02/22 16:05 MCHC 31.2 g/dL (30.0-36.0) 04/02/22 16:05 RDW 13.4 % (12.1-15.1) 04/02/22 16:05 Plt Count 182 10^3/cmm (130-400) 04/02/22 16:05 MPV 13.4 fL (7.4-10.4) H 04/02/22 16:05 Neut % (Auto) 77.2 % 04/02/22 16:05 Lymph % (Auto) 7.3 % 04/02/22 16:05 [facility] % (Auto) 11.5 % 04/02/22 16:05 Eos % (Auto) 2.9 % 04/02/22 16:05 Baso % (Auto) 0.6 % 04/02/22 16:05 Neut # (Auto) 9.78 10^3/uL (1.8-7.7) H 04/02/22 16:05 Lymph # (Auto) 0.9 10^3/uL (0.8-4.8) 04/02/22 16:05 [facility] # (Auto) 1.5 10^3/uL (0.2-0.9) H 04/02/22 16:05 Eos # (Auto) 0.4 10^3/uL (0.0-0.8) 04/02/22 16:05 Baso # (Auto) 0.1 10^3/uL (0.0-0.1) 04/02/22 16:05 Nucleated RBC % (auto) 0.8 % 04/02/22 16:05 Nucleated RBCs # 0.1 /100WBC 04/02/22 16:05 Specimen Type Arterial 04/02/22 18:10 Sample Site Brachial, left 04/02/22 18:10 ABG pH 7.35 (7.35-7.45) 04/02/22 18:10 ABG pCO2 64.2 mmHg (35-45) H* 04/02/22 18:10 ABG pO2 131.0 mmHg (80.0-100.0) H 04/02/22 18:10 ABG HCO3 35.1 mmol/L (22-26) H 04/02/22 18:10 ABG O2 Saturation 97.4 04/02/22 18:10 ABG Base Excess 6.8 mmol/L (-2.0-2.0) H 04/02/22 18:10 Miguel Test Pos 04/02/22 18:10 A-a O2 Gradient 19.2 mmHg (5-10) H 04/02/22 18:10 Hematocrit 47.3 % (42-52) 04/02/22 18:10 Hgb O2 Saturation 95.5 % (95-100) 04/02/22 18:10 Carboxyhemoglobin 1.2 %THgb (0.4-20.1) 04/02/22 18:10 Methemoglobin 0.6 % (0.4-1.5) 04/02/22 18:10 Total Hemoglobin 15.4 g/dL (14-18) 04/02/22 18:10 Sodium 137.0 mmol/L (131-143) 04/02/22 18:10 Potassium 4.6 mmol/L (3.5-5.0) 04/02/22 18:10 Glucose 169.0 mg/dL (70-115) H 04/02/22 18:10 Ionized Calcium 1.2 mmol/L (1.1-1.4) 04/02/22 18:10 O2 Delivery Device Vent 04/02/22 18:10 O2 Liters/Min 15.0 % 04/02/22 16:20 FiO2 50.0 % 04/02/22 18:10 PEEP 10.0 cmH20 04/02/22 18:10 Mold Car Pusher ID Cak 04/02/22 18:10 Sodium 133 mmol/L (136-145) L 04/02/22 17:16 Potassium 5.0 mmol/L (3.5-5.1) 04/02/22 17:16 Chloride 88 mmol/L (98-107) L 04/02/22 17:16 Carbon Dioxide 36 mmol/L (22-29) H 04/02/22 17:16 Anion Gap 14.0 (5-19) 04/02/22 17:16 BUN 59 mg/dL (8-23) H 04/02/22 17:16 Creatinine 1.3 mg/dL (0.7-1.2) H 04/02/22 17:16 GFR Calculation 55.9 mL/min (90-130) L 04/02/22 17:16 Glucose 173 mg/dL (65-115) H 04/02/22 17:16 Calculated Osmolality 297 mOsm/kg (285-295) H 04/02/22 17:16 Lactate 3.0 mmol/L (0.5-2.2) H 04/02/22 16:05 Calcium 9.1 mg/dL (8.5-10.5) 04/02/22 17:16 Total Bilirubin 0.4 mg/dL (0.15-1.2) 04/02/22 17:16 AST 42 U/L (0-40) H 04/02/22 17:16 ALT 46 U/L (0-41) H 04/02/22 17:16 Alkaline Phosphatase 156 U/L (40-130) H 04/02/22 17:16 Ammonia 25 umol/L (16-60) 04/02/22 17:16 Troponin T Baseline 30 ng/L (0-15) H 04/02/22 17:16 Troponin T 120 Minute 38.81 ng/L (0-15) H 04/02/22 19:00 Delta Troponin T 8.81 ABS# (0-10) 04/02/22 19:00 NT-Pro-B Natriuret Pep 1136 pg/mL (0-125) H 04/02/22 17:16 Total Protein 6.1 g/dL (6.6-8.7) L 04/02/22 17:16 Albumin 2.9 g/dL (3.5-5.2) L 04/02/22 17:16 Globulin 3.2 g/dL (1.3-4.6) 04/02/22 17:16 Lipase 25 U/L (13-60) 04/02/22 17:16 TSH 3.76 uIU/mL (0.27-4.20) 04/02/22 17:16 Free T4 0.84 ng/dL (0.82-1.77) 04/02/22 17:16 Salicylates < 0.3 mg/dL (3-10) L 04/02/22 17:16 Acetaminophen < 5.0 ug/mL (10-30) L 04/02/22 17:16 Ethyl Alcohol < 10 mg/dL (0-10) 04/02/22 19:00 Micro: Microbiology 04/02/22 17:26 Blood Culture - Preliminary Blood SPECIMEN COLLECTED 04/02/22 17:16 Blood Culture - Preliminary Blood SPECIMEN COLLECTED A&P Assessment and plan (1) Shock: (2) CAMI (acute kidney injury): (3) Transaminitis: (4) COPD exacerbation: (5) Acute hypercapnic respiratory failure: (6) NSTEMI (non-ST elevated myocardial infarction): (7) Pneumonia: (8) Coronary artery disease: (9) History of drug dependence/abuse: (10) Type 2 diabetes mellitus, without long-term current use of insulin: Qualifiers: Chronic kidney disease stage: stage 2 (mild) Diabetes mellitus com plication detail: with chronic kidney disease Diabetes mellitus complication status: with kidney complications Qualified Code(s): E11.22 - Type 2 diabetes mellitus with diabetic chronic kidney disease; N18.2 - Chronic kidney disease, stage 2 (mild) (11) End stage COPD: Plan 62-year-old male with past medical history of CAD s/p CABG, end-stage COPD on 3 L home oxygen, CKD, hepatitis C, 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 #Altered mental status and shock likely secondary to sepsis -Imaging consistent with pneumonia -Elevated leukocytosis with left shift, lactate 3, sinus tachycardia -Continue vancomycin/cefepime; received 2 L Ringer's lactate's and currently on pressor-Target MAP> 65 -Blood cultures pending; please send procalcitonin, urine cultures/sputum cultures from endotracheal tube -Unlikely cardiogenic-given low delta troponin, no acute changes on EKG;-Obtain CV echo for evaluation of LV function -Head CT-no acute intracranial finding, other metabolic causes for AMS reviewed- normal ammonia, elevated BUN may have some uremic component, please send for u rine toxicology/EtOH level #Acute on chronic hypercapnic respiratory failure in patient with end-stage COPD #CT evidence of significant centrilobular emphysema -Intubated and mechanically ventilated-continue CMV -Continue sedation with fentanyl/propofol for 24 hours later will taper off sedation and do awakening trial -Chest x-ray revealed right basilar infiltrate concerning for pneumonia. CTA ruled out pulmonary embolism, area suspicious for multilobar pneumonia. No pneumothorax or pleural or pericardial effusion. -Continue IV Solu-Medrol 40 every 8 and DuoNeb nebulization every 6 hours scheduled #There is a 5 x 8 mm nodule in right lower lobe which is new from previous CT scans -Need follow-up as outpatient #Shock likely secondary to sepsis #History of CAD s/p CABG-delta troponin normal and EKG no acute ST-T wave changes #Sinus tachycardia secondary to sepsis -Currently on Levophed 10 with target MAP 65; hold off blood pressure medications -Elevated BNP-we will obtain echocardiogram -Can continue aspirin #CAMI on CKD-likely prerenal due to septic shock #History of complicated sigmoid colitis-resulting in colovesical fistula repair 2006-postoperatively complicated with vesicocutaneous fistula-treated with antibiotics and healed with no leak on subsequent urogram -Continue pressors to target MAP greater than 65 -Monitor input and output, electrolytes, renal functions -Supplement K to keep>4; magnesium> 2 -Target even fluid balance -Avoid nephrotoxic medications #Transaminitis in patient with underlying history of hepatitis C-some component contributed by septic shock -Normal ammonia -Monitor LFTs -Avoid hepatotoxic medications #History of type 2 diabetes with diabetic neuropathy -Patient on gabapentin 400 Mg p.o. twice daily-can hold off for now -Continue insulin scale coverage and target sugars between 1 20-1 80 -N.p.o. for now ICU CHECKLIST: Problem list updated Verbal orders reviewed and signed Analgesia: Fentanyl drip Glycemic Control: Insulin scale coverage Nutrition: N.p.o. for now Restraint Renewal (within 24 hrs): Yes Ulcer Prophylaxis: PPI Chemical Thromboprophylaxis: Prophylaxis: Heparin drip Mechanical Thromboprophylaxis: SCDs Need for Central line: For pressors Need for Thompson catheter: For urine output monitoring Critical Care Time (No Overlap): 60 min This patient has a high probability of sudden, clinically significant deterioration, which requires the highest level of physician preparedness to intervene urgently. I managed/supervised life or organ supporting interventions that required frequent physician assessment. I devoted my full attention in the ICU to the direct care of this patient for the period of time indicated above. Time I spent with family or surrogate(s) is included only if the patient was incapable of providing necessary information or participating in decision making. Time devoted to teaching and to any procedures I billed separately is not included. Services Provided: Telemetry review Mechanical Ventilation Hemodynamic interpretation, assessment and management Review and interpretation of CXR Review and interpretation of lab values Review and interpretation of microbiologic data and culture results Review of medications and administration Review and interpretation of Nutrition requirements and management Discussion of management with other consultants and services Clinical update to family members Consult Attestations Medical Necessity Statement: Altered mental status/acute hypercapnic respiratory failure/shock-all secondary to possible sseywt-qkyssucbb-hyyvwiahz pressors, intubation and mechanical ventilation-need close ICU monitoring for at least 48 to 72 hours Time Spent in Patient Care: Greater than 35 minutes (>than 50% of time spent in counselling and/or direct pt care on unit) . Critical Care Time: The high probability of a clinically significant, sudden or life threatening deterioration of the patient's [neurological, pulmonary, cardiac, renal, hepatic, infectious] system(s) required my full and direct attention, intervention and personal management. The critical care time is as shown. This time is in addition to time spent performing any reported procedures but includes the following: [x] Data and vital sign review and interpretation [x] Patient assessment, examination and intervention [x] Documentation [x] Medication orders and management Coding Level of Care Code New Pt Acute Fountain Attendant for Chg Fwd Patient Type New History Comprehensive Exam Comprehensive Medical Decision Making High Complexity Diagnoses Shock R57.9 CAMI (acute kidney injury) N17.9 Transaminitis R74.01 COPD exacerbation J44.1 Acute hypercapnic respiratory failure J96.02 NSTEMI (non-ST elevated myocardial infarction) I21.4 Pneumonia J18.9 Coronary artery disease I25.10 History of drug dependence/abuse F19.21 Type 2 diabetes mellitus, without long-term current use of insulin E11.22; N18.2 Chronic kidney disease stage: stage 2 (mild) Diabetes mellitus complication detail: with chronic kidney disease Diabetes mellitus complication status: with kidney complications End stage COPD J44.9 Time Spent (min) 60
[2022-04-02 19:42] LABS: Troponin 5 2HR 38.81 ng/L (0-15)
[2022-04-02 19:43] LABS: Troponin 5 2HR Delta 8.81 ABS# (0-10)
[2022-04-02 19:55] LABS: Free T4 Free Thyroxine 0.84 ng/dL (0.82-1.77)
[2022-04-02 19:59] LABS: Alcohol Level < 10 mg/dL (0-10)
[2022-04-02 20:26] LABS: Procalcitonin 0.83 ng/mL (0-0.5)
[2022-04-02 21:05] LABS: Adenovirus Not Detected (NOT DETECT); Chlamydia Pneumoniae Not Detected (NOT DETECT); Coronavirus 229E,HKU1,NL63,OC4 Not Detected (NOT DETECT); Human Metapneumovirus Not Detected (NOT DETECT); Human Rhinovirus/Enterovirus Not Detected (NOT DETECT); Influenza A Not Detected (NOT DETECT); Influenza A H1 Not Detected (NOT DETECT); Influenza A H1-2009 Not Detected (NOT DETECT); Influenza A H3 Not Detected (NOT DETECT); Influenza B Not Detected (NOT DETECT); Mycoplasma Pneumoniae Not Detected (NOT DETECT); Parainfluenza Virus Type 1 Not Detected (NOT DETECT); Parainfluenza Virus Type 2 Not Detected (NOT DETECT); Parainfluenza Virus Type 3 Not Detected (NOT DETECT); Parainfluenza Virus Type 4 Not Detected (NOT DETECT); Respiratory Syncytial Virus A Not Detected (NOT DETECT); Respiratory Syncytial Virus B Not Detected (NOT DETECT); SARS-COV-2 Not Detected (NOT DETECT)
[2022-04-02 21:10] LABS: Amphetamines Screen Urine Positive (Negative); Barbiturates Screen Urine Negative (Negative); Benzodiazepines Screen Urine Positive (Negative); Cocaine Screen Urine Negative (Negative); Opiate Screen Urine Negative (Negative); PCP Screen Urine Negative (Negative); THC Screen Urine Positive (Negative)
[2022-04-02 21:39] LABS: Add Urine Microscopic? YES; Bilirubin Urine Neg (Negative); Blood Urine Neg (Negative); Glucose Urine UA Norm (Normal); Ketones Urine Trace (Negative); Leukocyte Esterase Urine Negative (Negative); Nitrate Urine Negative (Negative); Protein Urine Trace (Negative); Specific Gravity, Urine 1.005 (1.005-1.030); Urine Appearance Clear (CLEAR); Urine Color Yellow (Yellow); Urobilinogen Urine Norm (Negative); pH Urine 5 (5-7)
[2022-04-02 21:40] LABS: RBC Urine 0-4 /hpf (0-2); Squamous Epithelial Cell Urine 0-4 /hpf (0-5)
[2022-04-02 21:41] LABS: Add Urine Culture? No; Amorphous Sediment Urine 1+ /hpf; Hyaline Casts Urine 0-4 /lpf
[2022-04-02 22:00] LABS: Glucose Point of Care 161 mg/dL (70-110)
[2022-04-02] MEDS: pantoprazole 40 mg SDV IVP (22:07)
[2022-04-02] MEDS: metroNIDAZOLE IV 500 MG/100 ML PREMIX 100 MG IV (22:07)
[2022-04-02] MEDS: insulin lispro 100 unit/1 mL SUBCUT (22:08)
[2022-04-02] MEDS: aspirin 325 mg Tablet PO (22:08)
[2022-04-02] MEDS: hydrocortisone 100 mg/2 mL SDV IVP (22:08)
[2022-04-02] MEDS: heparin drip 25,000 UNIT/500 ML PREMIX 16 UNIT IV (22:09)
[2022-04-02] MEDS: heparin 5,000 unit/mL INJ 1 mL IV (22:09)
--- NOTE | 2022-04-02 22:36 | ECG_ITS ---
[facility] Test Date: 2022-04-02 Pat Name: Albert Hernandez Department: Room: ICU10 Gender: Male Scientific Publications Editor: : 1960 Requested By: Charbel Tapia Order Number: [id number] Nahun MD: Roxana Allen M.D. Measurements Intervals [place] Rate: 143 P: 88 DC: 121 QRS: 91 QRSD: 94 T: -85 QT: 254 QTc: 392 Interpretive Statements SINUS TACHYCARDIA BORDERLINE RIGHT AXIS DEVIATION [QRS AXIS > 90] ST DEVIATION AND MODERATE T-WAVE ABNORMALITY, CONSIDER ANTEROLATERAL ISCHEMIA ST DEVIATION AND MODERATE T-WAVE ABNORMALITY, CONSIDER INFERIOR ISCHEMIA Compared to ECG 04/02/2022 18:52:11 T-wave abnormality now present Possible ischemia now present Left ventricular hypertrophy no longer present ST (T wave) deviation no longer present Electronically Signed On 04-04-2022 6:11:18 CDT by Roxana Allen M.D. [id number]
[2022-04-02 22:43] LABS: Basophils % 0.2 %; Hematocrit 42.6 % (42.0-52.0); Hemoglobin 13.4 g/dL (11.7-16.6); Lymphocytes # 0.5 10^3/uL (0.8-4.8); Lymphocytes % 4.2 %; Mean Corpuscular HGB Conc 31.5 g/dL (30.0-36.0); Mean Corpuscular Hemoglobin 32.8 pg (28.0-34.0); Mean Corpuscular Volume 104.4 fl (80-94); Mean Platelet Volume 12.4 fL (7.4-10.4); Monocytes # 0.8 10^3/uL (0.2-0.9); Monocytes % 7.3 %; Nucleated Red Blood Cells # 0.1 /100WBC; Nucleated Red Blood Cells % 0.5 %; Platelet Count 148 10^3/cmm (130-400); Red Blood Count 4.08 10^6/uL (4.1-5.3); Red Cell Distribution Width 13.2 % (12.1-15.1); White Blood Count 11.1 10^3/uL (4.0-10.0)
[2022-04-02 23:08] LABS: Alanine Aminotransferase 40 U/L (0-41); Albumin Level 2.8 g/dL (3.5-5.2); Alkaline Phosphatase 130 U/L (40-130); Anion Gap 13.8 (5-19); Aspartate Amino Transferase 37 U/L (0-40); Blood Urea Nitrogen 53 mg/dL (8-23); Carbon Dioxide 34 mmol/L (22-29); Chloride 94 mmol/L (98-107); Glomerular Filtration Rate 55.9 mL/min (90-130); Glucose 201 mg/dL (65-115); Osmolality Calculated 304 mOsm/kg (285-295); Potassium 4.8 mmol/L (3.5-5.1); Sodium 137 mmol/L (136-145); Total Bilirubin 0.3 mg/dL (0.15-1.2); Total Protein 5.8 g/dL (6.6-8.7)
--- NOTE | 2022-04-02 23:24 | PC.NURSE ---
TL CVL -- all lines flush easily, only proximal line able to draw blood
[2022-04-03] VITALS (82 sets, daily range): BP systolic 79–114; BP diastolic 51–70; PULSE 99–145; RESP 18–20; TEMP 37–38.5; O2SAT 89–100
[2022-04-03] MEDS: acetaminophen 650 mg/20.3 mL UDC PO (00:07)
[2022-04-03] MEDS: chlorhexidine gluconate 4% Btl 118 mL 1 APPLIC TOPICAL (00:08)
[2022-04-03 00:10] LABS: Influenza A by IFA Negative (Negative); Influenza B by IFA Negative (Negative)
[2022-04-03] MEDS: propofol 1,000 MG/100 ML INJ 10.5 MG IV ×2 (02:05→10:24)
[2022-04-03] MEDS: norepinephrine 8 MG in dextrose 5 % 500 ML 38.1 MG IV (02:52)
[2022-04-03] MEDS: ipratropium-albuterol 3 mL Neb INHALATION ×5 (03:24→20:19)
[2022-04-03] MEDS: metroNIDAZOLE IV 500 MG/100 ML PREMIX 100 MG IV ×2 (03:47→13:04)
[2022-04-03 04:14] LABS: ABG PCO2 55.6 mmHg (35-45); ABG PH Result 7.42 (7.35-7.45); Arterial Blood Gas Hematocrit 42.6 % (42-52); Base Excess ABG 9.4 mmol/L (-2.0-2.0); Blood Gas Allen Test Pos; Blood Gas Sample Site Radial, right; Blood Gas Sample Type Arterial; Blood Gas Tidal Volume 0.45; HCO3 ABG 35.9 mmol/L (22-26); Oxygen Device VENT; PO2 ABG 93.5 mmHg (80.0-100.0)
[2022-04-03 04:21] LABS: Basophils % 0.2 %; Hematocrit 42.5 % (42.0-52.0); Hemoglobin 13.4 g/dL (11.7-16.6); Lymphocytes # 0.8 10^3/uL (0.8-4.8); Lymphocytes % 5.6 %; Mean Corpuscular HGB Conc 31.5 g/dL (30.0-36.0); Mean Corpuscular Hemoglobin 32.9 pg (28.0-34.0); Mean Corpuscular Volume 104.4 fl (80-94); Mean Platelet Volume 12.8 fL (7.4-10.4); Monocytes % 7.1 %; Neutrophils # 11.63 10^3/uL (1.8-7.7); Neutrophils % 86.6 %; Nucleated Red Blood Cells # 0.1 /100WBC; Nucleated Red Blood Cells % 0.6 %; Platelet Count 174 10^3/cmm (130-400); Red Blood Count 4.07 10^6/uL (4.1-5.3); Red Cell Distribution Width 13.2 % (12.1-15.1); White Blood Count 13.4 10^3/uL (4.0-10.0)
[2022-04-03 04:29] LABS: Partial Thromboplastin Time 57.7 SECONDS (23.9-36.7)
[2022-04-03 04:37] LABS: Alanine Aminotransferase 34 U/L (0-41); Albumin Level 2.9 g/dL (3.5-5.2); Alkaline Phosphatase 134 U/L (40-130); Aspartate Amino Transferase 36 U/L (0-40); Blood Urea Nitrogen 61 mg/dL (8-23); Calcium 8.9 mg/dL (8.5-10.5); Carbon Dioxide 34 mmol/L (22-29); Chloride 93 mmol/L (98-107); Globulin 3.2 g/dL (1.3-4.6); Glomerular Filtration Rate 36.1 mL/min (90-130); Glucose 256 mg/dL (65-115); Osmolality Calculated 310 mOsm/kg (285-295); Sodium 137 mmol/L (136-145); Total Bilirubin 0.2 mg/dL (0.15-1.2); Total Protein 6.1 g/dL (6.6-8.7)
[2022-04-03] MEDS: hydrocortisone 100 mg/2 mL SDV IVP ×4 (05:07→22:03)
[2022-04-03] MEDS: cefepime 1,000 MG in sodium chloride 0.9% (plus) 50 ML 100 MG IV ×2 (05:08→16:26)
[2022-04-03] MEDS: insulin lispro 100 unit/1 mL SUBCUT ×3 (05:08→20:59)
--- NOTE | 2022-04-03 10:57 | P.PN_ITS ---
Subjective Subjective: -Seen patient at bedside -Uneventful overnight except for temperature spike and episode of tachycardia 140 bpm which improved -Still requiring Levophed 8 -ABG improved on current vent settings -Decreasing urine output and worsening renal functions raises concern for prerenal kidney failure -U tox positive for benzodiazepines, cannabis, methamphetamines -Daughter at bedside-reported seeing vomitus on patient clothes during the time of events-suspect aspiration pneumonia Medications: Reviewed: Yes Vitals/I&O/Wt Last Vital Signs Temp 98.6 F 04/03/22 07:30 Pulse 117 H 04/03/22 08:30 Resp 18 04/03/22 09:11 BP 106/64 04/03/22 08:30 Pulse Ox 94 04/03/22 09:11 O2 Del Method 04/03/22 07:25 FiO2 40 04/03/22 09:11 04/02/22 04/03/22 04/03/22 22:59 06:59 14:59 Intake Total 73.083 / 73.083 3007.167 / 3080.250 87.325 / 87.325 Output Total 400 / 400 Balance 73.083 / 73.083 2607.167 / 2680.250 87.325 / 87.325 Weight last 48 hrs Weight 130 lb 6.4 oz Weight 127 lb 14.4 oz Weight 154 lb 5.177 oz Physical Exam 2 Narrative: PHYSICAL EXAM: General: lying in bed, sedated and intubated. 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 SKIN: no rash LDA: # CVC: Left femoral line 04/03/2022 Urinary Catheter Management: Thompson: Cath Placed During This Visit: yes Reason for Continuing Indwelling Catheter: Accurate Measurement of Urinary Output in Critically Ill Patients Urinary Catheter Date of Insertion: 04/02/22 Urinary Catheter Time of Insertion: 18:29 Data : 04/03/22 04:03 04/03/22 04:03 Other Labs: Radiology Impressions Chest X-Ray 04/02/22 16:05 IMPRESSION: 1. COPD 2. Right basilar infiltrate worrisome for pneumonia 3. Endotracheal tube in satisfactory position. Head CT 04/02/22 16:36 IMPRESSION: No acute intracranial finding. Chest CTA 04/02/22 16:48 IMPRESSION: 1. Bronchitis and bronchopneumonia. 2. Emphysema 3. No evidence of pulmonary embolism. REFERENCES: Hermelindo Shah et al. Guidelines for Management of Incidental Pulmonary Nodules Detected on CT Images: From the Fleischner Society 2017. Radiology. 2017;284(1):228-243. Abdomen/Pelvis CT 04/02/22 18:51 IMPRESSION: 1. Persistent nephrogram which could be part of the hypoperfusion complex 2. Possible malposition of the left femoral venous catheter. 3. Pneumonia is seen on prior CT scan of the chest Laboratory Results WBC 13.4 10^3/uL (4.0-10.0) H 04/03/22 04:03 RBC 4.07 10^6/uL (4.1-5.3) L 04/03/22 04:03 Hgb 13.4 g/dL (11.7-16.6) 04/03/22 04:03 Hct 42.5 % (42.0-52.0) 04/03/22 04:03 MCV 104.4 fl (80-94) H 04/03/22 04:03 MCH 32.9 pg (28.0-34.0) 04/03/22 04:03 MCHC 31.5 g/dL (30.0-36.0) 04/03/22 04:03 RDW 13.2 % (12.1-15.1) 04/03/22 04:03 Plt Count 174 10^3/cmm (130-400) 04/03/22 04:03 MPV 12.8 fL (7.4-10.4) H 04/03/22 04:03 Neut % (Auto) 86.6 % 04/03/22 04:03 Lymph % (Auto) 5.6 % 04/03/22 04:03 [place] % (Auto) 7.1 % 04/03/22 04:03 Eos % (Auto) 0.0 % 04/03/22 04:03 Baso % (Auto) 0.2 % 04/03/22 04:03 Neut # (Auto) 11.63 10^3/uL (1.8-7.7) H 04/03/22 04:03 Lymph # (Auto) 0.8 10^3/uL (0.8-4.8) 04/03/22 04:03 [place] # (Auto) 1.0 10^3/uL (0.2-0.9) H 04/03/22 04:03 Eos # (Auto) 0.0 10^3/uL (0.0-0.8) 04/03/22 04:03 Baso # (Auto) 0.0 10^3/uL (0.0-0.1) 04/03/22 04:03 Nucleated RBC % (auto) 0.6 % 04/03/22 04:03 Nucleated RBCs # 0.1 /100WBC 04/03/22 04:03 APTT 57.7 SECONDS (23.9-36.7) H 04/03/22 04:03 Specimen Type Arterial 04/03/22 04:08 Sample Site Radial, right 04/03/22 04:08 ABG pH 7.42 (7.35-7.45) 04/03/22 04:08 ABG pCO2 55.6 mmHg (35-45) H 04/03/22 04:08 ABG pO2 93.5 mmHg (80.0-100.0) 04/03/22 04:08 ABG HCO3 35.9 mmol/L (22-26) H 04/03/22 04:08 ABG O2 Saturation 97.4 04/02/22 18:10 ABG Base Excess 9.4 mmol/L (-2.0-2.0) H 04/03/22 04:08 Miguel Test Pos 04/03/22 04:08 A-a O2 Gradient 19.2 mmHg (5-10) H 04/02/22 18:10 Hematocrit 42.6 % (42-52) 04/03/22 04:08 Hgb O2 Saturation 95.5 % (95-100) 04/02/22 18:10 Carboxyhemoglobin 1.2 %THgb (0.4-20.1) 04/02/22 18:10 Methemoglobin 0.6 % (0.4-1.5) 04/02/22 18:10 Total Hemoglobin 15.4 g/dL (14-18) 04/02/22 18:10 Sodium 137.0 mmol/L (131-143) 04/02/22 18:10 Potassium 4.6 mmol/L (3.5-5.0) 04/02/22 18:10 Glucose 169.0 mg/dL (70-115) H 04/02/22 18:10 Ionized Calcium 1.2 mmol/L (1.1-1.4) 04/02/22 18:10 O2 Delivery Device Vent 04/03/22 04:08 O2 Liters/Min 15.0 % 04/02/22 16:20 FiO2 45.0 % 04/03/22 04:08 Tidal Volume 0.45 04/03/22 04:08 PEEP 10.0 cmH20 04/03/22 04:08 Glue Bone Crusher ID ellpe 04/03/22 04:08 Sodium 137 mmol/L (136-145) 04/03/22 04:03 Potassium 5.0 mmol/L (3.5-5.1) 04/03/22 04:03 Chloride 93 mmol/L (98-107) L 04/03/22 04:03 Carbon Dioxide 34 mmol/L (22-29) H 04/03/22 04:03 Anion Gap 15.0 (5-19) 04/03/22 04:03 BUN 61 mg/dL (8-23) H 04/03/22 04:03 Creatinine 1.9 mg/dL (0.7-1.2) H 04/03/22 04:03 GFR Calculation 36.1 mL/min (90-130) L 04/03/22 04:03 Glucose 256 mg/dL (65-115) H 04/03/22 04:03 POC Glucose 161 mg/dL (70-110) H 04/02/22 21:43 Calculated Osmolality 310 mOsm/kg (285-295) H 04/03/22 04:03 Lactate 3.0 mmol/L (0.5-2.2) H 04/02/22 16:05 Calcium 8.9 mg/dL (8.5-10.5) 04/03/22 04:03 Total Bilirubin 0.2 mg/dL (0.15-1.2) 04/03/22 04:03 AST 36 U/L (0-40) 04/03/22 04:03 ALT 34 U/L (0-41) 04/03/22 04:03 Alkaline Phosphatase 134 U/L (40-130) H 04/03/22 04:03 Ammonia 25 umol/L (16-60) 04/02/22 17:16 Troponin T Baseline 30 ng/L (0-15) H 04/02/22 17:16 Troponin T 120 Minute 38.81 ng/L (0-15) H 04/02/22 19:00 Delta Troponin T 8.81 ABS# (0-10) 04/02/22 19:00 Troponin T Hi Sens 6Hr 32.20 ng/L (0-15) H 04/02/22 22:30 Troponin T Hi Sens 6Hr Delta 2.20 ng/L (0-12) 04/02/22 22:30 NT-Pro-B Natriuret Pep 1136 pg/mL (0-125) H 04/02/22 17:16 Total Protein 6.1 g/dL (6.6-8.7) L 04/03/22 04:03 Albumin 2.9 g/dL (3.5-5.2) L 04/03/22 04:03 Globulin 3.2 g/dL (1.3-4.6) 04/03/22 04:03 Lipase 25 U/L (13-60) 04/02/22 17:16 Procalcitonin 0.83 ng/mL (0-0.5) H 04/02/22 17:16 TSH 3.76 uIU/mL (0.27-4.20) 04/02/22 17:16 Free T4 0.84 ng/dL (0.82-1.77) 04/02/22 17:16 Urine Color Yellow (Yellow) 04/02/22 20:41 Urine Appearance Clear (CLEAR) 04/02/22 20:41 Urine pH 5 (5-7) 04/02/22 20:41 Ur Specific [place] 1.005 (1.005-1.030) 04/02/22 20:41 Urine Protein Trace (Negative) 04/02/22 20:41 Urine Glucose (UA) Norm (Normal) 04/02/22 20:41 Urine Ketones Trace (Negative) H 04/02/22 20:41 Urine Blood Neg (Negative) 04/02/22 20:41 Urine Nitrate Negative (Negative) 04/02/22 20:41 Urine Bilirubin Neg (Negative) 04/02/22 20:41 Urine Urobilinogen Norm mg/dL (Negative) 04/02/22 20:41 Ur Leukocyte Esterase Negative (Negative) 04/02/22 20:41 Urine RBC 0-4 /hpf (0-2) H 04/02/22 20:41 Urine WBC None /hpf (0-5) 04/02/22 20:41 Ur Squamous Epith Cells 0-4 /hpf (0-5) H 04/02/22 20:41 Amorphous Sediment 1+ /hpf 04/02/22 20:41 Urine Bacteria None /hpf (NONE) 04/02/22 20:41 Hyaline Casts 0-4 /lpf H 04/02/22 20:41 Salicylates < 0.3 mg/dL (3-10) L 04/02/22 17:16 Urine Opiates Screen Negative ng/mL (Negative) 04/02/22 20:41 Acetaminophen < 5.0 ug/mL (10-30) L 04/02/22 17:16 Ur Barbiturates Screen Negative ng/mL (Negative) 04/02/22 20:41 Ur Phencyclidine Scrn Negative ng/mL (Negative) 04/02/22 20:41 Ur Amphetamines Screen Positive ng/mL (Negative) H 04/02/22 20:41 U Benzodiazepines Scrn Positive ng/mL (Negative) H 04/02/22 20:41 Urine Cocaine Screen Negative ng/mL (Negative) 04/02/22 20:41 U Marijuana (THC) Screen Positive ng/mL (Negative) H 04/02/22 20:41 Ethyl Alcohol < 10 mg/dL (0-10) 04/02/22 19:00 Coronavirus 229E (PCR) Not detected (NOT DETECT) 04/02/22 Unknown Influenza Type A Ag Negative (Negative) 04/02/22 23:00 Influenza Type B Ag Negative (Negative) 04/02/22 23:00 SARS-CoV-2 (PCR) Not detected (NOT DETECT) 04/02/22 Unknown Micro: Microbiology 04/02/22 17:26 Blood Culture - Preliminary Blood SPECIMEN COLLECTED 04/02/22 17:16 Blood Culture - Preliminary Blood SPECIMEN COLLECTED A&P Assessment and plan (1) Shock: (2) CAMI (acute kidney injury): (3) Transaminitis: (4) COPD exacerbation: (5) Acute hypercapnic respiratory failure: (6) NSTEMI (non-ST elevated myocardial infarction): (7) Pneumonia: (8) Coronary artery disease: (9) History of drug dependence/abuse: (10) Type 2 diabetes mellitus, without long-term current use of insulin: Qualifiers: Diabetes mellitus complication status: with kidney complications Diabetes mellitus complication detail: with chronic kidney disease Chronic kidney disease stage: stage 2 (mild) Qualified Code(s): E11.22 - Type 2 diabetes mellitus with diabetic chronic kidney disease; N18.2 - Chronic kidney disease, stage 2 (mild) (11) End stage COPD: (12) Family able to participate in care planning: Plan 62-year-old male with past medical history of CAD s/p CABG, end-stage COPD on 3 L home oxygen, CKD, hepatitis C, 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 #Altered mental status and shock likely secondary to sepsis #U tox positive for cannabis, benzodiazepines, amphetamines -Imaging consistent with pneumonia; daughter reported noticing vomitus on patient close while at home-suspect aspiration pneumonia- -Elevated leukocytosis with left shift, lactate 3, sinus tachycardia, elevated procalcitonin -Continue vancomycin/cefepime; received 2 L Ringer's lactate's and currently on Levophed 10-titrate down pressors with Target MAP> 65 -Blood cultures, urine cultures/sputum cultures from endotracheal tube-pending -Unlikely cardiogenic-given low delta troponin, no acute changes on EKG; bedside echocardiogram grossly normal LV function with no effusion-official CV echo report pending; we will discontinue heparin drip and switch to prophylactic heparin -Head CT-no acute intracranial finding, other metabolic causes for AMS reviewed- normal ammonia, elevated BUN may have some uremic component #Acute on chronic hypercapnic respiratory failure in patient with end-stage COPD #CT evidence of significant centrilobular emphysema -Intubated and mechanically ventilated-continue CMV -Continue sedation with fentanyl 50/propofol 25 to maintain RASS -2 -We will plan to taper off sedation and do awakening trial from tomorrow -Chest x-ray revealed right basilar infiltrate concerning for pneumonia. CTA ruled out pulmonary embolism, area suspicious for multilobar pneumonia. No pneumothorax or pleural or pericardial effusion. -Patient on hydrocortisone-we will switch to IV Solu-Medrol 40 every 8 and DuoNeb nebulization every 6 hours scheduled #There is a 5 x 8 mm nodule in right lower lobe which is new from previous CT scans -Need follow-up as outpatient #Shock likely secondary to sepsis #History of CAD s/p CABG-delta troponin normal and EKG no acute ST-T wave changes #Sinus tachycardia secondary to sepsis -Currently on Levophed 10-titrate down pressors with Target MAP> 65; hold off blood pressure medications -Elevated BNP-bedside ultrasound showed normal IVC with no respiratory variation, official CV echocardiogram report pending -Can continue aspirin #CAMI on CKD-likely prerenal due to septic shock #History of complicated sigmoid colitis-resulting in colovesical fistula repair 2006-postoperatively complicated with vesicocutaneous fistula-treated with antibiotics and healed with no leak on subsequent urogram -Continue pressors to target MAP > 65 -Patient urine output is suboptimal-if no significant urine output in next 12-24 hours-we will obtain nephrology evaluation as he may need hemodialysis in 24 to 48 hours -Monitor input and output, electrolytes, renal functions -Supplement K to keep>4; magnesium> 2 -Target even fluid balance -Avoid nephrotoxic medications #Transaminitis in patient with underlying history of hepatitis C-some component contributed by septic shock -Normal ammonia -Monitor LFTs -Avoid hepatotoxic medications #History of type 2 diabetes with diabetic neuropathy -Patient on gabapentin 400 Mg p.o. twice daily-can hold off for now -Continue insulin scale coverage and target sugars between 1 20-1 80 -N.p.o. for now ICU CHECKLIST: Problem list updated Verbal orders reviewed and signed Analgesia: Fentanyl drip Glycemic Control: Insulin scale coverage Nutrition: N.p.o. for now Restraint Renewal (within 24 hrs): Yes Ulcer Prophylaxis: PPI Chemical Thromboprophylaxis: Prophylaxis: Heparin Mechanical Thromboprophylaxis: SCDs Need for Central line: For pressors Need for Thompson catheter: For urine output monitoring Family: Updated daughter at bedside CODE STATUS: Limited resuscitation Prognosis: Critical Critical Care Time (No Overlap): 65 min This patient has a high probability of sudden, clinically significant deterioration, which requires the highest level of physician preparedness to intervene urgently. I managed/supervised life or organ supporting interventions that required frequent physician assessment. I devoted my full attention in the ICU to the direct care of this patient for the period of time indicated above. Time I spent with family or surrogate(s) is included only if the patient was incapable of providing necessary information or participating in decision making. Time devoted to teaching and to any procedures I billed separately is not included. Services Provided: Telemetry review Mechanical Ventilation Hemodynamic interpretation, assessment and management Review and interpretation of CXR Review and interpretation of lab values Review and interpretation of microbiologic data and culture results Review of medications and administration Review and interpretation of Nutrition requirements and management Discussion of management with other consultants and services Clinical update to family members Attestations Medical Necessity Statement*: Altered mental status/acute hypercapnic respiratory failure/shock-all secondary to possible gawhrf-rshlqzofn-cdykjqoiu pressors, intubation and mechanical ventilation-need close ICU monitoring for at least 48 to 72 hours Time Spent in Patient Care: Greater than 35 minutes Critical Care Time: The high probability of a clinically significant, sudden or life threatening deterioration of the patient's?[neurological, pulmonary, cardiac, renal, hepatic, infectious]?system(s) required my full and direct attention, intervention and personal management. The critical care time is as shown. This time is in addition to time spent performing any reported procedures but includes the following: [x]?Data and vital sign review and interpretation [x]?Patient assessment, examination and intervention [x]?Documentation [x]?Medication orders and management ? Critical Care Time (min): 65 Coding Level of Care Code Established Pt Acute Bed Placement Coordinator for g Fwd Patient Type Established History Comprehensive Exam Comprehensive Medical Decision Making High Complexity Diagnoses Shock R57.9 CAMI (acute kidney injury) N17.9 Transaminitis R74.01 COPD exacerbation J44.1 Acute hypercapnic respiratory failure J96.02 NSTEMI (non-ST elevated myocardial infarction) I21.4 Pneumonia J18.9 Coronary artery disease I25.10 History of drug dependence/abuse F19.21 Type 2 diabetes mellitus, without long-term current use of insulin E11.22; N1 8.2 Diabetes mellitus complication status: with kidney complications Diabetes mellitus complication detail: with chronic kidney disease Chronic kidney disease stage: stage 2 (mild) End stage COPD J44.9 Family able to participate in care planning Time Spent (min) 65
[2022-04-03 13:04] LABS: Glucose Point of Care 220 mg/dL (70-110)
[2022-04-03] MEDS: vancomycin 1,000 MG in sodium chloride 0.9% 250 ML 250 MG IV (13:04)
--- NOTE | 2022-04-03 13:30 | XR_ITS ---
WS: [id number] Exam: XR foot RT 2V [id number] Date/Time of Exam: 04/03/2022 1:42 PM Reason For Exam: swelling Probable nondisplaced fracture of the proximal phalanx of the fifth toe. No displacement. No other si gn of fracture. No soft tissue foreign bodies. XR/XR foot RT 2V [id number] IMPRESSION: 1. Findings suspicious for a nondisplaced fracture of the proximal phalanx of t he fifth toe.
--- NOTE | 2022-04-03 14:17 | PM.PN ---
Subjective Subjective: Intubated, sedated, chemically ventilated. Not in distress. Vitals/I&O/Wt Last Vital Signs Temp 99.2 F 04/03/22 13:33 Pulse 100 04/03/22 12:00 Resp 18 04/03/22 12:28 BP 101/64 04/03/22 12:00 Pulse Ox 94 04/03/22 12:28 O2 Del Method 04/03/22 11:25 FiO2 40 04/03/22 12:28 04/02/22 04/03/22 04/03/22 22:59 06:59 14:59 Intake Total 73.083 / 73.083 3107.167 / 3180.250 514.925 / 514.925 Output Total 400 / 400 Balance 73.083 / 73.083 2707.167 / 2780.250 514.925 / 514.925 Weight last 48 hrs Weight 59.148 kg Weight 58.014 kg Weight 70 kg Physical Exam Narrative: Stepdaughter and niece at bedside. Const: GENERAL APPEARANCE: patient mechanically ventilated HENMT: COMMON NORMALS: oropharynx normal Neck/C-Spine: COMMON NORMALS: no JVD Resp: COMMON NORMALS: normal respiratory effort AUSCULTATION: diminished lung sounds Cardio: COMMON NORMALS: no JVD, regular rhythm, S1 normal heart sound present, S2 normal heart sound present and No murmurs present (Cardio) RATE: tachycardic RHYTHM: regular rhythm HEART SOUNDS: S1 normal heart sound present and S2 normal heart sound present GI: COMMON NORMALS: Normal to inspection, nondistended, normoactive bowel sounds present, Soft to palpation and non-tender PALPATION: Yes Soft to palpation Extremity: COMMON NORMALS: no joint enlargement and no pedal edema OTHER: Some chronic purplish discoloration right foot, today also faint erythema, becoming fainter as it arises, up to about mid ulloa. Warm to touch. Cool left foot, reported dopplerable pulses. Skin: COMMON NORMALS: no rashes or lesions noted GENERAL SKIN EXAM: no rashes or lesions noted Urinary Catheter Management: Thompson: Cath Placed During This Visit: yes Reason for Continuing Indwelling Catheter: Accurate Measurement of Urinary Output in Critically Ill Patients Urinary Catheter Date of Insertion: 04/02/22 Urinary Catheter Time of Insertion: 18:29 Data : 04/03/22 04:03 04/03/22 04:03 Micro: Microbiology 04/02/22 20:06 Gram Stain - Final Sputum - Endotracheal Tube Aspirate 04/02/22 16:29 Gram Stain - Final Sputum - Endotracheal Tube Aspirate Sputum Culture - Preliminary Gram Negative Rods 04/02/22 17:26 Blood Culture - Preliminary Blood SPECIMEN COLLECTED 04/02/22 17:16 Blood Culture - Preliminary Blood SPECIMEN COLLECTED A&P Assessment and plan (1) Shock: Some gradual improvement. Coming down on pressor requirement, currently down to 6 mcg/min, might be able to come down to 4. Persistent leukocytosis, tachycardia, sepsis, although appears gradually improving. Likely septic shock. Cardiogenic etiology unlikely, normal EF, no diagnostic R WMA. Sepsis likely secondary to pneumonia, some faint erythema of right lower extremity, cannot exclude either some possible reperfusion injury perhaps with underlying PAD, diminished perfusion during shock, or possible cellulitis. Continue empiric antibiotic coverage with vancomycin, cefepime, stop Flagyl. (2) Acute hypercapnic respiratory failure: Continue mechanical ventilatory support. He is weaning down on oxygen requirement, down to 40% FiO2. COPD exacerbation, bronchopneumonia, continue empiric antibiotics with vancomycin, cefepime. Breathing treatments, continue IV steroids for now. Possible aspiration pneumonia given vomitus found on bed sheets reported by family. Some reported blood soaking the sheets as well, unclear if possibly episode of hematemesis. Follow-up sputum culture, gram stain with gram-negative rods, gram-positive cocci. Urine bacterial antigens. Blood culture. COVID-19 pending. (3) Pneumonia: As above. Gram-negative rods, gram-positive cocci so far on gram stain. (4) COPD exacerbation: Recently with COPD exacerbation, complaining of dyspnea, productive cough, treatment as above. Continue IV steroids with hydrocortisone for now with possible adrenal sufficiency given history of COPD, steroids in the past. Continue empiric antibiotics as above. Breathing treatments. (5) Altered mental status: Acute metabolic encephalopathy secondary to sepsis, septic shock as above. Discussed concern with his family also regarding it is unknown how long he has been hypoxic. Concern for possibility of anoxic brain injury as well which may become apparent only later when trying to wean off sedation. CT of the head grossly unremarkable. Ammonia unremarkable Addition on duloxetine, unclear whether on diazepam, seems has not been on it recently. Gabapentin. Depression recently, although family not aware of any thoughts or plans of self-harm or suicidal ideation. (6) NSTEMI (non-ST elevated myocardial infarction): Troponin with only mild increase, not suggestive of acute OH. Some possible hematemesis at home. De-escalate heparin drip. Recheck hemoglobin. Will decrease aspirin to 81 mg. With history of CABG. Abnormal stress test in July 2020 with fixed defect, mild ischemia in distribution of LAD, LCx. Limited echo with normal ejection fraction, no diagnostic R WMA. Cannot be completely excluded based on this study. Will benefit from further follow-up and risk reassessment. (7) Coronary artery disease: As above (8) CAMI (acute kidney injury): Worsening creatinine, CAMI secondary to septic shock, currently maintaining blood pressures, weaning down on pressor support. Creatinine up to 1.9. Suspect may be having ATN. Decreased urine output. Family are aware in case of worsening, progression may be at risk of needing dialysis of unknown duration. Creatinine 1.3, BUN 59. Suspect secondary to sepsis, septic shock. Reassess renal function. Monitor I&O. Thompson catheter. CT abdomen pelvis without obvious obstructive uropathy. Dense nephrograms, possible ATN. (9) Transaminitis: Improved. S some chronic transaminitis, possibly history of HCV. Reassess. COVID-19 negative. Mild alk phos elevation. Plan Possible hematemesis at home: Vomitus, some blood soaking the sheets noted at home. Stop heparin drip. De-escalate from heparin drip to heparin prophylaxis for now. Increase to every 12 hour PPI. Recheck hemoglobin. Suspected PAD: Somewhat cool to touch left foot, no cyanosis, mottling. Bedside Doppler requested, pulses reported dopplerable. Chronic discoloration, mild swelling right foot: X-ray shows possible nondisplaced fracture of proximal phalanx of fifth toe. Erythema right foot, lower leg: Appeared today after improvement in blood pressure, possible reperfusion after shock yesterday, possible cellulitis. Continue empiric antibiotic therapy. Will benefit from additional assessment of arterial perfusion at some point as well. Abnormal urine drug screen: Positive for amphetamine, benzodiazepines, marijuana. He had a recent prescription for diazepam, his stepdaughter checked and appears he had none of the 14 tablets remaining. Likely cause of the benzodiazepine positive test. Requested confirmatory test for amphetamines. 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 Attestations Medical Necessity Statement*: Continue admission for assessment of management of septic shock complicated with CAMI, acute encephalopathy, pneumonia, possible cellulitis. Critical Care Time: The high probability of a clinically significant, sudden or life threatening deterioration of the patient's hemodynamic, respiratory, cardiac, renal, cardiovascular system(s) required my full and direct attention, intervention and personal management. The critical care time is as shown. This time is in addition to time spent performing any reported procedures but includes the following: x Data and vital sign review and interpretation x Patient assessment, examination and intervention x Documentation x Medication orders and management Critical Care Time (min): 45 Coding Level of Care Code Acute [facility] Fwd Diagnoses Shock R57.9 Acute hypercapnic respiratory failure J96.02 Pneumonia J18.9 COPD exacerbation J44.1 Altered mental status R41.82 NSTEMI (non-ST elevated myocardial infarction) I21.4 Coronary artery disease I25.10 CAMI (acute kidney injury) N17.9 Transaminitis R74.01
[2022-04-03] MEDS: pantoprazole 40 mg SDV IVP (15:18)
[2022-04-03 16:12] LABS: Hemoglobin 12.7 g/dL (11.7-16.6)
--- NOTE | 2022-04-03 16:23 | PC.NURSE ---
Patients brother Sergey called wanting an update. This nurse asked daughter in the room and she gave verbal permission to give update.
[2022-04-03] MEDS: FUROsemide 10 mg/mL SDV 2mL 20 MG IVP (16:26)
--- NOTE | 2022-04-03 16:44 | PC.NURSE ---
Right foot is swollen, red and warm to touch. Left foot is cool to touch. Dr's are aware. Left dorsalis pedis pulse was head with doppler
[2022-04-03] MEDS: propofol 1,000 MG/100 ML INJ 14.7 MG IV (17:51)
--- NOTE | 2022-04-03 17:57 | PC.NURSE ---
Bag of levophed shows infused on SEP. It is currently running at 2mcg/min
[2022-04-03 18:57] LABS: Anion Gap 13.1 (5-19); Blood Urea Nitrogen 68 mg/dL (8-23); Carbon Dioxide 33 mmol/L (22-29); Chloride 92 mmol/L (98-107); Glomerular Filtration Rate 47.4 mL/min (90-130); Glucose 196 mg/dL (65-115); Magnesium 2.5 mg/dL (1.7-2.3); Osmolality Calculated 303 mOsm/kg (285-295); Potassium 4.1 mmol/L (3.5-5.1); Sodium 134 mmol/L (136-145)
[2022-04-03 20:20] LABS: Glucose Point of Care 238 mg/dL (70-110)
[2022-04-03] MEDS: heparin 5,000 unit/mL INJ 1 mL 5000 UNIT SUBCUT (20:58)
[2022-04-03] MEDS: aspirin 81 mg Chew Tablet PO (20:59)
[2022-04-03] MEDS: propofol 1,000 MG/100 ML INJ 12.6 MG IV (23:23)
[2022-04-04] VITALS (63 sets, daily range): BP systolic 82–122; BP diastolic 47–75; PULSE 70–111; RESP 10–18; TEMP 36.3–37.2; O2SAT 93–100
[2022-04-04] MEDS: ipratropium-albuterol 3 mL Neb INHALATION ×7 (00:34→23:56)
[2022-04-04] MEDS: chlorhexidine gluconate 4% Btl 118 mL 1 APPLIC TOPICAL (01:14)
[2022-04-04] MEDS: pantoprazole 40 mg SDV IVP ×2 (02:42→14:05)
[2022-04-04] MEDS: cefepime 1,000 MG in sodium chloride 0.9% (plus) 50 ML 100 MG IV ×2 (05:04→16:34)
[2022-04-04] MEDS: hydrocortisone 100 mg/2 mL SDV IVP (05:04)
[2022-04-04 05:13] LABS: Glucose Point of Care 173 mg/dL (70-110)
[2022-04-04] MEDS: insulin lispro 100 unit/1 mL SUBCUT ×3 (05:13→20:25)
[2022-04-04 05:46] LABS: Basophils % 0.2 %; Hematocrit 40.3 % (42.0-52.0); Hemoglobin 12.4 g/dL (11.7-16.6); Lymphocytes # 0.7 10^3/uL (0.8-4.8); Lymphocytes % 6.5 %; Mean Corpuscular HGB Conc 30.8 g/dL (30.0-36.0); Mean Corpuscular Hemoglobin 32.2 pg (28.0-34.0); Mean Corpuscular Volume 104.7 fl (80-94); Mean Platelet Volume 11.6 fL (7.4-10.4); Monocytes # 0.7 10^3/uL (0.2-0.9); Monocytes % 6.7 %; Neutrophils # 8.99 10^3/uL (1.8-7.7); Neutrophils % 85.4 %; Nucleated Red Blood Cells % 0.2 %; Platelet Count 144 10^3/cmm (130-400); Red Blood Count 3.85 10^6/uL (4.1-5.3); Red Cell Distribution Width 13.6 % (12.1-15.1); White Blood Count 10.5 10^3/uL (4.0-10.0)
[2022-04-04 06:06] LABS: Alanine Aminotransferase 31 U/L (0-41); Albumin Level 2.8 g/dL (3.5-5.2); Alkaline Phosphatase 113 U/L (40-130); Anion Gap 13.1 (5-19); Aspartate Amino Transferase 28 U/L (0-40); Blood Urea Nitrogen 68 mg/dL (8-23); Calcium 9.3 mg/dL (8.5-10.5); Carbon Dioxide 35 mmol/L (22-29); Chloride 93 mmol/L (98-107); Globulin 2.9 g/dL (1.3-4.6); Glomerular Filtration Rate 47.4 mL/min (90-130); Glucose 214 mg/dL (65-115); Osmolality Calculated 310 mOsm/kg (285-295); Potassium 4.1 mmol/L (3.5-5.1); Sodium 137 mmol/L (136-145); Total Bilirubin 0.3 mg/dL (0.15-1.2); Total Protein 5.7 g/dL (6.6-8.7)
[2022-04-04 06:18] LABS: ABG PCO2 59.1 mmHg (35-45); Arterial Blood Gas Hematocrit 42.5 % (42-52); Base Excess ABG 9.3 mmol/L (-2.0-2.0); Blood Gas Operator Identificat JB; Blood Gas Sample Site Brachial, right; Blood Gas Sample Type Arterial; Carboxyhemoglobin < 1.0 %THgb (0.4-20.1); HCO3 ABG 36.4 mmol/L (22-26); HGB O2 Sat 93.5 % (95-100); Ionized Calcium Level - ABG 1.3 mmol/L (1.1-1.4); Methemoglobin 0.4 % (0.4-1.5); Oxygen Device VENT; Oxygen Saturation ABG 93.9; PO2 ABG 73.7 mmHg (80.0-100.0); Potassium Level - ABG 3.9 mmol/L (3.5-5.0); Total Hemoglobin 13.9 g/dL (14-18)
[2022-04-04 06:19] LABS: Alveolar-Arterial Oxygen Gradi 18.7 mmHg (5-10); Blood Gas Tidal Volume 0.45
[2022-04-04] MEDS: vancomycin 1,000 MG in sodium chloride 0.9% 250 ML 250 MG IV (06:34)
[2022-04-04] MEDS: propofol 1,000 MG/100 ML INJ 12.6 MG IV (06:52)
[2022-04-04] MEDS: heparin 5,000 unit/mL INJ 1 mL 5000 UNIT SUBCUT ×2 (08:08→20:24)
--- NOTE | 2022-04-04 08:29 | PM.PN ---
Subjective Subjective: -Patient seen at bedside -Intubated-following commands -Off pressors -Clinically improving -We will put home on Precedex and try weaning trial today -Give dose of Lasix 40 Mg today -We will plan to extubate in next 24 to 48 hours Medications: Reviewed: Yes Vitals/I&O/Wt Last Vital Signs Temp 98.0 F 04/04/22 07:30 Pulse 100 04/04/22 08:15 Resp 18 04/04/22 08:05 BP 86/61 04/04/22 07:30 Pulse Ox 94 04/04/22 08:05 O2 Del Method 04/04/22 08:05 FiO2 40 04/04/22 08:05 04/03/22 04/04/22 04/04/22 22:59 06:59 14:59 Intake Total 996.225 / 1511.150 587.825 / 2098.975 300 / 300 Output Total 550 / 550 600 / 1150 Balance 446.225 / 961.150 -12.175 / 948.975 300 / 300 Weight last 48 hrs Weight 130 lb 11.2 oz Weight 130 lb 6.4 oz Weight 127 lb 14.4 oz Weight 154 lb 5.177 oz Physical Exam Narrative: PHYSICAL EXAM: General: lying in bed, sedated and intubated. HEENT:NCAT, PERRLA, EOMI Neck: Supple Lungs: Reduced breath sounds but clear with no obvious wheezing Heart: s1/s2, RRR Abd: soft, NT, ND, BS + Normoactive Extremities: No edema, right lower extremity is warm and red, left foot is still cold and pale-very feeble pulse DIRECTOR OF MAINTENANCE: sedated and limited DIRECTOR OF MAINTENANCE exam possible. SKIN: no rash LDA: # CVC: Left femoral line 04/03/2022 Urinary Catheter Management: Thompson: Cath Placed During This Visit: yes Reason for Continuing Indwelling Catheter: Accurate Measurement of Urinary Output in Critically Ill Patients Urinary Catheter Date of Insertion: 04/02/22 Urinary Catheter Time of Insertion: 18:29 Data : 04/05/22 03:25 04/05/22 03:25 Other Labs: Radiology Impressions Head CT 04/02/22 16:36 IMPRESSION: No acute intracranial finding. Chest CTA 04/02/22 16:48 IMPRESSION: 1. Bronchitis and bronchopneumonia. 2. Emphysema 3. No evidence of pulmonary embolism. REFERENCES: Hermelindo Shah et al. Guidelines for Management of Incidental Pulmonary Nodules Detected on CT Images: From the Fleischner Society 2017. Radiology. 2017;284(1):228-243. Abdomen/Pelvis CT 04/02/22 18:51 IMPRESSION: 1. Persistent nephrogram which could be part of the hypoperfusion complex 2. Possible malposition of the left femoral venous catheter. 3. Pneumonia is seen on prior CT scan of the chest Foot X-Ray 04/03/22 13:30 IMPRESSION: 1. Findings suspicious for a nondisplaced fracture of the proximal phalanx of the fifth toe. Chest X-Ray 04/05/22 04:17 IMPRESSION: 1. Small right basal infiltrates showing little change. Pulmonary hyperinflation. 2. ET tube and enteric tube both remaining in satisfactory position. Laboratory Results WBC 9.1 10^3/uL (4.0-10.0) 04/05/22 03:25 Corrected WBC Cancelled 04/04/22 03:58 RBC 3.79 10^6/uL (4.1-5.3) L 04/05/22 03:25 Hgb 12.4 g/dL (11.7-16.6) 04/05/22 03:25 Hct 39.8 % (42.0-52.0) L 04/05/22 03:25 MCV 105.0 fl (80-94) H 04/05/22 03:25 MCH 32.7 pg (28.0-34.0) 04/05/22 03:25 MCHC 31.2 g/dL (30.0-36.0) 04/05/22 03:25 RDW 13.3 % (12.1-15.1) 04/05/22 03:25 Plt Count 141 10^3/cmm (130-400) 04/05/22 03:25 MPV 11.5 fL (7.4-10.4) H 04/05/22 03:25 Gran % Cancelled 04/04/22 03:58 Neut % (Auto) 80.9 % 04/05/22 03:25 Lymph % (Auto) 7.5 % 04/05/22 03:25 [place] % (Auto) 10.3 % 04/05/22 03:25 Eos % (Auto) 0.0 % 04/05/22 03:25 Baso % (Auto) 0.1 % 04/05/22 03:25 Neut # (Auto) 7.33 10^3/uL (1.8-7.7) 04/05/22 03:25 Lymph # (Auto) 0.7 10^3/uL (0.8-4.8) L 04/05/22 03:25 [place] # (Auto) 0.9 10^3/uL (0.2-0.9) 04/05/22 03:25 Eos # (Auto) 0.0 10^3/uL (0.0-0.8) 04/05/22 03:25 Baso # (Auto) 0.0 10^3/uL (0.0-0.1) 04/05/22 03:25 Absolute Gran (auto) Cancelled 04/04/22 03:58 Nucleated RBC % (auto) 0 % 04/05/22 03:25 Nucleated RBCs # 0.0 /100WBC 04/05/22 03:25 APTT 57.7 SECONDS (23.9-36.7) H 04/03/22 04:03 Specimen Type Arterial 04/04/22 05:58 Sample Site Brachial, right 04/04/22 05:58 ABG pH 7.40 (7.35-7.45) 04/04/22 05:58 ABG pCO2 59.1 mmHg (35-45) H 04/04/22 05:58 ABG pO2 73.7 mmHg (80.0-100.0) L 04/04/22 05:58 ABG HCO3 36.4 mmol/L (22-26) H 04/04/22 05:58 ABG O2 Saturation 93.9 04/04/22 05:58 ABG Base Excess 9.3 mmol/L (-2.0-2.0) H 04/04/22 05:58 Miguel Test N/a 04/04/22 05:58 A-a O2 Gradient 18.7 mmHg (5-10) H 04/04/22 05:58 Hematocrit 42.5 % (42-52) 04/04/22 05:58 Hgb O2 Saturation 93.5 % (95-100) L 04/04/22 05:58 Carboxyhemoglobin < 1.0 %THgb (0.4-20.1) 04/04/22 05:58 Methemoglobin 0.4 % (0.4-1.5) 04/04/22 05:58 Total Hemoglobin 13.9 g/dL (14-18) L 04/04/22 05:58 Sodium 137.0 mmol/L (131-143) 04/04/22 05:58 Potassium 3.9 mmol/L (3.5-5.0) 04/04/22 05:58 Glucose 206.0 mg/dL (70-115) H 04/04/22 05:58 Ionized Calcium 1.3 mmol/L (1.1-1.4) 04/04/22 05:58 O2 Delivery Device Vent 04/04/22 05:58 O2 Liters/Min 15.0 % 04/02/22 16:20 FiO2 40.0 % 04/04/22 05:58 Tidal Volume 0.45 04/04/22 05:58 PEEP 8.0 cmH20 04/04/22 05:58 Wool Batting Worker ID Viraj 04/04/22 05:58 Sodium 141 mmol/L (136-145) 04/05/22 03:25 Potassium 4.3 mmol/L (3.5-5.1) 04/05/22 03:25 Chloride 96 mmol/L (98-107) L 04/05/22 03:25 Carbon Dioxide 36 mmol/L (22-29) H 04/05/22 03:25 Anion Gap 13.3 (5-19) 04/05/22 03:25 BUN 64 mg/dL (8-23) H 04/05/22 03:25 Creatinine 1.2 mg/dL (0.7-1.2) 04/05/22 03:25 GFR Calculation 61.3 mL/min (90-130) L 04/05/22 03:25 Glucose 208 mg/dL (65-115) H 04/05/22 03:25 POC Glucose 199 mg/dL (70-110) H 04/04/22 19:41 Calculated Osmolality 316 mOsm/kg (285-295) H 04/05/22 03:25 Lactate 3.0 mmol/L (0.5-2.2) H 04/02/22 16:05 Calcium 9.1 mg/dL (8.5-10.5) 04/05/22 03:25 Magnesium 2.5 mg/dL (1.7-2.3) H 04/03/22 15:48 Total Bilirubin 0.3 mg/dL (0.15-1.2) 04/05/22 03:25 AST 36 U/L (0-40) 04/05/22 03:25 ALT 31 U/L (0-41) 04/05/22 03:25 Alkaline Phosphatase 97 U/L (40-130) 04/05/22 03:25 Ammonia 25 umol/L (16-60) 04/02/22 17:16 Troponin T Baseline 30 ng/L (0-15) H 04/02/22 17:16 Troponin T 120 Minute 38.81 ng/L (0-15) H 04/02/22 19:00 Delta Troponin T 8.81 ABS# (0-10) 04/02/22 19:00 Troponin T Hi Sens 6Hr 32.20 ng/L (0-15) H 04/02/22 22:30 Troponin T Hi Sens 6Hr Delta 2.20 ng/L (0-12) 04/02/22 22:30 NT-Pro-B Natriuret Pep 1136 pg/mL (0-125) H 04/02/22 17:16 Total Protein 5.4 g/dL (6.6-8.7) L 04/05/22 03:25 Albumin 2.7 g/dL (3.5-5.2) L 04/05/22 03:25 Globulin 2.7 g/dL (1.3-4.6) 04/05/22 03:25 Lipase 25 U/L (13-60) 04/02/22 17:16 Procalcitonin 0.83 ng/mL (0-0.5) H 04/02/22 17:16 TSH 3.76 uIU/mL (0.27-4.20) 04/02/22 17:16 Free T4 0.84 ng/dL (0.82-1.77) 04/02/22 17:16 Urine Color Yellow (Yellow) 04/02/22 20:41 Urine Appearance Clear (CLEAR) 04/02/22 20:41 Urine pH 5 (5-7) 04/02/22 20:41 Ur Specific [place] 1.005 (1.005-1.030) 04/02/22 20:41 Urine Protein Trace (Negative) 04/02/22 20:41 Urine Glucose (UA) Norm (Normal) 04/02/22 20:41 Urine Ketones Trace (Negative) H 04/02/22 20:41 Urine Blood Neg (Negative) 04/02/22 20:41 Urine Nitrate Negative (Negative) 04/02/22 20:41 Urine Bilirubin Neg (Negative) 04/02/22 20:41 Urine Urobilinogen Norm mg/dL (Negative) 04/02/22 20:41 Ur Leukocyte Esterase Negative (Negative) 04/02/22 20:41 Urine RBC 0-4 /hpf (0-2) H 04/02/22 20:41 Urine WBC None /hpf (0-5) 04/02/22 20:41 Ur Squamous Epith Cells 0-4 /hpf (0-5) H 04/02/22 20:41 Amorphous Sediment 1+ /hpf 04/02/22 20:41 Urine Bacteria None /hpf (NONE) 04/02/22 20:41 Hyaline Casts 0-4 /lpf H 04/02/22 20:41 Vancomycin Trough 18.0 ug/mL (10-15) H 04/04/22 23:02 Salicylates < 0.3 mg/dL (3-10) L 04/02/22 17:16 Urine Opiates Screen Negative ng/mL (Negative) 04/02/22 20:41 Acetaminophen < 5.0 ug/mL (10-30) L 04/02/22 17:16 Ur Barbiturates Screen Negative ng/mL (Negative) 04/02/22 20:41 Ur Phencyclidine Scrn Negative ng/mL (Negative) 04/02/22 20:41 Ur Amphetamines Screen Positive ng/mL (Negative) H 04/02/22 20:41 U Benzodiazepines Scrn Positive ng/mL (Negative) H 04/02/22 20:41 Urine Cocaine Screen Negative ng/mL (Negative) 04/02/22 20:41 U Marijuana (THC) Screen Positive ng/mL (Negative) H 04/02/22 20:41 Ethyl Alcohol < 10 mg/dL (0-10) 04/02/22 19:00 Coronavirus 229E (PCR) Not detected (NOT DETECT) 04/02/22 Unknown Influenza Type A Ag Negative (Negative) 04/02/22 23:00 Influenza Type B Ag Negative (Negative) 04/02/22 23:00 SARS-CoV-2 (PCR) Not detected (NOT DETECT) 04/02/22 Unknown Micro: Microbiology 04/03/22 11:30 MRSA Culture - Final Nose 04/02/22 17:26 Blood Culture - Preliminary Blood NEGATIVE TO DATE 04/02/22 17:16 Blood Culture - Preliminary Blood NEGATIVE TO DATE 04/02/22 20:41 Bacterial Antigens - Final Urine,Voided 04/02/22 20:06 Gram Stain - Final Sputum - Endotracheal Tube Aspirate 04/02/22 16:29 Gram Stain - Final Sputum - Endotracheal Tube Aspirate Sputum Culture - Preliminary Gram Negative Rods A&P Assessment and plan (1) Shock: (2) CAMI (acute kidney injury): (3) Transaminitis: (4) COPD exacerbation: (5) Acute hypercapnic respiratory failure: (6) NSTEMI (non-ST elevated myocardial infarction): (7) Pneumonia: (8) Coronary artery disease: (9) History of drug dependence/abuse: (10) Type 2 diabetes mellitus, without long-term current use of insulin: Qualifiers: Chronic kidney disease stage: stage 2 (mild) Diabetes mellitus complication detail: with chronic kidney disease Diabetes mellitus complication status: with kidney complications Qualified Code(s): E11.22 - Type 2 diabetes mellitus with diabetic chronic kidney disease; N18.2 - Chronic kidney disease, stage 2 (mild) (11) End stage COPD: (12) Family able to participate in care planning: Plan 62-year-old male with past medical history of CAD s/p CABG, end-stage COPD on 3 L home oxygen, CKD, hepatitis C, 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 #Altered mental status and shock likely secondary to pfinrl-wsoagkpmr-vsuyaaper sedated with fentanyl/propofol #U tox positive for cannabis, benzodiazepines, amphetamines -Imaging consistent with pneumonia; -Elevated leukocytosis with left shift, lactate 3, sinus tachycardia, elevated procalcitonin -Continue vancomycin/cefepime; off pressors -Blood cultures, urine cultures-negative sputum cultures from endotracheal tube-Pseudomonas sensitive to cefepime -Unlikely cardiogenic-given low delta troponin, no acute changes on EKG; bedside echocardiogram grossly normal LV function with no effusion-official CV echo-normal LV size and systolic function with EF 55% -Head CT-no acute intracranial finding, other metabolic causes for AMS reviewed-normal ammonia #Acute on chronic hypercapnic respiratory failure in patient with end-stage COPD #CT evidence of significant centrilobular emphysema -Intubated and mechanically ventilated-continue weaning trial today -Continue sedation with fentanyl 50/propofol 25 to maintain RASS -2-Taper down propofol and fentanyl and start Precedex -We will plan to taper off sedation and do awakening trial followed by breathing trial-plan to extubate in next 24 to 48 hours -Chest x-ray revealed right basilar infiltrate concerning for pneumonia. CTA ruled out pulmonary embolism, area suspicious for multilobar pneumonia. No pneumothorax or pleural or pericardial effusion. -Patient on hydrocortisone-we will switch to IV Solu-Medrol 40 and DuoNeb nebulization every 6 hours scheduled #There is a 5 x 8 mm nodule in right lower lobe which is new from previous CT scans -Need follow-up as outpatient #Shock likely secondary to sepsis #History of CAD s/p CABG-delta troponin normal and EKG no acute ST-T wave changes #Sinus tachycardia secondary to sepsis -Off pressors -Elevated BNP-bedside ultrasound showed normal IVC with no respiratory variation; echo reported normal systolic function with EF 55% -Can continue aspirin #CAMI on CKD-likely prerenal due to septic shock-improving #History of complicated sigmoid colitis-resulting in colovesical fistula repair 2006-postoperatively complicated with vesicocutaneous fistula-treated with antibiotics and healed with no leak on subsequent urogram -Off pressors and able to maintain blood pressure -Patient making good urine and renal functions are improving -Monitor input and output, electrolytes, renal functions -Supplement K to keep>4; magnesium> 2 -Target even with negative fluid balance -Avoid nephrotoxic medications #Transaminitis in patient with underlying history of hepatitis C-some component contributed by septic shock -Normal ammonia -Monitor LFTs -Avoid hepatotoxic medications #History of type 2 diabetes with diabetic neuropathy -Patient on gabapentin 400 Mg p.o. twice daily-can hold off for now -Continue insulin scale coverage and target sugars between 1 20-1 80 -Continue tube feeding ICU CHECKLIST: Problem list updated Verbal orders reviewed and signed Analgesia: Fentanyl drip Glycemic Control: Insulin scale coverage Nutrition: Tube feeding Restraint Renewal (within 24 hrs): Yes Ulcer Prophylaxis: PPI Chemical Thromboprophylaxis: Prophylaxis: Heparin Mechanical Thromboprophylaxis: SCDs Need for Central line: For multiple medications Need for Thompson catheter: For urine output monitoring Family: Updated daughter at bedside CODE STATUS: Limited resuscitation Prognosis: Critical Critical Care Time (No Overlap): 65 min This patient has a high probability of sudden, clinically significant deterioration, which requires the highest level of physician preparedness to intervene urgently. I managed/supervised life or organ supporting interventions that required frequent physician assessment. I devoted my full attention in the ICU to the direct care of this patient for the period of time indicated above. Time I spent with family or surrogate(s) is included only if the patient was incapable of providing necessary information or participating in decision making. Time devoted to teaching and to any procedures I billed separately is not included. Services Provided: Telemetry review Mechanical Ventilation Hemodynamic interpretation, assessment and management Review and interpretation of CXR Review and interpretation of lab values Review and interpretation of microbiologic data and culture results Review of medications and administration Review and interpretation of Nutrition requirements and management Discussion of management with other consultants and services Clinical update to family members Attestations Medical Necessity Statement*: Altered mental status/acute hypercapnic respiratory failure/shock-all secondary to possible tmevwf-abyplhvlb-lwlaiopkj pressors, intubation and mechanical ventilation-need close ICU monitoring for at least 48 to 72 hours Time Spent in Patient Care: Greater than 35 minutes Critical Care Time: The high probability of a clinically significant, sudden or life threatening deterioration of the patient's?[neurological, pulmonary, cardiac, renal, hepatic, infectious]?system(s) required my full and direct attention, intervention and personal management. The critical care time is as shown. This time is in addition to time spent performing any reported procedures but includes the following: [x]?Data and vital sign review and interpretation [x]?Patient assessment, examination and intervention [x]?Documentation [x]?Medication orders and management ? Critical Care Time (min): 65 Coding Level of Care Code Established Pt Acute Bolt Machine Operator for Chg Fwd Patient Type Established History Comprehensive Exam Comprehensive Medical Decision Making High Complexity Diagnoses Shock R57.9 CAMI (acute kidney injury) N17.9 Transaminitis R74.01 COPD exacerbation J44.1 Acute hypercapnic respiratory failure J96.02 NSTEMI (non-ST elevated myocardial infarction) I21.4 Pneumonia J18.9 Coronary artery disease I25.10 History of drug dependence/abuse F19.21 Type 2 diabetes mellitus, without long-term current use of insulin E11.22; N18.2 Chronic kidney disease stage: stage 2 (mild) Diabetes mellitus complication detail: with chronic kidney disease Diabetes mellitus complication status: with kidney complications End stage COPD J44.9 Family able to participate in care planning Time Spent (min) 65
--- NOTE | 2022-04-04 08:53 | PC.NUTR ---
Feeding Tube consult received. Recommend goal rate for Jevity 1.2 of 45 mls/hr, starting at 10 mls/hr (current rate) and increasing 10 mls Q8H as tolerated, with water flushes of 100 mls Q4H. Details in RD assessment.
--- NOTE | 2022-04-04 09:51 | XR_ITS ---
WS: [id number] Exam: XR chest 1V portable [id number] Date/Time of Exam: 04/04/2022 9:54 AM Reason For Exam: pneumonia Comparison 04/02/2022. Right basal infiltrate again noted essentially unchanged. The lungs are hyperinflated. Heart size is within normal limits. ET tube remains in satisfactory position. An enteric tube extends into the stom ach. The tip is looped and directed back towards the GE junction. The mediastinum is normal in contou r. Signs of CABG surgery. Bony structures are intact. XR/XR chest 1V portable [id number] IMPRESSION: 1. Right basal infiltrate unchanged. 2. Pulmonary hyperinflation which may indicate COPD. 3. ET tube in satisfactory position. Enteric tube looped in the fundus of the s tomach.
[2022-04-04] MEDS: dexmedeTOMIDine 0.9 % NaCL 400 MCG/100 ML PREMIX IV (11:40)
[2022-04-04] MEDS: FUROsemide 10 mg/mL SDV 4mL 40 MG IVP (11:47)
--- NOTE | 2022-04-04 13:06 | PM.PN ---
Subjective Subjective: He is intubated, earlier today try to wean still on sedation he was moving around spontaneously, trying to set up, confused, trying to pull on tubes. During my visit attempted to wake him up, raises his arms, having some tremor, moves all extremities, does not open his eyes or follow directions. Vitals/I&O/Wt Last Vital Signs Temp 98.0 F 04/04/22 07:30 Pulse 95 04/04/22 11:46 Resp 18 04/04/22 11:46 BP 99/47 04/04/22 09:00 Pulse Ox 95 04/04/22 11:46 O2 Del Method 04/04/22 11:35 FiO2 40 04/04/22 11:46 04/03/22 04/04/22 04/04/22 22:59 06:59 14:59 Intake Total 996.225 / 1511.150 587.825 / 2098.975 461.583 / 461.583 Output Total 550 / 550 600 / 1150 Balance 446.225 / 961.150 -12.175 / 948.975 461.583 / 461.583 Weight last 48 hrs Weight 59.285 kg Weight 59.148 kg Weight 58.014 kg Weight 70 kg Physical Exam Narrative: Son and niece at bedside. Const: COMMON NORMALS: alert GENERAL APPEARANCE: patient mechanically ventilated HENMT: COMMON NORMALS: oropharynx normal Neck/C-Spine: COMMON NORMALS: no JVD Resp: COMMON NORMALS: normal respiratory effort and clear to auscultation bilaterally AUSCULTATION: clear to auscultation bilaterally, rhonchi and diminished lung sounds Cardio: COMMON NORMALS: no JVD, regular rhythm, S1 normal heart sound present, S2 normal heart sound present and No murmurs present (Cardio) RATE: tachycardic RHYTHM: regular rhythm HEART SOUNDS: S1 normal heart sound present and S2 normal heart sound present GI: COMMON NORMALS: Normal to inspection, nondistended, normoactive bowel sounds present, Soft to palpation and non-tender PALPATION: Yes Soft to palpation Extremity: COMMON NORMALS: no joint enlargement and no pedal edema OTHER: Some chronic purplish discoloration right foot, today improved, only minimal erythema, becoming fainter as it arises, up to abjust above the anakle. Warm feet, appear perfused. Neuro: SENSORIUM/ORIENTATION: Yes alert Skin: COMMON NORMALS: no rashes or lesions noted GENERAL SKIN EXAM: no rashes or lesions noted Urinary Catheter Management: Thompson: Cath Placed During This Visit: yes Reason for Continuing Indwelling Catheter: Accurate Measurement of Urinary Output in Critically Ill Patients Urinary Catheter Date of Insertion: 04/02/22 Urinary Catheter Time of Insertion: 18:29 Data : 04/04/22 05:34 04/04/22 05:34 Micro: Microbiology 04/03/22 11:30 MRSA Culture - Final Nose 04/02/22 17:26 Blood Culture - Preliminary Blood NEGATIVE TO DATE 04/02/22 17:16 Blood Culture - Preliminary Blood NEGATIVE TO DATE 04/02/22 20:41 Bacterial Antigens - Final Urine,Voided 04/02/22 20:06 Gram Stain - Final Sputum - Endotracheal Tube Aspirate 04/02/22 16:29 Gram Stain - Final Sputum - Endotracheal Tube Aspirate Sputum Culture - Preliminary Gram Negative Rods A&P Assessment and plan (1) Shock: Resolving shock, weaned off pressor. Attempting to wean down sedation, he is confused, with some metabolic encephalopathy. Cannot exclude some degree of anoxic brain injury. Amphetamine in urine, possibly cross-reaction from on his medications, otherwise cannot exclude also some withdrawal. Discussed with occupational safety and health manager. Continue supportive care currently, start Precedex. Attempt to wean off sedation. Switch IV steroids to daily 40 mg Solu-Medrol. Appears to be producing urine. Renal function without further worsening, although on improved. Creatinine 1.5. Likely septic shock. Cardiogenic etiology unlikely, normal EF, no diagnostic R WMA. Sepsis likely secondary to pneumonia, some faint erythema of right lower extremity, cannot exclude either some possible reperfusion injury perhaps with underlying PAD, diminished perfusion during shock, or possible cellulitis. Continue empiric antibiotic coverage with vancomycin, cefepime, stop Flagyl. (2) Acute hypercapnic respiratory failure: Continue mechanical ventilatory support. Wean down sedation, reassess mental status. He is weaning down on oxygen requirement, down to 40% FiO2. COPD exacerbation, bronchopneumonia, continue empiric antibiotics with vancomycin, cefepime. Breathing treatments, continue switch IV steroids to daily 40 mg IV Solu-Medrol. Possible aspiration pneumonia given vomitus found on bed sheets reported by family. Some reported blood soaking the sheets as well, unclear if possibly episode of hematemesis. Maintaining blood counts of 4. Follow-up sputum culture, gram stain with gram-negative rods, gram-positive cocci. Urine bacterial antigens. Blood culture. COVID-19 pending. (3) Pneumonia: As above. Gram-negative rods, gram-positive cocci so far on gram stain. (4) COPD exacerbation: Recently with COPD exacerbation, complaining of dyspnea, productive cough, treatment as above. Continue IV steroids, switch to 40 mg Solu-Medrol daily. Continue empiric antibiotics as above. Breathing treatments. (5) Altered mental status: Acute metabolic encephalopathy secondary to sepsis, septic shock as above. Discussed concern with his family also regarding it is unknown how long he has been hypoxic. Concern for possibility of anoxic brain injury as well which may become apparent only later when trying to wean off sedation. CT of the head grossly unremarkable. Ammonia unremarkable Start Precedex. Attempt weaning down other sedatives. Addition on duloxetine, unclear whether on diazepam, seems has not been on it recently. Resume lower dose gabapentin. Depression recently, although family not aware of any thoughts or plans of self-harm or suicidal ideation. (6) NSTEMI (non-ST elevated myocardial infarction): Troponin with only mild increase, not suggestive of acute AR. Some possible hematemesis at home. De-escalate heparin drip. Recheck hemoglobin. Will decrease aspirin to 81 mg. With history of CABG. Abnormal stress test in July 2020 with fixed defect, mild ischemia in distribution of LAD, LCx. Limited echo with normal ejection fraction, no diagnostic R WMA. Cannot be completely excluded based on this study. Will benefit from further follow-up and risk reassessment. (7) Coronary artery disease: As above (8) CAMI (acute kidney injury): Creatinine somewhat steady at 1.5, without further improvement. He is producing some urine. Monitor renal function. Has weaned off pressor. Suspect may be having ATN. Decreased urine output. Family are aware in case of worsening, progression may be at risk of needing dialysis of unknown duration. Suspect secondary to sepsis, septic shock. Reassess renal function. Monitor I&O. Thompson catheter. CT abdomen pelvis without obvious obstructive uropathy. Dense nephrograms, possible ATN. (9) Transaminitis: Resolved. Some chronic transaminitis, possibly history of HCV. COVID-19 negative. Mild alk phos elevation resolved. Plan Possible hematemesis at home: So far maintain hemoglobin around 12. Vomitus, some blood soaking the sheets noted at home. Q12 hour PPI. Recheck hemoglobin. At some point will benefit from endoscopic evaluation. Suspected PAD: Bedside Doppler requested, pulses reported dopplerable. At some point would benefit from formal ultrasound assessment. Currently both feet warm, appear perfused. Chronic discoloration, mild swelling right foot: X-ray shows possible nondisplaced fracture of proximal phalanx of fifth toe. Erythema right foot, lower leg: Appeared today after improvement in blood pressure, possible reperfusion after shock yesterday, possible cellulitis. Continue empiric antibiotic therapy. Will benefit from additional assessment of arterial perfusion at some point as well. Abnormal urine drug screen: Positive for amphetamine, benzodiazepines, marijuana. He had a recent prescription for diazepam, his stepdaughter checked and appears he had none of the 14 tablets remaining. Likely cause of the benzodiazepine positive test. Confirmatory test for amphetamines pending. Depression: reported worsening recently, will need additional assessment HTN HLD Ischemic cardiomyopathy GERD Smoking addiction Remote drug use disorder Other comorbidities noted Discussed with occupational safety and health manager, nursing staff and family. Attestations Medical Necessity Statement*: Continue admission for management of improved shock, pneumonia, metabolic encephalopathy, reassessment of mental status, possible withdrawal, possible anoxic injury, weaning down sedation mechanical ventilatory support, reassessment of renal function with CAMI. Critical Care Time: The high probability of a clinically significant, sudden or life threatening deterioration of the patient's respiratory, neurologic system(s) required my full and direct attention, intervention and personal management. The critical care time is as shown. This time is in addition to time spent performing any reported procedures but includes the following: x Data and vital sign review and interpretation x Patient assessment, examination and intervention x Documentation x Medication orders and management Critical Care Time (min): 35 Coding Level of Care Code Acute Benefits Technician for [facility] Fwd Diagnoses Shock R57.9 Acute hypercapnic respiratory failure J96.02 Pneumonia J18.9 COPD exacerbation J44.1 Altered mental status R41.82 NSTEMI (non-ST elevated myocardial infarction) I21.4 Coronary artery disease I25.10 CAMI (acute kidney injury) N17.9 Transaminitis R74.01
[2022-04-04 13:59] LABS: Glucose Point of Care 238 mg/dL (70-110)
--- NOTE | 2022-04-04 14:31 | PC.CHAP ---
Pastoral Care Encounter/Spiritual Assessment Type of Contact [] Declined esthetics instructor visit [] Patient/Family/Request visit [] Outpatient visit [] Follow-up visit [] Physician referral [] Code/Alert [] Routine visit [] Staff referral [] Actively dying [] Patient sleeping [] Family support [] [] Out of room [] Palliative care [] [] Receiving care in room [] Pre-surgical visit [] Trauma [] Long length of stay [x] ICU visit [] Other: Relational/Emotional Strength [] Patient feels connected with others/family/visitors/staff [] Distress [] Loneliness/isolation [] Abandonment Spirituality of Patient [x] Person of [place] [] Attends [employer]ybeterian of their [place] [] Believes in Prayer [] Reads Bible or Yazidi materials [] There are Spiritual issues to be addressed House Wirer Helper Interventions x[] Prayer [] Active listening [] Non-anxious presence [] Spiritual/emotional support [] Crisis/trauma care [] Spiritual counseling [] Bereavement support [] Provided bereavement packet [] Provided Bible/devotional materials [] Provided toy/stuffed animal, coloring book to patient or family member [] Provided Communion [] Anointing/[place] [] Salvation [x] Completed spiritual assessment [] Other: Impact on Illness or Injury [] Angry [] Fearful [] Anxious [] Often cries [] Exhaustion [] Unable to work [] Unable to attend episcopalian [] Unable to walk/stand [] Unable to read [] Unable to drive [] Unable to eat/drink [] Unable to sleep [] Unable to be with family [] Patient intubated [] Other: Summary Time spent with patient
[2022-04-04] MEDS: gabapentin 100 mg Capsule 200 MG PO (17:41)
[2022-04-04] MEDS: dexmedeTOMIDine 0.9 % NaCL 400 MCG/100 ML PREMIX 14.82 MCG IV (19:37)
[2022-04-04 19:54] LABS: Glucose Point of Care 199 mg/dL (70-110)
[2022-04-04] MEDS: aspirin 81 mg Chew Tablet PO (20:24)
[2022-04-05] VITALS (59 sets, daily range): BP systolic 86–185; BP diastolic 61–106; PULSE 66–127; RESP 7–30; TEMP 36.2–37.1; O2SAT 86–100
[2022-04-05] MEDS: pantoprazole 40 mg SDV IVP ×2 (03:02→14:11)
[2022-04-05] MEDS: vancomycin 1,000 MG in sodium chloride 0.9% 250 ML 250 MG IV (03:03)
[2022-04-05] MEDS: dexmedeTOMIDine 0.9 % NaCL 400 MCG/100 ML PREMIX 14.82 MCG IV (03:03)
[2022-04-05] MEDS: ipratropium-albuterol 3 mL Neb INHALATION ×5 (03:19→20:34)
[2022-04-05 03:50] LABS: Basophils % 0.1 %; Hematocrit 39.8 % (42.0-52.0); Hemoglobin 12.4 g/dL (11.7-16.6); Lymphocytes # 0.7 10^3/uL (0.8-4.8); Lymphocytes % 7.5 %; Mean Corpuscular HGB Conc 31.2 g/dL (30.0-36.0); Mean Corpuscular Hemoglobin 32.7 pg (28.0-34.0); Mean Platelet Volume 11.5 fL (7.4-10.4); Monocytes # 0.9 10^3/uL (0.2-0.9); Monocytes % 10.3 %; Neutrophils # 7.33 10^3/uL (1.8-7.7); Neutrophils % 80.9 %; Nucleated Red Blood Cells % 0 %; Platelet Count 141 10^3/cmm (130-400); Red Blood Count 3.79 10^6/uL (4.1-5.3); Red Cell Distribution Width 13.3 % (12.1-15.1); White Blood Count 9.1 10^3/uL (4.0-10.0)
[2022-04-05 04:09] LABS: Alanine Aminotransferase 31 U/L (0-41); Albumin Level 2.7 g/dL (3.5-5.2); Alkaline Phosphatase 97 U/L (40-130); Anion Gap 13.3 (5-19); Aspartate Amino Transferase 36 U/L (0-40); Blood Urea Nitrogen 64 mg/dL (8-23); Calcium 9.1 mg/dL (8.5-10.5); Carbon Dioxide 36 mmol/L (22-29); Chloride 96 mmol/L (98-107); Globulin 2.7 g/dL (1.3-4.6); Glomerular Filtration Rate 61.3 mL/min (90-130); Glucose 208 mg/dL (65-115); Osmolality Calculated 316 mOsm/kg (285-295); Potassium 4.3 mmol/L (3.5-5.1); Sodium 141 mmol/L (136-145); Total Bilirubin 0.3 mg/dL (0.15-1.2); Total Protein 5.4 g/dL (6.6-8.7)
[2022-04-05] MEDS: cefepime 1,000 MG in sodium chloride 0.9% (plus) 50 ML 100 MG IV (04:09)
--- NOTE | 2022-04-05 04:17 | XR_ITS ---
WS: [id number] Exam: XR chest 1V portable [id number] Date/Time of Exam: 04/05/2022 4:24 AM Reason For Exam: copd vent Comparison 04/04/2022. ET tube remains in satisfactory position. A. It ends about 5 cm above the c[place]. An NG tube is loope d in the stomach. Small residual right basal infiltrate. Pulmonary hyperinflation. Normal cardiomedia stinal silhouette. Signs of previous CABG surgery. XR/XR chest 1V portable [id number] IMPRESSION: 1. Small right basal infiltrates showing little change. Pulmonary hyperinflatio n. 2. ET tube and enteric tube both remaining in satisfactory position.
[2022-04-05] MEDS: insulin lispro 100 unit/1 mL SUBCUT ×3 (04:53→20:13)
[2022-04-05] MEDS: gabapentin 100 mg Capsule 200 MG PO (08:05)
[2022-04-05] MEDS: heparin 5,000 unit/mL INJ 1 mL 5000 UNIT SUBCUT ×2 (08:06→20:13)
[2022-04-05] MEDS: lanolin oint 7 gm 1 APPLIC TOPICAL (10:12)
--- NOTE | 2022-04-05 11:53 | PC.CHAP ---
Pastoral Care Encounter/Spiritual Assessment Type of Contact [] Declined tipple oiler visit [] Patient/Family/Request visit [] Outpatient visit [] Follow-up visit [] Physician referral [] Code/Alert [x] Routine visit [] Staff referral [] Actively dying [] Patient sleeping [x] Family support [] [] Out of room [] Palliative care [] [] Receiving care in room [] Pre-surgical visit [] Trauma [] Long length of stay [x] ICU visit [x] Other: vent... but awake.. Relational/Emotional Strength [] Patient feels connected with others/family/visitors/staff [] Distress [] Loneliness/isolation [] Abandonment Spirituality of Patient [] Person of [place] [] Attends Shinto of their [place] [] Believes in Prayer [] Reads Bible or Anabaptism materials [] There are Spiritual issues to be addressed Design Printer Balloon Interventions [x] Prayer [] Active listening [] Non-anxious presence [] Spiritual/emotional support [] Crisis/trauma care [] Spiritual counseling [] Bereavement support [] Provided bereavement packet [] Provided Bible/devotional materials [] Provided toy/stuffed animal, coloring book to patient or family member [] Provided Communion [] Anointing/[place] [] Salvation [x] Completed spiritual assessment [] Other: Impact on Illness or Injury [] Angry [] Fearful [] Anxious [] Often cries [] Exhaustion [] Unable to work [] Unable to attend jain [] Unable to walk/stand [] Unable to read [] Unable to drive [] Unable to eat/drink [] Unable to sleep [] Unable to be with family [] Patient intubated [] Other: Summary Time spent with patient
--- NOTE | 2022-04-05 12:34 | P.PN_ITS ---
Subjective Subjective: Today waking up better from sedation, alert, following directions, nodding answers to questions. Reporting some generalized ache. Vitals/I&O/Wt Last Vital Signs Temp 97.2 F L 04/05/22 08:30 Pulse 107 H 04/05/22 12:00 Resp 14 04/05/22 11:20 BP 155/105 04/05/22 12:00 Pulse Ox 87 L 04/05/22 12:00 O2 Del Method 04/05/22 11:20 O2 Flow Rate 4 04/05/22 11:20 FiO2 40 04/05/22 08:00 04/04/22 04/05/22 04/05/22 22:59 06:59 14:59 Intake Total 338.919 / 816.062 542.308 / 1358.370 100 / 100 Output Total 1650 / 1650 500 / 2150 Balance -1311.081 / -833.938 42.308 / -791.630 100 / 100 Weight last 48 hrs Weight 59.239 kg Weight 59.285 kg Physical Exam Narrative: Son and niece at bedside. Const: COMMON NORMALS: alert GENERAL APPEARANCE: patient mechanically ventilated HENMT: COMMON NORMALS: oropharynx normal Neck/C-Spine: COMMON NORMALS: no JVD Resp: COMMON NORMALS: normal respiratory effort and clear to auscultation bilaterally AUSCULTATION: clear to auscultation bilaterally, rhonchi and diminished lung sounds Cardio: COMMON NORMALS: no JVD, regular rhythm, S1 normal heart sound present, S2 normal heart sound present and No murmurs present (Cardio) RATE: tachycardic RHYTHM: regular rhythm HEART SOUNDS: S1 normal heart sound present and S2 normal heart sound present GI: COMMON NORMALS: Normal to inspection, nondistended, normoactive bowel sounds present, Soft to palpation and non-tender PALPATION: Yes Soft to palpation Extremity: COMMON NORMALS: no joint enlargement and no pedal edema OTHER: Some chronic purplish discoloration right foot, resolved erythema. Warm feet, appear perfused. Neuro: SENSORIUM/ORIENTATION: Yes alert Skin: COMMON NORMALS: no rashes or lesions noted GENERAL SKIN EXAM: no rashes or lesions noted Urinary Catheter Management: Thompson: Cath Placed During This Visit: yes Reason for Continuing Indwelling Catheter: Accurate Measurement of Urinary Output in Critically Ill Patients Urinary Catheter Date of Insertion: 04/02/22 Urinary Catheter Time of Insertion: 18:29 Data : 04/05/22 03:25 04/05/22 03:25 Micro: Microbiology 04/02/22 20:06 Gram Stain - Final Sputum - Endotracheal Tube Aspirate Sputum Culture - Final Pseudomonas aeruginosa 04/02/22 16:29 Gram Stain - Final Sputum - Endotracheal Tube Aspirate Sputum Culture - Final Pseudomonas aeruginosa A&P Assessment and plan (1) Acute hypercapnic respiratory failure: Encephalopathy improved, we can better today. Following directions, answering questions. Did well with weaning of sedation, breathing trial. Extubated. Currently reported awake and alert by RN, started on diet as per ST assessment, for now clear liquids, but if doing better advance to pur?ed. Earlier today discussed with family culture results from sputum, growing Pseudomonas. Continue cefepime. COPD exacerbation, bronchopneumonia, continue empiric antibiotics with vancomycin, cefepime. Breathing treatments, continue switch IV steroids to daily 40 mg IV Solu-Medrol. COVID-19 negative. (2) Pneumonia: As above. (3) Shock: Resolved. Cannot exclude some degree of anoxic brain injury. Amphetamine in urine, possibly cross-reaction from on his medications, otherwise cannot exclude also some withdrawal. Discussed with research program coordinator. Continue supportive care currently, start Precedex. Attempt to wean off sedation. Switch IV steroids to daily 40 mg Solu-Medrol. Appears to be producing urine. Creatinine improving. Likely septic shock. Cardiogenic etiology unlikely, normal EF, no diagnostic R WMA. Sepsis likely secondary to pneumonia, some faint erythema of right lower ext remity, cannot exclude either some possible reperfusion injury perhaps with underlying PAD, diminished perfusion during shock, or possible cellulitis. Cellulitis now appears resolving. Continue empiric antibiotic coverage with vancomycin, cefepime (4) COPD exacerbation: Recently with COPD exacerbation, complaining of dyspnea, productive cough, treatment as above. Continue 40 mg Solu-Medrol daily. Continue empiric antibiotics as above. Breathing treatments. (5) Altered mental status: Acute metabolic encephalopathy secondary to sepsis, septic shock as above. Discussed concern with his family also regarding it is unknown how long he has been hypoxic. Concern for possibility of anoxic brain injury as well which may become apparent only later when trying to wean off sedation. CT of the head grossly unremarkable. Ammonia unremarkable Continue lower dose of gabapentin. Consideration of resuming duloxetine, but with possible GI bleed will not. (6) NSTEMI (non-ST elevated myocardial infarction): Troponin with only mild increase, not suggestive of acute [place]. Some possible hematemesis at home. De-escalate heparin drip. Recheck hemoglobin. Will decrease aspirin to 81 mg. With history of CABG. Abnormal stress test in July 2020 with fixed defect, mild ischemia in distribution of LAD, LCx. Limited echo with normal ejection fraction, no diagnostic R WMA. Cannot be completely excluded based on this study. Will benefit from further follow-up and risk reassessment. (7) Coronary artery disease: As above (8) CAMI (acute kidney injury): Improving Monitor renal function. Has weaned off pressor. Suspect may be having ATN. Decreased urine output. Family are aware in case of worsening, progression may be at risk of needing dialysis of unknown durat ion. Suspect secondary to sepsis, septic shock. Reassess renal function. Monitor I&O. Thompson catheter. CT abdomen pelvis without obvious obstructive uropathy. Dense nephrograms, possible ATN. (9) Transaminitis: Resolved. Some chronic transaminitis, possibly history of HCV. COVID-19 negative. Mild alk phos elevation resolved. Plan Possible hematemesis at home: So far maintain hemoglobin around 12. Vomitus, some blood soaking the sheets noted at home. Q12 hour PPI. Recheck hemoglobin. At some point will benefit from endoscopic evaluation. Suspected PAD: Bedside Doppler requested, pulses reported dopplerable. At some point would benefit from formal ultrasound assessment. Currently both feet warm, appear perfused. Chronic discoloration, mild swelling right foot: X-ray shows possible nondisplaced fracture of proximal phalanx of fifth toe. Erythema right foot, lower leg: Resolving. Appeared today after improvement in blood pressure, possible reperfusion after shock yesterday, possible cellulitis. Continue empiric antibiotic therapy. Will benefit from additional assessment of arterial perfusion at some point as well. Abnormal urine drug screen: Positive for amphetamine, benzodiazepines, marij uana. He had a recent prescription for diazepam, his stepdaughter checked and appears he had none of the 14 tablets remaining. Likely cause of the benzodiazepine positive test. Confirmatory test for amphetamines pending. Depression: reported worsening recently, will need additional assessment HTN HLD Ischemic cardiomyopathy GERD Smoking addiction Remote drug use disorder Other comorbidities noted Discussed with research program coordinator, nursing staff and family. Attestations Medical Necessity Statement*: Continue admission for this management of respiratory failure after weaning off mechanical inflation, treatment of pneumonia with pseudomonal respiratory infection, COPD exacerbation. Coding Level of Care Code Acute Pin Machine Tender for [facility] Fwd Diagnoses Acute hypercapnic respiratory failure J96.02 Pneumonia J18.9 Shock R57.9 COPD exacerbation J44.1 Altered mental status R41.82 NSTEMI (non-ST elevated myocardial infarction) I21.4 Coronary artery disease I25.10 CAMI (acute kidney injury) N17.9 Transaminitis R74.01
[2022-04-05 12:42] LABS: Glucose Point of Care 211 mg/dL (70-110)
--- NOTE | 2022-04-05 13:04 | PM.PN ---
Subjective Subjective: -Patient seen at bedside -Following commands-Taper sedation-passed breathing trial-extubated successfully to 4 L nasal cannula -Clinically improving -Recommended bedside swallow evaluation and start on clear liquid diets and can advance depending on tolerance -Other labs and imaging reviewed-sputum culture positive for Pseudomonas sensitive to cefepime Medications: Reviewed: Yes Vitals/I&O/Wt Last Vital Signs Temp 97.2 F L 04/05/22 08:30 Pulse 107 H 04/05/22 12:00 Resp 14 04/05/22 11:20 BP 155/105 04/05/22 12:00 Pulse Ox 87 L 04/05/22 12:00 O2 Del Method 04/05/22 11:20 O2 Flow Rate 4 04/05/22 11:20 FiO2 40 04/05/22 08:00 04/04/22 04/05/22 04/05/22 22:59 06:59 14:59 Intake Total 338.919 / 816.062 542.308 / 1358.370 100 / 100 Output Total 1650 / 1650 500 / 2150 Balance -1311.081 / -833.938 42.308 / -791.630 100 / 100 Weight last 48 hrs Weight 130 lb 9.6 oz Weight 130 lb 11.2 oz Physical Exam Narrative: PHYSICAL EXAM: General: lying in bed, extubated, awake and following commands HEENT:NCAT, PERRLA, EOMI Neck: Supple Lungs: Improved breath sounds with no obvious wheezing Heart: s1/s2, RRR Abd: soft, NT, ND, BS + Normoactive Extremities: No edema, both legs warm. 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 Chest CTA 04/02/22 16:48 IMPRESSION: 1. Bronchitis and bronchopneumonia. 2. Emphysema 3. No evidence of pulmonary embolism. REFERENCES: MacMahon H, et al. Guidelines for Management of Incidental Pulmonary Nodules Detected on CT Images: From the Fleischner Society 2017. Radiology. 2017;284(1):228-243. Abdomen/Pelvis CT 04/02/22 18:51 IMPRESSION: 1. Persistent nephrogram which could be part of the hypoperfusion complex 2. Possible malposition of the left femoral venous catheter. 3. Pneumonia is seen on prior CT scan of the chest Foot X-Ray 04/03/22 13:30 IMPRESSION: 1. Findings suspicious for a nondisplaced fracture of the proximal phalanx of the fifth toe. Chest X-Ray 04/05/22 04:17 IMPRESSION: 1. Small right basal infiltrates showing little change. Pulmonary hyperinflation. 2. ET tube and enteric tube both remaining in satisfactory position. Laboratory Results WBC 9.1 10^3/uL (4.0-10.0) 04/05/22 03:25 Corrected WBC Cancelled 04/04/22 03:58 RBC 3.79 10^6/uL (4.1-5.3) L 04/05/22 03:25 Hgb 12.4 g/dL (11.7-16.6) 04/05/22 03:25 Hct 39.8 % (42.0-52.0) L 04/05/22 03:25 MCV 105.0 fl (80-94) H 04/05/22 03:25 MCH 32.7 pg (28.0-34.0) 04/05/22 03:25 MCHC 31.2 g/dL (30.0-36.0) 04/05/22 03:25 RDW 13.3 % (12.1-15.1) 04/05/22 03:25 Plt Count 141 10^3/cmm (130-400) 04/05/22 03:25 MPV 11.5 fL (7.4-10.4) H 04/05/22 03:25 Gran % Cancelled 04/04/22 03:58 Neut % (Auto) 80.9 % 04/05/22 03:25 Lymph % (Auto) 7.5 % 04/05/22 03:25 [place] % (Auto) 10.3 % 04/05/22 03:25 Eos % (Auto) 0.0 % 04/05/22 03:25 Baso % (Auto) 0.1 % 04/05/22 03:25 Neut # (Auto) 7.33 10^3/uL (1.8-7.7) 04/05/22 03:25 Lymph # (Auto) 0.7 10^3/uL (0.8-4.8) L 04/05/22 03:25 [place] # (Auto) 0.9 10^3/uL (0.2-0.9) 04/05/22 03:25 Eos # (Auto) 0.0 10^3/uL (0.0-0.8) 04/05/22 03:25 Baso # (Auto) 0.0 10^3/uL (0.0-0.1) 04/05/22 03:25 Absolute Gran (auto) Cancelled 04/04/22 03:58 Nucleated RBC % (auto) 0 % 04/05/22 03:25 Nucleated RBCs # 0.0 /100WBC 04/05/22 03:25 APTT 57.7 SECONDS (23.9-36.7) H 04/03/22 04:03 Specimen Type Arterial 04/04/22 05:58 Sample Site Brachial, right 04/04/22 05:58 ABG pH 7.40 (7.35-7.45) 04/04/22 05:58 ABG pCO2 59.1 mmHg (35-45) H 04/04/22 05:58 ABG pO2 73.7 mmHg (80.0-100.0) L 04/04/22 05:58 ABG HCO3 36.4 mmol/L (22-26) H 04/04/22 05:58 ABG O2 Saturation 93.9 04/04/22 05:58 ABG Base Excess 9.3 mmol/L (-2.0-2.0) H 04/04/22 05:58 Miguel Test N/a 04/04/22 05:58 A-a O2 Gradient 18.7 mmHg (5-10) H 04/04/22 05:58 Hematocrit 42.5 % (42-52) 04/04/22 05:58 Hgb O2 Saturation 93.5 % (95-100) L 04/04/22 05:58 Carboxyhemoglobin < 1.0 %THgb (0.4-20.1) 04/04/22 05:58 Methemoglobin 0.4 % (0.4-1.5) 04/04/22 05:58 Total Hemoglobin 13.9 g/dL (14-18) L 04/04/22 05:58 Sodium 137.0 mmol/L (131-143) 04/04/22 05:58 Potassium 3.9 mmol/L (3.5-5.0) 04/04/22 05:58 Glucose 206.0 mg/dL (70-115) H 04/04/22 05:58 Ionized Calcium 1.3 mmol/L (1.1-1.4) 04/04/22 05:58 O2 Delivery Device Vent 04/04/22 05:58 O2 Liters/Min 15.0 % 04/02/22 16:20 FiO2 40.0 % 04/04/22 05:58 Tidal Volume 0.45 04/04/22 05:58 PEEP 8.0 cmH20 04/04/22 05:58 [employer] ID Viraj 04/04/22 05:58 Sodium 141 mmol/L (136-145) 04/05/22 03:25 Potassium 4.3 mmol/L (3.5-5.1) 04/05/22 03:25 Chloride 96 mmol/L (98-107) L 04/05/22 03:25 Carbon Dioxide 36 mmol/L (22-29) H 04/05/22 03:25 Anion Gap 13.3 (5-19) 04/05/22 03:25 BUN 64 mg/dL (8-23) H 04/05/22 03:25 Creatinine 1.2 mg/dL (0.7-1.2) 04/05/22 03:25 GFR Calculation 61.3 mL/min (90-130) L 04/05/22 03:25 Glucose 208 mg/dL (65-115) H 04/05/22 03:25 POC Glucose 211 mg/dL (70-110) H 04/05/22 12:39 Calculated Osmolality 316 mOsm/kg (285-295) H 04/05/22 03:25 Lactate 3.0 mmol/L (0.5-2.2) H 04/02/22 16:05 Calcium 9.1 mg/dL (8.5-10.5) 04/05/22 03:25 Magnesium 2.5 mg/dL (1.7-2.3) H 04/03/22 15:48 Total Bilirubin 0.3 mg/dL (0.15-1.2) 04/05/22 03:25 AST 36 U/L (0-40) 04/05/22 03:25 ALT 31 U/L (0-41) 04/05/22 03:25 Alkaline Phosphatase 97 U/L (40-130) 04/05/22 03:25 Ammonia 25 umol/L (16-60) 04/02/22 17:16 Troponin T Baseline 30 ng/L (0-15) H 04/02/22 17:16 Troponin T 120 Minute 38.81 ng/L (0-15) H 04/02/22 19:00 Delta Troponin T 8.81 ABS# (0-10) 04/02/22 19:00 Troponin T Hi Sens 6Hr 32.20 ng/L (0-15) H 04/02/22 22:30 Troponin T Hi Sens 6Hr Delta 2.20 ng/L (0-12) 04/02/22 22:30 NT-Pro-B Natriuret Pep 1136 pg/mL (0-125) H 04/02/22 17:16 Total Protein 5.4 g/dL (6.6-8.7) L 04/05/22 03:25 Albumin 2.7 g/dL (3.5-5.2) L 04/05/22 03:25 Globulin 2.7 g/dL (1.3-4.6) 04/05/22 03:25 Lipase 25 U/L (13-60) 04/02/22 17:16 Procalcitonin 0.83 ng/mL (0-0.5) H 04/02/22 17:16 TSH 3.76 uIU/mL (0.27-4.20) 04/02/22 17:16 Free T4 0.84 ng/dL (0.82-1.77) 04/02/22 17:16 Urine Color Yellow (Yellow) 04/02/22 20:41 Urine Appearance Clear (CLEAR) 04/02/22 20:41 Urine pH 5 (5-7) 04/02/22 20:41 Ur Specific [place] 1.005 (1.005-1.030) 04/02/22 20:41 Urine Protein Trace (Negative) 04/02/22 20:41 Urine Glucose (UA) Norm (Normal) 04/02/22 20:41 Urine Ketones Trace (Negative) H 04/02/22 20:41 Urine Blood Neg (Negative) 04/02/22 20:41 Urine Nitrate Negative (Negative) 04/02/22 20:41 Urine Bilirubin Neg (Negative) 04/02/22 20:41 Urine Urobilinogen Norm mg/dL (Negative) 04/02/22 20:41 Ur Leukocyte Esterase Negative (Negative) 04/02/22 20:41 Urine RBC 0-4 /hpf (0-2) H 04/02/22 20:41 Urine WBC None /hpf (0-5) 04/02/22 20:41 Ur Squamous Epith Cells 0-4 /hpf (0-5) H 04/02/22 20:41 Amorphous Sediment 1+ /hpf 04/02/22 20:41 Urine Bacteria None /hpf (NONE) 04/02/22 20:41 Hyaline Casts 0-4 /lpf H 04/02/22 20:41 Vancomycin Trough 18.0 ug/mL (10-15) H 04/04/22 23:02 Salicylates < 0.3 mg/dL (3-10) L 04/02/22 17:16 Urine Opiates Screen Negative ng/mL (Negative) 04/02/22 20:41 Acetaminophen < 5.0 ug/mL (10-30) L 04/02/22 17:16 Ur Barbiturates Screen Negative ng/mL (Negative) 04/02/22 20:41 Ur Phencyclidine Scrn Negative ng/mL (Negative) 04/02/22 20:41 Ur Amphetamines Screen Positive ng/mL (Negative) H 04/02/22 20:41 U Benzodiazepines Scrn Positive ng/mL (Negative) H 04/02/22 20:41 Urine Cocaine Screen Negative ng/mL (Negative) 04/02/22 20:41 U Marijuana (THC) Screen Positive ng/mL (Negative) H 04/02/22 20:41 Ethyl Alcohol < 10 mg/dL (0-10) 04/02/22 19:00 Coronavirus 229E (PCR) Not detected (NOT DETECT) 04/02/22 Unknown Influenza Type A Ag Negative (Negative) 04/02/22 23:00 Influenza Type B Ag Negative (Negative) 04/02/22 23:00 SARS-CoV-2 (PCR) Not detected (NOT DETECT) 04/02/22 Unknown Micro: Microbiology 04/02/22 20:06 Gram Stain - Final Sputum - Endotracheal Tube Aspirate Sputum Culture - Final Pseudomonas aeruginosa 04/02/22 16:29 Gram Stain - Final Sputum - Endotracheal Tube Aspirate Sputum Culture - Final Pseudomonas aeruginosa A&P Assessment and plan (1) CAMI (acute kidney injury): (2) COPD exacerbation: (3) Acute hypercapnic respiratory failure: (4) Pneumonia: (5) Coronary artery disease: (6) History of drug dependence/abuse: (7) Type 2 diabetes mellitus, without long-term current use of insulin: Qualifiers: Diabetes mellitus complication status: with kidney complications Diabetes mellitus complication detail: with chronic kidney disease Chronic kidney disease stage: stage 2 (mild) Qualified Code(s): E11.22 - Type 2 diabetes mellitus with diabetic chronic kidney disease; N18.2 - Chronic kidney disease, stage 2 (mild) (8) End stage COPD: (9) Family able to participate in care planning: (10) Pseudomonas pneumonia: Plan 62-year-old male with past medical history of CAD s/p CABG, end-stage COPD on 3 L home oxygen, CKD, hepatitis C, 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 #Altered mental status and shock likely secondary to sepsis-improved #U tox positive for cannabis, benzodiazepines, amphetamines -Imaging consistent with pneumonia; -Elevated leukocytosis with left shift, lactate 3, sinus tachycardia, elevated procalcitonin; -Blood cultures, urine cultures-negative sputum cultures from endotracheal tube-Pseudomonas sensitive to levofloxacin -Currently on vancomycin/cefepime; off pressors-we will DC vancomycin/cefepime and switch to levofloxacin -Head CT-no acute intracranial finding, other metabolic causes for AMS reviewed-normal ammonia #Acute on chronic hypercapnic respiratory failure in patient with end-stage COPD-successfully extubated to 4 L nasal cannula #CT evidence of significant centrilobular emphysema -Intubated and mechanically ventilated-extubated today to 4 L nasal cannula - -Chest x-ray revealed right basilar infiltrate concerning for pneumonia. CTA ruled out pulmonary embolism, area suspicious for multilobar pneumonia. No pneumothorax or pleural or pericardial effusion. -Currently on IV Solu-Medrol 40 Mg daily and DuoNeb nebulization every 6 hours scheduled-we will switch to p.o. prednisone and taper over next 5 days from tomorrow #There is a 5 x 8 mm nodule in right lower lobe which is new from previous CT scans -Need follow-up as outpatient #Shock likely secondary to sepsis-resolved #History of CAD s/p CABG-delta troponin normal and EKG no acute ST-T wave changes #Sinus tachycardia secondary to sepsis -Off pressors -Elevated BNP-bedside ultrasound showed normal IVC with no respiratory variation; echo reported normal systolic function with EF 55% -Can continue aspirin #CAMI on CKD-likely prerenal due to septic shock-improved #History of complicated sigmoid colitis-resulting in colovesical fistula repair 2006-postoperatively complicated with vesicocutaneous fistula-treated with antibiotics and healed with no leak on subsequent urogram -Off pressors and able to maintain blood pressure -Patient making good urine and renal functions are improving -Monitor input and output, electrolytes, renal functions -Supplement K to keep>4; magnesium> 2 -Target even with negative fluid balance -Avoid nephrotoxic medications #Transaminitis in patient with underlying history of hepatitis C-some component contributed by septic shock-normalized -Normal ammonia -Monitor LFTs -Avoid hepatotoxic medications #History of type 2 diabetes with diabetic neuropathy -Patient on gabapentin 400 Mg p.o. twice daily-can put him back -Continue insulin scale coverage and target sugars between 1 20-1 80 -Continue tube feeding #Right foot swelling -Foot x-ray 04/03/2022 nondisplaced fracture of proximal phalanx of fifth toe on -Consult podiatry ICU CHECKLIST: Problem list updated Verbal orders reviewed and signed Analgesia: N/A Glycemic Control: Insulin scale coverage Nutrition: Speech therapy evaluation pending Restraint Renewal (within 24 hrs): Yes Ulcer Prophylaxis: PPI Chemical Thromboprophylaxis: Prophylaxis: Heparin Mechanical Thromboprophylaxis: SCDs Need for Central line: Can remove Need for Thompson catheter: Can remove Family: Updated daughter at bedside CODE STATUS: Limited resuscitation Prognosis: Guarded Critical Care Time (No Overlap): 65 min This patient has a high probability of sudden, clinically significant deterioration, which requires the highest level of physician preparedness to intervene urgently. I managed/supervised life or organ supporting interventions that required frequent physician assessment. I devoted my full attention in the ICU to the direct care of this patient for the period of time indicated above. Time I spent with family or surrogate(s) is included only if the patient was incapable of providing necessary information or participating in decision making. Time devoted to teaching and to any procedures I billed separately is not included. Services Provided: Telemetry review Mechanical Ventilation Hemodynamic interpretation, assessment and management Review and interpretation of CXR Review and interpretation of lab values Review and interpretation of microbiologic data and culture results Review of medications and administration Review and interpretation of Nutrition requirements and management Discussion of management with other consultants and services Clinical update to family members Attestations Medical Necessity Statement*: Altered mental status/acute hypercapnic respiratory failure/shock-all secondary to possible [id number] pressors, intubation and mechanical ventilation-need close ICU monitoring for at least 48 to 72 hours Time Spent in Patient Care: Greater than 35 minutes Critical Care Time: The high probability of a clinically significant, sudden or life threatening deterioration of the patient's?[neurological, pulmonary, cardiac, renal, hepatic, infectious]?system(s) required my full and direct attention, intervention and personal management. The critical care time is as shown. This time is in addition to time spent performing any reported procedures but includes the following: [x]?Data and vital sign review and interpretation [x]?Patient assessment, examination and intervention [x]?Documentation [x]?Medication orders and management ? 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 Patient Type Established History Comprehensive Exam Comprehensive Medical Decision Making High Complexity Diagnoses CAMI (acute kidney injury) N17.9 COPD exacerbation J44.1 Acute hypercapnic respiratory failure J96.02 Pneumonia J18.9 Coronary artery disease I25.10 History of drug dependence/abuse F19.21 Type 2 diabetes mellitus, without long-term current use of insulin E11.22; N18.2 Diabetes mellitus complication status: with kidney complications Diabetes mellitus complication detail: with chronic kidney disease Chronic kidney disease stage: stage 2 (mild) End stage COPD J44.9 Family able to participate in care planning Pseudomonas pneumonia J15.1 Time Spent (min) 65
[2022-04-05] MEDS: nicotine 14 mg Patch 1 PATCH TRANSDERMA (13:05)
[2022-04-05] MEDS: levofloxacin-dextrose 5 % 750 MG/150 ML PREMIX 100 MG IV (13:39)
[2022-04-05] MEDS: dexmedeTOMIDine 0.9 % NaCL 400 MCG/100 ML PREMIX 11.86 MCG IV (17:35)
[2022-04-05] MEDS: gabapentin 400 mg Capsule PO (17:45)
--- NOTE | 2022-04-05 17:55 | PC.NURSE ---
Patient extubated at 0950. Patient eval by ST
[2022-04-05 19:26] LABS: Glucose Point of Care 202 mg/dL (70-110)
[2022-04-05] MEDS: aspirin 81 mg Chew Tablet PO (20:13)
[2022-04-06] VITALS (36 sets, daily range): BP systolic 86–178; BP diastolic 57–110; PULSE 10–120; RESP 14–31; TEMP 36.3–37.1; O2SAT 90–100
[2022-04-06] MEDS: ipratropium-albuterol 3 mL Neb INHALATION ×6 (00:32→19:49)
[2022-04-06] MEDS: dexmedeTOMIDine 0.9 % NaCL 400 MCG/100 ML PREMIX 11.86 MCG IV (01:43)
[2022-04-06] MEDS: pantoprazole 40 mg SDV IVP (03:05)
[2022-04-06 03:22] LABS: Alanine Aminotransferase 36 U/L (0-41); Albumin Level 2.7 g/dL (3.5-5.2); Alkaline Phosphatase 93 U/L (40-130); Aspartate Amino Transferase 50 U/L (0-40); Blood Urea Nitrogen 44 mg/dL (8-23); Calcium 9.2 mg/dL (8.5-10.5); Carbon Dioxide 37 mmol/L (22-29); Chloride 98 mmol/L (98-107); Globulin 2.5 g/dL (1.3-4.6); Glucose 145 mg/dL (65-115); Osmolality Calculated 304 mOsm/kg (285-295); Sodium 140 mmol/L (136-145); Total Bilirubin 0.2 mg/dL (0.15-1.2); Total Protein 5.2 g/dL (6.6-8.7)
[2022-04-06 03:28] LABS: Anion Gap 9.8 (5-19); Potassium 4.8 mmol/L (3.5-5.1)
--- NOTE | 2022-04-06 04:00 | XR_ITS ---
WS: [id number] Exam: XR chest 1V portable [id number] Date/Time of Exam: 04/06/2022 4:04 AM Reason For Exam: vent, copd Comparison 04/05/2022. The lungs are fully expanded and clear. Chronic interstitial changes. Cardiomediastinal silhouette is unremarkable. Signs of previous CABG surgery. ET tube and enteric tube have been removed. Monitoring leads superimpose the chest. XR/XR chest 1V portable [id number] IMPRESSION: 1. Chronic pulmonary changes. No acute process noted.
[2022-04-06] MEDS: insulin lispro 100 unit/1 mL SUBCUT ×3 (04:30→21:27)
[2022-04-06] MEDS: nicotine 14 mg Patch 1 PATCH TRANSDERMA (08:09)
[2022-04-06] MEDS: gabapentin 400 mg Capsule PO ×2 (08:09→17:13)
[2022-04-06] MEDS: heparin 5,000 unit/mL INJ 1 mL 5000 UNIT SUBCUT ×2 (08:09→21:27)
--- NOTE | 2022-04-06 10:09 | PC.CHAP ---
Pastoral Care Encounter/Spiritual Assessment Type of Contact [] Declined qm consultant visit [] Patient/Family/Request visit [] Outpatient visit [] Follow-up visit [] Physician referral [] Code/Alert [x] Routine visit [] Staff referral [] Actively dying [] Patient sleeping [x] Family support [] [] Out of room [] Palliative care [] [] Receiving care in room [] Pre-surgical visit [] Trauma [] Long length of stay [x] ICU visit [x] Other: PT setting up in bed this AM.. enjoying soda.. responding much better Relational/Emotional Strength [] Patient feels connected with others/family/visitors/staff [] Distress [] Loneliness/isolation [] Abandonment Spirituality of Patient [] Person of [place] [] Attends [employer] of their [place] [] Believes in Prayer [] Reads Bible or Yazidi materials [] There are Spiritual issues to be addressed Epic Interface Analyst Interventions [x] Prayer [] Active listening [] Non-anxious presence [] Spiritual/emotional support [] Crisis/trauma care [] Spiritual counseling [] Bereavement support [] Provided bereavement packet [] Provided Bible/devotional materials [] Provided toy/stuffed animal, coloring book to patient or family member [] Provided Communion [] Anointing/[place] [] Salvation [x] Completed spiritual assessment [] Other: Impact on Illness or Injury [] Angry [] Fearful [] Anxious [] Often cries [] Exhaustion [] Unable to work [] Unable to attend adventist [] Unable to walk/stand [] Unable to read [] Unable to drive [] Unable to eat/drink [] Unable to sleep [] Unable to be with family [] Patient intubated [] Other: Summary Time spent with patient
[2022-04-06] MEDS: acetaminophen 325 mg Tablet 650 MG PO ×2 (10:13→19:02)
[2022-04-06 12:36] LABS: Glucose Point of Care 311 mg/dL (70-110)
--- NOTE | 2022-04-06 12:51 | PM.PN ---
Subjective Subjective: He states he is overall doing better. Some cough. Recalls smoking some marijuana the night when he was found, then does not remember much, and remembers being taken to the hospital. He denies that he vomited or having hematemesis, he states that it was his dog who had vomited, and his dog has cancer as well, and has had intermittent bleeding. Discussing regarding depression he states overall has been having somewhat difficult time, but denies feeling severely depressed, states that he is managing well, denies any thoughts of self-harm or suicide, and states would seek help in case became severely depressed. Denies taking any wrong or extra doses of medications. Denies any other drug use other than marijuana. Discussed with him fracture in right fifth toe, he reports that it is old. Vitals/I&O/Wt Last Vital Signs Temp 98.8 F 04/06/22 04:00 Pulse 101 H 04/06/22 11:15 Resp 20 H 04/06/22 11:05 BP 132/77 04/06/22 08:30 Pulse Ox 94 04/06/22 11:05 O2 Del Method 04/06/22 11:05 O2 Flow Rate 2 04/06/22 11:05 FiO2 40 04/05/22 08:00 04/05/22 04/06/22 04/06/22 22:59 06:59 14:59 Intake Total 250 / 350 398.645 / 748.645 100 / 100 Output Total 1200 / 1200 600 / 1800 Balance -950 / -850 -201.355 / -1051.355 100 / 100 Weight last 48 hrs Weight 61.054 kg Weight 59.239 kg Physical Exam Const: COMMON NORMALS: alert GENERAL APPEARANCE: cooperative and comfortable ORIENTATION/CONSCIOUSNESS: Yes awake HENMT: COMMON NORMALS: oropharynx normal Neck/C-Spine: COMMON NORMALS: no JVD Resp: COMMON NORMALS: normal respiratory effort AUSCULTATION: diminished lung sounds Cardio: COMMON NORMALS: no JVD, regular rhythm, S1 normal heart sound present, S2 normal heart sound present and No murmurs present (Cardio) RATE: tachycardic RHYTHM: regular rhythm HEART SOUNDS: S1 normal heart sound present and S2 normal heart sound present GI: COMMON NORMALS: Normal to inspection, nondistended, normoactive bowel sounds present, Soft to palpation and non-tender PALPATION: Yes Soft to palpation Extremity: COMMON NORMALS: no joint enlargement and no pedal edema OTHER: Some chronic purplish discoloration right foot, resolved erythema. Warm feet, appear perfused. Neuro: SENSORIUM/ORIENTATION: Yes alert Skin: COMMON NORMALS: no rashes or lesions noted GENERAL SKIN EXAM: no rashes or lesions noted Urinary Catheter Management: Thompson: Cath Placed During This Visit: yes Reason for Continuing Indwelling Catheter: Accurate Measurement of Urinary Output in Critically Ill Patients Urinary Catheter Date of Insertion: 04/02/22 Urinary Catheter Time of Insertion: 18:29 Data : 04/05/22 03:25 04/06/22 02:39 A&P Assessment and plan (1) Acute hypercapnic respiratory failure: He is awake, alert, doing better, advancing on dysphagia diet, appreciate speech therapy recommendations. He denies having any vomiting or hematemesis. States that it was his dog who has cancer. Initially was transitioned to Levaquin, continue p.o. at this time. We will get assessment by PT, although he declines going to alf facility. Earlier today discussed with family culture results from sputum, growing Pseudomonas. Continue cefepime. COPD exacerbation, bronchopneumonia, continue empiric antibiotics with vancomycin, cefepime. Breathing treatments Change to prednisone COVID-19 negative. (2) Pneumonia: As above. (3) Shock: Septic shock resolved, sepsis resolved. Encephalopathy resolved. Appears to be producing urine. Creatinine improving. Likely septic shock. Cardiogenic etiology unlikely, normal EF, no diagnostic R WMA. Sepsis likely secondary to pneumonia, some faint erythema of right lower extremity, cannot exclude either some possible reperfusion injury perhaps with underlying PAD, diminished perfusion during shock, or possible cellulitis. Cellulitis now resolved. (4) COPD exacerbation: Recently with COPD exacerbation, complaining of dyspnea, productive cough, treatment as above. Switch to prednisone. Levaquin. Breathing treatments. (5) Altered mental status: Resolved. Continue gabapentin, yesterday resumed his usual dose. Resume duloxetine, for now at lower dose. (6) NSTEMI (non-ST elevated myocardial infarction): Troponin with only mild increase, not suggestive of acute [place]. Denies hematemesis at home. With history of CABG. Abnormal stress test in July 2020 with fixed defect, mild ischemia in distribution of LAD, LCx. Limited echo with normal ejection fraction, no diagnostic R WMA. Cannot be completely excluded based on this study. Will benefit from further follow-up and risk reassessment. (7) Coronary artery disease: As above (8) CAMI (acute kidney injury): Continue to improve Monitor renal function. Shock resolved. Suspect may be having ATN. Decreased urine output. Family are aware in case of worsening, progression may be at risk of needing dialysis of unknown duration. Suspect secondary to sepsis, septic shock. Reassess renal function. Monitor I&O. Thompson catheter. CT abdomen pelvis without obvious obstructive uropathy. Dense nephrograms, possible ATN. (9) Transaminitis: Resolved. Some chronic transaminitis, possibly history of HCV. COVID-19 negative. Mild alk phos elevation resolved. Plan Possible hematemesis at home: Some vomitus and blood were found on his bed, however, he states he did not vomit, his dog has been vomiting with some blood recently. His dog has cancer. Hemoglobin has been staying steady. De-escalate Protonix to once daily. At some point will benefit from endoscopic evaluation. Suspected PAD: Bedside Doppler requested, pulses reported dopplerable. At some point would benefit from formal ultrasound assessment. Currently both feet warm, appear perfused. Fracture left fifth toe: He reports this is old Possible cellulitis left foot: Resolved Abnormal urine drug screen: Denies any drug use other than marijuana. Positive for amphetamine, benzodiazepines, marijuana. He had a recent prescription for diazepam, his stepdaughter checked and appears he had none of the 14 tablets remaining. Likely cause of the benzodiazepine positive test. Confirmatory test for amphetamines pending. Depression: He reports depression recently has been stable. Denies any significant worsening. Denies any thoughts of self-harm or suicidal ideation. States would seek help in case of worsening. HTN HLD Ischemic cardiomyopathy GERD Smoking addiction Remote drug use disorder Other comorbidities noted Attestations Medical Necessity Statement*: Continue admission for assessment and following sepsis and septic shock, hypoxic respiratory failure with pneumonia, acute encephalopathy, CAMI, COPD exacerbation. De-escalate therapies, assess by PT, advance diet, disposition planning. 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
[2022-04-06] MEDS: aspirin 325 mg Tablet PO (13:32)
[2022-04-06] MEDS: DULOXETINE 30 MG PO (13:32)
[2022-04-06] MEDS: levoFLOXacin 750 mg Tablet PO (13:32)
[2022-04-06] MEDS: predniSONE 20 mg Tablet 40 MG PO (13:32)
[2022-04-06] MEDS: dexmedeTOMIDine 0.9 % NaCL 400 MCG/100 ML PREMIX IV (13:34)
--- NOTE | 2022-04-06 15:23 | PC.NURSE ---
Central line removed. Dressing applied to a non bleeding site.
--- NOTE | 2022-04-06 15:58 | PC.NURSE ---
Pt was transferred to [facility] via wheelchair on 5L NC. Clothing, wallet with 23 dollars and cell phone was taken and placed in room.
[2022-04-06] MEDS: ALPRAZolam 0.5 mg Tablet 0.25 MG PO (19:02)
--- NOTE | 2022-04-06 19:14 | PC.NURSE ---
Report given to Lisa ONEAL at this time
[2022-04-06 20:45] LABS: Glucose Point of Care 442 mg/dL (70-110)
[2022-04-06 20:45] LABS: Glucose Point of Care 557 mg/dL (70-110)
[2022-04-06] MEDS: aspirin 81 mg Chew Tablet PO (21:28)
[2022-04-07] VITALS (14 sets, daily range): BP systolic 130–166; BP diastolic 70–88; PULSE 66–122; RESP 16–24; TEMP 36.5–37.7; O2SAT 94–98
[2022-04-07] MEDS: ipratropium-albuterol 3 mL Neb INHALATION ×5 (00:31→19:37)
[2022-04-07 04:22] LABS: Glucose Point of Care 163 mg/dL (70-110)
[2022-04-07] MEDS: insulin lispro 100 unit/1 mL SUBCUT ×3 (04:55→20:37)
[2022-04-07 05:34] LABS: Alanine Aminotransferase 47 U/L (0-41); Albumin Level 2.7 g/dL (3.5-5.2); Alkaline Phosphatase 106 U/L (40-130); Anion Gap 6.5 (5-19); Aspartate Amino Transferase 45 U/L (0-40); Blood Urea Nitrogen 23 mg/dL (8-23); Calcium 9.4 mg/dL (8.5-10.5); Chloride 97 mmol/L (98-107); Creatinine Clr Calc Pharmacy 101.3096; Globulin 2.6 g/dL (1.3-4.6); Glomerular Filtration Rate 114.3 mL/min (90-130); Glucose 119 mg/dL (65-115); Osmolality Calculated 297 mOsm/kg (285-295); Potassium 4.5 mmol/L (3.5-5.1); Sodium 141 mmol/L (136-145); Total Bilirubin 0.3 mg/dL (0.15-1.2); Total Protein 5.3 g/dL (6.6-8.7)
[2022-04-07 05:38] LABS: Carbon Dioxide 42 mmol/L (22-29)
[2022-04-07] MEDS: predniSONE 20 mg Tablet 40 MG PO (09:57)
[2022-04-07] MEDS: heparin 5,000 unit/mL INJ 1 mL 5000 UNIT SUBCUT ×2 (09:58→20:37)
[2022-04-07] MEDS: pantoprazole DR 40 mg Tablet PO (09:58)
[2022-04-07] MEDS: DULOXETINE 30 MG PO (09:58)
[2022-04-07] MEDS: nicotine 14 mg Patch 1 PATCH TRANSDERMA (09:58)
[2022-04-07] MEDS: gabapentin 400 mg Capsule PO (09:58)
--- NOTE | 2022-04-07 11:38 | PC.SOCIAL ---
IMM Update pg 2 of IMM updated and reviewed w/ patient. Copy provided and Copy dated, initialed and placed in chart.
[2022-04-07 11:41] LABS: Bacillus cereus group Not Detected (NOT DETECT); Bacillus subtillis group Not Detected (NOT DETECT); Corynebacterium Not Detected (NOT DETECT); Cutibacterium acnes (P.acnes) Not Detected (NOT DETECT); Enterococcus Not Detected (NOT DETECT); Enterococcus faecalis Not Detected (NOT DETECT); Enterococcus faecium Not Detected (NOT DETECT); Lactobacillus species Not Detected (NOT DETECT); Listeria Not Detected (NOT DETECT); Listeria monocytogenes Not Detected (NOT DETECT); Micrococcus Not Detected (NOT DETECT); Pan Candida Not Detected (NOT DETECT); Pan Gram-Negative Not Detected (NOT DETECT); Staphylococcus epidermidis Not Detected (NOT DETECT); Staphylococcus lugdunensis Not Detected (NOT DETECT); Staphylococcus species Not Detected (NOT DETECT); Streptococcus agalactiae Not Detected (NOT DETECT); Streptococcus anginosus group Not Detected (NOT DETECT); Streptococcus pneumoniae Not Detected (NOT DETECT); Streptococcus pyogenes Not Detected (NOT DETECT); Streptococcus species Not Detected (NOT DETECT)
[2022-04-07 12:04] LABS: Glucose Point of Care 211 mg/dL (70-110)
[2022-04-07] MEDS: levoFLOXacin 750 mg Tablet PO (14:34)
--- NOTE | 2022-04-07 15:18 | P.PN_ITS ---
Subjective Subjective: He is overall doing much better. He has been deconditioned, at home was not very active prior to hospitalization. He unfortunately declines consideration to go to a skilled nurse facility for rehabilitation. Discussed with him continued therapy with PT, and he is agreeable. Plans have been made for him to go over to his daughter's place, although he it appears does not want to stay there longer than several days. In case was willing to stay longer there could get physical therapy there, otherwise it will be arranged for him on return home. He states he is not yet ready to return home by himself, although even on revisiting still declines to consider detention facility, and alth ough plans are made for him to stay with his daughter at least initially who lives near [place], she is unable to pick him up today. They are appealing his discharge until his daughter is able to make arrangements to get him. Vitals/I&O/Wt Last Vital Signs Temp 98.4 F 04/07/22 12:00 Pulse 109 H 04/07/22 12:59 Resp 18 04/07/22 12:59 BP 154/83 04/07/22 12:00 Pulse Ox 94 04/07/22 12:59 O2 Del Method 04/07/22 12:59 O2 Flow Rate 4 04/07/22 12:59 FiO2 40 04/05/22 08:00 04/07/22 04/07/22 04/07/22 06:59 14:59 22:59 Intake Total 960 / 1469.002 0 / 0 Output Total 1575 / 2275 Balance -615 / -805.998 0 / 0 Weight last 48 hrs Weight 61.054 kg Physical Exam Const: COMMON NORMALS: alert GENERAL APPEARANCE: cooperative, comfortable and patient mechanically ventilated ORIENTATION/CONSCIOUSNESS: Yes awake HENMT: COMMON NORMALS: oropharynx normal Neck/C-Spine: COMMON NORMALS: no JVD Resp: COMMON NORMALS: normal respiratory effort AUSCULTATION: wheezes (mild) Cardio: COMMON NORMALS: no JVD, regular rhythm, S1 normal heart sound present, S2 normal heart sound present and No murmurs present (Cardio) RATE: tachycardic RHYTHM: regular rhythm HEART SOUNDS: S1 normal heart sound present and S2 normal heart sound present GI: COMMON NORMALS: Normal to inspection, nondistended, normoactive bowel sounds present, Soft to palpation and non-tender PALPATION: Yes Soft to palpation Extremity: COMMON NORMALS: no joint enlargement and no pedal edema OTHER: Some chronic purplish discoloration right foot, resolved erythema. Warm feet, appear perfused. Neuro: SENSORIUM/ORIENTATION: Yes alert Skin: COMMON NORMALS: no rashes or lesions noted GENERAL SKIN EXAM: no rashes or lesions noted Urinary Catheter Management: Thompson: Cath Placed During This Visit: yes Reason for Continuing Indwelling Catheter: Accurate Measurement of Urinary Output in Critically Ill Patients Urinary Catheter Date of Insertion: 04/02/22 Urinary Catheter Time of Insertion: 18:29 Data : 04/05/22 03:25 04/07/22 05:00 A&P Assessment and plan (1) COPD exacerbation: Overall improving, some residual wheeze, still on 4 L nasal cannula oxygen. Continue prednisone, breathing treatments, Levaquin. Wean down oxygen as tolerating. Normally on 2 L. He is rather deconditioned, although declines SNF rehabilitation. Transiently will be going over to his daughter's place near [place], subsequently home health with physical therapy. Seems he does not want to stay along at his daughter's other than a few days, so SNF, PT, OT arranged for him for his return home. His daughter was asking if home health, PT, OT can be arranged to her house without his knowledge, but discussed with her that he has decisional capacity and we could not do something like that without his approval. (2) Acute hypercapnic respiratory failure: Resolved. Improving COPD exacerbation. Continue Levaquin p.o. at this time. Cont PT, although he again declines going to detention facility. HH arrangements. COPD exacerbation, bronchopneumonia, continue empiric antibiotics with vancomycin, cefepime. Breathing treatments Change to prednisone COVID-19 negative. (3) Pneumonia: Complete course with Levaquin for pseudomonal respiratory infection. (4) Shock: Septic shock resolved, sepsis resolved. Encephalopathy resolved. Producing urine. Creatinine improving. Likely septic shock. Cardiogenic etiology unlikely, normal EF, no diagnostic R WMA. Sepsis likely secondary to pneumonia, some faint erythema of right lower extremity, cannot exclude either some possible reperfusion injury perhaps with underlying PAD, diminished perfusion during shock, or possible cellulitis. Cellulitis now resolved. (5) Altered mental status: Resolved. Continue gabapentin. Resumed duloxetine, for now at lower dose. He states he feels sometimes he has occasional tremors, strange paresthesias on top of his head which he states started roughly around when he was switched to duloxetine. He does not have the symptoms currently. Discussed with him in case of recurrence with resumption of his usual dose of duloxetine to reduce back down to notify his doctor as consideration may be given to switching to a different medication. (6) NSTEMI (non-ST elevated myocardial infarction): Discussed with him and his daughter referral for stress testing. Troponin with only mild increase, not suggestive of acute [place]. Denies hematemesis at home. With history of CABG. Abnormal stress test in July 2020 with fixed defect, mild ischemia in distribution of LAD, LCx. Limited echo with normal ejection fraction, no diagnostic R WMA. Cannot be completely excluded based on this study. Will benefit from further follow-up and risk reassessment. (7) Coronary artery disease: As above (8) CAMI (acute kidney injury): Resolving. Suspect may be having ATN. Decreased urine output. Family are aware in case of worsening, progression may be at risk of needing dialysis of unknown duration. Suspect secondary to sepsis, septic shock. Reassess renal function. Monitor I&O. Thompson catheter. CT abdomen pelvis without obvious obstructive uropathy. Dense nephrograms. (9) Transaminitis: Minimal. Some chronic transaminitis, possibly history of HCV. COVID-19 negative. Mild alk phos elevation resolved. Plan Possible hematemesis at home: Some vomitus and blood were found on his bed, however, he states he did not vomit, his dog has been vomiting with some blood recently. His dog has cancer. Hemoglobin has been staying steady. De-escalate Protonix to once daily. At some point will benefit from endoscopic evaluation. Suspected PAD: Bedside Doppler requested, pulses reported dopplerable. At some point would benefit from formal ultrasound assessment. Currently both feet warm, appear perfused. Fracture left fifth toe: He reports this is old Possible cellulitis left foot: Resolved Abnormal urine drug screen: Denies any drug use other than marijuana. Positive for amphetamine, benzodiazepines, marijuana. He had a recent prescription for diazepam, his stepdaughter checked and appears he had none of the 14 tablets remaining. Likely cause of the benzodiazepine positive test. Confirmatory test for amphetamines pending. Depression: He reports depression recently has been stable. Denies any significant worsening. Denies any thoughts of self-harm or suicidal ideation. States would seek help in case of worsening. HTN HLD Ischemic cardiomyopathy GERD Smoking addiction Remote drug use disorder Other comorbidities noted Attestations Medical Necessity Statement*: Currently appealing discharge home as he is too deconditioned currently to return home by himself, his daughter also cannot accept him at her place for a day or two due to illness of her . Continue treatment of COPD exacerbation, oxygen support with hypoxia. De-escal ate as tolerating. 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 Fwd Diagnoses COPD exacerbation J44.1 Acute hypercapnic respiratory failure J96.02 Pneumonia J18.9 Shock R57.9 Altered mental status R41.82 NSTEMI (non-ST elevated myocardial infarction) I21.4 Coronary artery disease I25.10 CAMI (acute kidney injury) N17.9 Transaminitis R74.01
[2022-04-07 20:24] LABS: Glucose Point of Care 218 mg/dL (70-110)
[2022-04-07] MEDS: aspirin 81 mg Chew Tablet PO (20:38)
[2022-04-08] VITALS (13 sets, daily range): BP systolic 122–171; BP diastolic 68–93; PULSE 78–122; RESP 16–22; TEMP 36.5–36.9; O2SAT 94–99
[2022-04-08 04:18] LABS: Glucose Point of Care 162 mg/dL (70-110)
[2022-04-08] MEDS: insulin lispro 100 unit/1 mL SUBCUT ×3 (05:31→21:42)
[2022-04-08] MEDS: DULOXETINE 30 MG PO (08:01)
[2022-04-08] MEDS: nicotine 14 mg Patch 1 PATCH TRANSDERMA (08:02)
[2022-04-08] MEDS: pantoprazole DR 40 mg Tablet PO (08:02)
[2022-04-08] MEDS: heparin 5,000 unit/mL INJ 1 mL 5000 UNIT SUBCUT ×2 (08:02→21:42)
[2022-04-08] MEDS: predniSONE 20 mg Tablet 40 MG PO (08:02)
[2022-04-08] MEDS: gabapentin 400 mg Capsule PO ×2 (08:02→17:44)
[2022-04-08] MEDS: ipratropium-albuterol 3 mL Neb INHALATION ×4 (09:07→20:09)
[2022-04-08 11:23] LABS: Glucose Point of Care 153 mg/dL (70-110)
[2022-04-08] MEDS: levoFLOXacin 750 mg Tablet PO (12:26)
[2022-04-08] MEDS: acetaminophen 325 mg Tablet 650 MG PO (12:26)
--- NOTE | 2022-04-08 20:09 | PM.PN ---
Subjective Subjective: He states overall is doing okay, has been working on discharge planning with regards to setting up continued therapy either with home health or nursing home facility. States he will stay with his sister for a while until he is stronger then coming back home. Denies any additional new symptoms. Vitals/I&O/Wt Last Vital Signs Temp 98.1 F 04/08/22 19:49 Pulse 122 H 04/08/22 19:49 Resp 20 H 04/08/22 19:49 BP 135/75 04/08/22 19:49 Pulse Ox 98 04/08/22 19:49 O2 Del Method 04/08/22 19:49 O2 Flow Rate 3 04/08/22 15:24 FiO2 40 04/05/22 08:00 04/08/22 04/08/22 04/08/22 06:59 14:59 22:59 Intake Total 240 / 240 480 / 720 Output Total 1800 / 1800 1250 / 1250 Balance -1800 / -1560 240 / 240 -770 / -530 Weight last 48 hrs Weight 58.967 kg Physical Exam Narrative: Const: COMMON NORMALS: alert GENERAL APPEARANCE: cooperative, comfortable and patient mechanically ventilated ORIENTATION/CONSCIOUSNESS: Yes awake HENMT: COMMON NORMALS: oropharynx normal Neck/C-Spine: COMMON NORMALS: no JVD Resp: COMMON NORMALS: normal respiratory effort and clear to auscultation bilaterally AUSCULTATION: clear to auscultation bilaterally, no wheezes and diminished lung sounds Cardio: COMMON NORMALS: no JVD, regular rhythm, S1 normal heart sound present, S2 normal heart sound present and No murmurs present (Cardio) RATE: tachycardic RHYTHM: regular rhythm HEART SOUNDS: S1 normal heart sound present and S2 normal heart sound present GI: COMMON NORMALS: Normal to inspection, nondistended, normoactive bowel sounds present, Soft to palpation and non-tender PALPATION: Yes Soft to palpation Extremity: COMMON NORMALS: no joint enlargement and no pedal edema OTHER: Some chronic purplish discoloration right foot, resolved erythema. Warm feet, appear perfused. Neuro: SENSORIUM/ORIENTATION: Yes alert Skin: COMMON NORMALS: no rashes or lesions noted GENERAL SKIN EXAM: no rashes or lesions noted Urinary Catheter Management: Thompson: Cath Placed During This Visit: yes Reason for Continuing Indwelling Catheter: Acute Urinary Retention or Obstruction Urinary Catheter Date of Insertion: 04/02/22 Urinary Catheter Time of Insertion: 18:29 Data : 04/05/22 03:25 04/07/22 05:00 Micro: Microbiology 04/02/22 20:41 Legionella Urinary Antigen - Final Urine Catheterized 04/02/22 17:26 Blood Culture - Final Blood 04/02/22 17:16 Blood Culture - Final Blood NO GROWTH AFTER 5 DAYS A&P Assessment and plan (1) COPD exacerbation: Improving, oxygen requirement decreasing down to 3 L. Today sounds better with resolution of wheezing. Continue prednisone, breathing treatments, Levaquin. Wean down oxygen as tolerating. Normally on 2 L. He is rather deconditioned, after multiple discussions home health is being set up to be continued as his sisters place near [place] where he will stay while before his return home. (2) Acute hypercapnic respiratory failure: Resolved. Improving COPD exacerbation. Continue Levaquin p.o. at this time. Cont PT, HH arrangements. COPD exacerbation, bronchopneumonia, continue empiric antibiotics with vancomycin, cefepime. Breathing treatments Change to prednisone COVID-19 negative. (3) Pneumonia: Complete course with Levaquin for pseudomonal respiratory infection. (4) Shock: Septic shock resolved, sepsis resolved. Encephalopathy resolved. Producing urine. Creatinine improving. Likely septic shock. Cardiogenic etiology unlikely, normal EF, no diagnostic R WMA. Sepsis likely secondary to pneumonia, some faint erythema of right lower extremity, cannot exclude either some possible reperfusion injury perhaps with underlying PAD, diminished perfusion during shock, or possible cellulitis. Cellulitis now resolved. (5) Altered mental status: Resolved. Continue gabapentin. Resumed duloxetine, for now at lower dose. He states he feels sometimes he has occasional tremors, strange paresthesias on top of his head which he states started roughly around when he was switched to duloxetine. He does not have the symptoms currently. Discussed with him in case of recurrence with resumption of his usual dose of duloxetine to reduce back down to notify his doctor as consideration may be given to switching to a different medication. (6) NSTEMI (non-ST elevated myocardial infarction): Discussed with him and his daughter referral for stress testing. Troponin with only mild increase, not suggestive of acute [place]. Denies hematemesis at home. With history of CABG. Abnormal stress test in July 2020 with fixed defect, mild ischemia in distribution of LAD, LCx. Limited echo with normal ejection fraction, no diagnostic R WMA. Cannot be completely excluded based on this study. Will benefit from further follow-up and risk reassessment. (7) Coronary artery disease: As above (8) CAMI (acute kidney injury): Resolving. Suspect may be having ATN. Decreased urine output. Family are aware in case of worsening, progression may be at risk of needing dialysis of unknown duration. Suspect secondary to sepsis, septic shock. Reassess renal function. Monitor I&O. Thompson catheter. CT abdomen pelvis without obvious obstructive uropathy. Dense nephrograms. (9) Transaminitis: Minimal. Some chronic transaminitis, possibly history of HCV. COVID-19 negative. Mild alk phos elevation resolved. Plan Possible hematemesis at home: Some vomitus and blood were found on his bed, however, he states he did not vomit, his dog has been vomiting with some blood recently. His dog has cancer. Hemoglobin has been staying steady. De-escalate Protonix to once daily. At some point will benefit from endoscopic evaluation. Suspected PAD: Bedside Doppler requested, pulses reported dopplerable. At some point would benefit from formal ultrasound assessment. Currently both feet warm, appear perfused. Outpatient duplex study. Fracture left fifth toe: He reports this is old Possible cellulitis left foot: Resolved Abnormal urine drug screen: Denies any drug use other than marijuana. Positive for amphetamine, benzodiazepines, marijuana. He had a recent prescription for diazepam, his stepdaughter checked and appears he had none of the 14 tablets remaining. Likely cause of the benzodiazepine positive test. Confirmatory test for amphetamines pending. Depression: He reports depression recently has been stable. Denies any significant worsening. Denies any thoughts of self-harm or suicidal ideation. States would seek help in case of worsening. HTN HLD Ischemic cardiomyopathy GERD Smoking addiction Remote drug use disorder Other comorbidities noted Attestations Medical Necessity Statement*: Discharge arrangements underway. Coding Level of Care Code Acute Travel Assistant for [employer] [facility] Exam Comprehensive Diagnoses COPD exacerbation J44.1 Acute hypercapnic respiratory failure J96.02 Pneumonia J18.9 Shock R57.9 Altered mental status R41.82 NSTEMI (non-ST elevated myocardial infarction) I21.4 Coronary artery disease I25.10 CAMI (acute kidney injury) N17.9 Transaminitis R74.01
[2022-04-08 20:39] LABS: Glucose Point of Care 280 mg/dL (70-110)
[2022-04-08] MEDS: aspirin 81 mg Chew Tablet PO (21:42)
[2022-04-09 04:10] LABS: Glucose Point of Care 115 mg/dL (70-110)
[2022-04-09 04:11] VITALS: BP 133/70; PULSE 85; RESP 24; TEMP 36.6; O2SAT 98
[2022-04-09 04:18] LABS: Basophils % 0.2 %; Eosinophils # 0.1 10^3/uL (0.0-0.8); Eosinophils % 0.4 %; Hematocrit 43.3 % (42.0-52.0); Hemoglobin 13.1 g/dL (11.7-16.6); Lymphocytes # 1.7 10^3/uL (0.8-4.8); Lymphocytes % 14.8 %; Mean Corpuscular HGB Conc 30.3 g/dL (30.0-36.0); Mean Corpuscular Hemoglobin 32.8 pg (28.0-34.0); Mean Corpuscular Volume 108.5 fl (80-94); Mean Platelet Volume 11.3 fL (7.4-10.4); Monocytes # 1.3 10^3/uL (0.2-0.9); Monocytes % 11.3 %; Neutrophils # 7.91 10^3/uL (1.8-7.7); Neutrophils % 70.6 %; Nucleated Red Blood Cells % 0 %; Platelet Count 130 10^3/cmm (130-400); Red Blood Count 3.99 10^6/uL (4.1-5.3); Red Cell Distribution Width 12.4 % (12.1-15.1); White Blood Count 11.2 10^3/uL (4.0-10.0)
[2022-04-09 04:40] LABS: Alanine Aminotransferase 47 U/L (0-41); Albumin Level 2.8 g/dL (3.5-5.2); Alkaline Phosphatase 108 U/L (40-130); Blood Urea Nitrogen 20 mg/dL (8-23); Calcium 9.1 mg/dL (8.5-10.5); Globulin 2.6 g/dL (1.3-4.6); Glomerular Filtration Rate 168.5 mL/min (90-130); Glucose 101 mg/dL (65-115); Total Bilirubin 0.4 mg/dL (0.15-1.2); Total Protein 5.4 g/dL (6.6-8.7)
[2022-04-09] MEDS: acetaminophen 325 mg Tablet 650 MG PO (04:45)
[2022-04-09 05:03] LABS: Chloride 94 mmol/L (98-107); Osmolality Calculated 293 mOsm/kg (285-295); Sodium 140 mmol/L (136-145)
[2022-04-09 05:10] LABS: Aspartate Amino Transferase 39 U/L (0-40)
[2022-04-09 05:11] LABS: Carbon Dioxide 44 mmol/L (22-29)
[2022-04-09 07:56] VITALS: PULSE 110; RESP 20; O2SAT 97
[2022-04-09] MEDS: ipratropium-albuterol 3 mL Neb INHALATION (07:56)
[2022-04-09 08:00] VITALS: BP 157/81; PULSE 94; RESP 16; TEMP 36.8; O2SAT 98
[2022-04-09 08:02] VITALS: PULSE 114
[2022-04-09] MEDS: predniSONE 20 mg Tablet 40 MG PO (08:37)
[2022-04-09] MEDS: nicotine 14 mg Patch 1 PATCH TRANSDERMA (08:37)
[2022-04-09] MEDS: pantoprazole DR 40 mg Tablet PO (08:37)
[2022-04-09] MEDS: DULOXETINE 30 MG PO (08:37)
[2022-04-09] MEDS: gabapentin 400 mg Capsule PO (08:37)
[2022-04-09] MEDS: heparin 5,000 unit/mL INJ 1 mL 5000 UNIT SUBCUT (08:37)
[2022-04-09 10:39] VITALS: BP 157/81; PULSE 94; RESP 16; TEMP 36.8; O2SAT 98
[2022-04-09 11:06] LABS: Glucose Point of Care 202 mg/dL (70-110)
--- NOTE | 2022-04-09 11:30 | PM.DCS ---
Discharge Providers Date of Admission: 04/02/22 20:17 Date of Discharge: April 09, 2022 Attending Provider at Admission: Rodolfo Ohara Attending Provider at Discharge: Mikhail Holguin MD Primary Care Provider: Shukri Collins DO Diagnoses at Discharge Discharge Diagnosis (1) COPD exacerbation: Status: Acute (2) Acute hypercapnic respiratory failure: Status: Acute (3) Pneumonia: Status: Acute (4) Shock: Status: Acute (5) Altered mental status: Status: Acute (6) NSTEMI (non-ST elevated myocardial infarction): Status: Acute (7) Coronary artery disease: Status: Acute (8) CAMI (acute kidney injury): Status: Acute (9) Transaminitis: Status: Acute Reason for Visit Reason for Visit: SOB Hospital Course Hospital Course 62-year-old gentleman with history of COPD, on chronic 2 L nasal cannula oxygen, CAD, status post CABG about 7 years ago, history of colovesical fistula resection in 2017, subsequently vesicocutaneous fistula after abdominal infection which closed spontaneously with intravenous antibiotics, residual hernia which has recently been bothering him with some abdominal pain for which she presented to ER on 03/[address] abdomen pelvis was unremarkable, at that time was noted to have troponin abnormality, some T wave changes, encouraged to stay in the hospital for further cardiac work-up, but declined wanting to stay in the hospital, additionally following with urology with regards to possible prostate cancer with PSA elevation, following expectantly as found not a good candidate for chemotherapy or radiation, additionally recently has been overall feeling down regarding his unimproving condition, feeling depressed, although without any thoughts or intention of self-harm, recently for reports from family was experiencing more shortness of breath, cough, similar to COPD exacerbation previously, last known well was probably around Saturday time, after that family attempted to contact him [place] assessable, today family came to check on him, and found him confused/unresponsive, in respiratory distress.? In ER found to have ANO x0, confused, occasionally answering question.? With sinus tachycardia, afebrile, tachypneic, wheezing, was intubated, given breathing treatment, Solu-Medrol dose, with noted leukocytosis 12.7, possible pneumonia on chest x-ray with right basilar infiltrate, empirically started on vancomycin, cefepime, received also azithromycin.? Received IV fluid challenge bolus.? Initial ABG pH 7.25, PCO2 93.7.? Lactic acid 3.? Requested completion of 30 mL/kg fluid bolus.? Noted persistently tachycardic, following intubation blood pressure with some decrease, mean fluctuating around [address] head unremarkable.? CT angiogram of the chest performed as well with bronchitis and bronchopneumonia.? Emphysema.? No evidence of PE. First troponin with mild elevation at 30.? EKG with sinus tachycardia, concern for some ST abnormality, although difficult to interpret, with some LVH like changes with strain pattern, discussed with ER physician, cardiology, not obvious ST elevation at this time but needs additional diagnostic studies with follow-up EKG, troponin.? He has continued smoking.? Last stress test in July of 2020 with moderate area of persistent decreased uptake in apical segments with subtle area of reversibility in apical anterior and apical lateral region, suggestive of myocardial scarring in the distribution of distal LAD and circumflex arteries with very subtle areas of chris-infarct ischemia.? EF appearing normal at 51%.? Has not had any additional stress test since then. Noted also acute kidney injury, BUN 59, creatinine 1.3.? Noted some chronic elevation of AST, ALT, currently 42, 46 respectively, alk phos on chronic ovation as well, currently 156.? History of hepatitis C, RNA not detected in March 2020.? COVID-19 PCR was obtained and pending.? Lipase 25.? UA was requested, pending. Remote history of drug use disorder, although reportedly has not relapsed in the last 2 years.? Urine drug screen requested.? Family unaware of any stated or suspected self-harm with depression. He did not want to come to the hospital as per reports, although as per prior discussions in case of potential reversible condition would likely want current level of treatment, however, although it is a difficult thought for them state in case of cardiac arrest would likely not have wanted chest compressions/CPR as per discussion with his family members at bedside. Patient was admitted to Center for acute hypoxic respiratory failure, with septic shock, acute encephalopathy, NSTEMI, pneumonia, COPD exacerbation. Patient required ICU admission, intubation, mechanical ventilation, broad-spectrum antibiotic therapy. Patient overall clinically improved, was extubated, moved on ICU, antibiotic therapy was de-escalated, mentation significantly improved. On discharge patient is to follow-up with pulmonary for pulmonary nodule, follow-up with cardiology for cardiac stress testing consideration, he also was found to have potential PAD, follow-up with outpatient physician for consideration of duplex study. Physical Exam Const: COMMON NORMALS: no acute distress and patient oriented x3 Resp: COMMON NORMALS: normal respiratory effort, No retractions, No use of accessory muscles and clear to auscultation bilaterally AUSCULTATION: clear to auscultation bilaterally Cardio: COMMON NORMALS: regular rate, regular rhythm, S1 normal heart sound present and S2 normal heart sound present RATE: regular rate RHYTHM: regular rhythm HEART SOUNDS: S1 normal heart sound present and S2 normal heart sound present GI: COMMON NORMALS: Normal to inspection, nondistended, normoactive bowel sounds present, non-tender and no masses Extremity: COMMON NORMALS: no pedal edema Neuro: COMMON NORMALS: patient oriented x3 Psych: COMMON NORMALS: mental status grossly normal Urinary Catheter Management: Thompson: Cath Placed During This Visit: yes Reason for Continuing Indwelling Catheter: Acute Urinary Retention or Obstruction Urinary Catheter Date of Insertion: 04/02/22 Urinary Catheter Time of Insertion: 18:29 Discharge Data Studies Completed and Pending Completed Studies During Hospitalization Category Date Time Status CT abdomen pelvis wo con [id number] Stat Cat Scan 04/02/22 18:[address] head wo con* [id number] Stat Cat Scan 04/02/22 16:36 Completed CTA chest [CT angio chest PE protcl [id number]] Stat Cat Scan 04/02/22 16:48 Completed CXRP [XR chest 1V portable [id number]] Stat Exams 04/02/22 16:05 Completed XR chest 1V portable [id number] AM LABS Exams 04/06/22 04:00 Completed XR chest 1V portable [id number] Routine Exams 04/04/22 09:51 Completed XR chest 1V portable [id number] Routine Exams 04/05/22 04:17 Completed XR foot RT 2V [id number] Routine Exams 04/03/22 13:30 Completed CV. echo limited [id number] Stat Ultrasound 04/02/22 18:56 Completed Pending at discharge Category Date Time Status Amphetamine Confirmation, GC/M Routine Lab 04/03/22 08:14 Received Complete Blood Count w/Auto AM LABS Lab 04/10/22 04:00 Ordered Complete Blood Count w/Auto AM LABS Lab 04/11/22 04:00 Ordered Radiology Impressions Head CT 04/02/22 16:36 IMPRESSION: No acute intracranial finding. Chest CTA 04/02/22 16:48 IMPRESSION: 1. Bronchitis and bronchopneumonia. 2. Emphysema 3. No evidence of pulmonary embolism. REFERENCES: Hermelindo Shah et al. Guidelines for Management of Incidental Pulmonary Nodules Detected on CT Images: From the Fleischner Society 2017. Radiology. 2017;284(1):228-243. Abdomen/Pelvis CT 04/02/22 18:51 IMPRESSION: 1. Persistent nephrogram which could be part of the hypoperfusion complex 2. Possible malposition of the left femoral venous catheter. 3. Pneumonia is seen on prior CT scan of the chest Foot X-Ray 04/03/22 13:30 IMPRESSION: 1. Findings suspicious for a nondisplaced fracture of the proximal phalanx of the fifth toe. Chest X-Ray 04/06/22 04:00 IMPRESSION: 1. Chronic pulmonary changes. No acute process noted. Laboratory Results WBC 11.2 10^3/uL (4.0-10.0) H 04/09/22 03:53 Corrected WBC Cancelled 04/04/22 03:58 RBC 3.99 10^6/uL (4.1-5.3) L 04/09/22 03:53 Hgb 13.1 g/dL (11.7-16.6) 04/09/22 03:53 Hct 43.3 % (42.0-52.0) 04/09/22 03:53 MCV 108.5 fl (80-94) H 04/09/22 03:53 MCH 32.8 pg (28.0-34.0) 04/09/22 03:53 MCHC 30.3 g/dL (30.0-36.0) 04/09/22 03:53 RDW 12.4 % (12.1-15.1) 04/09/22 03:53 Plt Count 130 10^3/cmm (130-400) 04/09/22 03:53 MPV 11.3 fL (7.4-10.4) H 04/09/22 03:53 Gran % Cancelled 04/04/22 03:58 Neut % (Auto) 70.6 % 04/09/22 03:53 Lymph % (Auto) 14.8 % 04/09/22 03:53 Glades % (Auto) 11.3 % 04/09/22 03:53 Eos % (Auto) 0.4 % 04/09/22 03:53 Baso % (Auto) 0.2 % 04/09/22 03:53 Neut # (Auto) 7.91 10^3/uL (1.8-7.7) H 04/09/22 03:53 Lymph # (Auto) 1.7 10^3/uL (0.8-4.8) 04/09/22 03:53 Glades # (Auto) 1.3 10^3/uL (0.2-0.9) H 04/09/22 03:53 Eos # (Auto) 0.1 10^3/uL (0.0-0.8) 04/09/22 03:53 Baso # (Auto) 0.0 10^3/uL (0.0-0.1) 04/09/22 03:53 Absolute Gran (auto) Cancelled 04/04/22 03:58 Nucleated RBC % (auto) 0 % 04/09/22 03:53 Nucleated RBCs # 0.0 /100WBC 04/09/22 03:53 APTT 57.7 SECONDS (23.9-36.7) H 04/03/22 04:03 Specimen Type Arterial 04/04/22 05:58 Sample Site Brachial, right 04/04/22 05:58 ABG pH 7.40 (7.35-7.45) 04/04/22 05:58 ABG pCO2 59.1 mmHg (35-45) H 04/04/22 05:58 ABG pO2 73.7 mmHg (80.0-100.0) L 04/04/22 05:58 ABG HCO3 36.4 mmol/L (22-26) H 04/04/22 05:58 ABG O2 Saturation 93.9 04/04/22 05:58 ABG Base Excess 9.3 mmol/L (-2.0-2.0) H 04/04/22 05:58 Miguel Test N/a 04/04/22 05:58 A-a O2 Gradient 18.7 mmHg (5-10) H 04/04/22 05:58 Hematocrit 42.5 % (42-52) 04/04/22 05:58 Hgb O2 Saturation 93.5 % (95-100) L 04/04/22 05:58 Carboxyhemoglobin < 1.0 %THgb (0.4-20.1) 04/04/22 05:58 Methemoglobin 0.4 % (0.4-1.5) 04/04/22 05:58 Total Hemoglobin 13.9 g/dL (14-18) L 04/04/22 05:58 Sodium 137.0 mmol/L (131-143) 04/04/22 05:58 Potassium 3.9 mmol/L (3.5-5.0) 04/04/22 05:58 Glucose 206.0 mg/dL (70-115) H 04/04/22 05:58 Ionized Calcium 1.3 mmol/L (1.1-1.4) 04/04/22 05:58 O2 Delivery Device Vent 04/04/22 05:58 O2 Liters/Min 15.0 % 04/02/22 16:20 FiO2 40.0 % 04/04/22 05:58 Tidal Volume 0.45 04/04/22 05:58 PEEP 8.0 cmH20 04/04/22 05:58 [employer] Viraj 04/04/22 05:58 Sodium 140 mmol/L (136-145) 04/09/22 03:53 Potassium 5.0 mmol/L (3.5-5.1) 04/09/22 03:53 Chloride 94 mmol/L (98-107) L 04/09/22 03:53 Carbon Dioxide 44 mmol/L (22-29) H* 04/09/22 03:53 Anion Gap 7.0 (5-19) 04/09/22 03:53 BUN 20 mg/dL (8-23) 04/09/22 03:53 Creatinine 0.5 mg/dL (0.7-1.2) L 04/09/22 03:53 GFR Calculation 168.5 mL/min (90-130) H 04/09/22 03:53 Glucose 101 mg/dL (65-115) 04/09/22 03:53 POC Glucose 202 mg/dL (70-110) H 04/09/22 10:56 Calculated Osmolality 293 mOsm/kg (285-295) 04/09/22 03:53 Lactate 3.0 mmol/L (0.5-2.2) H 04/02/22 16:05 Calcium 9.1 mg/dL (8.5-10.5) 04/09/22 03:53 Magnesium 2.0 mg/dL (1.7-2.3) 04/09/22 03:53 Total Bilirubin 0.4 mg/dL (0.15-1.2) 04/09/22 03:53 AST 39 U/L (0-40) 04/09/22 03:53 ALT 47 U/L (0-41) H 04/09/22 03:53 Alkaline Phosphatase 108 U/L (40-130) 04/09/22 03:53 Ammonia 25 umol/L (16-60) 04/02/22 17:16 Troponin T Baseline 30 ng/L (0-15) H 04/02/22 17:16 Troponin T 120 Minute 38.81 ng/L (0-15) H 04/02/22 19:00 Delta Troponin T 8.81 ABS# (0-10) 04/02/22 19:00 Troponin T Hi Sens 6Hr 32.20 ng/L (0-15) H 04/02/22 22:30 Troponin T Hi Sens 6Hr Delta 2.20 ng/L (0-12) 04/02/22 22:30 NT-Pro-B Natriuret Pep 1136 pg/mL (0-125) H 04/02/22 17:16 Total Protein 5.4 g/dL (6.6-8.7) L 04/09/22 03:53 Albumin 2.8 g/dL (3.5-5.2) L 04/09/22 03:53 Globulin 2.6 g/dL (1.3-4.6) 04/09/22 03:53 Lipase 25 U/L (13-60) 04/02/22 17:16 Procalcitonin 0.83 ng/mL (0-0.5) H 04/02/22 17:16 TSH 3.76 uIU/mL (0.27-4.20) 04/02/22 17:16 Free T4 0.84 ng/dL (0.82-1.77) 04/02/22 17:16 Urine Color Yellow (Yellow) 04/02/22 20:41 Urine Appearance Clear (CLEAR) 04/02/22 20:41 Urine pH 5 (5-7) 04/02/22 20:41 Ur Specific [place] 1.005 (1.005-1.030) 04/02/22 20:41 Urine Protein Trace (Negative) 04/02/22 20:41 Urine Glucose (UA) Norm (Normal) 04/02/22 20:41 Urine Ketones Trace (Negative) H 04/02/22 20:41 Urine Blood Neg (Negative) 04/02/22 20:41 Urine Nitrate Negative (Negative) 04/02/22 20:41 Urine Bilirubin Neg (Negative) 04/02/22 20:41 Urine Urobilinogen Norm mg/dL (Negative) 04/02/22 20:41 Ur Leukocyte Esterase Negative (Negative) 04/02/22 20:41 Urine RBC 0-4 /hpf (0-2) H 04/02/22 20:41 Urine WBC None /hpf (0-5) 04/02/22 20:41 Ur Squamous Epith Cells 0-4 /hpf (0-5) H 04/02/22 20:41 Amorphous Sediment 1+ /hpf 04/02/22 20:41 Urine Bacteria None /hpf (NONE) 04/02/22 20:41 Hyaline Casts 0-4 /lpf H 04/02/22 20:41 Vancomycin Trough 18.0 ug/mL (10-15) H 04/04/22 23:02 Salicylates < 0.3 mg/dL (3-10) L 04/02/22 17:16 Urine Opiates Screen Negative ng/mL (Negative) 04/02/22 20:41 Acetaminophen < 5.0 ug/mL (10-30) L 04/02/22 17:16 Ur Barbiturates Screen Negative ng/mL (Negative) 04/02/22 20:41 Ur Phencyclidine Scrn Negative ng/mL (Negative) 04/02/22 20:41 Ur Amphetamines Screen Positive ng/mL (Negative) H 04/02/22 20:41 U Benzodiazepines Scrn Positive ng/mL (Negative) H 04/02/22 20:41 Urine Cocaine Screen Negative ng/mL (Negative) 04/02/22 20:41 U Marijuana (THC) Screen Positive ng/mL (Negative) H 04/02/22 20:41 Ethyl Alcohol < 10 mg/dL (0-10) 04/02/22 19:00 Coronavirus 229E (PCR) Not detected (NOT DETECT) 04/02/22 Unknown Influenza Type A Ag Negative (Negative) 04/02/22 23:00 Influenza Type B Ag Negative (Negative) 04/02/22 23:00 SARS-CoV-2 (PCR) Not detected (NOT DETECT) 04/02/22 Unknown Vitals Last Vital Signs Temp 98.3 F 04/09/22 10:39 Pulse 94 04/09/22 10:39 Resp 16 04/09/22 10:39 BP 157/81 04/09/22 10:39 Pulse Ox 98 04/09/22 10:39 O2 Del Method 04/09/22 08:00 O2 Flow Rate 3 04/09/22 08:00 FiO2 40 04/05/22 08:00 Discharge Plan Discharge Patient Disposition: Home Health Service Condition: Stable Prescriptions: New nicotine 14 mg/24 hr Patch 24 Hour 1 patch transdermal DAILY Qty: 90 0RF prednisone 20 mg Tablet 40 mg PO DAILY Qty: 10 0RF Rx Instructions: 2 tab for 3 days, then 1 tab for 3 days, then 1/2 tab for 2 days. levofloxacin 750 mg Tablet 750 mg PO Q24H Qty: 7 0RF Continued yhzjmmzchwte-djtpfzav-xmhjnz Tablet 1 tab PO DAILY aspirin 325 mg tablet 325 mg PO DAILY ovsrpne-sebwczsrqdlyb-pjqqhbeb Tablet 1 tab PO Q6H PRN (Reason: Headache) jet alert 1 tab PO DAILY nitroglycerin 0.4 mg tablet, sublingual 0.4 mg sublingual Q5M PRN (Reason: chest pain) Qty: 20 1RF Rx Instructions: do not exceed 3 doses per episode. gabapentin 800 mg tablet 400 mg PO BID Qty: 30 0RF Rx Instructions: Take 1/2 tab 2 times a day for chronic pain. diazepam 5 mg tablet 5 mg PO BID PRN (Reason: anxiety) 7 Days Qty: 14 0RF albuterol sulfate 2.5 mg /3 mL (0.083 %) solution for nebulization 2.5 mg INHALATION Q4H PRN (Reason: shortness of breath or wheezing) Qty: 3 0RF albuterol sulfate [ProAir HFA] 90 mcg/actuation HFA aerosol inhaler 2 inh INHALATION QID PRN (Reason: shortness of breath or wheezing) Qty: 18 0RF fluticasone propionate 50 mcg/actuation spray,suspension 2 spray intranasal DAILY 180 Days Qty: 16 5RF Rx Instructions: administer into each nostril fluticasone propion-salmeterol [Advair Diskus] 250-50 mcg/dose blister with device 1 inh inhalation BID Qty: 60 3RF Lantus Solostar U-100 Insulin 100 unit/mL (3 mL) insulin pen See Rx Instructions .ROUTE .COMPLEX Qty: 15 0RF Dose Instruction: INJECT 10 UNITS SUBCUTANEOUSLY TWO TIMES DAILY Rx Instructions: INJECT 10 UNITS SUBCUTANEOUSLY TWO TIMES DAILY omeprazole 20 mg capsule,delayed release(DR/EC) 20 mg PO DAILY metformin 500 mg tablet extended release 24 hr 500 mg PO BID duloxetine 60 mg capsule,delayed release(DR/EC) 60 mg PO DAILY Held lisinopril 20 mg tablet 20 mg PO BID Qty: 60 3RF Hold Instructions: Resume on 04/21/22. Discharge Orders: Discharge Order (Routine); Ordered 04/07/22 Ordered By: Rodolfo Ohara Other Ambulatory Orders: [place] [id number] (Routine) Timeframe: 2 Weeks Facility: [facility] - Location: Radiology Ordered By: Rodolfo Ohara Sestamibi Stress Test Request (Routine) Timeframe: 1 Week Facility: [facility] - Location: Cardiac Diagnostic Laboratory Ordered By: Rodolfo Ohara Referrals: [facility] [Outside] Shukri Collins DO [Primary Care Provider] - 04/11/22 8:15 am () Amandeep Gomez MD [Physician] - 2 weeks Roxana Allen MD [Physician] - 04/18/22 3:15 pm Discharge Diet: Cardiac and Diabetic Discharge Activity: Increase activity as tolerated and As per PT/OT instructions Patient Instructions: Prednisone (By mouth), Levofloxacin (By mouth), How to Stop Smoking (GEN), Cigarette Smoking and Your Health (GEN), COPD (Chronic Obstructive Pulmonary Disease) (GEN), Bacterial Pneumonia (GEN), Fall Prevention (GEN) Activity Restrictions/Additional Instructions: Complete antibiotic course for pneumonia with pseudomonal respiratory infection, COPD exacerbation. Complete prednisone taper. Continue nebulizer treatments at home. Continue oxygen, wean down as tolerating gradually down to her usual 2 L nasal cannula flow. Maintain target oxygen saturation 88-92%. Please have your primary doctor follow-up your kidney function, liver function to confirm resolution of kidney injury, transaminitis. Please follow-up with stress test due to risk factors of coronary disease, mild troponin normality during sepsis.DARREN WILL CALL WITH APPOINTMENT FOR STRESS TEST ALSO ULTRA SOUND. Please continue to attempt to quit smoking, continued smoking exposure to further risk of deterioration of lung function, heart attack, stroke, cancer and other comorbidities. Please follow-up with your primary doctor regarding assessment of arterial perfusion in the right leg. Discuss with your primary doctor regarding old fracture in the right fifth toe. Continue follow-up regarding depression. In case any worsening depression or if you ever were to develop any thoughts of self-harm seek medical attention immediately. Keep track of any symptoms with resuming of duloxetine. If you notice any unusual symptoms with resuming your normal dose, discussed with your doctor with consideration of changing the dose or the medication. Please follow-up with your primary doctor regarding 5 x 8 mm lung nodule. Discharge Attestations Time Spent in Discharge Care*: less than 30 min Status at Discharge: Cognitive status at discharge: cognitively intact, Behavioral status at discharge: cooperative, Quality Metrics Clinical Quality Measures [ No reported AMI, CVA or VTE this stay] Coding Level of Care Code Acute Chg FW DC note Exam Detailed Diagnoses COPD exacerbation J44.1 Acute hypercapnic respiratory failure J96.02 Pneumonia J18.9 Shock R57.9 Altered mental status R41.82 NSTEMI (non-ST elevated myocardial infarction) I21.4 Coronary artery disease I25.10 CAMI (acute kidney injury) N17.9 Transaminitis R74.01
[2022-04-09 11:57] LABS: Amphetamine 270 ng/mL; Methamphetamine 860 ng/mL; Methylenedioxyamphetamine negative; Methylenedioxyethylamphetamine negative; Methylenedioxymethamphetamine negative
== END 2022-04-09 11:30 | disposition home health service (06) | DRG 871 ==
LOC: ER 16:55 → ICU 18:24 → MEDSURG 04-06 15:49
PROVIDERS: Internal Medicine Pulmonary Disease; Admitting Provider Internal Medicine; Emergency Provider Emergency Medicine; PCP Family Medicine; Visit Provider Family Medicine
DX: A41.9 Sepsis, unspecified organism (principal); G93.41 Metabolic encephalopathy; R65.21 Severe sepsis with septic shock; J15.1 Pneumonia due to Pseudomonas; J96.22 Acute and chronic respiratory failure with hypercapnia; N17.0 Acute kidney failure with tubular necrosis; L03.115 Cellulitis of right lower limb; E87.29 Other acidosis; J43.2 Centrilobular emphysema; K21.9 Gastro-esophageal reflux disease without esophagitis; I25.10 Atherosclerotic heart disease of native coronary artery without angina pectoris; Z95.1 Presence of aortocoronary bypass graft; E78.5 Hyperlipidemia, unspecified; I10 Essential (primary) hypertension; I25.5 Ischemic cardiomyopathy; F32.9 Major depressive disorder, single episode, unspecified; Z90.49 Acquired absence of other specified parts of digestive tract; F17.210 Nicotine dependence, cigarettes, uncomplicated; Z99.81 Dependence on supplemental oxygen; Z79.84 Long term (current) use of oral hypoglycemic drugs; Z79.4 Long term (current) use of insulin; Z79.51 Long term (current) use of inhaled steroids; S92.514D Nondisplaced fracture of proximal phalanx of right lesser toe(s), subsequent encounter for fracture with routine healing; X58.XXXD Exposure to other specified factors, subsequent encounter; F12.90 Cannabis use, unspecified, uncomplicated; F15.90 Other stimulant use, unspecified, uncomplicated; R91.1 Solitary pulmonary nodule; E11.22 Type 2 diabetes mellitus with diabetic chronic kidney disease; N18.9 Chronic kidney disease, unspecified; E11.51 Type 2 diabetes mellitus with diabetic peripheral angiopathy without gangrene; E11.40 Type 2 diabetes mellitus with diabetic neuropathy, unspecified; Z86.19 Personal history of other infectious and parasitic diseases; R97.20 Elevated prostate specific antigen [PSA]
CPT/HCPCS: 36415; 36416; 36592; 36600; 51702; 70450; 71045; 71275; 73620; 74176; 80048; 80051; 80053; 80202; 80306; 80307; 80324; 80359; 81001; 82140; 82330; 82803; 82805; 82962; 83605; 83690; 83735; 83880; 84145; 84439; 84443; 84484; 85018; 85025; 85730; 86403; 87040; 87070; 87077; 87186; 87205; 87449; 87635; 87641; 87804; 92507; 92523; 92526; 92610; 93005; 93308; 94002; 94003; 94640; 94799; 96365; 96367; 96372; 96375; 97110; 97116; 97161; 99291; A4570; C1751; C9113; J0456; J0692; J1644; J1720; J1815; J1940; J1956; J2704; J2920; J2930; J3010; J3370; J3490; J7050; J7512; Q9967; S0030